=== PATIENT | female | born 1985 | race Caucasian/White ===

== ENCOUNTER 2022-03-20 18:46 | Emergency (ER) | payer MEDICAID, SELFPAY ==
[2022-03-20 19:04] VITALS: BP 123/72; BP 160/88; PULSE 107; PULSE 90; RESP 16; TEMP 36.3; O2SAT 97; BMI 24.3
--- NOTE | 2022-03-20 19:34 | ED.ASTHMA ---
HPI - Asthma General Chief Complaint: Anxiety Stated Complaint: ANXIETY S/P EATING MUSHROOMS PER EMS Time Seen by Provider: 03/20/22 20:31 Source: patient, family (Significant other at bedside) and EMS Mode of arrival: EMS Limitations: no limitations History of Present Illness HPI Narrative: 36yoF with PMHx of asthma presenting to the ED with complaints of cough and wheezing that started prior to arrival. She initially came by EMS after she ate some shrooms and was having some anxiety from it. She denies any fevers, chest pain, dyspnea on exertion, abdominal pain or any other symptoms complaints or concerns at this time. MD complaint: asthma attack and wheezing Onset (ago): hour(s) (Prior to arrival) Severity: mild Context: other (After taking shrooms) Associated symptoms: dry cough (/wheezing) Asthma History: childhood onset Treatments Prior to Arrival: inhaled bronchodilator Related Data Current Asthma Therapy: inhaled bronchodilator Previous Rx's Medication Instructions Recorded prednisone 20 mg tablet 40 mg PO DAILY 5 days #10 tabs 03/20/22 Allergies Allergy/AdvReac Type Severity Reaction Status Date / Time No Known Allergies Allergy Verified 03/20/22 19:36 Review of Systems Review of Systems: Constitutional : denies med noncompliance, no history of PE or DVT, denies recent travel, No Fever, No Chills ENT/Mouth : No Hoarseness, No sore throat, No Rhinorrhea, No Nasal congestion, No Sinus Pressure, No Ear Pain, No stridor, Eyes: No Redness, No Discharge, No Vision Changes Cardiovascular : No Chest Pain, No SOB, No Dyspnea on Exertion, No Edema, no pleurisy, Respiratory : + Cough, + wheezing, No Sputum, no stridor, no hemoptysis, Gastrointestinal : No Nausea, No Vomiting, No Diarrhea, No abdominal Pain Genitourinary : No Dysuria, No Hematuria Musculoskeletal : No joint pain/swelling, No Myalgias Extremities: no extremity swelling /pain Skin : No rash, no itching, no swelling Neuro : No Weakness, No Numbness, No Headache, No Dizziness, No Paresthesias Psych : + anxiety, depression Heme/Lymph: No Bruising, No Bleeding Endocrine : No Polyuria, No Polydipsia Yes all other systems are reviewed and are negative PMFSH Past Medical History Attestation statement: The following information was validated with the patient. Source: old records reviewed, obtained from family and nursing notes reviewed Social History Social History Advance Directives: No Advance Directives Information Provided: No Physical Exam Vital Signs: Vital Signs: Last Vital Signs Temp 97.3 F 03/20/22 19:04 Pulse 107 H 03/20/22 19:04 Resp 16 03/20/22 19:04 BP 123/72 03/20/22 19:04 Pulse Ox 97 03/20/22 19:04 O2 Del Method 03/20/22 19:04 BMI result Body Mass Index 24.3 vital signs have been reviewed Blood pressure normal. Heart rate 107. Respiration normal. Oxygen saturation normal. Appearance: Alert. Oriented X3. No acute distress. Head: Normal external exam. Normocephalic. Atraumatic. Eyes: PERRLA. EOMI. Conjunctiva and sclera normal. Eyelids normal. ENT: EAC normal. TM's Normal. Pharynx normal. Uvula midline. Moist mucous membranes. No trismus noted. No drooling noted. No muffled voice noted. No stridor noted. Patient tolerating secretions well. Neck: Normal inspection. Neck supple. FROM. No adenopathy. Thyroid Normal. No meningeal signs. No neck mass noted. CVS: Normal heart rate and rhythm. Heart sound normal. Pulses normal throughout. No murmurs/rales/gallops. Respiratory: No respiratory distress. Painless inspiration. Breath sounds normal. No wheezes/rales/rhonchi noted. Chest nontender. No accessory muscle usage noted or decreased air movement noted. Normal chest excursions noted. Abdomen: Soft and nontender. Bowel sounds normal in all 4 quadrants. No distention noted. No organomegaly noted. No visible injury noted. Back: No CVA tenderness. Full range of motion noted. No rashes/lesion/induration/fluctuance or signs of infection noted. Skin: Skin warm and dry. Normal skin color. Normal skin turgor. No rashes/lesions/lacerations noted. Extremities: No lower extremity edema. Extremities exhibit normal range of motion. Extremities nontender. Neuro: Oriented X 3. No motor deficit. No sensory deficit. Reflexes normal. Normal steady gait. No focal neuro deficits noted. Vascular: + radial pulses/+ 2 distal pedal pulses/+2 dorsalis pedis b/l. Normal cap refill. No cyanosis noted to upper extremity nails and lower extremity toes nails. Course Course Course Narrative: ZHEN- 19:35PM - 36yoF with PMHx of asthma presenting to the ED with complaints of cough and wheezing that started prior to arrival. She initially came by EMS after she ate some stones and was having some anxiety from it. She denies any fevers, chest pain, dyspnea on exertion, abdominal pain or any other symptoms complaints or concerns at this time. Plan: Will obtain COVID/RSV/flu swab, chest x-ray. Provide 60 mg of prednisone and 4 puffs of albuterol inhaler. Reevaluation(s) Reevaluation #1: Patient refused COVID/RSV/flu swab and chest x-ray. Reports she feels much better after the albuterol inhaler 4 puffs and the 60 mg of prednisone. Denies any SI or HI or auditory or visual hallucination. Reports that she has a sober ride home. Requesting to go home. Therefore at this time will DC home with instructions return if any new worsening symptoms and a 5 day course of prednisone. Patient understands agrees with this plan. Time: 20:52 Medications Administered Discontinued Medications Generic Name Dose Route Start Last Admin Trade Name Clarissa PRN Reason Stop Dose Admin Albuterol Sulfate 4 puff 03/20/22 19:36 03/20/22 20:02 Albuterol Sulfate 90 Mcg 8 Gm Inhaler INHALE 03/20/22 19:37 3 puff ONCE ONE Administration Prednisone 60 mg 03/20/22 19:36 03/20/22 20:02 Prednisone 20 Mg Tablet PO 03/20/22 19:37 60 mg ONCE ONE Administration Medical Decision Making Independent Historian Clinical information obtained from an independent historian. History obtained from or confirmed by: Spouse Prescription Management I considered prescription management with: Other (Steroids prednisone) Discharge Plan Discharge Clinical Impression: Acute anxiety, Asthma exacerbation Patient Disposition: Home, Self-Care Instructions: Asthma (ED), Anxiety (ED) Prescriptions: New prednisone 20 mg tablet 40 mg PO DAILY 5 Days Qty: 10 0RF Referrals: Uvaldo Mace MD [Primary Care Provider] - 2 days
[2022-03-20] MEDS: Albuterol Sulfate 90 MCG 8 GM INHALER 4 PUFF INHALE (20:02)
[2022-03-20] MEDS: predniSONE 20 MG TABLET 60 MG PO (20:02)
== END 2022-03-20 20:50 | disposition home or self-care (01) ==
PROVIDERS: Emergency Provider Internal Medicine; PCP Internal Medicine
DX: F41.9 Anxiety disorder, unspecified (principal); J45.901 Unspecified asthma with (acute) exacerbation
CPT/HCPCS: 99282; 99283; 99284

== ENCOUNTER 2022-12-24 03:44 | Inpatient (IN) | payer OTHER, SELFPAY ==
[2022-12-24] VITALS (8 sets, daily range): BP systolic 121–144; BP diastolic 73–90; PULSE 99–126; RESP 12–22; TEMP 36.8–37.2; O2SAT 96–99; BMI 30.9; BMI 34.1; BMI 32.0
--- NOTE | 2022-12-24 03:54 | ECG_ITS ---
Test Reason : MITCHD Blood Pressure : / mmHG Vent. Rate : 113 BPM Atrial Rate : 113 BPM P-R Int : 140 ms QRS Dur : 076 ms QT Int : 320 ms P-R-T Axes : 056 076 051 degrees QTc Int : 438 ms Sinus tachycardia RSR' or QR pattern in V1 suggests right ventricular conduction delay Otherwise normal ECG No previous ECGs available Referred By: Generic ED Physician Electronically Signed By:SHANEKA ZUNIGA MD
--- NOTE | 2022-12-24 04:36 | PC.NURSE ---
pt rabia from home reporting onset of chest pain since 630pm yesterday. pt reports she had a drink around 630pm and she gets similar symptoms due to withdrawl. pt currently reporting midsternal chest pain and right and left sided abdominal pain. pt denies n/v/d. pt reports she used to drink a pint of liquor a day but has been trying to quit. pt sinus tachy on tele 106-108.
[2022-12-24 04:57] LABS: MANUAL DIFF FLAG NO
[2022-12-24 04:58] LABS: Basophils Absolute Auto 0.1 X10*3/uL (0.0-0.2); Basophils Percent Auto 0.8 % (0-2); Eosinophils Absolute Auto 0.1 X10*3/uL (0.0-0.4); Eosinophils Percent Auto 0.8 % (0-4); Hematocrit 41.1 % (37.0-47.0); Hemoglobin 14.2 g/dl (12.0-16.0); Imm Gran Abs Auto 0.01 X10*3/uL (0.00-0.03); Imm Gran Pct Auto 0.1 % (0.0-0.4); Lymphocytes Absolute Auto 2.1 X10*3/uL (1.2-4.9); Lymphocytes Percent Auto 25.9 % (20-40); Mean Corpuscular HGB Conc 34.5 g/dl (31.0-35.0); Mean Corpuscular Hemoglobin 29.7 pg (27.0-33.0); Mean Platelet Volume 8.7 fL (9.4-12.3); Monocytes Absolute Auto 0.9 X10*3/uL (0.1-1.2); Monocytes Percent Auto 10.7 % (2-11); Neutrophils Absolute Auto 4.9 x10*3/uL (2.0-8.3); Neutrophils Percent Auto 61.7 % (45-73); Platelet Count 259 X10*3/uL (160-400); Red Blood Count 4.78 X10*6/uL (4.20-5.50); Red Cell Distribution Width 13.5 % (11.0-16.0); White Blood Count 7.9 X10*3/uL (4.8-10.8)
[2022-12-24 05:14] LABS: Anion Gap 16 (12-20); Blood Urea Nitrogen 9 mg/dL (9-16); Calcium 9.3 mg/dL (8.4-10.2); Carbon Dioxide 19 mmol/L (22-29); Chloride 108 mmol/L (96-108); Creatinine Clr Calc Pharmacy 108.1; Estimated Glomerular Filt Rate > 60; Glucose Random 125 mg/dL (60-115); Potassium 3.9 mmol/L (3.3-5.1); Sodium 139 mmol/L (135-145)
[2022-12-24 05:23] LABS: Troponin-I High Sensitivity < 2.7 ng/L (<3.5-17.0)
[2022-12-24 05:41] LABS: Ethanol < 10 mg/dL
[2022-12-24] MEDS: LORazepam 1 MG TABLET 2 MG PO (06:01)
--- NOTE | 2022-12-24 06:07 | PC.NURSE ---
pt reporting increased anxiety at this time. pt medicated per apr. pt has lights dimmed at this time.
--- NOTE | 2022-12-24 06:58 | PC.NURSE ---
seizure precautions in place for possible etoh withdrawl.
--- NOTE | 2022-12-24 07:55 | ED.CHESTPAIN ---
HPI - Chest Pain General Chief Complaint: Chest Pain Stated Complaint: Chest pain Time Seen by Provider: 12/24/22 07:36 Source: patient and old records reviewed Mode of arrival: ambulatory Limitations: no limitations History of Present Illness HPI narrative: 37 yo female with hx of atrial tachycardia followed at [facility], ETOH abuse - relapsed two weeks ago no prior seizures who usually tapers at home, drinks about a pint of vodka over 2 to 3 days who presents with withdrawal symptoms of n/v and tachycardia and feeling chest pain since 6pm. Has had this before with withdrawal in the past. Not on OCPs. MD complaint: chest pain Onset (ago): day(s) (last night) Timing of current episode: episodic Prior episodes: Yes Onset: during rest Pain location: substernal Pain radiation: none Severity: mild Quality: tightness Relieving factors: nothing Exacerbating factors: other (withdrawal from alcohol) Context: other (hx of similar episodes with ETOH withdrawal ) Associated symptoms: nausea, vomiting and other (anxiety shakes palpitations) Treatment prior to arrival: none Related Data Previous Rx's Medication Instructions Recorded prednisone 20 mg tablet 40 mg (2 x 20 mg) PO DAILY 5 days 03/20/22 #10 tabs Allergies Allergy/AdvReac Type Severity Reaction Status Date / Time No Known Allergies Allergy Verified 12/24/22 03:53 Review of Systems Review of Systems: Constitutional : No Weight loss, No Fever, No Chills ENT/Mouth : No sore throat, No Rhinorrhea Eyes: No Eye Pain, No Swelling Cardiovascular : pos Chest Pain, no SOB, no Dyspnea on Exertion, No Orthopnea, No Edema, No Palpitations Respiratory : No Cough, No Sputum Gastrointestinal : pos Nausea, No Vomiting, No Diarrhea, No abdominal Pain, No Hematochezia, No Melena Genitourinary : No Dysuria, No Urinary Frequency Musculoskeletal : No joint pain, No Myalgias, No Joint Swelling Skin : No Skin Lesions, No rash Neuro : No Weakness, No Numbness, No Dizziness, No Headache Psych : pos Anxiety/Panic, No Depression All other systems reviewed and are negative [facility] Past Medical History Attestation statement: The following information was validated with the patient. Medical History Alcohol withdrawal Social History Social History Alcohol intake: current Alcohol intake frequency: a few times a month Smoked in Last 30 Days: No Use of substances other than those prescribed or required for medical reasons: No Advance Directives: No Advance Directives Information Provided: Yes Patient : No Physical Exam Vital Signs: Vital Signs: Last Vital Signs Temp 98.9 F 12/24/22 07:41 Pulse 99 12/24/22 08:43 Resp 16 12/24/22 08:43 BP 128/83 12/24/22 07:41 Pulse Ox 96 12/24/22 07:41 O2 Del Method Room Air 12/24/22 07:41 BMI result Body Mass Index 30.9 Appearance: Alert. Oriented X3. No acute distress. Eyes: Pupils equal, round and reactive to light. ENT: Pharynx normal. Neck: Normal inspection. Neck supple. CVS: tachcyardic heart rate and rhythm. Pulses normal. Respiratory: No respiratory distress. Breath sounds normal. Abdomen: Soft and nontender. Skin: Skin warm and dry. Normal skin color. Normal skin turgor. Extremities: No lower extremity edema. No calf ttp Neuro: Oriented X 3. No motor deficit. No sensory deficit. Course Course Course Narrative: still shaky and tremulous will admit for further management and star on phenobarb protocol Medications Administered Discontinued Medications Generic Name Dose Route Start Last Admin Trade Name Clarissa PRN Reason Stop Dose Admin Thiamine HCl 200 mg/ Sodium 102 mls @ 204 mls/hr 12/24/22 08:00 12/24/22 08:42 Chloride IV 12/24/22 08:29 Infused ONCE ONE Infusion Sodium Chloride 1,000 mls @ 999 mls/hr 12/24/22 08:00 12/24/22 08:04 Ns IV 12/24/22 09:00 999 mls/hr .Q1H1M DAMIEN Administration Lorazepam 2 mg 12/24/22 05:57 12/24/22 06:01 Lorazepam 1 Mg Tablet PO 12/24/22 05:58 2 mg ONCE ONE Administration Lorazepam 2 mg 12/24/22 08:00 12/24/22 08:06 Lorazepam 2 Mg/Ml Vial IVPUSH 12/24/22 08:01 2 mg ONCE ONE Administration Medical Decision Making Medical Decision Making MDM Narrative: 37 yo female with hx of atrial tachycardia followed at [facility], ETOH abuse here with withdrawal symptoms - shaky, tachycardia with n/v at this time will need basic labs, EKG, I suspect all due to ETOH, she is tachycardic but has hx of this and no dyspnea or hypoxia/signs of DVT not on OCPs to suggest VTE. Will give IV ativan and reassess. She does not want rehab or detox at this time. Differential Diagnosis Differential Diagnoses: The differential diagnosis associated with the presentation includes etoh withdrawal, lyte abnormality Admission/Observation Consideration of admission/observation: Escalation of care including admission/observation considered admit for ETOH withdrawal and phenobarb protocol didn't feel like she could manage with PO medications at home that were offered Consult Healthcare Provider Management of the patient was discussed with: Hospitalist (agrees to admit) Lab Data MDM Lab Attestation statement: I reviewed the patient's lab results. 12/24/22 04:53 12/24/22 04:53 Labs: Lab Results 12/24/22 Range/Units 04:53 WBC 7.9 (4.8-10.8) X10*3/uL RBC 4.78 (4.20-5.50) X10*6/uL Hgb 14.2 (12.0-16.0) g/dl Hct 41.1 (37.0-47.0) % MCV 86.0 (80.0-98.0) fL MCH 29.7 (27.0-33.0) pg MCHC 34.5 (31.0-35.0) g/dl RDW 13.5 (11.0-16.0) % Plt Count 259 (160-400) X10*3/uL MPV 8.7 L (9.4-12.3) fL Immature Gran % (Auto) 0.1 (0.0-0.4) % Neut % (Auto) 61.7 (45-73) % Lymph % (Auto) 25.9 (20-40) % [place] % (Auto) 10.7 (2-11) % Eos % (Auto) 0.8 (0-4) % Baso % (Auto) 0.8 (0-2) % Lymph # (Auto) 2.1 (1.2-4.9) X10*3/uL [place] # (Auto) 0.9 (0.1-1.2) X10*3/uL Eos # (Auto) 0.1 (0.0-0.4) X10*3/uL Baso # (Auto) 0.1 (0.0-0.2) X10*3/uL Abs Immat Gran (auto) 0.01 (0.00-0.03) X10*3/uL Absolute Neuts (auto) 4.9 (2.0-8.3) x10*3/uL Absolute Nucleated RBC 0.000 (0.0-0.012) X10*3/uL Nucleated RBC % (auto) 0.0 (0.0-0.2) /100WBC Sodium 139 (135-145) mmol/L Potassium 3.9 (3.3-5.1) mmol/L Chloride 108 (96-108) mmol/L Carbon Dioxide 19 L (22-29) mmol/L Anion Gap 16 (12-20) BUN 9 (9-16) mg/dL Creatinine 0.75 (0.5-1.4) mg/dL Estim Creat Clear Calc 108.1 Estimated GFR > 60 Random Glucose 125 H (60-115) mg/dL Calcium 9.3 (8.4-10.2) mg/dL Magnesium 2.0 (1.6-2.6) mg/dL Total Bilirubin 0.9 (0.0-1.0) mg/dL Direct Bilirubin 0.3 (0.0-0.5) mg/dL AST 30 (5-31) U/L ALT 37 H (0-31) U/L Alkaline Phosphatase 48 (39-117) U/L Troponin I High Sens < 2.7 (<3.5-17.0) ng/L Total Protein 7.4 (6.5-8.0) g/dL Albumin 4.3 (3.5-5.0) g/dL Ethyl Alcohol < 10 mg/dL Independent Interpretation I performed an independent interpretation of an: EKG Interpretation: Rate: 113 Rhythm: sinus tachycardia [place]: normal Normal P waves. Normal RANGEL. Normal QRS complex. ST T wave : normal no IVORY, inverted t wave V1 qTC: normal prior studies: no prior but no acute ischemia The study has been interpreted contemporaneously by me. . Discharge Plan Discharge Clinical Impression: Atypical chest pain Nausea & vomiting Qualifiers: Vomiting type: unspecified Qualified Code(s): R11.2 - Nausea with vomiting, unspecified Alcohol withdrawal Qualifiers: Complication of substance-induced condition: with unspecified complication Qualified Code(s): F10.939 - Alcohol use, unspecified with withdrawal, unspecified Patient Disposition: Admitted As Inpatient Prescriptions: No Action prednisone 20 mg tablet 40 mg PO DAILY 5 Days Qty: 10 0RF
[2022-12-24] MEDS: 0.9 % Sodium Chloride 1,000 ML 999 ML IV (08:04)
[2022-12-24] MEDS: Thiamine HCL 200 MG in 0.9 % Sodium Chloride 100 ML 204 MG IV (08:06)
[2022-12-24] MEDS: LORazepam 2 MG/ML VIAL IVPUSH (08:06)
[2022-12-24 08:26] LABS: Alanine Aminotransferase 37 U/L (0-31); Albumin Level 4.3 g/dL (3.5-5.0); Alkaline Phosphatase 48 U/L (39-117); Aspartate Amino Transferase 30 U/L (5-31); Bilirubin Direct 0.3 mg/dL (0.0-0.5); Bilirubin Total 0.9 mg/dL (0.0-1.0); Total Protein 7.4 g/dL (6.5-8.0)
--- NOTE | 2022-12-24 10:34 | PHA.MEDREC ---
Pharmacy Consult ? Medication Reconciliation Pharmacy has completed the medication reconciliation. Spoke to patient at bedside, states she takes her diltiazem only as needed for tachycardia. Also notes taking pantoprazole daily.
[2022-12-24] MEDS: PHENobarbitaL sodium 130 MG/ML IM ONCE 220 MG IM (10:58)
--- NOTE | 2022-12-24 11:44 | PM.IMHP ---
History of Present Illness Date of Service: 12/24/22 Attending physician on admission: Wai Andres Chief Complaint: withdrawal This is a 37-year-old female with history of tachycardia, alcohol use disorder who presents to the emergency department with palpitations and alcohol withdrawal symptoms. She states that she had been sober for approximately 2 months by taking naltrexone prescribed by her PCP. Approximately 1 week ago she relapsed a began drinking vodka, she states she drink 5 L of vodka in past 1 week. Her last drink was at 18:00 on the evening prior to arrival and her alcohol level was undetectable on arrival. She does have history of alcohol withdrawal but denies any seizures in past. Her symptoms of racing heart have resolved at this time she was noted to be tachycardic. She reports some recent abdominal pain and nausea, no epigastric abdominal pain she describes it more on bilateral sides of her abdomen. No vomiting for the past several days and no diarrhea. Her lab work was relatively unremarkable. She was started on phenobarbital protocol in the emergency department for treatment of alcohol withdrawal the decision was made to admit her to the hospital for further management. Review of Systems Review of Systems: Yes all other systems are reviewed and are negative Constitutional: Constitutional: Denies chills and Denies fever(s) ENT: Denies dizziness Cardiovascular: Cardiovascular: Denies chest pain, Denies palpitations and Denies dyspnea Respiratory: Respiratory: Denies cough and Denies dyspnea Gastrointestinal: Gastrointestinal: Reports abdominal pain, Reports nausea and Denies vomiting Neurologic: Denies dizziness Endocrine: Endocrine: Denies palpitations [facility] Medical History (Updated 12/24/22 @ 11:54 by TRISH Yap) Asthma Anxiety and depression Tachycardia Alcohol withdrawal Functional capacity: independent ambulation Family History (Updated 12/24/22 @ 11:50 by TRISH Yap) Mother Alcohol use disorder Maternal Grandfather Alcohol use disorder Social History Alcohol intake: current Alcohol intake frequency: a few times a month Smoked in Last 30 Days: No Use of substances other than those prescribed or required for medical reasons: No Advance Directives: No Advance Directives Information Provided: Yes Patient : No Meds Allergies Allergy/AdvReac Type Severity Reaction Status Date / Time No Known Allergies Allergy Verified 12/24/22 03:53 Active Medications: Current Medications Acetaminophen (Acetaminophen 325 Mg Tablet) 650 mg PO Q6H PRN PRN Reason: Pain, Mild (Pain Scale 1-3) Docusate Sodium (Docusate Sodium 100 Mg Capsule) 100 mg PO DAILY PRN PRN Reason: Constipation Enoxaparin Sodium (Enoxaparin Sodium 40 Mg/0.4 Ml Syringe) 40 mg SUBCUT Q24H DAMIEN Folic Acid (Folic Acid 1 Mg Tablet) 1 mg PO DAILY [facility] Lactated Ringer's (Lr) 1,000 mls @ 100 mls/hr IVCONT .Q10H DAMIEN Stop: 12/24/22 21:44 Ondansetron HCl (Ondansetron Hcl 4 Mg/2 Ml Vial) 4 mg IVPUSH Q8H PRN PRN Reason: Nausea and Vomiting Pharmacy Consult (Consult Rx Etoh Phenob Im/Po) 1 each MISCELLANE ONCE PRN; Protocol PRN Reason: Consult order Phenobarbital (Phenobarbital 15 Mg Tablet) 45 mg PO BID [facility]; Protocol Stop: 12/26/22 09:01 Phenobarbital (Phenobarbital 30 Mg Tablet) 30 mg PO BID [facility]; Protocol Stop: 12/28/22 09:01 Phenobarbital (Phenobarbital 30 Mg Tablet) 30 mg PO DAILY [facility]; Protocol Stop: 12/30/22 09:01 Phenobarbital Sodium (Phenobarbital Sodium 130 Mg/Ml Vial Im Q3hx2) 165 mg IM Q3H [facility]; Protocol Stop: 12/24/22 16:31 Sodium Chloride (0.9 % Sodium Chloride Flush 3 Ml Syringe) 3 ml IVFLUSH QSHIFT [facility] Thiamine HCl (Thiamine Hcl 100 Mg Tablet) 100 mg PO DAILY [facility] Home Medications Medication Instructions Recorded Confirmed Last Taken Type albuterol sulfate 90 mcg/actuation 1 inh inhalation Q4H PRN Shortness 12/24/22 12/24/22 Unknown History aerosol inhaler Of Breath Or Wheezing diltiazem HCl 180 mg 180 mg PO DAILY PRN Tachycardia 12/24/22 12/24/22 Unknown History tablet,extended release 24 hr ([place]) pantoprazole 40 mg tablet,delayed 40 mg PO DAILY 12/24/22 12/24/22 12/23/22 History release Physical Exam Vital Signs and Narrative: Vital Signs: Last Vital Signs Temp 98.9 F 12/24/22 07:41 Pulse 119 H 12/24/22 10:02 Resp 22 H 12/24/22 10:02 BP 126/83 12/24/22 10:02 Pulse Ox 97 12/24/22 10:02 O2 Del Method Room Air 12/24/22 10:02 BMI result Body Mass Index 34.1 Const: General: cooperative, comfortable, alert and awake Nutritional Appearance: overweight Orientation/consciousness: patient oriented x3 Resp: Effort & Inspection: normal respiratory effort, able to speak in complete sentences, no respiratory distress and no use of accessory muscles Auscultation: clear to auscultation bilaterally Cardio: Rate: tachycardic GI: Inspection: No distended Palpation (GI): Soft to palpation, nontender and no guarding Neuro: General: patient oriented x3, moves all extremities and CN's II-XI intact bilaterally Extrem: General: Yes no pedal edema Results Labs 12/24/22 04:53 12/24/22 04:53 Labs: Laboratory Results - last 24 hr 12/24/22 04:53 MCV 86.0 MCH 29.7 MCHC 34.5 RDW 13.5 Plt Count 259 MPV 8.7 L Immature Gran % (Auto) 0.1 Neut % (Auto) 61.7 Lymph % (Auto) 25.9 [place] % (Auto) 10.7 Eos % (Auto) 0.8 Baso % (Auto) 0.8 Lymph # (Auto) 2.1 [place] # (Auto) 0.9 Eos # (Auto) 0.1 Baso # (Auto) 0.1 Abs Immat Gran (auto) 0.01 Absolute Neuts (auto) 4.9 Absolute Nucleated RBC 0.000 Nucleated RBC % (auto) 0.0 Anion Gap 16 Estim Creat Clear Calc 108.1 Estimated GFR > 60 Random Glucose 125 H Calcium 9.3 Magnesium 2.0 Total Bilirubin 0.9 Direct Bilirubin 0.3 AST 30 ALT 37 H Alkaline Phosphatase 48 Total Protein 7.4 Albumin 4.3 Ethyl Alcohol < 10 Assessment and Plan (1) Alcohol withdrawal: Qualifiers: Complication of substance-induced condition: with unspecified complication Qualified Code(s): F10.939 - Alcohol use, unspecified with withdrawal, unspecified Status: Acute Plan This is a 37 year old female with history of alcohol use disorder with history of alcohol withdrawal, pancreatitis, asthma, anxiety, tachycardia, depression who presents to the emergency department with palpitations and symptoms of alcohol withdrawal. Acute alcohol withdrawal h/o previous alcohol withdrawal no history alcohol withdrawal seizures Phenobarbital protocol initiated in the emergency department Supplementation with thiamine, folic acid Symptomatic support for nausea, continue PPI Addiction medicine evaluation history of tachycardia, unspecified resume home dose of diltiazem which she reportedly takes prn for tachycardia asthma, unspecified with no acute exacerbation Continue home inhalers as needed DVT prophylaxis -Lovenox Code status -full code Attending -Dr. Andres Patient will likely require 2 midnight stay in the hospital for management of acute alcohol withdrawal rhythm acquiring a phenobarbital and close cardiac monitoring Quality Stroke Does the patient have a stroke diagnosis?: No VTE Prior VTE?: No VTE Risk Level:: Medical - moderate - high VTE Device Contraindication: N/A - Device Ordered VTE Drug Contraindication: N/A - Med Ordered
[2022-12-24] MEDS: PHENobarbitaL sodium 130 MG/ML VIAL IM Q3Hx2 165 MG IM ×2 (13:54→17:14)
[2022-12-24] MEDS: Enoxaparin Sodium 40 MG/0.4 ML SYRINGE SUBCUT (13:54)
[2022-12-24] MEDS: Lactated Ringers 1,000 ML 100 ML IVCONT (13:54)
[2022-12-24] MEDS: Folic Acid 1 MG TABLET PO (13:54)
[2022-12-24 17:25] LABS: Appearance Urine Cloudy; Color Urine Dark Yellow; Glucose Urine UA Negative (Negative); Leukocyte Esterase Urine Negative (Negative); Nitrite Urine Negative (Negative); Specific Gravity - Urine >= 1.030 (1.005-1.025); UMIC TRIGGER UACC YES; Urine Blood Negative (Negative); Urine Ketones 15 mg/dL (Negative); Urine Protein 30 (1+) mg/dL (Neg-Trace)
[2022-12-24 17:38] LABS: Amphetamine Screen Urine Not Detected (Not Detect); Barbiturates, Urine POSITIVE (Not Detect); Benzodiazepines Screen Urine Not Detected (Not Detect); Cannabinoid Screen Urine POSITIVE (Not Detect); Cocaine Screen Urine Not Detected (Not Detect); Fentanyl, urine Not Detected (Not Detect); Opiate Screen Urine Not Detected (Not Detect); Phencyclidine Screen Urine Not Detected (Not Detect)
[2022-12-24 18:06] LABS: Bacteria Urine Trace (None Seen); Hyaline Casts Urine 0-2 /LPF (0-2); RBC Urine >20 /HPF (0-2); WBC Urine 0-5 /HPF (0-5)
[2022-12-24] MEDS: dilTIAZem HCL CD 180 MG CAP.ER.24H PO (19:36)
[2022-12-24] MEDS: PHENobarbitaL 15 MG TABLET 45 MG PO (22:38)
[2022-12-24] MEDS: 0.9 % Sodium Chloride Flush 3 ML SYRINGE IVFLUSH (22:40)
[2022-12-24] MEDS: ondansetron HCL 4 MG/2 ML VIAL IVPUSH (23:13)
[2022-12-24] MEDS: Acetaminophen 325 MG TABLET 650 MG PO (23:13)
[2022-12-25] VITALS (7 sets, daily range): BP systolic 121–143; BP diastolic 77–93; PULSE 94–101; RESP 14–20; TEMP 35.7–37; O2SAT 95–98
[2022-12-25] MEDS: Omeprazole 20 MG CAPSULE.DR PO (05:15)
[2022-12-25] MEDS: Acetaminophen 325 MG TABLET 650 MG PO ×2 (08:25→19:45)
[2022-12-25] MEDS: PHENobarbitaL 15 MG TABLET 45 MG PO ×2 (08:26→19:45)
[2022-12-25] MEDS: Folic Acid 1 MG TABLET PO (08:26)
[2022-12-25] MEDS: Thiamine HCL 100 MG TABLET PO (08:26)
[2022-12-25] MEDS: 0.9 % Sodium Chloride Flush 3 ML SYRINGE IVFLUSH ×2 (08:26→16:16)
[2022-12-25 10:18] LABS: MANUAL DIFF FLAG NO
[2022-12-25 10:21] LABS: Basophils Percent Auto 0.6 % (0-2); Eosinophils Absolute Auto 0.2 X10*3/uL (0.0-0.4); Eosinophils Percent Auto 4.4 % (0-4); Hemoglobin 12.4 g/dl (12.0-16.0); Imm Gran Abs Auto 0.01 X10*3/uL (0.00-0.03); Imm Gran Pct Auto 0.2 % (0.0-0.4); Lymphocytes Absolute Auto 1.5 X10*3/uL (1.2-4.9); Mean Corpuscular HGB Conc 34.4 g/dl (31.0-35.0); Mean Corpuscular Hemoglobin 29.7 pg (27.0-33.0); Mean Corpuscular Volume 86.3 fL (80.0-98.0); Mean Platelet Volume 8.7 fL (9.4-12.3); Monocytes Absolute Auto 0.6 X10*3/uL (0.1-1.2); Monocytes Percent Auto 11.4 % (2-11); Neutrophils Absolute Auto 3.1 x10*3/uL (2.0-8.3); Neutrophils Percent Auto 56.4 % (45-73); Platelet Count 203 X10*3/uL (160-400); Red Blood Count 4.17 X10*6/uL (4.20-5.50); Red Cell Distribution Width 13.4 % (11.0-16.0); White Blood Count 5.5 X10*3/uL (4.8-10.8)
[2022-12-25 10:35] LABS: Alanine Aminotransferase 25 U/L (0-31); Albumin Level 3.7 g/dL (3.5-5.0); Alkaline Phosphatase 39 U/L (39-117); Anion Gap 10 (12-20); Aspartate Amino Transferase 24 U/L (5-31); Bilirubin Direct 0.2 mg/dL (0.0-0.5); Bilirubin Total 0.6 mg/dL (0.0-1.0); Blood Urea Nitrogen 6 mg/dL (9-16); Calcium 8.4 mg/dL (8.4-10.2); Carbon Dioxide 22 mmol/L (22-29); Chloride 108 mmol/L (96-108); Creatinine Clr Calc Pharmacy 98.3; Estimated Glomerular Filt Rate > 60; Glucose Random 95 mg/dL (60-115); Lipase 65 U/L (8-78); Potassium 3.6 mmol/L (3.3-5.1); Sodium 136 mmol/L (135-145); Total Protein 6.1 g/dL (6.5-8.0)
[2022-12-25] MEDS: Morphine Sulfate 2 MG/ML CARTRIDGE IVPUSH ×3 (11:51→20:44)
[2022-12-25] MEDS: Enoxaparin Sodium 40 MG/0.4 ML SYRINGE SUBCUT (11:51)
[2022-12-25] MEDS: Famotidine/PF 20 MG/2 ML VIAL IVPUSH (11:51)
--- NOTE | 2022-12-25 13:56 | P.PNIM_ITS ---
Subjective Subjective Date of Service: 12/25/22 Interval History: seen and examined this morning follow up for etoh withdrawal reporting some abdominal pain on bilateral sides of abdomen and diarrhea reports GI bug since tuesday with nausea and diarrhea. no blood in stools, no fever or chills Review of Systems Review of Systems: Yes all other systems are reviewed and are negative Constitutional Constitutional: Denies chills and Denies fever(s) Cardiovascular Cardiovascular: Denies chest pain and Denies dyspnea Respiratory Respiratory: Denies cough and Denies dyspnea Gastrointestinal Gastrointestinal: Reports abdominal pain, Reports diarrhea, Denies nausea and Denies vomiting Physical Exam 2 Vital Signs: Vital Signs: Last Vital Signs Temp 98.0 F 12/25/22 12:00 Pulse 95 12/25/22 12:00 Resp 14 12/25/22 12:00 BP 127/82 12/25/22 12:00 Pulse Ox 96 12/25/22 12:00 O2 Del Method Room Air 12/25/22 12:00 BMI result Body Mass Index 32.0 Const: General: cooperative, comfortable, alert and awake Nutritional Appearance: overweight Orientation/consciousness: patient oriented x3 Resp: Effort & Inspection: normal respiratory effort, able to speak in complete sentences, no respiratory distress and no use of accessory muscles A uscultation: clear to auscultation bilaterally GI: Other: mild tenderness mostly b/l sides of abdomen Inspection: No distended Palpation (GI): Soft to palpation and no guarding Neuro: General: patient oriented x3, moves all extremities and CN's II-XI intact bilaterally Extrem: General: Yes no pedal edema Objective Data Active Medications Acetaminophen (Acetaminophen 325 Mg Tablet) 650 mg PO Q6H PRN PRN Reason: Pain, Mild (Pain Scale 1-3) Last Admin: 12/25/22 08:25 Dose: 650 mg Documented By: CARLINE Albuterol Sulfate (Albuterol Sulfate 90 Mcg 8 Gm Inhaler) 1 puff INHALE Q4H PRN PRN Reason: Shortness Of Breath Or Wheezing Diltiazem HCl (Diltiazem Hcl Cd 180 Mg Cap.Er.24h) 180 mg PO DAILY PRN; Protocol PRN Reason: Tachycardia Last Admin: 12/24/22 19:36 Dose: 180 mg Documented By: ESHA Docusate Sodium (Docusate Sodium 100 Mg Capsule) 100 mg PO DAILY PRN PRN Reason: Constipation Enoxaparin Sodium (Enoxaparin Sodium 40 Mg/0.4 Ml Syringe) 40 mg SUBCUT Q24H [facility] Last Admin: 12/25/22 11:51 Dose: 40 mg Documented By: CARLINE Famotidine (Famotidine/Pf 20 Mg/2 Ml Vial) 20 mg IVPUSH DAILY [facility] Last Admin: 12/25/22 11:51 Dose: 20 mg Documented By: CARLINE Folic Acid (Folic Acid 1 Mg Tablet) 1 mg PO DAILY [facility] Last Admin: 12/25/22 08:26 Dose: 1 mg Documented By: CARLINE Morphine Sulfate (Morphine Sulfate 2 Mg/Ml Cartridge) 2 mg IVPUSH Q4H PRN; Protocol PRN Reason: Pain, Severe (Pain Scale 7-10) Last Admin: 12/25/22 11:51 Dose: 2 mg Documented By: CARLINE Omeprazole (Omeprazole 20 Mg Capsule.Dr) 20 mg PO DAILY@0630 [facility] Last Admin: 12/25/22 05:15 Dose: 20 mg Documented By: JERALD Ondansetron HCl (Ondansetron Hcl 4 Mg/2 Ml Vial) 4 mg IVPUSH Q8H PRN PRN Reason: Nausea and Vomiting Last Admin: 12/24/22 23:13 Dose: 4 mg Documented By: JERALD Pharmacy Consult (Consult Rx Etoh Phenob Im/Po) 1 each MISCELLANE ONCE PRN; Protocol PRN Reason: Consult order Phenobarbital (Phenobarbital 15 Mg Tablet) 45 mg PO BID [facility]; Protocol Stop: 12/26/22 09:01 Last Admin: 12/25/22 08:26 Dose: 45 mg Documented By: CARLINE Phenobarbital (Phenobarbital 30 Mg Tablet) 30 mg PO BID [facility]; Protocol Stop: 12/28/22 09:01 Phenobarbital (Phenobarbital 30 Mg Tablet) 30 mg PO DAILY [facility]; Protocol Stop: 12/30/22 09:01 Sodium Chloride (0.9 % Sodium Chloride Flush 3 Ml Syringe) 3 ml IVFLUSH QSHIFT [facility] Last Admin: 12/25/22 08:26 Dose: 3 ml Documented By: CARLINE Thiamine HCl (Thiamine Hcl 100 Mg Tablet) 100 mg PO DAILY [facility] Last Admin: 12/25/22 08:26 Dose: 100 mg Documented By: CARLINE Labs 12/25/22 10:15 12/25/22 10:15 Labs: Laboratory Results - last 24 hr 12/24/22 12/24/22 12/25/22 17:11 17:12 10:15 MCV 86.3 MCH 29.7 MCHC 34.4 RDW 13.4 Plt Count 203 MPV 8.7 L Immature Gran % (Auto) 0.2 Neut % (Auto) 56.4 Lymph % (Auto) 27.0 [place] % (Auto) 11.4 H Eos % (Auto) 4.4 H Baso % (Auto) 0.6 Lymph # (Auto) 1.5 [place] # (Auto) 0.6 Eos # (Auto) 0.2 Baso # (Auto) 0.0 Abs Immat Gran (auto) 0.01 Absolute Neuts (auto) 3.1 Absolute Nucleated RBC 0.000 Nucleated RBC % (auto) 0.0 Anion Gap 10 L Estim Creat Clear Calc 98.3 Estimated GFR > 60 Random Glucose 95 Calcium 8.4 D Total Bilirubin 0.6 Direct Bilirubin 0.2 AST 24 ALT 25 Alkaline Phosphatase 39 Total Protein 6.1 L Albumin 3.7 Lipase 65 Urine Color Dark Yellow Urine Appearance Cloudy Urine pH 6.0 Ur Specific [place] >= 1.030 H Urine Protein 30 (1+) H Urine Glucose (UA) Negative Urine Ketones 15 Urine Blood Negative Urine Nitrite Negative Ur Leukocyte Esterase Negative Urine RBC >20 H Urine WBC 0-5 Ur Squamous Epith Cells 6-10 Urine Bacteria Trace Hyaline Casts 0-2 Urine Opiates Screen Not Detected Urine Fentanyl Screen Not Detected Ur Barbiturates Screen POSITIVE H Ur Phencyclidine Scrn Not Detected Ur Amphetamines Screen Not Detected U Benzodiazepines Scrn Not Detected Urine Cocaine Screen Not Detected U Marijuana (THC) Screen POSITIVE H Assessment and Plan (1) Alcohol withdrawal: Status: Acute Plan This is a 37 year old female with history of alcohol use disorder with history of alcohol withdrawal, pancreatitis, asthma, anxiety, tachycardia, depression who presents to the emergency department with palpitations and symptoms of alcohol withdrawal. Acute alcohol withdrawal h/o previous alcohol withdrawal no history alcohol withdrawal seizures Continue phenobarbital protocol Supplementation with thiamine, folic acid low on [facility] Addiction medicine evaluation pending abdominal pain abdomen soft lipase, LFTs wnl if no improvement will consider CT diarrhea ?viral GI panel pending symptomatic support history of tachycardia, unspecified only takes home diltiazem if HR 130 or higher asthma, unspecified no acute exacerbation Continue home inhalers as needed DVT prophylaxis -Lovenox Code status -full code Attending -Dr. Fairchild ongoing stay for management of acute alcohol withdrawal rhythm acquiring a phenobarbital and close cardiac monitoring and abdominal pain/diarrhea Quality Stroke Does the patient have a stroke diagnosis?: No VTE Prior VTE?: No VTE Risk Level:: Medical - moderate - high VTE Device Contraindication: N/A - Device Ordered VTE Drug Contraindication: N/A - Med Ordered
--- NOTE | 2022-12-25 13:59 | MHC.RECOVRN ---
RN met with patient in room 461-1 for Addiction Medicine Consult for Alcohol Use Disorder. Patient is A+Ox3, pleasant. She reports feeling OK- but did have anxiety, some nausea, slight tremor, and a headache earlier in the day. CIWA= 4. Tolerating Phenobarbital 45mg PO well. Feels more calm. Does have abd pain- therefore will likely have CT scan if pain persists. Patient reports having her first drink at 23 y/o, but started having a dependency to it in her late 20's. She reports a history of recovery attempts with inpatient programs. She started herself back on Naltrexone recently. Script is managed by her PCP. She abstained from alcohol for 3 months until her relapse last week. She was drinking 1-2 pints of Mr. Elvis Fernández (mixed w/diet coke or OJ) per day just prior to this hospitalization. Last drink 12/23 around 6:30pm. She admits to having chest pain and high BP when she typically goes through withdrawal so when she started experiencing that, she came to the hospital. Her goal is to stop drinking. Discussed some recovery support options including inpatient or establishing as a patient in [facility]- however she verbalized hesitancy d/t having to miss work. 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 She became tearful stating her boyfriend doesn't know that she relapsed and she thinks he will leave her if she goes away to a detox program again. She expressed how guilty she felt. Support and empathetic listening provided. Encouraged her to have a conversation with him if/when she is ready. Encouraged her to establish a mental health care team- she reports she had a therapist but her insurance changed and she lost them. Patient in much better spirits toward the end of our visit. Would benefit from ongoing recovery support.
[2022-12-25 17:33] LABS: CDiff Gene PCR NEGATIVE (Negative)
[2022-12-26] VITALS: BP 151/82; PULSE 97; RESP 20; TEMP 36.2; O2SAT 98
[2022-12-26] MEDS: Morphine Sulfate 2 MG/ML CARTRIDGE IVPUSH ×3 (00:36→09:34)
[2022-12-26] MEDS: 0.9 % Sodium Chloride Flush 3 ML SYRINGE IVFLUSH ×2 (00:36→09:31)
[2022-12-26 03:44] VITALS: BP 130/86; PULSE 87; RESP 18; TEMP 36.1; O2SAT 98
[2022-12-26] MEDS: Acetaminophen 325 MG TABLET 650 MG PO (04:11)
[2022-12-26] MEDS: Omeprazole 20 MG CAPSULE.DR PO (05:47)
[2022-12-26 06:35] LABS: Anion Gap 11 (12-20); Blood Urea Nitrogen 10 mg/dL (9-16); Calcium 8.6 mg/dL (8.4-10.2); Carbon Dioxide 23 mmol/L (22-29); Chloride 108 mmol/L (96-108); Creatinine Clr Calc Pharmacy 111.5; Estimated Glomerular Filt Rate > 60; Glucose Random 80 mg/dL (60-115); Potassium 3.9 mmol/L (3.3-5.1); Sodium 138 mmol/L (135-145)
[2022-12-26 07:08] VITALS: BP 141/92; PULSE 89; RESP 16; TEMP 36.6; O2SAT 98
--- NOTE | 2022-12-26 08:46 | MHC.CM.PN ---
Patient lives with S.O. She is independent with all functional mobility. Recovery team has been consulted. A copy of her HCP has been requested. DP homeself-care, with community resource information provided by the recovery team. She will arrange for transport home.
[2022-12-26] MEDS: Folic Acid 1 MG TABLET PO (09:31)
[2022-12-26] MEDS: Thiamine HCL 100 MG TABLET PO (09:31)
[2022-12-26] MEDS: Famotidine/PF 20 MG/2 ML VIAL IVPUSH (09:31)
[2022-12-26] MEDS: PHENobarbitaL 15 MG TABLET 45 MG PO (09:31)
--- NOTE | 2022-12-26 09:42 | P.DS_ITS ---
DS: Providers Provider Date of Service: 12/26/22 Date of admission: 12/24/22 11:40 Date of discharge: 12/26/22 Primary care physician: Jacques Mace MD Consults: 12/24/22 11:40 Addiction Medicine Routine Consulting Provider: Addiction Covering Reason for consultation: etoh use, withdrawal Has provider been notified: No Attending physician on discharge: Marina Fairchild Discharging clinician: Tori Watts DS: Diagnosis Discharge Diagnosis (1) Alcohol withdrawal: Status: Acute (2) Nausea & vomiting: Status: Acute (3) Diarrhea: Status: Acute DS: Summary Hospital Course Hospital Course: From H&P on the day of admission This is a 37-year-old female with history of tachycardia, alcohol use disorder who presents to the emergency department with palpitations and alcohol withdrawal symptoms. She states that she had been sober for approximately 2 months by taking naltrexone prescribed by her PCP. Approximately 1 week ago she relapsed a began drinking vodka, she states she drink 5 L of vodka in past 1 week. Her last drink was at 18:00 on the evening prior to arrival and her alcohol level was undetectable on arrival. She does have history of alcohol withdrawal but denies any seizures in past. Her symptoms of racing heart have resolved at this time she was noted to be tachycardic. She reports some recent abdominal pain and nausea, no epigastric abdominal pain she describes it more on bilateral sides of her abdomen. No vomiting for the past several days and no diarrhea. Her lab work was relatively unremarkable. She was started on phenobarbital protocol in the emergency department for treatment of alcohol withdrawal the decision was made to admit her to the hospital for further management. Alcohol use disorder with alcohol withdrawal. Patient was started on phenobarbital protocol and was supplemented with thiamine and folic acid. Patient's CIWA score remained low and her vital signs have remained stable. She was evaluated by addiction medicine service, she has an outpatient provider that she prefers to follow-up with and feels that she has the resources available to maintain her sobriety. Abdominal pain, nausea, vomiting, diarrhea. Likely viral gastroenteritis. Her abdominal pain has improved, her vomiting and diarrhea have resolved. Cdif and GI panel negative. She is tolerating a regular diet and eager to return home. Time Attestation Discharge coordination time: Greater than 30 minutes Quality: Safe Use of Opioids Does Pt have an Active Cancer Diagnosis on the Problem List?: No Quality: Stroke Does the patient have a stroke diagnosis?: No Physical Exam Vital Signs: Vital Signs: Last Vital Signs Temp 98 F 12/26/22 07:08 Pulse 89 12/26/22 07:08 Resp 16 12/26/22 07:08 BP 141/92 H 12/26/22 07:08 Pulse Ox 98 12/26/22 07:08 O2 Del Method Room Air 12/26/22 07:08 BMI result Body Mass Index 32.0 Const: General: cooperative, comfortable, no acute distress, alert and awake Nutritional Appearance: overweight Orientation/consciousness: patient oriented x3 Resp: Effort & Inspection: normal respiratory effort, able to speak in complete sentences, no respiratory distress and no use of accessory muscles Cardio: Rate: regular rate GI: Palpation (GI): Soft to palpation and nontender Neuro: General: patient oriented x3, moves all extremities and CN's II-XI intact bilaterally DS: Data Data Completed and Pending Labs on day of discharge: Laboratory Results - last 24 hr 12/25/22 12/25/22 12/26/22 10:15 16:17 05:23 WBC 5.5 RBC 4.17 L Hgb 12.4 Hct 36.0 L MCV 86.3 MCH 29.7 MCHC 34.4 RDW 13.4 Plt Count 203 MPV 8.7 L Immature Gran % (Auto) 0.2 Neut % (Auto) 56.4 Lymph % (Auto) 27.0 [place] % (Auto) 11.4 H Eos % (Auto) 4.4 H Baso % (Auto) 0.6 Lymph # (Auto) 1.5 [place] # (Auto) 0.6 Eos # (Auto) 0.2 Baso # (Auto) 0.0 Abs Immat Gran (auto) 0.01 Absolute Neuts (auto) 3.1 Absolute Nucleated RBC 0.000 Nucleated RBC % (auto) 0.0 Hold Purple Top SEE NOTE Sodium 136 138 Potassium 3.6 3.9 Chloride 108 108 Carbon Dioxide 22 23 Anion Gap 10 L 11 L BUN 6 L 10 Creatinine 0.84 0.74 Estim Creat Clear Calc 98.3 111.5 Estimated GFR > 60 > 60 Random Glucose 95 80 Calcium 8.4 D 8.6 Magnesium 2.0 Total Bilirubin 0.6 Direct Bilirubin 0.2 AST 24 ALT 25 Alkaline Phosphatase 39 Total Protein 6.1 L Albumin 3.7 Lipase 65 C. difficile Tox B Gene NEGATIVE Discharge Plan Discharge Anticipated Discharge Date/Time: 12/26/22 09:55 Patient Disposition: Home, Self-Care Discharge Diagnosis: alcohol use disorder with alcohol withdrawal N/V/D Referrals: Jacques Mace MD [Primary Care Provider] - 1 Week Discharge Medications: New folic acid 1 mg Tablet 1 mg PO DAILY 30 Days Qty: 30 0RF thiamine mononitrate (vit B1) 100 mg Tablet 100 mg PO DAILY 30 Days Qty: 30 0RF Continued pantoprazole 40 mg tablet,delayed release (DR/EC) 40 mg PO DAILY albuterol sulfate 90 mcg/actuation HFA aerosol inhaler 1 inh inhalation Q4H PRN (Reason: Shortness Of Breath Or Wheezing) diltiazem HCl [Matzim [place]] 180 mg tablet extended release 24 hr 180 mg PO DAILY PRN (Reason: Tachycardia) Discharge Orders: Discharge Order (Routine); Ordered 12/26/22 Ordered By: Tori Watts Activity on Discharge: As tolerated Stand Alone Forms: Patient Portal Discharge page Care Plan Goals: see below Health Concerns: alcohol use disorder with acute alcohol withdrawal nausea, vomiting, diarrhea likely due to acute viral illness Plan of Treatment: Follow up with outpatient prescriber to resume previous medications in an effort to maintain sobriety from alcohol Call to schedule follow up with PCP as needed Assessment: see discharge summary
[2022-12-26 10:42] LABS: Adenovirus F 40/41 Not Detected (Not Detect.); Astrovirus Not Detected (Not Detect.); Campylobacter Not Detected (Not Detect.); Cryptosporidium Not Detected (Not Detect.); Cyclospora cayetanensis Not Detected (Not Detect.); E. coli EAEC Not Detected (Not Detect.); E. coli EPEC Not Detected (Not Detect.); E. coli ETEC Not Detected (Not Detect.); E. coli STEC Not Detected (Not Detect.); Entamoeba histolytica Not Detected (Not Detect.); Giardia lamblia Not Detected (Not Detect.); Norovirus GI/GII Not Detected (Not Detect.); Plesiomonas shigelloides Not Detected (Not Detect.); Rotavirus A Not Detected (Not Detect.); Salmonella Not Detected (Not Detect.); Sapovirus Not Detected (Not Detect.); Shigella sp./EIEC Not Detected (Not Detect.); Vibrio Not Detected (Not Detect.); Vibrio Cholerae Not Detected (Not Detect.); Yersinia enterocolitica Not Detected (Not Detect.)
--- NOTE | 2022-12-26 12:05 | MHC.CM.PN ---
Patient discharged to home self care. She has arranged for a ride home.
== END 2022-12-26 11:30 | disposition home or self-care (01) | DRG 897 ==
LOC: HO.ED 09:44 → HO.EDOVER 12:02 → HO.IMC 19:27
PROVIDERS: Admitting Provider Physician Assistant Medical; Emergency Provider Emergency Medicine; PCP Internal Medicine; Visit Provider Physician Assistant Medical
DX: F10.239 Alcohol dependence with withdrawal, unspecified (principal); R00.0 Tachycardia, unspecified; J45.909 Unspecified asthma, uncomplicated; Z79.899 Other long term (current) drug therapy
CPT/HCPCS: 36415; 80048; 80076; 80307; 81001; 83690; 83735; 84484; 85025; 87493; 87507; 93005; 99285; J1650; J2060; J2270; J2405; J2560; J3411; J7120

== ENCOUNTER → 2022-12-24 11:40 | Outpatient (BNV) | payer OTHER, SELFPAY | PROVIDERS: Admitting Provider Physician Assistant Medical; Emergency Provider Emergency Medicine; PCP Internal Medicine; Visit Provider Physician Assistant Medical | DX: F10.939 Alcohol use, unspecified with withdrawal, unspecified (principal) | CPT/HCPCS: 99222; 99232; 99239 ==

== ENCOUNTER 2023-01-20 21:31 | Emergency (ER) | payer OTHER, SELFPAY ==
--- NOTE | 2023-01-20 | ECG_ITS ---
Test Reason : ARRHYTHMIA/PALP Blood Pressure : / mmHG Vent. Rate : 095 BPM Atrial Rate : 095 BPM P-R Int : 172 ms QRS Dur : 078 ms QT Int : 332 ms P-R-T Axes : 052 041 038 degrees QTc Int : 417 ms Normal sinus rhythm Normal ECG When compared with ECG of 24-DEC-2022 04:29, No significant change was found Referred By: Generic ED Physician Electronically Signed By:Kris Huddleston
[2023-01-20 21:43] VITALS: BP 150/87; PULSE 110; RESP 22; TEMP 37.1; O2SAT 96; BMI 30.9
--- NOTE | 2023-01-20 23:58 | ED.GENADULT ---
HPI - General Adult General Chief complaint: Arrhythmia/Palpitations Stated complaint: Tachycardia Time Seen by Provider: 01/20/23 23:44 Source: patient, RN notes reviewed and old records reviewed Mode of arrival: ambulatory Limitations: no limitations History of Present Illness HPI narrative: 37-year-old female with past medical history significant for alcohol abuse, history of atrial tachycardia presents for evaluation of ?fast heart rate. ? Patient reports that she relapsed with alcohol 3 days ago She states that she generally tries to ?detox at home. ? She states that when she tries to detox her heart rate gets very fast She states that she can feel palpitations like her heart is racing She reports pain to bilateral flanks which is typical for her alcohol withdrawal symptoms She denies any chest pain or shortness of breath Patient was admitted here approximately 1 month ago and reports that she was sober up until 3 days ago She has been drinking about a pt of vodka daily Her last drink was around 3:00 p.m. Reports subjective chills but denies any fevers Related Data Home Medications Medication Instructions Recorded Confirmed albuterol sulfate 90 mcg/actuation 1 inh inhalation Q4H PRN Shortness 12/24/22 12/24/22 aerosol inhaler Of Breath Or Wheezing diltiazem HCl 180 mg 180 mg PO DAILY PRN Tachycardia 12/24/22 12/24/22 tablet,extended release 24 hr (Matzim [place]) pantoprazole 40 mg tablet,delayed 40 mg PO DAILY 12/24/22 12/24/22 release Previous Rx's Medication Instructions Recorded folic acid 1 mg tablet 1 mg PO DAILY 30 days #30 tabs 12/26/22 thiamine mononitrate (vit B1) 100 100 mg PO DAILY 30 days #30 tabs 12/26/22 mg tablet Allergies Allergy/AdvReac Type Severity Reaction Status Date / Time No Known Allergies Allergy Verified 01/20/23 21:52 Review of Systems Constitutional: Constitutional: Denies body ache(s), Reports chills and Denies fever(s) Eyes: Eyes: Denies blurry vision ENT: Denies sore throat Cardiovascular: Cardiovascular: Denies chest pain, Reports rapid heart rate, Reports palpitations and Denies dyspnea Respiratory: Respiratory: Denies cough and Denies dyspnea Gastrointestinal: Gastrointestinal: Denies abdominal pain, Reports nausea and Denies vomiting Musculoskeletal: Musculoskeletal: Denies back pain Integumentary/Breasts: Skin/Breast: Denies rash Psychiatric: Psychiatric: Reports anxiety Endocrine: Endocrine: Reports palpitations PMFSH Past Medical History Medical History (Updated 01/21/23 @ 20:41 by TRISH Lazaro) Asthma Anxiety and depression Tachycardia Alcohol withdrawal Family History Family History Mother Alcohol use disorder Maternal Grandfather Alcohol use disorder Social History Social History Household Members: Spouse Housing: Apartment Do you presently have visiting nurse or other home services: No Alcohol intake: current Alcohol intake frequency: a few times a month Patient Tobacco Use Status: Never used Tobacco Smoked in Last 30 Days: No e-Cigarette/Vaping Use: Never Used Second Hand Smoke Exposure: No Use of substances other than those prescribed or required for medical reasons: No Substance Use Type: Marijuana Advance Directives: No Advance Directives Information Provided: Yes Patient : No service: No Physical Exam ED Vital Signs: Vital Signs - 24 hr 01/20/23 21:43 01/21/23 02:00 01/21/23 02:39 Temperature 98.7 F 98.2 F 97.8 F Pulse Rate 110 H 99 99 Respiratory Rate 22 H 21 H 16 Blood Pressure 150/87 H 107/77 96/77 Pulse Oximetry 96 98 93 Oxygen Delivery Method Room Air Room Air Room Air 01/21/23 05:29 01/21/23 08:26 01/21/23 11:00 Temperature 98.6 F Pulse Rate 103 H 118 H 100 Respiratory Rate 13 17 20 Blood Pressure 136/73 132/83 Pulse Oximetry 97 98 Oxygen Delivery Method Room Air Room Air 01/21/23 12:09 01/21/23 13:50 01/21/23 15:35 Temperature Pulse Rate 92 118 H 106 H Respiratory Rate 18 16 18 Blood Pressure 123/81 146/90 H 127/97 H Pulse Oximetry 97 97 98 Oxygen Delivery Method Room Air Room Air Nasal Cannula 01/21/23 17:36 Temperature 97.7 F Pulse Rate 112 H Respiratory Rate 22 H Blood Pressure 137/92 H Pulse Oximetry 96 Oxygen Delivery Method Room Air BMI result Body Mass Index 30.9 Const General: healthy appearing, comfortable, no acute distress, alert and awake Nutritional Appearance: well nourished Orientation/consciousness: patient oriented x3 [facility] Head: Yes normocephalic and Yes atraumatic Eyes Eyelids: Yes eyelids normal Conjunctivae: conjunctivae normal Sclerae: sclerae normal Corneas: corneas normal Pupils: Equal, round and reactive pupils present EOM: EOMs intact bilaterally Neck Neck: Yes full ROM Resp Effort & Inspection: normal respiratory effort, able to speak in complete sentences and not labored Cardio Rhythm: regular rhythm GI Inspection: No distended Palpation (GI): Soft to palpation, not firm, nontender, no guarding and not rigid Skin General skin exam: elasticity normal Neuro General: patient oriented x3 Cranial nerves: Yes Equal, round and reactive pupils present and Yes Bilaterally intact EOM present Cognition (Neuro): normal cognition Extrem Other: Moving all extremities well without any obvious deformities Course Reevaluation(s) Reevaluation #1: Patient's tachycardia resolved with fluids and Ativan. Her alcohol level was still 179. She has no evidence of severe withdrawal, she does not require admission for alcohol withdrawal. Patient does still wishes to be to addiction medicine. She will stay in the ER to with addiction medicine in the morning. Patient signed out to overnight staff Time: 02:01 Additional Reevaluation(s): January 21, 2023, 4:30 p.m. patient expressing some degree of withdrawal, CIWA is 7 at this time. Patient has a p.r.n. Ativan order and will be dosed accordingly. Patient continues to be evaluated by the care team. January 21, 2023, 8:30 p.m. patient is resting comfortably at this time. The patient has been evaluated by the care team and offered numerous services including detox, however the patient is adamantly refusing them at this time. She is requesting discharge home and does not wish to have any further care here at this time. I have spoken with the patient at this time. She is well-appearing and nontoxic without any obvious signs of withdrawal. She does have some minor tremor. She otherwise has no other physical complaints. Patient once again is refusing any detox and reports that she has resources at home. She reports that her partner Omer is supportive and she has a safe place at home to go to and he will be bringing her home today. Patient appears to be of sound mind and adamantly denies any suicidal homicidal ideation. She feels comfortable with discharge plan home and is aware that she may return at any time for any concern. Reviewed all discharge instructions including detox referrals. Medications Administered Generic Name Dose Route Start Last Admin Trade Name Freq PRN Reason Stop Dose Admin Lorazepam 2 mg 01/21/23 01:58 01/21/23 17:28 Lorazepam 1 Mg Tablet PO 2 mg Q4H PRN Administration Alcohol Withdrawal Discontinued Medications Generic Name Dose Route Start Last Admin Trade Name Freq PRN Reason Stop Dose Admin Albuterol/Ipratropium 3 ml 01/21/23 05:24 01/21/23 05:27 Albuterol/Iprat 2.5/0.5mg 3 Ml Ampul.Neb INHALE 01/21/23 05:25 3 ml ONCE ONE Administration Sodium Chloride 1,000 mls @ 999 mls/hr 01/20/23 23:45 01/21/23 01:30 Ns IV 01/21/23 00:45 Infused .Q1H1M DAMIEN Infusion Folic Acid 1 mg/ Sodium 50.2 mls @ 100.4 mls/hr 01/20/23 23:55 01/21/23 00:44 Chloride IV 01/21/23 00:24 Not Given ONCE ONE Thiamine HCl 200 mg/ Sodium 102 mls @ 204 mls/hr 01/20/23 23:55 01/21/23 01:31 Chloride IV 01/21/23 00:24 Infused ONCE ONE Infusion Sodium Chloride 1,000 mls @ 999 mls/hr 01/21/23 14:15 01/21/23 15:14 Ns IV 01/21/23 15:15 Infused .Q1H1M DAMIEN Infusion Lorazepam 2 mg 01/20/23 23:55 01/21/23 00:44 Lorazepam 2 Mg/Ml Vial IVPUSH 01/20/23 23:56 2 mg ONCE ONE Administration Medical Decision Making Medical Decision Making MDM Narrative: 37-year-old female presents for evaluation of mild alcohol withdrawal. She reports tachycardia, her heart rate is sinus rhythm, tachycardic to 110 on arrival. She appears slightly anxious, she has no vomiting at this time. Will treat with IV fluids, Ativan for mild alcohol withdrawal and re-evaluate. Labs are pending at this time. Differential Diagnosis Differential Diagnoses: The differential diagnosis associated with the presentation includes Acute alcohol intoxication Alcohol abuse Tachycardia Anxiety Lab Data 01/21/23 00:13 01/21/23 01:12 Labs: Lab Results 01/21/23 01/21/23 Range/Units 00:13 01:12 WBC 11.6 H (4.8-10.8) X10*3/uL RBC 4.84 (4.20-5.50) X10*6/uL Hgb 14.2 (12.0-16.0) g/dl Hct 41.9 (37.0-47.0) % MCV 86.6 (80.0-98.0) fL MCH 29.3 (27.0-33.0) pg MCHC 33.9 (31.0-35.0) g/dl RDW 13.2 (11.0-16.0) % Plt Count 411 H D (160-400) X10*3/uL MPV 9.2 L (9.4-12.3) fL Immature Gran % (Auto) 0.3 (0.0-0.4) % Neut % (Auto) 59.5 (45-73) % Lymph % (Auto) 30.9 (20-40) % [place] % (Auto) 6.3 (2-11) % Eos % (Auto) 2.2 (0-4) % Baso % (Auto) 0.8 (0-2) % Lymph # (Auto) 3.6 (1.2-4.9) X10*3/uL [place] # (Auto) 0.7 (0.1-1.2) X10*3/uL Eos # (Auto) 0.3 (0.0-0.4) X10*3/uL Baso # (Auto) 0.1 (0.0-0.2) X10*3/uL Abs Immat Gran (auto) 0.04 H (0.00-0.03) X10*3/uL Absolute Neuts (auto) 6.9 (2.0-8.3) x10*3/uL Absolute Nucleated RBC 0.000 (0.0-0.012) X10*3/uL Nucleated RBC % (auto) 0.0 (0.0-0.2) /100WBC Sodium 140 (135-145) mmol/L Potassium 3.5 (3.3-5.1) mmol/L Chloride 108 (96-108) mmol/L Carbon Dioxide 18 L (22-29) mmol/L Anion Gap 18 (12-20) BUN 9 (9-16) mg/dL Creatinine 0.82 (0.5-1.4) mg/dL Estim Creat Clear Calc 98.9 Estimated GFR > 60 Random Glucose 111 (60-115) mg/dL Calcium 9.6 D (8.4-10.2) mg/dL Total Bilirubin 0.2 (0.0-1.0) mg/dL AST 15 (5-31) U/L ALT 16 (0-31) U/L Alkaline Phosphatase 56 (39-117) U/L Troponin I High Sens < 2.7 (<3.5-17.0) ng/L Total Protein 8.0 (6.5-8.0) g/dL Albumin 4.5 (3.5-5.0) g/dL Ethyl Alcohol 179 mg/dL Discharge Plan Discharge Clinical Impression: Alcohol abuse Alcohol withdrawal Qualifiers: Complication of substance-induced condition: uncomplicated Qualified Code(s): F10.930 - Alcohol use, unspecified with withdrawal, uncomplicated Patient Disposition: Home, Self-Care Instructions: Abuse of Alcohol (ED) Additional Instructions: Follow the instructions of the Addiction Medicine team Avoid excessive consumption of alcohol Return for new or worsening symptoms Follow-up with your primary care provider. Call this week to schedule a follow-up appointment. Return to the emergency department if you have any worsening of symptoms, or any concerns. Get well soon! Prescriptions: No Action pantoprazole 40 mg tablet,delayed release (DR/EC) 40 mg PO DAILY albuterol sulfate 90 mcg/actuation HFA aerosol inhaler 1 inh inhalation Q4H PRN (Reason: Shortness Of Breath Or Wheezing) diltiazem HCl [Matzim [place]] 180 mg tablet extended release 24 hr 180 mg PO DAILY PRN (Reason: Tachycardia) folic acid 1 mg Tablet 1 mg PO DAILY 30 Days Qty: 30 0RF thiamine mononitrate (vit B1) 100 mg Tablet 100 mg PO DAILY 30 Days Qty: 30 0RF Stand Alone Forms: Work/School Release
[2023-01-21] VITALS (9 sets, daily range): BP systolic 96–146; BP diastolic 73–97; PULSE 92–118; RESP 13–22; TEMP 36.5–37; O2SAT 93–98
[2023-01-21 00:21] LABS: Basophils Absolute Auto 0.1 X10*3/uL (0.0-0.2); Basophils Percent Auto 0.8 % (0-2); Eosinophils Absolute Auto 0.3 X10*3/uL (0.0-0.4); Eosinophils Percent Auto 2.2 % (0-4); Hematocrit 41.9 % (37.0-47.0); Hemoglobin 14.2 g/dl (12.0-16.0); Imm Gran Abs Auto 0.04 X10*3/uL (0.00-0.03); Imm Gran Pct Auto 0.3 % (0.0-0.4); Lymphocytes Absolute Auto 3.6 X10*3/uL (1.2-4.9); Lymphocytes Percent Auto 30.9 % (20-40); Mean Corpuscular HGB Conc 33.9 g/dl (31.0-35.0); Mean Corpuscular Hemoglobin 29.3 pg (27.0-33.0); Mean Corpuscular Volume 86.6 fL (80.0-98.0); Mean Platelet Volume 9.2 fL (9.4-12.3); Monocytes Absolute Auto 0.7 X10*3/uL (0.1-1.2); Monocytes Percent Auto 6.3 % (2-11); Neutrophils Absolute Auto 6.9 x10*3/uL (2.0-8.3); Neutrophils Percent Auto 59.5 % (45-73); Platelet Count 411 X10*3/uL (160-400); Red Blood Count 4.84 X10*6/uL (4.20-5.50); Red Cell Distribution Width 13.2 % (11.0-16.0); White Blood Count 11.6 X10*3/uL (4.8-10.8)
[2023-01-21 00:22] LABS: MANUAL DIFF FLAG NO
[2023-01-21] MEDS: Thiamine HCL 200 MG in 0.9 % Sodium Chloride 100 ML 204 MG IV (00:44)
[2023-01-21] MEDS: LORazepam 2 MG/ML VIAL IVPUSH (00:44)
[2023-01-21] MEDS: 0.9 % Sodium Chloride 1,000 ML 999 ML IV ×2 (00:44→14:13)
--- NOTE | 2023-01-21 01:12 | PC.NURSE ---
ptn assessed,m ciwa score 10, medicated per mar
[2023-01-21 01:47] LABS: Alanine Aminotransferase 16 U/L (0-31); Albumin Level 4.5 g/dL (3.5-5.0); Alkaline Phosphatase 56 U/L (39-117); Anion Gap 18 (12-20); Aspartate Amino Transferase 15 U/L (5-31); Bilirubin Total 0.2 mg/dL (0.0-1.0); Blood Urea Nitrogen 9 mg/dL (9-16); Calcium 9.6 mg/dL (8.4-10.2); Carbon Dioxide 18 mmol/L (22-29); Chloride 108 mmol/L (96-108); Creatinine Clr Calc Pharmacy 98.9; Estimated Glomerular Filt Rate > 60; Ethanol 179 mg/dL; Glucose Random 111 mg/dL (60-115); Potassium 3.5 mmol/L (3.3-5.1); Sodium 140 mmol/L (135-145); Troponin-I High Sensitivity < 2.7 ng/L (<3.5-17.0)
--- NOTE | 2023-01-21 03:25 | PC.NURSE ---
pt staying the main ED to see head boys golf coach in the AM
[2023-01-21] MEDS: LORazepam 1 MG TABLET 2 MG PO ×3 (05:06→17:28)
--- NOTE | 2023-01-21 05:07 | PC.NURSE ---
pt ciwa 10, medicated per MAR
[2023-01-21] MEDS: Albuterol/Iprat 2.5/0.5MG 3 ML AMPUL.NEB INHALE (05:27)
--- NOTE | 2023-01-21 08:31 | PC.NURSE ---
patient resting quietly in bed, respirations equal and unlabored. patient states she has a mild headache and is mildly anxious, patient scored 3 on CIWA. breakfast order placed by this RN. patient is calm, cooperative and pleasent, waiting for recovery
--- NOTE | 2023-01-21 11:57 | MHC.RECOVSUP ---
Addendum entered by Neftali Hinkle 01/21/23 13:22: Discussed with provider that pt is declining ATS at this time. Provider to determine dispo. Original Note: Met with pt in ED19 who is here for arrhythmia and SKY. Pt informs she had been detoxed at [facility] but for the past 3 days has been drinking about 2 pints a day. As of now pt is feeling shaky and dizzy still but is not interested in ATS. Pt has no other questions or concerns at this time.
--- NOTE | 2023-01-21 12:11 | PC.NURSE ---
pt currently asleep/resting in no apparent distress w/ the lights dimmed at this time. respirations even/unlabored. nsr on the monitoring manager. vss and up to date. call aguayo placed within reach.
--- NOTE | 2023-01-21 13:57 | PC.NURSE ---
vss and up to date aside from pt being sinus tachy on the library monitor. most updated CIWA = 5 at this time. pt c/o 09/16 cramping abdominal pain on both sides/under ribcage. pt requesting IV fluids. provider aware of CIWA and complaint at this time. respirations remain even/unlabored. call aguayo placed within reach.
--- NOTE | 2023-01-21 15:36 | PC.NURSE ---
vss and up to date at this time. pt remains sinus tachy on the manager cardiac. updated CIWA = 7 at this time - will notify provider. respirations remain even and unlabored. call aguayo placed within reach.
--- NOTE | 2023-01-21 17:37 | PC.NURSE ---
PRN ativan administered per provider order. vss and up to date. pt remains tachycardic at this time. fresh linen applied/pt changed into fresh clothing. respirations remain even/unlabored. call aguayo placed within reach.
== END 2023-01-21 20:50 | disposition home or self-care (01) ==
PROVIDERS: Physician Assistant; Emergency Provider Internal Medicine; PCP Internal Medicine
DX: F10.239 Alcohol dependence with withdrawal, unspecified (principal); Y90.6 Blood alcohol level of 120-199 mg/100 ml; R00.0 Tachycardia, unspecified; I49.9 Cardiac arrhythmia, unspecified; Z79.899 Other long term (current) drug therapy; Z71.41 Alcohol abuse counseling and surveillance of alcoholic
CPT/HCPCS: 36415; 80053; 80307; 84484; 85025; 93005; 96361; 96374; 96375; 99285; J2060; J3411

== ENCOUNTER → 2023-01-20 23:05 | Outpatient (BNV) | payer OTHER, SELFPAY | PROVIDERS: Emergency Provider Internal Medicine; PCP Internal Medicine; Visit Provider Internal Medicine Cardiovascular Disease | DX: R00.2 Palpitations (principal) | CPT/HCPCS: 93010 ==

== ENCOUNTER 2023-02-09 19:12 | Observation (INO) | payer OTHER, SELFPAY ==
[2023-02-09 19:24] VITALS: BP 152/90; PULSE 119; RESP 18; TEMP 36.9; O2SAT 98; BMI 31.8
--- NOTE | 2023-02-09 19:25 | ED.GENADULT ---
HPI - General Adult General Chief complaint: ETOH/Substance Use Stated complaint: chest pain, passed out an hour ago Time Seen by Provider: 02/09/23 21:37 Source: patient Mode of arrival: ambulatory Limitations: no limitations History of Present Illness HPI narrative: 37-year-old female with history of alcohol abuse patient was sober for a month until new ' Ranjana when she started binge drinking alcohol last drink was today at noontime, patient was found by her significant other on the floor of her bathroom patient is known to have withdrawal seizure complaining of headache, neck pain. Patient has been feeling anxious, nauseous no vomiting, tremor, agitation, no auditory or visual hallucination Related Data Home Medications Medication Instructions Recorded Confirmed albuterol sulfate 90 mcg/actuation 1 inh inhalation Q4H PRN Shortness 12/24/22 12/24/22 aerosol inhaler Of Breath Or Wheezing diltiazem HCl 180 mg 180 mg PO DAILY PRN Tachycardia 12/24/22 12/24/22 tablet,extended release 24 hr (Matzim [place]) pantoprazole 40 mg tablet,delayed 40 mg PO DAILY 12/24/22 12/24/22 release Previous Rx's Medication Instructions Recorded folic acid 1 mg tablet 1 mg PO DAILY 30 days #30 tabs 12/26/22 thiamine mononitrate (vit B1) 100 100 mg PO DAILY 30 days #30 tabs 12/26/22 mg tablet Allergies Allergy/AdvReac Type Severity Reaction Status Date / Time No Known Allergies Allergy Verified 02/09/23 19:28 Review of Systems Review of Systems: All other systems are reviewed and are negative Constitutional: Reports as per HPI and Reports no additional constitutional complaints Eyes: Reports as per HPI and Reports no additional eye complaints Reports system reviewed and no additional complaints, except as documented Cardiovascular: Reports as per HPI and Reports no additional cardiovascular complaints Respiratory: Reports as per HPI and Reports no additional respiratory complaints Gastrointestinal: Reports as per HPI and Reports no additional gastrointestinal complaints Genitourinary: Reports no additional female genitourinary complaints Musculoskeletal: Reports no additional musculoskeletal complaints Skin/Breast: Reports system reviewed and no additional complaints, except as docu Psychiatric: Reports no additional psychiatric complaints Endocrine: Reports no additional endocrine complaints Hematologic/Lymphatic: Reports no additional hematologic/lymphatic complaints Allergic/Immunologic: Reports no additional allergic/immunologic complaints Reports system reviewed and no additional complaints, except as documented and Reports Abnormal speech present PMFSH Past Medical History Onset Date is defined in the Problem List Problems that require an onset date and time if occurred within 24 hrs of arrival to the ED Aortic Dissection and Rupture; Neurologic impairment; Cardiopulmonary Arrest; Endotracheal Intubation; Insertion or Replacement of Mechanical Circulatory Assist Device Medical History Asthma Anxiety and depression Tachycardia Alcohol withdrawal Family History Family History Mother Alcohol use disorder Maternal Grandfather Alcohol use disorder Social History Social History Household Members: Spouse Housing: Apartment Do you presently have visiting nurse or other home services: No Alcohol intake: current Alcohol intake frequency: a few times a month Patient Tobacco Use Status: Never used Tobacco e-Cigarette/Vaping Use: Never Used Second Hand Smoke Exposure: No Substance Use Type: Marijuana Advance Directives: No Advance Directives Information Provided: No service: No Physical Exam ED Vital Signs: Vital Signs - 24 hr 02/09/23 19:24 02/09/23 23:05 Temperature 98.5 F 97.7 F Pulse Rate 119 H 102 H Respiratory Rate 18 18 Blood Pressure 152/90 H 129/67 Pulse Oximetry 98 96 Oxygen Delivery Method Room Air Room Air BMI result Body Mass Index 31.8 Vital signs have been reviewed and appear to be correct. Blood pressure elevated. Heart rate elevated, Respiratory rate normal. Temperature normal. Oxygen saturation normal. Appearance: Alert. Oriented X3. No acute distress. Head: Normal external exam. Normocephalic. Atraumatic. No Mix signs noted. No raccoon eyes noted Eyes: PERRLA. EOMI. Conjunctiva and sclera normal. Eyelids normal. ENT: TM's Normal. Pharynx normal. Uvula midline. Moist mucous membranes. No trismus noted. No drooling noted. No muffled voice noted, tongue fasciculation. Neck: Normal inspection. Neck supple. FROM. No adenopathy. Thyroid Normal. No meningeal signs. No neck mass noted. CVS: Normal heart rate and rhythm. Heart sound normal. No murmurs noted. Pulses normal throughout. Respiratory: No respiratory distress. Painless inspiration. Breath sounds normal. No wheezes/rales/rhonchi noted. Chest nontender. No accessory muscle usage noted or decreased air movement noted. Abdomen: Soft and nontender. Bowel sounds normal in all 4 quadrants. No distention noted. No organomegaly noted. No visible injury noted. Back: No CVA tenderness. Full range of motion noted. Skin: Skin warm and dry. Normal skin color. Normal skin turgor. No rashes/lesions/lacerations noted. Extremities: No lower extremity edema. Extremities exhibit normal range of motion. Extremities nontender. Neuro: Oriented X 3. Cranial nerve exam: II-XII are grossly intact No motor deficit. No sensory deficit. Reflexes normal. Course Course Course Narrative: RME: 37 yo F w/ PMHx ETOH abuse presenting to the ED c/o right sided CP and ?syncope today vs seizure w/assoc dizziness & weakness. Admits to drinking 2 pints ETOH daily (last drink 12pm today). admits to passing out before but unknown if this was seizure. denies drug use. denies hitting head or AC CIWA 18 >Charge Nurse aware EKG, labs, UA, CXR, viral testing Full HPI, ROS and PE to be performed by primary ED provider. Reevaluation(s) Reevaluation #1: 37-year-old female with alcohol problem patient relapsed and started drinking alcohol 2 nights ago last drink was at noon today, patient found herself on the ground with no memory of the event likely patient had a withdrawal seizure (patient with history of alcohol withdrawal seizure), patient with CIWA score of 18 start the patient on phenobarb and admit. Negative head CT/cervical spine CT. Time: 23:00 Medications Administered Discontinued Medications Generic Name Dose Route Start Last Admin Trade Name Freq PRN Reason Stop Dose Admin Phenobarbital Sodium 219 mg 02/09/23 22:00 02/09/23 23:00 Phenobarbital Sodium 130 Mg/Ml Im Once IM 02/09/23 22:01 219 mg ONCE ONE Administration Medical Decision Making Differential Diagnosis Differential Diagnoses: The differential diagnosis associated with the presentation includes (Withdrawal seizure, syncope, electrolyte abnormality, severe anemia, intracranial bleed, cervical spine injury, ACS.) Admission/Observation Consideration of admission/observation: Escalation of care including admission/observation considered Consult Healthcare Provider Management of the patient was discussed with: Hospitalist (Dr. Rosales) Lab Data MDM Lab Attestation statement: I reviewed the patient's lab results. 02/09/23 20:23 02/09/23 20:24 Labs: Lab Results 02/09/23 02/09/23 Range/Units 20:23 20:24 WBC 12.2 H (4.8-10.8) X10*3/uL RBC 4.85 (4.20-5.50) X10*6/uL Hgb 14.3 (12.0-16.0) g/dl Hct 41.9 (37.0-47.0) % MCV 86.4 (80.0-98.0) fL MCH 29.5 (27.0-33.0) pg MCHC 34.1 (31.0-35.0) g/dl RDW 13.2 (11.0-16.0) % Plt Count 364 (160-400) X10*3/uL MPV 8.7 L (9.4-12.3) fL Immature Gran % (Auto) 0.2 (0.0-0.4) % Neut % (Auto) 64.4 (45-73) % Lymph % (Auto) 25.7 (20-40) % [place] % (Auto) 7.2 (2-11) % Eos % (Auto) 1.8 (0-4) % Baso % (Auto) 0.7 (0-2) % Lymph # (Auto) 3.1 (1.2-4.9) X10*3/uL [place] # (Auto) 0.9 (0.1-1.2) X10*3/uL Eos # (Auto) 0.2 (0.0-0.4) X10*3/uL Baso # (Auto) 0.1 (0.0-0.2) X10*3/uL Abs Immat Gran (auto) 0.03 (0.00-0.03) X10*3/uL Absolute Neuts (auto) 7.9 (2.0-8.3) x10*3/uL Absolute Nucleated RBC 0.000 (0.0-0.012) X10*3/uL Nucleated RBC % (auto) 0.0 (0.0-0.2) /100WBC Sodium 138 (135-145) mmol/L Potassium 3.7 (3.3-5.1) mmol/L Chloride 106 (96-108) mmol/L Carbon Dioxide 21 L (22-29) mmol/L Anion Gap 15 (12-20) BUN 12 (9-16) mg/dL Creatinine 0.92 (0.5-1.4) mg/dL Estim Creat Clear Calc 89.4 Estimated GFR > 60 Random Glucose 86 (60-115) mg/dL Lactic Acid 1.4 (0.5-2.0) mmol/L Calcium 9.7 (8.4-10.2) mg/dL Magnesium 2.0 (1.6-2.6) mg/dL Total Bilirubin 0.6 (0.0-1.0) mg/dL Direct Bilirubin 0.2 (0.0-0.5) mg/dL AST 19 (5-31) U/L ALT 18 (0-31) U/L Alkaline Phosphatase 57 (39-117) U/L Troponin I High Sens < 2.7 (<3.5-17.0) ng/L Total Protein 7.9 (6.5-8.0) g/dL Albumin 4.7 (3.5-5.0) g/dL Lipase 24 (8-78) U/L Beta HCG, Quant < 2 mIU/mL Ethyl Alcohol < 10 mg/dL Influenza Type A (PCR) NEGATIVE (Negative) Influenza Type B (PCR) NEGATIVE (Negative) RSV RNA Qual (PCR) NEGATIVE (Negative) SARS-CoV-2 RNA (RT-PCR) NEGATIVE (Negative) Independent Interpretation I performed an independent interpretation of an: CT Scan (Head/cervical spine: No acute pathology.) Radiology Impression Discussion of test interpretation with radiology: I have reviewed the radiologist's reading. Chronic Conditions Patient?s care impacted by: Other (Alcohol abuse) Discharge Plan Discharge Clinical Impression: Alcohol withdrawal syndrome Patient Disposition: Admitted As Inpatient
[2023-02-09 20:55] LABS: Alanine Aminotransferase 18 U/L (0-31); Albumin Level 4.7 g/dL (3.5-5.0); Alkaline Phosphatase 57 U/L (39-117); Anion Gap 15 (12-20); Aspartate Amino Transferase 19 U/L (5-31); Bilirubin Direct 0.2 mg/dL (0.0-0.5); Bilirubin Total 0.6 mg/dL (0.0-1.0); Blood Urea Nitrogen 12 mg/dL (9-16); Calcium 9.7 mg/dL (8.4-10.2); Carbon Dioxide 21 mmol/L (22-29); Chloride 106 mmol/L (96-108); Creatinine Clr Calc Pharmacy 89.4; Estimated Glomerular Filt Rate > 60; Ethanol < 10 mg/dL; Glucose Random 86 mg/dL (60-115); Lipase 24 U/L (8-78); Potassium 3.7 mmol/L (3.3-5.1); Sodium 138 mmol/L (135-145); Total Protein 7.9 g/dL (6.5-8.0)
[2023-02-09 22:29] LABS: HCG Quantitative < 2 mIU/mL
[2023-02-09 23:05] VITALS: BP 129/67; PULSE 102; RESP 18; TEMP 36.5; O2SAT 96
--- NOTE | 2023-02-09 23:49 | PM.IMHP ---
History of Present Illness Date of Service: 02/09/23 Chief Complaint: Alcohol withdrawal This is a 37-year-old female with pertinent history of alcohol use disorder who presents to the emergency department for concerns of alcohol withdrawal. Patient states that she relapsed around and drank a lot of vodka. Her last drink was on the day of presentation. Patient states she has been having nausea and vomiting since. Also complains of tremor and sweating. Does have a history of alcohol withdrawal. Unclear if she has had seizures or delirium tremens. Patient states she has been feeling anxious for a while and is looking to seek a provider for it. Knocked, chills, chest discomfort, palpitations, abdominal pain, changes in urinary or bowel habits. Patient states she passed out on the day of presentation likely due to intoxication and hit her head while she was coming out of the shower. In the emergency department, patient was initiated on phenobarb protocol. Review of Systems Constitutional: Constitutional: Reports no additional constitutional complaints and Reports excessive sweating Cardiovascular: Cardiovascular: Reports no additional cardiovascular complaints Respiratory: Respiratory: Reports no additional respiratory complaints Gastrointestinal: Gastrointestinal: Reports no additional gastrointestinal complaints Genitourinary: Genitourinary: Reports no additional female genitourinary complaints Neurologic: Reports tremor(s) Endocrine: Endocrine: Reports excessive sweating [facility] Medical History Asthma Anxiety and depression Tachycardia Alcohol withdrawal Family History Mother Alcohol use disorder Maternal Grandfather Alcohol use disorder Social History Household Members: Spouse Housing: Apartment Do you presently have visiting nurse or other home services: No Alcohol intake: current Alcohol intake frequency: a few times a month Patient Tobacco Use Status: Never used Tobacco e-Cigarette/Vaping Use: Never Used Second Hand Smoke Exposure: No Substance Use Type: Marijuana Advance Directives: No Advance Directives Information Provided: No service: No Meds Allergies Allergy/AdvReac Type Severity Reaction Status Date / Time No Known Allergies Allergy Verified 02/09/23 19:28 Active Medications: Current Medications Sodium Chloride (Ns) 1,000 mls @ 999 mls/hr IV .Q1H1M [facility] Stop: 02/10/23 00:30 Pharmacy Consult (Consult Rx Etoh Phenob Im/Po) 1 each MISCELLANE ONCE PRN; Protocol PRN Reason: Consult order Phenobarbital (Phenobarbital 15 Mg Tablet) 45 mg PO BID [facility] Stop: 02/11/23 21:01 Phenobarbital (Phenobarbital 30 Mg Tablet) 30 mg PO BID [facility] Stop: 02/13/23 21:01 Phenobarbital (Phenobarbital 15 Mg Tablet) 15 mg PO DAILY [facility] Stop: 02/15/23 09:01 Phenobarbital Sodium (Phenobarbital Sodium 130 Mg/Ml Vial Im Q3hx2) 164 mg IM Q3H [facility] Stop: 02/10/23 04:01 Home Medications Medication Instructions Recorded Confirmed Last Taken Type albuterol sulfate 90 mcg/actuation 1 inh inhalation Q4H PRN Shortness 12/24/22 12/24/22 Unknown History aerosol inhaler Of Breath Or Wheezing diltiazem HCl 180 mg 180 mg PO DAILY PRN Tachycardia 12/24/22 12/24/22 Unknown History tablet,extended release 24 hr (Matzim [place]) pantoprazole 40 mg tablet,delayed 40 mg PO DAILY 12/24/22 12/24/22 12/23/22 History release Physical Exam Vital Signs and Narrative: Vital Signs: Last Vital Signs Temp 97.7 F 02/09/23 23:05 Pulse 102 H 02/09/23 23:05 Resp 18 02/09/23 23:05 BP 129/67 02/09/23 23:05 Pulse Ox 96 02/09/23 23:05 O2 Del Method Room Air 02/09/23 23:05 BMI result Body Mass Index 31.8 Middle-aged female lying in bed in no distress Neck supple, no JVD Tachycardic with regular rhythm, S1-S2 heard Regular breath sounds bilaterally, no wheezing or crackles appreciated Abdomen soft nontender, no guarding, no rigidity Patient is awake, alert and oriented to self, place, time and person ; no focal motor deficit Psych: Anxious No pedal edema Results Labs 02/09/23 20:23 02/09/23 20:24 Labs: Laboratory Results - last 24 hr 02/09/23 02/09/23 20:23 20:24 MCV 86.4 MCH 29.5 MCHC 34.1 RDW 13.2 Plt Count 364 MPV 8.7 L Immature Gran % (Auto) 0.2 Neut % (Auto) 64.4 Lymph % (Auto) 25.7 [place] % (Auto) 7.2 Eos % (Auto) 1.8 Baso % (Auto) 0.7 Lymph # (Auto) 3.1 [place] # (Auto) 0.9 Eos # (Auto) 0.2 Baso # (Auto) 0.1 Abs Immat Gran (auto) 0.03 Absolute Neuts (auto) 7.9 Absolute Nucleated RBC 0.000 Nucleated RBC % (auto) 0.0 Anion Gap 15 Estim Creat Clear Calc 89.4 Estimated GFR > 60 Random Glucose 86 Lactic Acid 1.4 Calcium 9.7 Magnesium 2.0 Total Bilirubin 0.6 Direct Bilirubin 0.2 AST 19 ALT 18 Alkaline Phosphatase 57 Total Protein 7.9 Albumin 4.7 Lipase 24 Beta HCG, Quant < 2 Ethyl Alcohol < 10 Influenza Type A (PCR) NEGATIVE Influenza Type B (PCR) NEGATIVE RSV RNA Qual (PCR) NEGATIVE SARS-CoV-2 RNA (RT-PCR) NEGATIVE Imaging Radiologist's Impressions: Impressions Head CT 02/09/23 22:02 IMPRESSION: No acute intracranial pathology. Curvature of the cervical spine to the right on the coronal images and reversal of the cervical spine curvature on the coronal images of uncertain significance. This may relate spasm or pain. No acute osseous abnormality identified. Cervical Spine CT 02/09/23 22:03 IMPRESSION: No acute intracranial pathology. Curvature of the cervical spine to the right on the coronal images and reversal of the cervical spine curvature on the coronal images of uncertain significance. This may relate spasm or pain. No acute osseous abnormality identified. Assessment and Plan (1) Alcohol withdrawal syndrome: Status: Acute Plan This is a 37-year-old female with pertinent history of alcohol use disorder who presents to the emergency department for concerns of alcohol withdrawal. #. Alcohol use disorder with concerns for alcohol withdrawal: Patient was initiated on phenobarb protocol in the ER. Initiating thiamine. Consulted Addiction Team and care team #. Generalized anxiety disorder: Patient states she has been dealing with anxiety for a while and it is interfering with her daily functioning. Will consult psych Med rec pending DVT prophylaxis: Lovenox Full code Quality Stroke Does the patient have a stroke diagnosis?: No VTE Prior VTE?: No VTE Risk Level:: Medical - moderate - high VTE Device Contraindication: Treatment Not Indicated VTE Drug Contraindication: N/A - Med Ordered
[2023-02-10] VITALS (8 sets, daily range): BP systolic 122–154; BP diastolic 76–95; PULSE 91–115; RESP 16–18; TEMP 36–36.5; O2SAT 96–98
[2023-02-10 01:13] LABS: Amphetamine Screen Urine Not Detected (Not Detect); Barbiturates, Urine POSITIVE (Not Detect); Benzodiazepines Screen Urine Not Detected (Not Detect); Cannabinoid Screen Urine POSITIVE (Not Detect); Cocaine Screen Urine Not Detected (Not Detect); Fentanyl, urine Not Detected (Not Detect); Opiate Screen Urine Not Detected (Not Detect); Phencyclidine Screen Urine Not Detected (Not Detect)
[2023-02-10 01:15] LABS: Appearance Urine Clear; Color Urine Yellow; Glucose Urine UA Negative (Negative); Leukocyte Esterase Urine Negative (Negative); Nitrite Urine Negative (Negative); Specific Gravity - Urine >= 1.030 (1.005-1.025); Urine Blood Negative (Negative); Urine Ketones 15 mg/dL (Negative); Urine Protein Negative (Neg-Trace)
[2023-02-10 01:18] LABS: UPreg QC Valid YES; Urine Pregnancy NEGATIVE (NEGATIVE)
[2023-02-10 06:27] LABS: MANUAL DIFF FLAG NO
[2023-02-10 06:29] LABS: Basophils Absolute Auto 0.1 X10*3/uL (0.0-0.2); Basophils Percent Auto 0.9 % (0-2); Eosinophils Absolute Auto 0.3 X10*3/uL (0.0-0.4); Eosinophils Percent Auto 2.8 % (0-4); Hematocrit 37.1 % (37.0-47.0); Hemoglobin 12.7 g/dl (12.0-16.0); Imm Gran Abs Auto 0.02 X10*3/uL (0.00-0.03); Imm Gran Pct Auto 0.2 % (0.0-0.4); Lymphocytes Absolute Auto 2.8 X10*3/uL (1.2-4.9); Lymphocytes Percent Auto 31.6 % (20-40); Mean Corpuscular HGB Conc 34.2 g/dl (31.0-35.0); Mean Corpuscular Hemoglobin 30.1 pg (27.0-33.0); Mean Corpuscular Volume 87.9 fL (80.0-98.0); Mean Platelet Volume 9.3 fL (9.4-12.3); Monocytes Absolute Auto 0.8 X10*3/uL (0.1-1.2); Monocytes Percent Auto 9.1 % (2-11); Neutrophils Percent Auto 55.4 % (45-73); Platelet Count 317 X10*3/uL (160-400); Red Blood Count 4.22 X10*6/uL (4.20-5.50); Red Cell Distribution Width 13.2 % (11.0-16.0); White Blood Count 8.9 X10*3/uL (4.8-10.8)
[2023-02-10 06:48] LABS: Anion Gap 13 (12-20); Blood Urea Nitrogen 13 mg/dL (9-16); Calcium 8.5 mg/dL (8.4-10.2); Carbon Dioxide 21 mmol/L (22-29); Chloride 109 mmol/L (96-108); Creatinine Clr Calc Pharmacy 99.1; Estimated Glomerular Filt Rate > 60; Glucose Random 93 mg/dL (60-115); Potassium 3.4 mmol/L (3.3-5.1); Sodium 140 mmol/L (135-145)
--- NOTE | 2023-02-10 08:09 | PHA.MEDREC ---
Pharmacy Consult ? Medication Reconciliation Pharmacy has completed the medication reconciliation. Spoke to patient at bedside, states the only two medications she takes are Matzim as needed and vitamin B1, despite fill history of Abilify.
--- NOTE | 2023-02-10 11:00 | MHC.CM.PN ---
Addendum entered by Lazara Guillermo 02/10/23 16:00: DP: PT IS EXPECTED TO DC TODAY, LYFT RIDE BOOKED FOR 4:30 PM. RN AND MD AWARE. Addendum entered by Lazara Guillermo 02/10/23 11:21: PT MAY NOT HAVE RIDE HOME, WILL NEED LYFT ARRANGED. Original Note: [facility] DELIVERED PT LIVES WITH S/O AND IS INDEPENDENT/EMPLOYED F/T. NO HCP BUT MAY CONSIDER COMPLETING ONE, WILL RE-APPROACH. PCP DR. SHARONA FREED OF [facility] DP: HOME, NO SERVICES ANTICIPATED. PT HAS HER OWN RIDE HOME. CM WILL CONTINUE TO FOLLOW FOR ANY CHANGE TO DC PLAN/NEEDS.
--- NOTE | 2023-02-10 11:04 | HO.PM.IMPN ---
Subjective Subjective Date of Service: 02/10/23 Interval History: f/u on alcohol withdrawal, report feeling anxious, but other signs for withdrawal Physical Exam Vital Signs: Vital Signs: Last Vital Signs Temp 97.5 F 02/10/23 07:53 Pulse 91 02/10/23 07:53 Resp 16 02/10/23 07:53 BP 135/82 02/10/23 07:53 Pulse Ox 97 02/10/23 07:53 O2 Del Method Room Air 02/10/23 07:53 BMI result Body Mass Index 31.8 Const: Other: General: AO X 3, no acute distress Resp: CTA bilateral CVS: S1,S2,RRR GI: +BS, NT, no distention Skin: No rash Neuro: motor grossly intact Psych: appropriate affect Objective Data Active Medications Acetaminophen (Acetaminophen 325 Mg Tablet) 650 mg PO Q6H PRN PRN Reason: Pain, Mild (Pain Scale 1-3) Enoxaparin Sodium (Enoxaparin Sodium 40 Mg/0.4 Ml Syringe) 40 mg SUBCUT Q24H [facility] Last Admin: 02/10/23 07:29 Dose: 40 mg Documented By: TOI Hydroxyzine HCl (Hydroxyzine Hcl 25 Mg Tablet) 25 mg PO Q6H PRN PRN Reason: Anxiety Melatonin (Melatonin 3 Mg Tablet) 6 mg PO BEDTIME PRN PRN Reason: Insomnia Ondansetron HCl (Ondansetron Hcl 4 Mg/2 Ml Vial) 4 mg IVPUSH Q8H PRN PRN Reason: Nausea and Vomiting Pharmacy Consult (Consult Rx Etoh Phenob Im/Po) 1 each MISCELLANE ONCE PRN; Protocol PRN Reason: Consult order Phenobarbital (Phenobarbital 15 Mg Tablet) 45 mg PO BID [facility] Stop: 02/11/23 21:01 Last Admin: 02/10/23 07:30 Dose: 45 mg Documented By: TIO Phenobarbital (Phenobarbital 30 Mg Tablet) 30 mg PO BID [facility] Stop: 02/13/23 21:01 Phenobarbital (Phenobarbital 15 Mg Tablet) 15 mg PO DAILY [facility] Stop: 02/15/23 09:01 Sodium Chloride (0.9 % Sodium Chloride Flush 3 Ml Syringe) 3 ml IVFLUSH QSHIFT [facility] Last Admin: 02/10/23 07:30 Dose: 3 ml Documented By: TIO Thiamine HCl (Thiamine Hcl 100 Mg Tablet) 100 mg PO DAILY [facility] Last Admin: 02/10/23 07:29 Dose: 100 mg Documented By: TIO Labs 02/10/23 05:30 02/10/23 05:30 Labs: Laboratory Results - last 24 hr 02/09/23 02/09/23 02/10/23 20:23 20:24 00:59 MCV 86.4 MCH 29.5 MCHC 34.1 RDW 13.2 Plt Count 364 MPV 8.7 L Immature Gran % (Auto) 0.2 Neut % (Auto) 64.4 Lymph % (Auto) 25.7 [place] % (Auto) 7.2 Eos % (Auto) 1.8 Baso % (Auto) 0.7 Lymph # (Auto) 3.1 [place] # (Auto) 0.9 Eos # (Auto) 0.2 Baso # (Auto) 0.1 Abs Immat Gran (auto) 0.03 Absolute Neuts (auto) 7.9 Absolute Nucleated RBC 0.000 Nucleated RBC % (auto) 0.0 Anion Gap 15 Estim Creat Clear Calc 89.4 Estimated GFR > 60 Random Glucose 86 Lactic Acid 1.4 Calcium 9.7 Magnesium 2.0 Total Bilirubin 0.6 Direct Bilirubin 0.2 AST 19 ALT 18 Alkaline Phosphatase 57 Total Protein 7.9 Albumin 4.7 Lipase 24 Beta HCG, Quant < 2 Urine Color Yellow Urine Appearance Clear Urine pH 6.0 Ur Specific [place] >= 1.030 H Urine Protein Negative Urine Glucose (UA) Negative Urine Ketones 15 Urine Blood Negative Urine Nitrite Negative Ur Leukocyte Esterase Negative Urine Test NEGATIVE Urine Opiates Screen Not Detected Urine Fentanyl Screen Not Detected Ur Barbiturates Screen POSITIVE H Ur Phencyclidine Scrn Not Detected Ur Amphetamines Screen Not Detected U Benzodiazepines Scrn Not Detected Urine Cocaine Screen Not Detected U Marijuana (THC) Screen POSITIVE H Ethyl Alcohol < 10 Influenza Type A (PCR) NEGATIVE Influenza Type B (PCR) NEGATIVE RSV RNA Qual (PCR) NEGATIVE SARS-CoV-2 RNA (RT-PCR) NEGATIVE 02/10/23 05:30 MCV 87.9 MCH 30.1 MCHC 34.2 RDW 13.2 Plt Count 317 MPV 9.3 L Immature Gran % (Auto) 0.2 Neut % (Auto) 55.4 Lymph % (Auto) 31.6 [place] % (Auto) 9.1 Eos % (Auto) 2.8 Baso % (Auto) 0.9 Lymph # (Auto) 2.8 [place] # (Auto) 0.8 Eos # (Auto) 0.3 Baso # (Auto) 0.1 Abs Immat Gran (auto) 0.02 Absolute Neuts (auto) 5.0 Absolute Nucleated RBC 0.000 Nucleated RBC % (auto) 0.0 Anion Gap 13 Estim Creat Clear Calc 99.1 Estimated GFR > 60 Random Glucose 93 Lactic Acid Calcium 8.5 D Magnesium Total Bilirubin Direct Bilirubin AST ALT Alkaline Phosphatase Total Protein Albumin Lipase Beta HCG, Quant Urine Color Urine Appearance Urine pH Ur Specific [place] Urine Protein Urine Glucose (UA) Urine Ketones Urine Blood Urine Nitrite Ur Leukocyte Esterase Urine Test Urine Opiates Screen Urine Fentanyl Screen Ur Barbiturates Screen Ur Phencyclidine Scrn Ur Amphetamines Screen U Benzodiazepines Scrn Urine Cocaine Screen U Marijuana (THC) Screen Ethyl Alcohol Influenza Type A (PCR) Influenza Type B (PCR) RSV RNA Qual (PCR) SARS-CoV-2 RNA (RT-PCR) Assessment and Plan (1) Alcohol withdrawal syndrome: Status: Acute Plan This is a 37-year-old female with pertinent history of alcohol use disorder who presents to the emergency department for concerns of alcohol withdrawal, she claims to have been sober and relapsed #. Alcohol use disorder with concerns for alcohol withdrawal, but at the moment no overt signs of withdrwal- She is being treated with phenobarbial, and wants outpatient resources, so addiction med consult is requested. Generalized anxiety disorder: Patient states she has been dealing with anxiety for a while and it is interfering with her daily functioning. Hydroxyzine while on Phenobarbial, pending Psych consult med done, takes Cardizem for PRN tachycardia, on hold out of bed, ambulate obs, Quality Stroke Does the patient have a stroke diagnosis?: No VTE Prior VTE?: No VTE Risk Level:: Medical - moderate - high VTE Device Contraindication: Treatment Not Indicated VTE Drug Contraindication: N/A - Med Ordered
--- NOTE | 2023-02-10 12:15 | MHC.RECOVRN ---
Met with pt in 356 after consult placed to Addiction Medicine for alcohol use. Pt had presented to the ED for withdrawal, reported alcohol use daily with hx withdrawal syncopal episodes. Upon evaluation, pt admitted for treatment of alcohol withdrawal syndrome. Pt sitting in bed, awake, alert, engages in conversation, anxious. Pt reports desire to discharge as being in the hospital is outside of my comfort zone and creates anxiety. Pt denies current withdrawal symptoms, reports IM phenobarb helped so much. Pt reports prior to admission alcohol use x 3 days. Day 1: 1 pint vodka, day 2: 1 pint vodka, day 3: 2 pints vodka and a 4 pack of premixed white russians. Pt reports prior to that, she had been in recovery x a couple weeks after being discharged from [facility] for alcohol withdrawal. Pt reports many hospital admissions and a couple psychiatric admissions. Pt denies significant recovery time after hospitalizations. Pt reports she has been to rehab x 3, unable to identify facilities. Pt tearful, reports after [facility] admission it was really hard maintaining recovery, reports intense cravings. Pt reports she has taken naltrexone and Vivitrol in the past with questionable success. Discussed possibility of restarting and following up with the [facility]. Discussed the benefits of working with a team who specializes in addiction. Pt is open to initiating care. Pt reports having not consistent support with recovery, states partner's support is here and there. 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 Pt reports hx therapy, might be interested in a referral to [facility] once established at the [facility]. Pt reports naltrexone rx at home, plans to resume once discharged from the hospital. Pt provided with written recovery resources as well as t/w contact information if needed. [facility] OA to call pt to schedule appt. Pt denies questions or concerns at this time.
--- NOTE | 2023-02-10 15:28 | PM.PSYCN ---
History of Present Illness Date of Service: 02/10/2023 Chief Complaint: Altered mentation Reason for Consult: anxiety Requesting physician: Qamar Rosales Discussed with referring provider: Yes Sources of Information: patient interviewed, chart reviewed and crisis/core team assessment reviewed HPI Narrative: Ms. Owens is a 37 year-old woman with hx of depression, alcohol use disorder who self presented [place] [facility] reporting s/s of alcohol withdrawal including tachycardia. She was admitted on phenobarbitol protocol for alcohol withdrawal. Psychiatry consulted due to pt reporting severe anxiety. In ED, BAL neg. Utox positive for THC. Pt presents as calm and pleasant. No overt withdrawal symptoms. She reports she recently relapsed after 3 month of sobriety. She endorses feeling of shame and guilt related to recent relapse. She reports she has a supportive partner. She reports severe anxiety when at work, including tremors when not using alcohol. She denies hx of VH/AH. She denies SI/HI. No hx of suicide attempts. She reports recently lost connection with [employer] but has up coming appointment with psychiatric prescriber, Harrison Sanz on 02/17/2023. Past Psychiatric History: OP: Harrison Sanz, VIKKI Yash Past med trial: prozac, clonazepam, abilify Medical Evaluation Reviewed: Yes [facility] Medical History Asthma Anxiety and depression Tachycardia Alcohol withdrawal Diagnostics Vital Signs (24Hr): Vital Signs - 24 hr 02/09/23 19:24 02/09/23 23:05 02/10/23 01:01 Temperature 98.5 F 97.7 F Pulse Rate 119 H 102 H 102 H Respiratory Rate 18 18 Blood Pressure 152/90 H 129/67 140/84 H Pulse Oximetry 98 96 Oxygen Delivery Method Room Air Room Air 02/10/23 01:03 02/10/23 01:04 02/10/23 01:05 Temperature Pulse Rate 115 H 112 H 102 H Respiratory Rate 16 Blood Pressure 154/76 H 122/76 140/84 H Pulse Oximetry 96 Oxygen Delivery Method Room Air 02/10/23 06:20 02/10/23 07:53 02/10/23 11:42 Temperature 96.8 F 97.5 F 97.0 F Pulse Rate 98 91 104 H Respiratory Rate 16 16 17 Blood Pressure 145/90 H 135/82 140/95 H Pulse Oximetry 97 97 97 Oxygen Delivery Method Room Air Room Air Room Air BMI result Body Mass Index 31.8 Labs 02/10/23 05:30 02/10/23 05:30 Labs: Laboratory Results - last 48 hr 02/09/23 02/09/23 02/10/23 20:23 20:24 00:59 WBC 12.2 H RBC 4.85 Hgb 14.3 Hct 41.9 MCV 86.4 MCH 29.5 MCHC 34.1 RDW 13.2 Plt Count 364 MPV 8.7 L Immature Gran % (Auto) 0.2 Neut % (Auto) 64.4 Lymph % (Auto) 25.7 Coleman % (Auto) 7.2 Eos % (Auto) 1.8 Baso % (Auto) 0.7 Lymph # (Auto) 3.1 Coleman # (Auto) 0.9 Eos # (Auto) 0.2 Baso # (Auto) 0.1 Abs Immat Gran (auto) 0.03 Absolute Neuts (auto) 7.9 Absolute Nucleated RBC 0.000 Nucleated RBC % (auto) 0.0 Sodium 138 Potassium 3.7 Chloride 106 Carbon Dioxide 21 L Anion Gap 15 BUN 12 Creatinine 0.92 Estim Creat Clear Calc 89.4 Estimated GFR > 60 Random Glucose 86 Lactic Acid 1.4 Calcium 9.7 Magnesium 2.0 Total Bilirubin 0.6 Direct Bilirubin 0.2 AST 19 ALT 18 Alkaline Phosphatase 57 Troponin I High Sens < 2.7 Total Protein 7.9 Albumin 4.7 Lipase 24 Beta HCG, Quant < 2 Urine Color Yellow Urine Appearance Clear Urine pH 6.0 Ur Specific [place] >= 1.030 H Urine Protein Negative Urine Glucose (UA) Negative Urine Ketones 15 Urine Blood Negative Urine Nitrite Negative Ur Leukocyte Esterase Negative Urine Test NEGATIVE Urine Opiates Screen Not Detected Urine Fentanyl Screen Not Detected Ur Barbiturates Screen POSITIVE H Ur Phencyclidine Scrn Not Detected Ur Amphetamines Screen Not Detected U Benzodiazepines Scrn Not Detected Urine Cocaine Screen Not Detected U Marijuana (THC) Screen POSITIVE H Ethyl Alcohol < 10 Influenza Type A (PCR) NEGATIVE Influenza Type B (PCR) NEGATIVE RSV RNA Qual (PCR) NEGATIVE SARS-CoV-2 RNA (RT-PCR) NEGATIVE 02/10/23 05:30 WBC 8.9 RBC 4.22 Hgb 12.7 Hct 37.1 MCV 87.9 MCH 30.1 MCHC 34.2 RDW 13.2 Plt Count 317 MPV 9.3 L Immature Gran % (Auto) 0.2 Neut % (Auto) 55.4 Lymph % (Auto) 31.6 Coleman % (Auto) 9.1 Eos % (Auto) 2.8 Baso % (Auto) 0.9 Lymph # (Auto) 2.8 Coleman # (Auto) 0.8 Eos # (Auto) 0.3 Baso # (Auto) 0.1 Abs Immat Gran (auto) 0.02 Absolute Neuts (auto) 5.0 Absolute Nucleated RBC 0.000 Nucleated RBC % (auto) 0.0 Sodium 140 Potassium 3.4 Chloride 109 H Carbon Dioxide 21 L Anion Gap 13 BUN 13 Creatinine 0.83 Estim Creat Clear Calc 99.1 Estimated GFR > 60 Random Glucose 93 Lactic Acid Calcium 8.5 D Magnesium Total Bilirubin Direct Bilirubin AST ALT Alkaline Phosphatase Troponin I High Sens Total Protein Albumin Lipase Beta HCG, Quant Urine Color Urine Appearance Urine pH Ur Specific [place] Urine Protein Urine Glucose (UA) Urine Ketones Urine Blood Urine Nitrite Ur Leukocyte Esterase Urine Test Urine Opiates Screen Urine Fentanyl Screen Ur Barbiturates Screen Ur Phencyclidine Scrn Ur Amphetamines Screen U Benzodiazepines Scrn Urine Cocaine Screen U Marijuana (THC) Screen Ethyl Alcohol Influenza Type A (PCR) Influenza Type B (PCR) RSV RNA Qual (PCR) SARS-CoV-2 RNA (RT-PCR) Imaging Radiology Impressions: ITS Impressions Head CT 02/09/23 22:02 IMPRESSION: No acute intracranial pathology. Curvature of the cervical spine to the right on the coronal images and reversal of the cervical spine curvature on the coronal images of uncertain significance. This may relate spasm or pain. No acute osseous abnormality identified. Cervical Spine CT 02/09/23 22:03 IMPRESSION: No acute intracranial pathology. Curvature of the cervical spine to the right on the coronal images and reversal of the cervical spine curvature on the coronal images of uncertain significance. This may relate spasm or pain. No acute osseous abnormality identified. Mental Status Exam Mental Status Exam Narrative: Appearance: wearing hospital gown, good hygiene, in NAD Behavior: cooperative Psychomotor: no agitation or retardation noted Speech: clear, normal rate/rhythm/volume, spontaneous TP: linear TC: no s/s of psychosis or delusions, feeling overwhelmed Mood: better Affect: congruent SI: none HI: none VH/AH: none Delusions: none Insight/judgment: fair x 2. Memory/cog: alert, oriented x 3. grossly intact to conversational testing. Medications Medications Current Medications Acetaminophen (Acetaminophen 325 Mg Tablet) 650 mg PO Q6H PRN PRN Reason: Pain, Mild (Pain Scale 1-3) Enoxaparin Sodium (Enoxaparin Sodium 40 Mg/0.4 Ml Syringe) 40 mg SUBCUT Q24H [facility] Last Admin: 02/10/23 07:29 Dose: 40 mg Hydroxyzine HCl (Hydroxyzine Hcl 25 Mg Tablet) 25 mg PO Q6H PRN PRN Reason: Anxiety Last Admin: 02/10/23 11:09 Dose: 25 mg Melatonin (Melatonin 3 Mg Tablet) 6 mg PO BEDTIME PRN PRN Reason: Insomnia Ondansetron HCl (Ondansetron Hcl 4 Mg/2 Ml Vial) 4 mg IVPUSH Q8H PRN PRN Reason: Nausea and Vomiting Pharmacy Consult (Consult Rx Etoh Phenob Im/Po) 1 each MISCELLANE ONCE PRN; Protocol PRN Reason: Consult order Phenobarbital (Phenobarbital 15 Mg Tablet) 45 mg PO BID [facility] Stop: 02/11/23 21:01 Last Admin: 02/10/23 07:30 Dose: 45 mg Phenobarbital (Phenobarbital 30 Mg Tablet) 30 mg PO BID [facility] Stop: 02/13/23 21:01 Phenobarbital (Phenobarbital 15 Mg Tablet) 15 mg PO DAILY [facility] Stop: 02/15/23 09:01 Sodium Chloride (0.9 % Sodium Chloride Flush 3 Ml Syringe) 3 ml IVFLUSH QSHIFT [facility] Last Admin: 02/10/23 07:30 Dose: 3 ml Thiamine HCl (Thiamine Hcl 100 Mg Tablet) 100 mg PO DAILY [facility] Last Admin: 02/10/23 07:29 Dose: 100 mg Allergies Allergies Allergy/AdvReac Type Severity Reaction Status Date / Time No Known Allergies Allergy Verified 02/09/23 19:28 Assessment & Plan Assessment & Plan (1) MDD (major depressive disorder), recurrent episode, moderate: Status: Acute Code(s): F33.1 - Major depressive disorder, recurrent, moderate (2) Alcohol use disorder, moderate, dependence: Status: Acute Code(s): F10.20 - Alcohol dependence, uncomplicated Plan Ms. Owens is a 37 year-old woman with hx of MDD, alcohol use disorder who was admitted for alcohol withdrawal on phenobarbital protocol. Psychiatry asked to see pt due to reports of severe anxiety. Pt describes tremors while at work and attributes this to anxiety. No imminent safety concerns in terms of SI or HI. We discussed risks and benefits of medications such as naltrexon, which she reports still has some at home and does not need refill. We discussed that option of starting antidepressant at this point will defer to her outpatient psychiatric provider which she will be seeing soon. We also discussed concern of relying on benzo for treatment of anxiety given dependence to alcohol. It makes more sense at this point that any new medication is prescribed by her OP provider as pt may be discharged home today. PLAN 1. No imminent safety concern requiring inpt level of psychiatric care. 2. follow up with OP for further medication management. Total time managing care of this patient today ____ minutes.
--- NOTE | 2023-03-12 17:15 | P.DS_ITS ---
DS: Providers Provider Date of Service: 02/10/23 Date of admission: 02/09/23 23:47 Primary care physician: Uvaldo Mace MD Consults: 02/10/23 00:46 Addiction Medicine Stat Consulting Provider: Addiction Covering Reason for consultation: alcohol use disorder Consult to Care Team Routine Comment: Reason for consultation: alcohol use disorder Consult to Psychiatry Routine Consulting Provider: Psych Covering Reason for consultation: anxiety disorder 02/10/23 08:53 Addiction Medicine Routine Consulting Provider: Addiction Covering Reason for consultation: relapase from sobriety, and needs outpatient resources Has provider been notified: No DS: Diagnosis Discharge Diagnosis (1) MDD (major depressive disorder), recurrent episode, moderate: Status: Acute (2) Alcohol use disorder, moderate, dependence: Status: Acute DS: Summary Hospital Course Hospital Course: admission hpi Chief Complaint: Alcohol withdrawal This is a 37-year-old female with pertinent history of alcohol use disorder who presents to the emergency department for concerns of alcohol withdrawal. Patient states that she relapsed around and drank a lot of vodka. Her last drink was on the day of presentation. Patient states she has been having nausea and vomiting since. Also complains of tremor and sweating. Does have a history of alcohol withdrawal. Unclear if she has had seizures or delirium tremens. Patient states she has been feeling anxious for a while and is looking to seek a provider for it. Knocked, chills, chest discomfort, palp itations, abdominal pain, changes in urinary or bowel habits. Patient states she passed out on the day of presentation likely due to intoxication and hit her head while she was coming out of the shower. hospital course: Alcohol use disorder with concerns for alcohol withdrawal, but she showed no overt signs of withdrwal- She was treated with phenobarbial, and was provided with outpatient resources by addiction medicine and is motivated to for abstinence Generalized anxiety disorder will seek help on outpatient basis Time Attestation Discharge coordination time: Greater than 30 minutes Quality: Safe Use of Opioids Does Pt have an Active Cancer Diagnosis on the Problem List?: No Quality: Stroke Does the patient have a stroke diagnosis?: No Physical Exam Vital Signs: Vital Signs: Last Vital Signs Temp 97.7 F 02/10/23 16:00 Pulse 100 02/10/23 16:00 Resp 18 02/10/23 16:00 BP 146/90 H 02/10/23 16:00 Pulse Ox 98 02/10/23 16:00 O2 Del Method Room Air 02/10/23 16:00 BMI result Body Mass Index 31.8 General: AO X 3, no acute distress Resp: CTA bilateral CVS: S1,S2,RRR GI: +BS, NT, no distention Skin: No rash Neuro: motor grossly intact Psych: appropriate affect DS: Data Data Completed and Pending Completed studies during hospitalization [Text1]: Procedures Detoxification Services for Substance Abuse Treatment (12/24/22) Discharge Plan Discharge Anticipated Discharge Date/Time: 02/10/23 14:16 Patient Disposition: Home, Self-Care Discharge Diagnosis: Alcohol dependence, at risk for withdrwal, chronic anxiety Referrals: Uvaldo Mace MD [Primary Care Provider] - 1 Week Discharge Medications: Continued diltiazem HCl [Matzim LA] 180 mg tablet extended release 24 hr 180 mg PO DAILY PRN (Reason: Tachycardia) thiamine mononitrate (vit B1) 100 mg Tablet 100 mg PO DAILY 30 Days Qty: 30 0RF No Action trazodone 50 mg tablet 50 mg PO BEDTIME PRN (Reason: sleep) Qty: 14 0RF sertraline 50 mg tablet 50 mg PO DAILY Qty: 30 0RF naltrexone microspheres 380 mg suspension,extended rel recon 380 mg IM Q4W Qty: 1 5RF Rx Instructions: F10.2- Alcohol Use Disorder hydroxyzine HCl 25 mg tablet 25 mg PO TID PRN folic acid 1 mg tablet 1 mg PO DAILY pantoprazole 20 mg tablet,delayed release (DR/EC) 20 mg PO DAILY naltrexone 50 mg tablet 50 mg PO DAILY Discharge Orders: Discharge Order (Routine); Ordered 02/10/23 Ordered By: Fransisco Carvajal Diet: Advance to usual diet Activity on Discharge: As tolerated Stand Alone Forms: Patient Portal Discharge page, Work/School Release Care Plan Goals: Alcohol abstinence Health Concerns: alcoholism anxiety Plan of Treatment: to follow through recovery plan as discussed with her by addiction team abstience from alcohol discussed once again to follow up with pcp follow up with your therapist as scheduled on 02/17/23 Assessment: as above Discharge Date/Time: 02/10/23 16:41
== END 2023-02-10 16:41 | disposition home or self-care (01) ==
LOC: HO.ED 22:01 → HO.EDOVER 23:53 → HO.S3 02-10 05:47
PROVIDERS: Physician Assistant; Admitting Provider Student in an Organized Health Care Education/Training Program; Emergency Provider Emergency Medicine; PCP Internal Medicine; Visit Provider Internal Medicine
DX: F10.239 Alcohol dependence with withdrawal, unspecified (principal); F10.20 Alcohol dependence, uncomplicated; F41.9 Anxiety disorder, unspecified; F33.1 Major depressive disorder, recurrent, moderate; R07.9 Chest pain, unspecified; R51.9 Headache, unspecified; M54.2 Cervicalgia; G40.89 Other seizures; R11.2 Nausea with vomiting, unspecified; F41.8 Other specified anxiety disorders; Z20.822 Contact with and (suspected) exposure to COVID-19; Z20.828 Contact with and (suspected) exposure to other viral communicable diseases
CPT/HCPCS: 0241U; 36415; 70450; 72125; 80048; 80076; 80307; 81003; 81025; 83605; 83690; 83735; 84484; 84702; 85025; 93005; 96361; 96365; 96366; 96372; 99221; 99285; J1650; J2560; J3411

== ENCOUNTER → 2023-02-09 19:14 | Outpatient (BNV) | payer OTHER, SELFPAY | PROVIDERS: Admitting Provider Student in an Organized Health Care Education/Training Program; Emergency Provider Emergency Medicine; PCP Internal Medicine; Visit Provider Internal Medicine Cardiovascular Disease | DX: R00.0 Tachycardia, unspecified (principal) | CPT/HCPCS: 93010 ==

== ENCOUNTER → 2023-02-09 23:47 | Outpatient (BNV) | payer OTHER, SELFPAY | PROVIDERS: Admitting Provider Student in an Organized Health Care Education/Training Program; Emergency Provider Emergency Medicine; PCP Internal Medicine; Visit Provider Student in an Organized Health Care Education/Training Program | DX: F33.1 Major depressive disorder, recurrent, moderate (principal); F10.20 Alcohol dependence, uncomplicated | CPT/HCPCS: 99222; 99232; 99239 ==

== ENCOUNTER → 2023-02-09 23:47 | Outpatient (BNV) | payer OTHER, SELFPAY | PROVIDERS: Admitting Provider Student in an Organized Health Care Education/Training Program; Emergency Provider Emergency Medicine; PCP Internal Medicine; Visit Provider Social Worker | DX: F33.1 Major depressive disorder, recurrent, moderate (principal); F10.20 Alcohol dependence, uncomplicated | CPT/HCPCS: 99231 ==

== ENCOUNTER 2023-02-15 16:47 | Outpatient (AMB) | payer OTHER, SELFPAY ==
--- NOTE | 2023-02-15 16:54 | MHC.AM.SUB ---
Intake Vital Signs 02/15/23 16:59 BP 134/78 Blood Pressure Location Lt radial Position Sitting Pulse 76 Pulse Source Pulse Oximeter Pulse Oximetry (%) 98 Oxygen Delivery Method Room Air Intake Visit Reasons: MAT Intake Intake Note: the patient presents for a mat intake [employer] G[employer] Editor Required: No Allergies No Known Allergies Allergy (Verified 02/15/23 17:00) Medication List - Last Reconciled 02/16/23 by Diana Genao, VIKKI diltiazem HCl ER (Matzim LA) 180 mg PO DAILY PRN folic acid 1 mg PO DAILY hydroxyzine HCl 25 mg PO TID PRN naltrexone 50 mg PO DAILY naltrexone microspheres ER 380 mg IM Q4W pantoprazole 20 mg PO DAILY thiamine mononitrate (vit B1) 100 mg PO DAILY 30 days HPI MAT Intake HPI Details This is a 37 year old female assigned at presenting to the clinic to establish care for AUD. She was referred to [facility] by the [facility] PCP- Dr. Mace, next appt 02/24/23 She is stably housed with with reliable transportation She lives with her partner whom she reports is a good support for her, she feels other than him she does not have a good support system. She is interested in trampoline team coach referral Substance Use History Last drink was 3 days prior on Tuesday, she reports she relapsed over New Years She reports she typically drinks 1/2-2 pints of vodka daily She was recently discharged from the hospital [place] where she was treated for alcohol withdrawal She does have a history of complicated withdrawal, and believes she may have had a seizure last month prior to her admission to the hospital She mixes her vodka with gatorade as a form of harm reduction, she reports [employer] and [employer] provides her with respite and distraction during her periods of recovery. She typically begins drinking in early afternoon, she identifies this as a time of day when her anxiety begins increasing. She reports mild anxiety at baseline that she feels significantly increases as the day goes by. She reports having many brief periods of recovery over the last few years with the longest time being 6 months approximately a year ago She has gone to detox in the past a few times she is unable to identify which ones she has been to. She reports completing partial hospitalization through [facility] 1.5 years ago No hx of any other substance use Her goal is to stop drinking completely for her mental and physical well being. She would like to restart the vivtrol, she feels as though it was effective during recovery in the past. BH History She has a psych prescriber- Harrison Sanz who she is still active with She is interested in referral to [facility] for counseling as she has no therapist at this time but identifies there is a need for one She has a history of: anxiety, depression, and CPTSD She was psychiatrically hospitalized 1.5 years ago at [facility], this was the second of 2 psych hospitalizations She reports hx of self harm - she overdosed on her hydroxyzine 1.5 years ago and this is what led to her hospitalization She denies current self harm or SI plan, does endorse occasional passive, depressive thoughts Medical Hx NKA PMH of asthma that she uses albuterol rescue inhaler. Is working with her PCP for a preventative inhaler Pancreatitis- 3 yrs ago No surgical hx LMP- 4 yrs ago, she uses Mirena for contraception PFSH Medical History Asthma Anxiety and depression Tachycardia Alcohol withdrawal Family History Mother Alcohol use disorder Maternal Grandfather Alcohol use disorder Social History Household Members: Spouse Housing: Apartment Do you presently have visiting nurse or other home services: No Alcohol intake: current Alcohol intake frequency: 3 or more drinks per day Alcohol type: hard liquor Patient Tobacco Use Status: Never used Tobacco e-Cigarette/Vaping Use: Never Used Second Hand Smoke Exposure: No Substance Use Type: Marijuana service: No Review of Systems Const Reports as per HPI Physical Exam Vital Signs: Last Vital Signs Pulse 76 02/15/23 16:59 BP 134/78 02/15/23 16:59 Pulse Ox 98 02/15/23 16:59 Oxygen Delivery Method Room Air 02/15/23 16:59 Const General: cooperative, comfortable and no acute distress Resp Effort & Inspection: normal respiratory effort and able to speak in complete sentences Psych Appearance: grossly normal Mental Status: mental status grossly normal Affect: Sad affect present Attitude: cooperative Thought process: Normal thought process present Thought content: suicidality Assessment & Plan Assessment & Plan (1) Alcohol use disorder, moderate, dependence: Code(s): F10.20 - Alcohol dependence, uncomplicated Plan: -Referral placed to [facility] -Referral for trampoline team coach placed -Harm reduction discussed -Encouraged her to take her folic acid and thiamine regularly. -Vivitrol ordered -Provided with information about [facility] vs AA -Follow up 1 week Orders: Referrals Counseling Referral F10.20 - Alcohol dependence, uncomplicated Medications: New naltrexone microspheres ER F10.2- Alcohol Use Disorder 380 mg IM Q4W 1 ea 5RF Coding Level of Care Code New Pt Level 4 (32927) Diagnoses Alcohol use disorder, moderate, dependence F10.20
[2023-02-15 16:59] VITALS: BP 134/78; PULSE 76; O2SAT 98
== END 2023-02-15 17:34 | disposition home or self-care (01) ==
PROVIDERS: PCP Internal Medicine; Visit Provider Nurse Practitioner Family
DX: F10.20 Alcohol dependence, uncomplicated (principal)
CPT/HCPCS: 99204

== ENCOUNTER → 2023-02-15 16:47 | Outpatient (BNVA) | payer OTHER, SELFPAY | PROVIDERS: PCP Internal Medicine; Visit Provider Nurse Practitioner Family ==

== ENCOUNTER 2023-03-01 17:27 | Outpatient (AMB) | payer OTHER, SELFPAY ==
[2023-03-01 17:36] VITALS: BP 128/78; PULSE 74; O2SAT 98
--- NOTE | 2023-03-01 17:36 | MHC.AM.SUB ---
Intake Vital Signs 03/01/23 17:36 BP 128/78 Blood Pressure Location Lt radial Position Sitting Pulse 74 Pulse Source Pulse Oximeter Pulse Oximetry (%) 98 Oxygen Delivery Method Room Air Intake Visit Reasons: mat visit Intake Note: the patient presents for a azucena inj Mail Distributor Required: No Allergies No Known Allergies Allergy (Verified 03/01/23 17:37) Do you need a note to return to daycare/school/sports/work: No HPI mat visit HPI Details Patient presents for her first vivitrol injection with this clinic, she has received it before elsewhere per self report She reports that recovery has been a day by day process, she did have 2 difficult days and she purchased a drank a half pint of vodka She expressed shame over this and was reminded she is in early recovery and relapse is common. She expressed hope over the shot helping her cravings, she states she has been taking the naltrexone regularly. When asked what she thinks her triggers are, she reports anxiety as a big trigger for her, reports it is worse in evening and night She has an old script for sertaline which she reports has , and is requesting new one She endorses poor sleep [facility] Medical History Asthma Anxiety and depression Tachycardia Alcohol withdrawal Family History Mother Alcohol use disorder Maternal Grandfather Alcohol use disorder Social History Household Members: Spouse Housing: Apartment Do you presently have visiting nurse or other home services: No Alcohol intake: current Alcohol intake frequency: 3 or more drinks per day Alcohol type: hard liquor Patient Tobacco Use Status: Never used Tobacco e-Cigarette/Vaping Use: Never Used Second Hand Smoke Exposure: No Substance Use Type: Marijuana service: No Review of Systems Const Reports as per HPI Psych Reports anxiety, Denies homicidal ideation and Denies suicidal ideation Physical Exam Vital Signs: Last Vital Signs Pulse 74 03/01/23 17:36 BP 128/78 03/01/23 17:36 Pulse Ox 98 03/01/23 17:36 Oxygen Delivery Method Room Air 03/01/23 17:36 Const General: cooperative, healthy appearing and no acute distress Resp Effort & Inspection: normal respiratory effort Psych Appearance: grossly normal and well kempt Mental Status: mental status grossly normal Speech and movement: Normal speech and movement present Affect: normal affect Attitude: cooperative Thought content: Normal thought content present Insight: Good insight present (Psych) Judgement: Good judgement present (Psych) Office Meds Vivitrol 380 mg intramuscular suspension,extended release Performing Provider: Diana Genao NP Performing Location: [facility] Administered by: Diana Genao NP on 03/01/23 17:40 Dose Route Admin Location Dispensed Lot Number Expiration Date [facility] [employer] 380 mg IM RG 380 mg [id number] 06/06/25 81370-438-34 [employer] Comments: Patient tolerated injection well, signs and symptoms of infection discussed with patient, she has been instructed to call [facility] with any questions or concerns. Assessment & Plan Assessment & Plan (1) Alcohol use disorder, moderate, dependence: Code(s): F10.20 - Alcohol dependence, uncomplicated Plan: -Restart sertraline at 50mg daily, med education provided -Trazodone for sleep PRN, med education provided -Provided a urge tracker so patient can begin to track what triggers her cravings -Tolerated injection -Follow up 2 weeks telehealth for medication review Orders: Orders AMB Naltrexone Injection Patient Supplied 03/01/23 F10.20 - Alcohol dependence, uncomplicated Medications: New trazodone 50 mg PO BEDTIME PRN 14 tabs 0RF sleep sertraline 50 mg PO DAILY 30 tabs 0RF Coding Level of Care Code Est Pt Level 4 (94702) Diagnoses Alcohol use disorder, moderate, dependence F10.20
== END 2023-03-01 18:01 | disposition home or self-care (01) ==
PROVIDERS: PCP Internal Medicine; Visit Provider Nurse Practitioner Family
DX: F10.20 Alcohol dependence, uncomplicated (principal)
CPT/HCPCS: 99214

== ENCOUNTER → 2023-03-01 17:27 | Outpatient (BNVA) | payer OTHER, SELFPAY | PROVIDERS: PCP Internal Medicine; Visit Provider Nurse Practitioner Family | DX: F10.20 Alcohol dependence, uncomplicated (principal) | CPT/HCPCS: 96372; J2315 ==

== ENCOUNTER 2023-03-14 16:12 | Outpatient (AMB) | payer OTHER, SELFPAY ==
--- NOTE | 2023-03-16 10:02 | MHC.AM.SUB ---
Intake Intake Visit Reasons: mat visit Allergies No Known Allergies Allergy (Verified 03/01/23 17:37) HPI mat visit HPI Details Patient presents via telehealth for follow up MAT appointment She reports the shot has been mostly effective for her, she is still experiencing cravings, but has been using techniques she is learning in [facility] to counter-act these cravings She feels well physically Reports sleep is still sub-optimal, she reports she falls asleep but has difficulty staying asleep. [facility] Medical History Asthma Anxiety and depression Tachycardia Alcohol withdrawal Family History Mother Alcohol use disorder Maternal Grandfather Alcohol use disorder Social History Household Members: Spouse Housing: Apartment Do you presently have visiting nurse or other home services: No Alcohol intake: current Alcohol intake frequency: 3 or more drinks per day Alcohol type: hard liquor Patient Tobacco Use Status: Never used Tobacco e-Cigarette/Vaping Use: Never Used Second Hand Smoke Exposure: No Substance Use Type: Marijuana service: No Review of Systems Const Reports as per HPI Assessment & Plan Assessment & Plan (1) Alcohol use disorder, moderate, dependence: Code(s): F10.20 - Alcohol dependence, uncomplicated Plan: -Sleep hygiene reviewed with patient -Relapse prevention discussed -Follow up 2 weeks Medications: Refilled trazodone 50 mg PO BEDTIME PRN 14 tabs 0RF sleep Telehealth Telehealth Patient Identification confirmed using: Name, : Yes Telehealth method: voice only Patient verbally consented to treatment: Yes Patient verbally consented to billing insurance company: Yes Patient informed of any privacy concerns related to visit: Yes Minutes spent on Phone/Video with Pt.: 20 Coding Level of Care Code Tele Est Pt Level 3 (59444) Diagnoses Alcohol use disorder, moderate, dependence F10.20
== END 2023-03-14 16:27 | disposition home or self-care (01) ==
PROVIDERS: PCP Internal Medicine; Visit Provider Nurse Practitioner Family
DX: F10.20 Alcohol dependence, uncomplicated (principal)
CPT/HCPCS: 99213

== ENCOUNTER → 2023-03-14 16:12 | Outpatient (BNVA) | payer OTHER, SELFPAY | PROVIDERS: PCP Internal Medicine; Visit Provider Nurse Practitioner Family ==

== ENCOUNTER 2023-03-29 16:53 | Outpatient (AMB) | payer OTHER, SELFPAY ==
--- NOTE | 2023-03-29 16:55 | MHC.AM.SUB ---
Intake Vital Signs 03/29/23 17:05 BP 140/78 H Blood Pressure Location Lt radial Pulse 96 Pulse Source Pulse Oximeter Pulse Oximetry (%) 95 Oxygen Delivery Method Room Air Intake Visit Reasons: Ira Inj Intake Note: the patient presents for a ira inj Cap Sizer Required: No Allergies No Known Allergies Allergy (Verified 03/29/23 16:59) Do you need a note to return to daycare/school/sports/work: No PFSH Medical History Asthma Anxiety and depression Tachycardia Alcohol withdrawal Family History Mother Alcohol use disorder Maternal Grandfather Alcohol use disorder Social History Household Members: Spouse Housing: Apartment Do you presently have visiting nurse or other home services: No Alcohol intake: current Alcohol intake frequency: 3 or more drinks per day Alcohol type: hard liquor Patient Tobacco Use Status: Never used Tobacco e-Cigarette/Vaping Use: Never Used Second Hand Smoke Exposure: No Substance Use Type: Marijuana service: No Physical Exam Vital Signs: Last Vital Signs Pulse 96 03/29/23 17:05 BP 140/78 H 03/29/23 17:05 Pulse Ox 95 03/29/23 17:05 Oxygen Delivery Method Room Air 03/29/23 17:05 Results AMB Test Urine AMB Test Urine Negative Last Edit by Elisa Lee CMA on 03/29/23 17:08 Results Reviewed Results Reviewed: Laboratory Last Values [facility]st Clinic Negative 03/29/23 17:00 Assessment & Plan Assessment & Plan Orders: Orders AMB HCG Urine Test Today Z32.01 - Encounter for test, result positive, Z32.02 - Encounter for test, result negative Coding
[2023-03-29 17:05] VITALS: BP 140/78; PULSE 96; O2SAT 95
--- NOTE | 2023-03-29 17:42 | MHC.AM.SUB ---
Intake Vital Signs 03/29/23 17:05 BP 140/78 H Blood Pressure Location Lt radial Pulse 96 Pulse Source Pulse Oximeter Pulse Oximetry (%) 95 Oxygen Delivery Method Room Air Intake Visit Reasons: Ira Inj Allergies No Known Allergies Allergy (Verified 03/29/23 16:59) HPI Ira Inj HPI Details Patient presents for vivitrol injection She reports relapse 3 days ago, drank 2 liters of vodka over the span of the last few days She reports her long-time partner broke off their relationship and this is what triggered the relapse She reports the 50mg of trazodone at night was not helpful for falling asleep, but instead made her drowsy the next day. Tearful at visit, processed feelings with patient [facility] Medical History Asthma Anxiety and depression Tachycardia Alcohol withdrawal Family History Mother Alcohol use disorder Maternal Grandfather Alcohol use disorder Social History Household Members: Spouse Housing: Apartment Do you presently have visiting nurse or other home services: No Alcohol intake: current Alcohol intake frequency: 3 or more drinks per day Alcohol type: hard liquor Patient Tobacco Use Status: Never used Tobacco e-Cigarette/Vaping Use: Never Used Second Hand Smoke Exposure: No Substance Use Type: Marijuana service: No Review of Systems Const Reports as per HPI and Reports difficulty sleeping Psych Reports depression, Denies homicidal ideation and Denies suicidal ideation Physical Exam Vital Signs: Last Vital Signs Pulse 96 03/29/23 17:05 BP 140/78 H 03/29/23 17:05 Pulse Ox 95 03/29/23 17:05 Oxygen Delivery Method Room Air 03/29/23 17:05 Const General: cooperative and no acute distress Resp Effort & Inspection: normal respiratory effort Psych Appearance: well kempt Mental Status: mental status grossly normal Speech and movement: Normal speech and movement present Affect: Sad affect present Attitude: cooperative Thought process: Normal thought process present Thought content: Normal thought content present, suicidality and no homicidality Office Meds Vivitrol 380 mg intramuscular suspension,extended release Performing Provider: Diana Genao NP Performing Location: [facility] Administered by: Laurie Quiroz RN on 03/29/23 17:44 Dose Route Admin Location Dispensed Lot Number Expiration Date NDC [employer] 380 mg IM LG 380 mg [id number] 06/06/25 [id number] [employer] (formerly [employer]) Comments: Pt tolerated injection well. Education provided re: SE, comfort interventions for injection site and to call [facility] with any questions/concerns. Pt denied any issues from last injection and none noted. Results AMB Test Urine AMB Test Urine Negative Last Edit by Elisa Lee CMA on 03/29/23 17:08 Results Reviewed Results Reviewed: Laboratory Last Values Tst Clinic Negative 03/29/23 17:00 Assessment & Plan Assessment & Plan (1) Alcohol use disorder, moderate, dependence: Code(s): F10.20 - Alcohol dependence, uncomplicated Plan: -Reviewed recovery supports with her -Discussed with her increasing visits to weekly while she is going through this difficult time -Increased trazodone to 100mg nightly -Follow up 1 week telehealth Orders: Orders AMB HCG Urine Test Today Z32.01 - Encounter for test, result positive, Z32.02 - Encounter for test, result negative AMB Naltrexone Injection Patient Supplied (NC) Today F10.20 - Alcohol dependence, uncomplicated Medications: New trazodone 100 mg PO BEDTIME 14 tabs 0RF Coding Level of Care Code Est Pt Level 3 (35229) Diagnoses Alcohol use disorder, moderate, dependence F10.20
== END 2023-03-29 17:43 | disposition home or self-care (01) ==
PROVIDERS: PCP Internal Medicine; Visit Provider Nurse Practitioner Family
DX: Z32.02 Encounter for pregnancy test, result negative (principal); Z32.01 Encounter for pregnancy test, result positive; F10.20 Alcohol dependence, uncomplicated
CPT/HCPCS: 99213

== ENCOUNTER → 2023-03-29 16:53 | Outpatient (BNVA) | payer OTHER, SELFPAY | PROVIDERS: PCP Internal Medicine; Visit Provider Nurse Practitioner Family | DX: F10.20 Alcohol dependence, uncomplicated (principal) | CPT/HCPCS: 81025; 96372; J2315 ==

== ENCOUNTER 2023-03-30 14:29 | Emergency (ER) | payer OTHER, SELFPAY ==
[2023-03-30 14:33] VITALS: BP 122/76; BP 123/81; PULSE 122; PULSE 124; RESP 20; TEMP 36.9; O2SAT 96; O2SAT 98; BMI 34.0
--- NOTE | 2023-03-30 15:02 | ED_ITS ---
HPI - Alcohol General Chief Complaint: ETOH/Substance Use Stated Complaint: ETOH USE/3 PINTS OF VODKA,WANTS DETOX PER EMS Time Seen by Provider: 03/30/23 14:46 Source: patient and EMS Mode of arrival: EMS Limitations: no limitations History of Present Illness HPI narrative: 37 year old female with a history of etoh use disorder presents to the ED today via EMS seeking detox from etoh. Patient admits to 1 month of sobriety when she relapsed 3 days ago after her partner ended their 9 year relationship and began seeing someone else. She endorses drinking approximately 3 L of vodka over the last 3 days. Her last drink was 3 hours ago. She endorses nausea, vomiting, and diarrhea. Additionally she endorses some chest discomfort secondary to increased heart rate. She denies chest pain. Chest discomfort is diffuse without radiation. She states that she wants to get better , prompting her to call EMS today. Seeking detox. She endorses history of withdrawal seizures and is afraid this may happen again. Denies SI/HI. Denies illicit substance use including marijuana. Denies known sick contacts. Denies recent travel or long car rides. Related Data Home Medications Medication Instructions Recorded Confirmed diltiazem HCl 180 mg 180 mg PO DAILY PRN Tachycardia 12/24/22 02/16/23 tablet,extended release 24 hr (Matzim LA) folic acid 1 mg tablet 1 mg PO DAILY 02/16/23 02/16/23 hydroxyzine HCl 25 mg tablet 25 mg PO TID PRN 02/16/23 02/16/23 naltrexone 50 mg tablet 50 mg PO DAILY 02/16/23 02/16/23 pantoprazole 20 mg tablet,delayed 20 mg PO DAILY 02/16/23 02/16/23 release Previous Rx's Medication Instructions Recorded thiamine mononitrate (vit B1) 100 100 mg PO DAILY 30 days #30 tabs 12/26/22 mg tablet naltrexone microspheres 380 mg 380 mg IM Q4W #1 ea 02/16/23 intramuscular suspension,extended release sertraline 50 mg tablet 50 mg PO DAILY #30 tabs 03/01/23 trazodone 50 mg tablet 50 mg PO BEDTIME PRN sleep #14 tabs 03/14/23 trazodone 100 mg tablet 100 mg PO BEDTIME #14 tabs 03/29/23 Allergies Allergy/AdvReac Type Severity Reaction Status Date / Time No Known Allergies Allergy Verified 03/30/23 14:56 Review of Systems 2 Review of Systems: Constitutional: No fever, chills, fatigue, night sweats, weight changes ENT/Mouth: No ear pain, hearing loss, nasal congestion, sinus pain, rhinorrhea, sore throat Eyes: No eye pain, swelling, redness, vision changes, discharge Cardio: No chest pain, palpitations, MATOS, orthopnea, peripheral edema, +chest discomfort Pulm: No SOB, cough, sputum, wheezing, dyspnea, hemoptysis GI: +nausea, +vomiting, No hematemesis, abdominal pain, diarrhea, constipation, hematochezia, melena : No irregular bleeding, dysuria, frequency, urgency, hesitancy, hematuria, flank pain, urinary flow changes, urinary incontinence or retention MSK: No back pain, neck pain, joint pain, myalgias Skin: No lesions, rashes Neuro: No weakness, numbness, paresthesias, LOC, dizziness, headache Psych: No anxiety/panic, depression, SI/HI, AH/VH All other systems reviewed and are negative. [facility] Past Medical History Attestation statement: The following information was validated with the patient. Source: old records reviewed and nursing notes reviewed Medical History MDD (major depressive disorder), recurrent episode, moderate Asthma Anxiety and depression Tachycardia Alcohol withdrawal Family History Family History Mother Alcohol use disorder Maternal Grandfather Alcohol use disorder Social History Social History Household Members: Spouse Housing: Apartment Do you presently have visiting nurse or other home services: No Alcohol intake: current Alcohol intake frequency: 3 or more drinks per day Alcohol type: hard liquor Patient Tobacco Use Status: Never used Tobacco e-Cigarette/Vaping Use: Never Used Second Hand Smoke Exposure: No Use of substances other than those prescribed or required for medical reasons: No Substance Use Type: Marijuana Advance Directives: Yes Advance Directives on File: Yes Advance Directives Date on File: 02/11/23 service: No Physical Exam ED Vital Signs: Vital Signs - 24 hr 03/30/23 22:57 Temperature 98 F Pulse Rate 101 H Respiratory Rate 16 Blood Pressure 147/86 H Pulse Oximetry 99 Oxygen Delivery Method Room Air BMI result Body Mass Index 34.0 Patient tachycardic to 122, vitals otherwise WNL. Const Other: + tearful, tremulous General: cooperative, healthy appearing, comfortable and no acute distress Orientation/consciousness: patient oriented x3 Limitations: no limitations HENMT Head: Yes normal to inspection, Yes No palpable skull fracture present, Yes normocephalic and Yes atraumatic Eyes Other: + conjunctiva injected Pupils: Equal, round and reactive pupils present Neck Neck: Yes normal visual inspection, Yes no lymphadenopathy and Yes no JVD Resp Effort & Inspection: normal respiratory effort and able to speak in complete sentences Auscultation: clear to auscultation bilaterally Cardio Jugular venous distension: no JVD Rate: tachycardic Rhythm: regular rhythm Peripheral pulses: Peripheral pulses 2+ throughout GI Inspection: Yes normal to inspection Palpation (GI): Soft to palpation and nontender Skin General skin exam: no rashes or lesions noted Neuro Other: + tremulous General: patient oriented x3, gait normal and tone normal Cranial nerves: Yes Equal, round and reactive pupils present Motor exam (neuro): no asterixis and Motor fasciculations not present Pupils: Normal pupillary reactivity/response: bilateral Extrem General: Yes normal to inspection Psych Other: + avoids eye contact Course Course Course Narrative: 5828-- I spoke with Pam from detox services and patient is currently declining detox today. She states that she has to care her for dog at home. She was provided with outpatient referrals and will follow up after tying up these loose ends at home. Will complete work up since patient continues to endorse chest pain. She appears more anxious during encounter with detox team > Pam requesting patient receive Ativan > ordered. 1630-- Patient stable at the end of my shift. Case signed out to my colleague, Red HUNG pending labs, EKG, urine and disposition. Reevaluation(s) Reevaluation #1: Two troponins negative. EKG does show sinus tach. Patient given another Ativan 2 mg for slight tremors that later resolved after ativan. Patient is safe for discharge. patient not in distress Time: 00:30 Medical Decision Making Medical Decision Making [facility] Narrative: 37 year old female with a history of etoh use disorder presents to the ED today via EMS seeking detox from etoh. Patient tachycardic to the 120s. Vitals otherwise WNL. She is afebrile. Normotensive. She is nontoxic-appearing and in no acute distress. She is tearful on exam. Avoiding eye contact. No asterixis or tongue fasciculations. Tachycardic with normal rhythm. Ambulating with steady gait. Clinical concern for acute etoh intoxication, ETOH withdrawal. Lower suspicion for substance abuse, DT, withdrawal seizures. No concern for SI or HI. Plan for labs, trop, EKG, UA, urine , CIWA, and addiction med consultation. Differential Diagnosis Differential Diagnoses: The differential diagnosis associated with the presentation includes As above. Admission/Observation Not indicated. Consult Healthcare Provider Management of the patient was discussed with: Design Inserter (addiction medicine, Pam Stevenson) Lab Data MDM Lab Attestation statement: I reviewed the patient's lab results. as above. 03/30/23 16:23 03/30/23 16:23 Labs: Lab Results 03/30/23 03/30/23 Range/Units 16:23 21:19 WBC 13.4 H (4.8-10.8) X10*3/uL RBC 4.92 (4.20-5.50) X10*6/uL Hgb 14.4 (12.0-16.0) g/dl Hct 41.4 (37.0-47.0) % MCV 84.1 (80.0-98.0) fL MCH 29.3 (27.0-33.0) pg MCHC 34.8 (31.0-35.0) g/dl RDW 12.6 (11.0-16.0) % Plt Count 466 H D (160-400) X10*3/uL MPV 8.7 L (9.4-12.3) fL Immature Gran % (Auto) 0.5 H (0.0-0.4) % Neut % (Auto) 68.1 (45-73) % Lymph % (Auto) 23.5 (20-40) % Sampson % (Auto) 6.9 (2-11) % Eos % (Auto) 0.4 (0-4) % Baso % (Auto) 0.6 (0-2) % Lymph # (Auto) 3.1 (1.2-4.9) X10*3/uL Sampson # (Auto) 0.9 (0.1-1.2) X10*3/uL Eos # (Auto) 0.1 (0.0-0.4) X10*3/uL Baso # (Auto) 0.1 (0.0-0.2) X10*3/uL Abs Immat Gran (auto) 0.07 H (0.00-0.03) X10*3/uL Absolute Neuts (auto) 9.1 H (2.0-8.3) x10*3/uL Absolute Nucleated RBC 0.000 (0.0-0.012) X10*3/uL Nucleated RBC % (auto) 0.0 (0.0-0.2) /100WBC Sodium 139 (135-145) mmol/L Potassium 3.8 (3.3-5.1) mmol/L Chloride 100 (96-108) mmol/L Carbon Dioxide 24 (22-29) mmol/L Anion Gap 19 (12-20) BUN 10 (9-16) mg/dL Creatinine 0.81 (0.5-1.4) mg/dL Estim Creat Clear Calc 93.8 Estimated GFR > 60 Random Glucose 130 H (60-115) mg/dL Calcium 9.4 D (8.4-10.2) mg/dL Magnesium 2.2 (1.6-2.6) mg/dL Total Bilirubin 0.3 (0.0-1.0) mg/dL AST 20 (5-31) U/L ALT 24 (0-31) U/L Alkaline Phosphatase 62 (39-117) U/L Troponin I High Sens < 2.7 < 2.7 (<3.5-17.0) ng/L Total Protein 7.6 (6.5-8.0) g/dL Albumin 4.5 (3.5-5.0) g/dL Lipase 41 (8-78) U/L Urine Color Yellow Urine Appearance Clear Urine pH 7.0 (5.0-9.0) Ur Specific [place] <= 1.005 (1.005-1.025) Urine Protein Negative (Neg-Trace) mg/dL Urine Glucose (UA) Negative (Negative) mg/dL Urine Ketones Negative (Negative) mg/dL Urine Blood Negative (Negative) Urine Nitrite Negative (Negative) Ur Leukocyte Esterase Negative (Negative) Urine Test NEGATIVE (NEGATIVE) Urine Opiates Screen Not Detected (Not Detect) Urine Fentanyl Screen Not Detected (Not Detect) Ur Barbiturates Screen Not Detected (Not Detect) Ur Phencyclidine Scrn Not Detected (Not Detect) Ur Amphetamines Screen Not Detected (Not Detect) U Benzodiazepines Scrn Not Detected (Not Detect) Urine Cocaine Screen Not Detected (Not Detect) U Marijuana (THC) Screen POSITIVE H (Not Detect) Ethyl Alcohol 259 mg/dL Independent Interpretation I performed an independent interpretation of an: EKG Interpretation: EKG showing sinus tachycardia at a rate of 102, no acute ischemic changes or st elevations. Independent Historian Clinical information obtained from an independent historian. History obtained from or confirmed by: EMS Prescription Management I considered prescription management with: Other (anxiolytic) Chronic Conditions Patient?s care impacted by: Other (etoh abuse) Social Determinants Patient?s care significantly limited by Social Determinants of Health including: Other Social Determinant of Health Medications Administered Discontinued Medications Generic Name Dose Route Start Last Admin Trade Name Clarissa PRN Reason Stop Dose Admin Lorazepam 1 mg 03/30/23 15:49 03/30/23 16:14 Lorazepam 1 Mg Tablet PO 03/30/23 15:50 1 mg ONCE ONE Administration Lorazepam 2 mg 03/30/23 17:32 03/30/23 17:39 Lorazepam 1 Mg Tablet PO 03/30/23 17:33 2 mg ONCE ONE Administration Ondansetron HCl 4 mg 03/30/23 23:08 03/30/23 23:18 Ondansetron Odt 4 Mg Tab.Rapdis TRANSLINGU 03/30/23 23:09 4 mg ONCE ONE Administration Discharge Plan Discharge Clinical Impression: Alcohol abuse, Chest pain Patient Disposition: Home, Self-Care Instructions: Abuse of Alcohol (ED), Alcohol Withdrawal (ED) Additional Instructions: You were seen in the ED today for acute alcohol intoxication/withdrawal, seeking detox. You had labs, an EKG, and urine checked. You were evaluated by care team however declined detox services today as you have things to attend to at home. Please follow-up with detox services that the care team has provided you with. Continue following up with care team outpatient. Stop drinking. This is very harmful to your health. Please return to the ED for new or worsening symptoms. The case of an emergency call 911. Pleae follow up with PCP. Prescriptions: No Action diltiazem HCl [Matzim LA] 180 mg tablet extended release 24 hr 180 mg PO DAILY PRN (Reason: Tachycardia) thiamine mononitrate (vit B1) 100 mg Tablet 100 mg PO DAILY 30 Days Qty: 30 0RF sertraline 50 mg tablet 50 mg PO DAILY Qty: 30 0RF naltrexone microspheres 380 mg suspension,extended rel recon 380 mg IM Q4W Qty: 1 5RF Rx Instructions: F10.2- Alcohol Use Disorder hydroxyzine HCl 25 mg tablet 25 mg PO TID PRN folic acid 1 mg tablet 1 mg PO DAILY pantoprazole 20 mg tablet,delayed release (DR/EC) 20 mg PO DAILY naltrexone 50 mg tablet 50 mg PO DAILY trazodone 50 mg tablet 50 mg PO BEDTIME PRN (Reason: sleep) Qty: 14 0RF trazodone 100 mg tablet 100 mg PO BEDTIME Qty: 14 0RF Discharge Date/Time: 03/31/23 00:08 Print Language: Beninese
--- NOTE | 2023-03-30 15:07 | ECG_ITS ---
Test Reason : CHEST DISCOMFORT Blood Pressure : / mmHG Vent. Rate : 102 BPM Atrial Rate : 102 BPM P-R Int : 142 ms QRS Dur : 076 ms QT Int : 318 ms P-R-T Axes : 036 045 025 degrees QTc Int : 414 ms Sinus tachycardia Otherwise normal ECG When compared with ECG of 09-FEB-2023 19:21, No significant change was found Referred By: Yana Francis Electronically Signed By:HORACIO GUTIERREZ MD
--- NOTE | 2023-03-30 15:51 | MHC.RECOVRN ---
Met with pt in [id number] after consult placed to Addiction Medicine for alcohol use and ATS. Pt had presented to the ED from home for evaluation and support relating to alcohol use. Pt sitting in bed, awake, alert, easily engages in conversation, tearful. Of note, pt was seen at the [facility] yesterday and received Vivitrol injection. Pt reports alcohol recurrence x3 days, 1 pint vodka per day. Pt reports her partner of 9 years fell in love with another woman which has lead to recurrence. Pt reports it is especially hard because they live and work together. When asked if pt feels safe/feels as though she would harm herself, pt states I feel like I've hurt myself enough and don't want to do that anymore. Pt reports concern regarding heart rate, states it has been up to the 140s. Pt also reports anxiety. Pt currently has referral in for [facility] and is awaiting appt. Discussed treatment options, pt is interested in inpatient treatment however reports she is unable to go today due to having a cat and dog at home, I need to take care of some things. Pt provided with information/contact information on facilities that accept pts insurance. Pt encouraged to reach out to contacts or t/w when ready for ATS. Pt denied other questions or concerns at this time. Discussed with ED provider.
--- NOTE | 2023-03-30 16:02 | PC.NURSE ---
PT A+O x3, VSS. SHE COMES FROM HOME VIA AMBULANCE FOR EVAL AND GET HELP FOR DETOX. HX OF ETOH, HAS BEEN SOBER X1 MONTH, RELAPSED D/T HOME STRESS. REPORTS N/V/D. NO FEVER/CHILLS. REPORTS DRINKING 3 PINTS OF VODKA QD. SHE ALSO REPORTS CHEST PAIN THAT STARTED EARLIER TODAY.
[2023-03-30] MEDS: LORazepam 1 MG TABLET PO (16:14)
[2023-03-30 16:28] LABS: MANUAL DIFF FLAG NO
[2023-03-30 16:38] LABS: Basophils Absolute Auto 0.1 X10*3/uL (0.0-0.2); Basophils Percent Auto 0.6 % (0-2); Eosinophils Absolute Auto 0.1 X10*3/uL (0.0-0.4); Eosinophils Percent Auto 0.4 % (0-4); Hematocrit 41.4 % (37.0-47.0); Hemoglobin 14.4 g/dl (12.0-16.0); Imm Gran Abs Auto 0.07 X10*3/uL (0.00-0.03); Imm Gran Pct Auto 0.5 % (0.0-0.4); Lymphocytes Absolute Auto 3.1 X10*3/uL (1.2-4.9); Lymphocytes Percent Auto 23.5 % (20-40); Mean Corpuscular HGB Conc 34.8 g/dl (31.0-35.0); Mean Corpuscular Hemoglobin 29.3 pg (27.0-33.0); Mean Corpuscular Volume 84.1 fL (80.0-98.0); Mean Platelet Volume 8.7 fL (9.4-12.3); Monocytes Absolute Auto 0.9 X10*3/uL (0.1-1.2); Monocytes Percent Auto 6.9 % (2-11); Neutrophils Absolute Auto 9.1 x10*3/uL (2.0-8.3); Neutrophils Percent Auto 68.1 % (45-73); Platelet Count 466 X10*3/uL (160-400); Red Blood Count 4.92 X10*6/uL (4.20-5.50); Red Cell Distribution Width 12.6 % (11.0-16.0); White Blood Count 13.4 X10*3/uL (4.8-10.8)
[2023-03-30 16:45] LABS: Amphetamine Screen Urine Not Detected (Not Detect); Barbiturates, Urine Not Detected (Not Detect); Benzodiazepines Screen Urine Not Detected (Not Detect); Cannabinoid Screen Urine POSITIVE (Not Detect); Cocaine Screen Urine Not Detected (Not Detect); Fentanyl, urine Not Detected (Not Detect); Opiate Screen Urine Not Detected (Not Detect); Phencyclidine Screen Urine Not Detected (Not Detect)
[2023-03-30 16:46] LABS: Appearance Urine Clear; Color Urine Yellow; Glucose Urine UA Negative (Negative); Leukocyte Esterase Urine Negative (Negative); Nitrite Urine Negative (Negative); Specific Gravity - Urine <= 1.005 (1.005-1.025); Urine Blood Negative (Negative); Urine Ketones Negative (Negative); Urine Protein Negative (Neg-Trace)
[2023-03-30 16:47] LABS: UPreg QC Valid YES; Urine Pregnancy NEGATIVE (NEGATIVE)
[2023-03-30 16:49] LABS: Alanine Aminotransferase 24 U/L (0-31); Albumin Level 4.5 g/dL (3.5-5.0); Alkaline Phosphatase 62 U/L (39-117); Anion Gap 19 (12-20); Aspartate Amino Transferase 20 U/L (5-31); Bilirubin Total 0.3 mg/dL (0.0-1.0); Blood Urea Nitrogen 10 mg/dL (9-16); Calcium 9.4 mg/dL (8.4-10.2); Carbon Dioxide 24 mmol/L (22-29); Chloride 100 mmol/L (96-108); Creatinine Clr Calc Pharmacy 93.8; Estimated Glomerular Filt Rate > 60; Ethanol 259 mg/dL; Glucose Random 130 mg/dL (60-115); Lipase 41 U/L (8-78); Magnesium 2.2 mg/dL (1.6-2.6); Potassium 3.8 mmol/L (3.3-5.1); Sodium 139 mmol/L (135-145); Total Protein 7.6 g/dL (6.5-8.0)
[2023-03-30 16:58] LABS: Troponin-I High Sensitivity < 2.7 ng/L (<3.5-17.0)
[2023-03-30 17:24] VITALS: BP 144/85; PULSE 113; RESP 20; TEMP 36.8; O2SAT 98
[2023-03-30] MEDS: LORazepam 1 MG TABLET 2 MG PO (17:39)
[2023-03-30 21:43] LABS: Troponin-I High Sensitivity < 2.7 ng/L (<3.5-17.0)
[2023-03-30 22:57] VITALS: BP 147/86; PULSE 101; RESP 16; TEMP 36.6; O2SAT 99
[2023-03-30] MEDS: Ondansetron ODT 4 MG TAB.RAPDIS TRANSLINGU (23:18)
--- NOTE | 2023-03-31 00:06 | PC.NURSE ---
Late entry; PT reported vomiting 2x. Dr. Lawton aware. Plan to give Zofran and discharge home. VSS. PT continues to decline detox.
== END 2023-03-31 00:08 | disposition home or self-care (01) ==
PROVIDERS: Physician Assistant; Physician Assistant Medical; Emergency Provider Emergency Medicine Emergency Medical Services; PCP Internal Medicine
DX: F10.10 Alcohol abuse, uncomplicated (principal); Y90.8 Blood alcohol level of 240 mg/100 ml or more; R07.9 Chest pain, unspecified; R00.0 Tachycardia, unspecified; F41.8 Other specified anxiety disorders; Z79.899 Other long term (current) drug therapy
CPT/HCPCS: 36415; 80053; 80307; 81003; 81025; 83690; 83735; 84484; 85025; 93005; 99284

== ENCOUNTER → 2023-03-30 15:07 | Outpatient (BNV) | payer OTHER, SELFPAY | PROVIDERS: Emergency Provider Emergency Medicine Emergency Medical Services; PCP Internal Medicine; Visit Provider Internal Medicine Cardiovascular Disease | DX: R00.0 Tachycardia, unspecified (principal) | CPT/HCPCS: 93010 ==

== ENCOUNTER 2023-05-05 17:03 | Outpatient (AMB) | payer OTHER, SELFPAY ==
[2023-05-05 17:08] VITALS: BP 118/70; PULSE 95; O2SAT 97
--- NOTE | 2023-05-05 17:08 | A.OFFVISCC_ITS ---
Intake Vital Signs 05/05/23 17:08 BP 118/70 Blood Pressure Location Lt radial Position Sitting Pulse 95 Pulse Source Pulse Oximeter Pulse Oximetry (%) 97 Oxygen Delivery Method Room Air Intake Visit Reasons: mat Intake Note: the patient presents for a mat visit Tower Control Operator Required: No Allergies No Known Allergies Allergy (Verified 05/05/23 17:09) Do you need a note to return to daycare/school/sports/work: No HPI mat HPI Details Pt presents for AUD treatment and follow up She was at [facility] 04/01 until 1 week ago She reports she had a good experience there, made many friends She was set up with [facility] Aftercare and has a nurse, catalytic case operator and two peer supports She has been taking PO naltrexone, having good effect from it and would prefer to continue with the PO formulation vs injection She is taking it day by day, working on saving money to get her own place post break up with her partner she lives with [facility] Medical History MDD (major depressive disorder), recurrent episode, moderate Asthma Anxiety and depression Tachycardia Alcohol withdrawal Family History Mother Alcohol use disorder Maternal Grandfather Alcohol use disorder Social History Household Members: Spouse Housing: Apartment Do you presently have visiting nurse or other home services: No Alcohol intake: current Alcohol intake frequency: 3 or more drinks per day Alcohol type: hard liquor Patient Tobacco Use Status: Never used Tobacco e-Cigarette/Vaping Use: Never Used Second Hand Smoke Exposure: No Substance Use Type: Marijuana Advance Directives Date on File: 02/11/23 service: No Review of Systems Const Reports as per HPI Physical Exam Vital Signs: Last Vital Signs Pulse 95 05/05/23 17:08 BP 118/70 05/05/23 17:08 Pulse Ox 97 05/05/23 17:08 Oxygen Delivery Method Room Air 05/05/23 17:08 Const General: cooperative and comfortable Resp Effort & Inspection: normal respiratory effort Psych Appearance: grossly normal Mental Status: mental status grossly normal Speech and movement: Normal speech and movement present Affect: normal affect Attitude: cooperative Assessment & Plan Assessment & Plan (1) Alcohol use disorder, moderate, dependence: Code(s): F10.20 - Alcohol dependence, uncomplicated Plan: -Relapse prevention discussed -Recovery supports discussed -Follow up 2 weeks Medications: New naltrexone 50 mg PO DAILY 30 tabs 0RF Discontinued sertraline Discontinued Reason: None 50 mg PO DAILY 30 tabs 0RF Coding Level of Care Code Est Pt Level 3 (08232) Diagnoses Alcohol use disorder, moderate, dependence F10.20
== END 2023-05-05 17:27 | disposition home or self-care (01) ==
PROVIDERS: PCP Internal Medicine; Visit Provider Nurse Practitioner Family
DX: F10.20 Alcohol dependence, uncomplicated (principal)
CPT/HCPCS: 99213

== ENCOUNTER → 2023-05-05 17:03 | Outpatient (BNVA) | payer OTHER, SELFPAY | PROVIDERS: PCP Internal Medicine; Visit Provider Nurse Practitioner Family ==

== ENCOUNTER 2023-07-03 17:21 | Inpatient (IN) | payer OTHER, SELFPAY ==
--- NOTE | ~2023-07-03 | CT_ITS ---
EXAMINATION: CT ABDOMEN AND PELVIS WITHOUT CONTRAST CLINICAL INFORMATION: Abdominal pain COMPARISON: None available. TECHNIQUE: Multidetector volumetric imaging was performed from the superior aspect of the liver through the pubic symphysis. Sagittal and coronal reformatted images were obtained on the technologist's workstation. This CT examination was performed using dose optimization techniques as appropriate, variously including the following: *Automated exposure control *Adjustment of mA and/or kV according to patient size (this includes techniques or standardized protocols for targeted exams where dose is matched to indication/reason for exam; i.e. extremities or head) *Use of iterative reconstruction technique DLP: 603 mGy-cm FINDINGS: LUNG BASES: Bronchial thickening is present. No infiltrates or effusions. LIVER, GALLBLADDER, AND BILIARY TREE: The liver is normal in size, shape, and attenuation. No focal hepatic lesion or biliary ductal dilatation is present. The gallbladder is unremarkable with no evidence of radiopaque gallstones, gallbladder wall thickening, or obvious pericholecystic inflammatory changes. PANCREAS: Unremarkable. SPLEEN: Unremarkable. ADRENAL GLANDS: Unremarkable. KIDNEYS AND URETERS: The kidneys are normal in size, shape, and attenuation. No hydronephrosis, hydroureter, or calculi seen. No perinephric stranding. BLADDER: Unremarkable. GASTROINTESTINAL TRACT: A small hiatal hernia is present. The small and large bowel are unremarkable. The appendix is unremarkable. ABDOMINAL WALL: There is a tiny periumbilical hernia seen containing only fat. There is a tiny 9 x 3 mm soft tissue nodule in the subcutaneous tissues right abdominal wall which could be a small sebaceous cyst. LYMPH NODES: No retroperitoneal lymphadenopathy. VASCULAR: Unremarkable. PELVIC VISCERA: The uterus and adnexa are unremarkable. The IUD is present in good position in the uterus. There is a 2.8 cm simple cyst in the left ovary which needs no additional imaging or follow-up. OSSEOUS STRUCTURES: There is a scoliosis convex to the right. CT/CT abdomen pelvis wo IV con IMPRESSION: 1. A cause for the patient's abdominal pain has not been found. 2. Incidental note made of bronchial thickening, small hiatal hernia, tiny periumbilical hernia and a 2.8 cm simple left ovarian cyst which needs no additional imaging or follow-up. Fleischner guidelines were followed.
[2023-07-03 17:37] VITALS: BP 142/92; PULSE 102; O2SAT 96
[2023-07-03 17:58] LABS: MANUAL DIFF FLAG NO
[2023-07-03 17:59] LABS: Basophils Absolute Auto 0.1 X10*3/uL (0.0-0.2); Basophils Percent Auto 0.7 % (0-2); Eosinophils Percent Auto 0.3 % (0-4); Hematocrit 43.1 % (37.0-47.0); Hemoglobin 15.2 g/dl (12.0-16.0); Imm Gran Abs Auto 0.02 X10*3/uL (0.00-0.03); Imm Gran Pct Auto 0.3 % (0.0-0.4); Lymphocytes Absolute Auto 1.7 X10*3/uL (1.2-4.9); Lymphocytes Percent Auto 21.9 % (20-40); Mean Corpuscular HGB Conc 35.3 g/dl (31.0-35.0); Mean Corpuscular Hemoglobin 29.1 pg (27.0-33.0); Mean Corpuscular Volume 82.6 fL (80.0-98.0); Mean Platelet Volume 8.8 fL (9.4-12.3); Monocytes Absolute Auto 0.7 X10*3/uL (0.1-1.2); Monocytes Percent Auto 8.6 % (2-11); Neutrophils Absolute Auto 5.2 x10*3/uL (2.0-8.3); Neutrophils Percent Auto 68.2 % (45-73); Platelet Count 356 X10*3/uL (160-400); Red Blood Count 5.22 X10*6/uL (4.20-5.50); Red Cell Distribution Width 14.3 % (11.0-16.0); White Blood Count 7.7 X10*3/uL (4.8-10.8)
[2023-07-03 18:10] LABS: Ethanol 144 mg/dL
--- NOTE | 2023-07-03 18:14 | ED.GENADULT ---
HPI - General Adult General Chief complaint: Psychiatric Symptoms Stated complaint: SI, WORRIED ABOUT RELAPSE FROM ALCOHOL Time Seen by Provider: 07/03/23 17:42 Source: patient Mode of arrival: ambulatory Limitations: no limitations History of Present Illness ED Provider: Red Germain PA-C HPI narrative: 38-year-old female with pmh alcohol abuse for suicidal ideation. Patient states go to some hard times she was clean for many years from alcohol abuse in the past couple of days she has been drinking 1 L of alcohol. Patient's last drink was yesterday morning. Patient states alcohol bingeing due to life stress but would not specify. Patient has suicidal thoughts are vague. Related Data Home Medications ?Medication ?Instructions ?Recorded ?Confirmed albuterol sulfate 90 mcg/actuation 1 puff inhalation QID PRN wheezing 07/04/23 07/04/23 aerosol inhaler ibuprofen 200 mg tablet 200 mg PO Q6H PRN Mild Pain (Scale 07/04/23 07/04/23 Score 1-4) Allergies Allergy/AdvReac Type Severity Reaction Status Date / Time adhesive AdvReac Hives Verified 07/03/23 18:20 Review of Systems Review of Systems: suicidal ideation Yes all other systems are reviewed and are negative [facility] Past Medical History Medical History MDD (major depressive disorder), recurrent episode, moderate Asthma Anxiety and depression Tachycardia Alcohol withdrawal Family History Family History Mother Alcohol use disorder Maternal Grandfather Alcohol use disorder Social History Social History Household Members: Spouse Housing: Apartment Do you presently have visiting nurse or other home services: No Alcohol intake: current Alcohol intake frequency: 3 or more drinks per day Alcohol type: hard liquor Patient Tobacco Use Status: Never used Tobacco e-Cigarette/Vaping Use: Never Used Second Hand Smoke Exposure: No Substance Use Type: Marijuana Advance Directives: Yes Advance Directives on File: Yes Advance Directives Date on File: 02/11/23 Do you have a plan to hurt others: No Plan Nutrition Risks: No Nutritional Risk Patient : No service: No Physical Exam ED Vital Signs: Vital Signs - 24 hr 07/04/23 00:53 Pulse Rate 104 H Respiratory Rate 19 Blood Pressure 118/86 Pulse Oximetry 99 Oxygen Delivery Method Room Air BMI result Body Mass Index 30.9 Const General: cooperative, healthy appearing, comfortable, no acute distress, well developed, alert, awake and Physically active Orientation/consciousness: patient oriented x3 [facility] Head: Yes normal to inspection, Yes No palpable skull fracture present, Yes normocephalic, Yes atraumatic and No abrasion Throat: Yes posterior oropharynx normal, Yes tonsils normal and Yes uvula midline Eyes General: appearance normal, both eyes and all related structures Neck Neck: Yes normal visual inspection, Yes full ROM, Yes no lymphadenopathy, Yes no meningeal signs, Yes trachea midline, Yes supple, No anterior neck swelling and No tender Chest Chest palpation & inspection: normal inspection of the chest and normal palpation of entire chest wall Resp Effort & Inspection: normal respiratory effort and able to speak in complete sentences Auscultation: clear to auscultation bilaterally Cardio Jugular venous distension: no JVD Heart sounds: S1 normal heart sound present and S2 normal heart sound present GI Inspection: Yes normal to inspection Palpation (GI): Soft to palpation, not firm, nontender, no guarding and not rigid General: No CVA tenderness and Yes no CVA tenderness Back/Spine/Pelvis Back: no CVA tenderness, No CVA tenderness and No back tenderness Skin General skin exam: no rashes or lesions noted, elasticity normal and turgor normal Neuro Other: Positive tremors General: patient oriented x3, gait normal, tone normal, moves all extremities, Normal light touch and pain sensation, no meningeal signs, no focal motor deficits, CN's II-XI intact bilaterally and normal sensation to monofilament Extrem General: Yes normal to inspection, Yes full ROM and Yes capillary refill normal Psych Appearance: grossly normal, well kempt and not disheveled Medications Administered Generic Name Dose Route Start Last Admin Trade Name Freq PRN Reason Stop Dose Admin Albuterol Sulfate 2 puff 07/03/23 21:43 07/04/23 23:48 Albuterol Sulfate 90 Mcg 8 Gm Inhaler INHALE 07/06/23 23:59 2 puff Q4H PRN Administration Shortness of Breath/Wheezing Enoxaparin Sodium 40 mg 07/04/23 09:00 07/04/23 07:26 Enoxaparin Sodium 40 Mg/0.4 Ml Syringe SUBCUT 40 mg Q24H DAMIEN Administration Folic Acid 1 mg 07/04/23 09:00 07/04/23 08:56 Folic Acid 1 Mg Tablet PO 1 mg DAILY DAMIEN Administration Lactated Ringer's 1,000 mls @ 100 mls/hr 07/04/23 13:45 07/04/23 13:58 Lr IVCONT 100 mls/hr .Q10H DAMIEN Administration Melatonin 6 mg 07/04/23 01:46 07/04/23 23:48 Melatonin 3 Mg Tablet PO 6 mg BEDTIME PRN Administration Insomnia Multivitamins/Vitamin C 1 tab 07/04/23 09:00 07/04/23 08:56 Multivitamin Tablet PO 1 tab DAILY DAMIEN Administration Omeprazole 20 mg 07/04/23 07:45 07/04/23 08:56 Omeprazole 20 Mg Capsule.Dr PO 20 mg DAILY@0630 DAMIEN Administration Ondansetron HCl 4 mg 07/04/23 01:46 07/04/23 21:10 Ondansetron Hcl 4 Mg/2 Ml Vial IVPUSH 4 mg Q8H PRN Administration Nausea and Vomiting Sodium Chloride 3 ml 07/04/23 08:00 07/04/23 15:52 0.9 % Sodium Chloride Flush 3 Ml Syringe IVFLUSH Not Given QSHIFT [facility] Thiamine HCl 100 mg 07/04/23 09:00 07/04/23 08:56 Thiamine Hcl 100 Mg Tablet PO 100 mg DAILY DAMIEN Administration Discontinued Medications Generic Name Dose Route Start Last Admin Trade Name Freq PRN Reason Stop Dose Admin Sodium Chloride 1,000 mls @ 999 mls/hr 07/03/23 23:31 07/04/23 02:47 Ns IV 07/04/23 00:31 Infused .Q1H1M STA Infusion Thiamine HCl 100 mg/ Sodium 101 mls @ 202 mls/hr 07/04/23 01:40 07/04/23 02:47 Chloride IV 07/04/23 02:09 Infused ONCE ONE Infusion Lorazepam 2 mg 07/03/23 18:47 07/03/23 21:46 Lorazepam 1 Mg Tablet PO 2 mg RQ4H WHILE AWAKE PRN Administration Alcohol Withdrawal Ondansetron HCl 4 mg 07/03/23 20:01 07/03/23 20:16 Ondansetron Odt 4 Mg Tab.Rapdis TRANSLINGU 07/03/23 20:02 4 mg ONCE ONE Administration Ondansetron HCl 4 mg 07/04/23 11:06 07/04/23 12:32 Ondansetron Hcl 4 Mg/2 Ml Vial IVPUSH 07/04/23 11:07 4 mg ONCE ONE Administration Phenobarbital 45 mg 07/04/23 21:00 07/04/23 22:00 Phenobarbital 15 Mg Tablet PO 07/06/23 09:01 Not Given BID DAMIEN Protocol Phenobarbital Sodium 220 mg 07/04/23 01:00 07/04/23 00:49 Phenobarbital Sodium 130 Mg/Ml Im Once IM 07/04/23 01:01 220 mg ONCE ONE Administration Protocol Phenobarbital Sodium 165 mg 07/04/23 04:00 07/04/23 07:25 Phenobarbital Sodium 130 Mg/Ml Vial Im Q3hx2 IM 07/04/23 07:01 165 mg Q3H DAMIEN Administration Protocol Phenobarbital Sodium 130 mg 07/04/23 19:00 07/04/23 20:48 Phenobarbital Sodium 130 Mg/Ml Vial IM 07/04/23 19:01 130 mg ONCE ONE Administration Potassium Chloride 40 meq 07/04/23 07:35 07/04/23 08:56 Potassium Chloride Er 20 Meq Tab.Er.Prt PO 07/04/23 07:36 40 meq ONCE ONE Administration Medical Decision Making Medical Decision Making [facility] Narrative: 38-year-old female with suicidal ideation history of alcohol abuse presents to the ED for alcohol binge and has not drinking since yesterday morning. Patient not having tremors patient is tachycardic. Patient received 4 mg oral Ativan. Patient brought to the main ED due to continuous tremors tachycardia. Patient is placed on phenobarbital given fluids. 12:00am. patient admitted for alcohol detox Differential Diagnosis Differential Diagnoses: The differential diagnosis associated with the presentation includes (alcohol detox, SI, ) Admission/Observation Consideration of admission/observation: Escalation of care including admission/observation considered Consult Healthcare Provider Management of the patient was discussed with: Hospitalist (Dr. Rosales) and Calculus Teacher (Care team) Lab Data [facility] Lab Attestation statement: I reviewed the patient's lab results. 07/04/23 04:59 07/04/23 04:59 Labs: Lab Results 07/03/23 07/03/23 Range/Units 17:44 18:52 WBC 7.7 (4.8-10.8) X10*3/uL RBC 5.22 (4.20-5.50) X10*6/uL Hgb 15.2 (12.0-16.0) g/dl Hct 43.1 (37.0-47.0) % MCV 82.6 (80.0-98.0) fL MCH 29.1 (27.0-33.0) pg MCHC 35.3 H (31.0-35.0) g/dl RDW 14.3 (11.0-16.0) % Plt Count 356 (160-400) X10*3/uL MPV 8.8 L (9.4-12.3) fL Immature Gran % (Auto) 0.3 (0.0-0.4) % Neut % (Auto) 68.2 (45-73) % Lymph % (Auto) 21.9 (20-40) % [place] % (Auto) 8.6 (2-11) % Eos % (Auto) 0.3 (0-4) % Baso % (Auto) 0.7 (0-2) % Lymph # (Auto) 1.7 (1.2-4.9) X10*3/uL [place] # (Auto) 0.7 (0.1-1.2) X10*3/uL Eos # (Auto) 0.0 (0.0-0.4) X10*3/uL Baso # (Auto) 0.1 (0.0-0.2) X10*3/uL Abs Immat Gran (auto) 0.02 (0.00-0.03) X10*3/uL Absolute Neuts (auto) 5.2 (2.0-8.3) x10*3/uL Absolute Nucleated RBC 0.000 (0.0-0.012) X10*3/uL Nucleated RBC % (auto) 0.0 (0.0-0.2) /100WBC Sodium 141 (135-145) mmol/L Potassium 4.4 (3.3-5.1) mmol/L Chloride 104 (96-108) mmol/L Carbon Dioxide 19 L (22-29) mmol/L Anion Gap 22 H (12-20) BUN 14 (9-16) mg/dL Creatinine 0.79 (0.5-1.4) mg/dL Estim Creat Clear Calc 101.7 Estimated GFR > 60 Random Glucose 112 (60-115) mg/dL Calcium 9.4 (8.4-10.2) mg/dL Total Bilirubin 0.3 (0.0-1.0) mg/dL AST 27 (5-31) U/L ALT 26 (0-31) U/L Alkaline Phosphatase 56 (39-117) U/L Total Protein 7.7 (6.5-8.0) g/dL Albumin 4.4 (3.5-5.0) g/dL Urine Color Dark Yellow Urine Appearance Turbid Urine pH 6.0 (5.0-9.0) Ur Specific [place] >= 1.030 H (1.005-1.025) Urine Protein 100 (2+) H (Neg-Trace) mg/dL Urine Glucose (UA) Negative (Negative) mg/dL Urine Ketones 15 (Negative) mg/dL Urine Blood Trace H (Negative) Urine Nitrite Negative (Negative) Ur Leukocyte Esterase Negative (Negative) Urine RBC 6-10 H (0-2) /HPF Urine WBC 6-10 H (0-5) /HPF Ur Squamous Epith Cells >20 (0-2) /HPF Urine Bacteria 4+ (None Seen) Hyaline Casts 3-5 (0-2) /LPF Urine Opiates Screen Not Detected (Not Detect) Ur Buprenorphine Scrn Not Detected (Not Detect) ng/mL Ur Oxycodone Screen Not Detected (Not Detect) ng/mL Urine Methadone Screen Not Detected (Not Detect) ng/mL Urine Fentanyl Screen Not Detected (Not Detect) Ur Barbiturates Screen POSITIVE H (Not Detect) Ur Phencyclidine Scrn Not Detected (Not Detect) Ur Amphetamines Screen Not Detected (Not Detect) U Benzodiazepines Scrn Not Detected (Not Detect) Urine Cocaine Screen Not Detected (Not Detect) U Marijuana (THC) Screen POSITIVE H (Not Detect) Ethyl Alcohol 144 mg/dL Independent Historian Clinical information obtained from an independent historian. History obtained from or confirmed by: Other (patient) External Record Review External record reviewed: Other (prior visit) Critical Care Time Critical Care Time Critical Care Time: Yes Total Critical Care Time: 60 Attestation: Patient is alcohol withdrawal. labs, ativan, and phenobarb ordered Discharge Plan Discharge Clinical Impression: Alcohol withdrawal Patient Disposition: Admitted As Inpatient Interventions: [place]-Suicide Risk Severity Scale Last Done: 07/03/23 18:21
[2023-07-03 18:15] VITALS: BP 146/86; PULSE 118; RESP 146; TEMP 36.3; O2SAT 93; BMI 30.9
[2023-07-03 18:21] VITALS: BP 146/86; PULSE 118; RESP 18; TEMP 36.3; O2SAT 93
--- NOTE | 2023-07-03 18:25 | PC.NURSE ---
Nursing Communication Patient reports drinking 1 liter of alcohol for the past 3 days. Before this incident the patient states she was sober for 3 months.
[2023-07-03 18:29] LABS: Alanine Aminotransferase 26 U/L (0-31); Albumin Level 4.4 g/dL (3.5-5.0); Alkaline Phosphatase 56 U/L (39-117); Anion Gap 22 (12-20); Aspartate Amino Transferase 27 U/L (5-31); Bilirubin Total 0.3 mg/dL (0.0-1.0); Blood Urea Nitrogen 14 mg/dL (9-16); Calcium 9.4 mg/dL (8.4-10.2); Carbon Dioxide 19 mmol/L (22-29); Chloride 104 mmol/L (96-108); Creatinine Clr Calc Pharmacy 101.7; Estimated Glomerular Filt Rate > 60; Glucose Random 112 mg/dL (60-115); Potassium 4.4 mmol/L (3.3-5.1); Sodium 141 mmol/L (135-145); Total Protein 7.7 g/dL (6.5-8.0)
[2023-07-03 18:59] LABS: Appearance Urine Turbid; Color Urine Dark Yellow; Glucose Urine UA Negative (Negative); Leukocyte Esterase Urine Negative (Negative); Nitrite Urine Negative (Negative); Specific Gravity - Urine >= 1.030 (1.005-1.025); UMIC TRIGGER UACC YES; Urine Blood Trace (Negative); Urine Ketones 15 mg/dL (Negative); Urine Protein 100 (2+) mg/dL (Neg-Trace)
[2023-07-03] MEDS: LORazepam 1 MG TABLET 2 MG PO ×2 (18:59→21:46)
[2023-07-03 19:08] LABS: Amphetamine Screen Urine Not Detected (Not Detect); Barbiturates, Urine POSITIVE (Not Detect); Benzodiazepines Screen Urine Not Detected (Not Detect); Buprenorphine Scr Not Detected (Not Detect); Cannabinoid Screen Urine POSITIVE (Not Detect); Cocaine Screen Urine Not Detected (Not Detect); Fentanyl, urine Not Detected (Not Detect); Methadone Screen, Urine Not Detected (Not Detect); Opiate Screen Urine Not Detected (Not Detect); Oxycodone Screen Urine Not Detected (Not Detect); Phencyclidine Screen Urine Not Detected (Not Detect)
[2023-07-03 19:22] LABS: Bacteria Urine 4+ (None Seen); Squamous Epithelial Cell Urine >20 /HPF (0-2); UACC Culture Trigger YES
--- NOTE | 2023-07-03 19:37 | PC.NURSE ---
patient apopears to remain at rest in rear common area, patient exhibits some etoh wd sx patient appears in no acute distress.
[2023-07-03] MEDS: Ondansetron ODT 4 MG TAB.RAPDIS TRANSLINGU (20:16)
[2023-07-03] MEDS: Albuterol Sulfate 90 MCG 8 GM INHALER 2 PUFF INHALE (21:54)
[2023-07-03 23:02] VITALS: BP 135/88; PULSE 128; RESP 18; TEMP 36.9; O2SAT 97
[2023-07-03 23:37] VITALS: BP 120/85; PULSE 118; RESP 19; TEMP 37.1; O2SAT 97
--- NOTE | 2023-07-04 00:40 | PC.NURSE ---
delay in fluids due to pt needing ultra sound IV
[2023-07-04] MEDS: PHENobarbitaL sodium 130 MG/ML IM ONCE 220 MG IM (00:49)
[2023-07-04 00:53] VITALS: BP 118/86; PULSE 104; RESP 19; O2SAT 99
[2023-07-04] MEDS: 0.9 % Sodium Chloride 1,000 ML 999 ML IV (01:17)
--- NOTE | 2023-07-04 01:36 | PM.IMHP ---
History of Present Illness Date of Service: 07/04/23 Chief Complaint: Alcohol withdrawal This is a 38-year-old female with pertinent history of alcohol use disorder, mood disorder, gastroesophageal reflux disease who presents to the emergency department for concerns of alcohol withdrawal. Patient states that she been clean for a while but relapsed due to stress. Her last drink was on the day of presentation. Patient had been drinking about 1 L of alcohol for the last few days. Patient states she has been having visual hallucinations since she stopped drinking. Also complains of tremor and sweating. Does have a history of alcohol withdrawal including alcohol withdrawal seizures. Patient states she has been feeling anxious for a while and has also been suicidal specially on the day of presentation. No chills, chest discomfort, palpitations, abdominal pain, changes in urinary or bowel habits. In the emergency department, patient was initiated on phenobarb protocol. Review of Systems Constitutional: Constitutional: Reports fatigue Cardiovascular: Cardiovascular: Reports no additional cardiovascular complaints Respiratory: Respiratory: Reports no additional respiratory complaints Gastrointestinal: Gastrointestinal: Reports no additional gastrointestinal complaints Genitourinary: Genitourinary: Reports no additional female genitourinary complaints Neurologic: Reports Other visual disturbances and Reports tremor(s) Psychiatric: Psychiatric: Reports anxiety Endocrine: Endocrine: Reports fatigue [facility] Medical History MDD (major depressive disorder), recurrent episode, moderate Asthma Anxiety and depression Tachycardia Alcohol withdrawal Family History Mother Alcohol use disorder Maternal Grandfather Alcohol use disorder Social History Household Members: Spouse Housing: Apartment Do you presently have visiting nurse or other home services: No Alcohol intake: current Alcohol intake frequency: 3 or more drinks per day Alcohol type: hard liquor Patient Tobacco Use Status: Never used Tobacco e-Cigarette/Vaping Use: Never Used Second Hand Smoke Exposure: No Substance Use Type: Marijuana Advance Directives: Yes Advance Directives on File: Yes Advance Directives Date on File: 02/11/23 Do you have a plan to hurt others: No Plan Patient : No service: No Meds Allergies Allergy/AdvReac Type Severity Reaction Status Date / Time adhesive AdvReac Hives Verified 07/03/23 18:20 Active Medications: Current Medications Albuterol Sulfate (Albuterol Sulfate 90 Mcg 8 Gm Inhaler) 2 puff INHALE Q4H PRN PRN Reason: Shortness of Breath/Wheezing Stop: 07/06/23 23:59 Last Admin: 07/03/23 21:54 Dose: 2 puff Pharmacy Consult (Consult Rx Etoh Phenob Im/Po) 1 each MISCELLANE ONCE PRN; Protocol PRN Reason: Consult order Phenobarbital Sodium (Phenobarbital Sodium 130 Mg/Ml Vial Im Q3hx2) 165 mg IM Q3H DAMIEN; Protocol Stop: 07/04/23 07:01 Home Medications ?Medication ?Instructions ?Recorded ?Confirmed ?Last Taken ?Type diltiazem HCl 180 mg 180 mg PO DAILY PRN Tachycardia 12/24/22 02/16/23 02/09/23 History tablet,extended release 24 hr ([place]) folic acid 1 mg tablet 1 mg PO DAILY 02/16/23 02/16/23 Unknown History hydroxyzine HCl 25 mg tablet 25 mg PO TID PRN 02/16/23 02/16/23 Unknown History pantoprazole 20 mg tablet,delayed 20 mg PO DAILY 02/16/23 02/16/23 Unknown History release Physical Exam Vital Signs and Narrative: Vital Signs: Last Vital Signs Temp 98.8 F 07/03/23 23:37 Pulse 104 H 07/04/23 00:53 Resp 19 07/04/23 00:53 BP 118/86 07/04/23 00:53 Pulse Ox 99 07/04/23 00:53 O2 Del Method Room Air 07/04/23 00:53 BMI result Body Mass Index 30.9 Middle-aged female lying in bed in no distress Neck supple, no JVD Tachycardic with regular rhythm, S1-S2 heard Regular breath sounds bilaterally, no wheezing or crackles appreciated Abdomen soft nontender, no guarding, no rigidity Patient is awake, alert and oriented to self, place, time and person ; no focal motor deficit Psych: Anxious No pedal edema Results Labs 07/03/23 17:44 07/03/23 17:44 Labs: Laboratory Results - last 24 hr 07/03/23 07/03/23 17:44 18:52 MCV 82.6 MCH 29.1 MCHC 35.3 H RDW 14.3 Plt Count 356 MPV 8.8 L Immature Gran % (Auto) 0.3 Neut % (Auto) 68.2 Lymph % (Auto) 21.9 [place] % (Auto) 8.6 Eos % (Auto) 0.3 Baso % (Auto) 0.7 Lymph # (Auto) 1.7 [place] # (Auto) 0.7 Eos # (Auto) 0.0 Baso # (Auto) 0.1 Abs Immat Gran (auto) 0.02 Absolute Neuts (auto) 5.2 Absolute Nucleated RBC 0.000 Nucleated RBC % (auto) 0.0 Anion Gap 22 H Estim Creat Clear Calc 101.7 Estimated GFR > 60 Random Glucose 112 Calcium 9.4 Total Bilirubin 0.3 AST 27 ALT 26 Alkaline Phosphatase 56 Total Protein 7.7 Albumin 4.4 Urine Color Dark Yellow Urine Appearance Turbid Urine pH 6.0 Ur Specific [place] >= 1.030 H Urine Protein 100 (2+) H Urine Glucose (UA) Negative Urine Ketones 15 Urine Blood Trace H Urine Nitrite Negative Ur Leukocyte Esterase Negative Urine RBC 6-10 H Urine WBC 6-10 H Ur Squamous Epith Cells >20 Urine Bacteria 4+ Hyaline Casts 3-5 Urine Opiates Screen Not Detected Ur Buprenorphine Scrn Not Detected Ur Oxycodone Screen Not Detected Urine Methadone Screen Not Detected Urine Fentanyl Screen Not Detected Ur Barbiturates Screen POSITIVE H Ur Phencyclidine Scrn Not Detected Ur Amphetamines Screen Not Detected U Benzodiazepines Scrn Not Detected Urine Cocaine Screen Not Detected U Marijuana (THC) Screen POSITIVE H Ethyl Alcohol 144 Assessment and Plan (1) Alcohol withdrawal: Status: Acute Plan This is a 38-year-old female with pertinent history of alcohol use disorder, mood disorder, gastroesophageal reflux disease who presents to the emergency department for concerns of alcohol withdrawal. #. Alcohol use disorder with concerns for alcohol withdrawal: Patient was initiated on phenobarb protocol in the ER. Initiating thiamine. Consulted Addiction Team. #. Generalized anxiety disorder, uncontrolled: Also has been having suicidal ideation. Consulted sitter and Psychiatry. #. Gastroesophageal reflux disease: On PPI #. Asymptomatic pyuria with bacteriuria: No indication for treatment Med rec pending DVT prophylaxis: Lovenox Full code Admit as inpatient and will require two night minimum hospital stay for treatment of alcohol withdrawal (as above), which is not possible in a lesser acute setting. Specialist consult pending Quality Stroke Does the patient have a stroke diagnosis?: No VTE Prior VTE?: No VTE Risk Level:: Medical - moderate - high VTE Device Contraindication: Treatment Not Indicated VTE Drug Contraindication: N/A - Med Ordered
[2023-07-04] MEDS: Thiamine HCL 100 MG in 0.9 % Sodium Chloride 100 ML 202 MG IV (02:14)
[2023-07-04 04:06] VITALS: BP 135/90; PULSE 112; RESP 16; O2SAT 98
[2023-07-04] MEDS: PHENobarbitaL sodium 130 MG/ML VIAL IM Q3Hx2 165 MG IM ×2 (04:07→07:25)
[2023-07-04] MEDS: Albuterol Sulfate 90 MCG 8 GM INHALER 2 PUFF INHALE ×2 (05:36→23:48)
[2023-07-04] MEDS: ondansetron HCL 4 MG/2 ML VIAL IVPUSH ×3 (05:39→21:10)
[2023-07-04 05:47] LABS: MANUAL DIFF FLAG NO
[2023-07-04 05:49] LABS: Basophils Absolute Auto 0.1 X10*3/uL (0.0-0.2); Basophils Percent Auto 0.7 % (0-2); Eosinophils Absolute Auto 0.1 X10*3/uL (0.0-0.4); Eosinophils Percent Auto 1.2 % (0-4); Hemoglobin 12.8 g/dl (12.0-16.0); Imm Gran Abs Auto 0.03 X10*3/uL (0.00-0.03); Imm Gran Pct Auto 0.3 % (0.0-0.4); Lymphocytes Absolute Auto 2.4 X10*3/uL (1.2-4.9); Lymphocytes Percent Auto 24.8 % (20-40); Mean Corpuscular HGB Conc 34.6 g/dl (31.0-35.0); Mean Corpuscular Volume 83.7 fL (80.0-98.0); Mean Platelet Volume 9.1 fL (9.4-12.3); Monocytes Absolute Auto 1.2 X10*3/uL (0.1-1.2); Monocytes Percent Auto 12.7 % (2-11); Neutrophils Absolute Auto 5.8 x10*3/uL (2.0-8.3); Neutrophils Percent Auto 60.3 % (45-73); Platelet Count 292 X10*3/uL (160-400); Red Blood Count 4.42 X10*6/uL (4.20-5.50); Red Cell Distribution Width 14.6 % (11.0-16.0); White Blood Count 9.7 X10*3/uL (4.8-10.8)
--- NOTE | 2023-07-04 05:53 | PC.NURSE ---
Pt has sitter at bedside for vague SI. Alert and oriented , ambulatory at baseline . Pt has been drinking 1L of alcholol the past couple of days and last drink was yesterday . Pt has hx of withdrawal. Pt scoring a 6 in CIWA and started on phenobarb protocol. At 0600 CIWA is currently a 3. 18 in L AC for IV access. pmh mdd, asthma ( albuterol prn), alcohol withdrawal, tachycardia.
[2023-07-04 06:07] LABS: Anion Gap 14 (12-20); Blood Urea Nitrogen 11 mg/dL (9-16); Calcium 8.5 mg/dL (8.4-10.2); Carbon Dioxide 24 mmol/L (22-29); Chloride 106 mmol/L (96-108); Creatinine Clr Calc Pharmacy 111.6; Estimated Glomerular Filt Rate > 60; Glucose Random 101 mg/dL (60-115); Potassium 3.2 mmol/L (3.3-5.1); Sodium 141 mmol/L (135-145)
[2023-07-04] MEDS: 0.9 % Sodium Chloride Flush 3 ML SYRINGE IVFLUSH (07:25)
[2023-07-04] MEDS: Enoxaparin Sodium 40 MG/0.4 ML SYRINGE SUBCUT (07:26)
--- NOTE | 2023-07-04 07:33 | PM.EVENT ---
Event Note Date of Service: 07/04/23 Event Note: This is a 38-year-old female with pertinent history of alcohol use disorder, mood disorder, gastroesophageal reflux disease who presents to the emergency department for concerns of alcohol withdrawal. Alcohol use disorder with concerns for alcohol withdrawal continue phenobarb protocol Initiating thiamine, folic acid, MVI Consulted Addiction Team. Nausea antiemetics as needed poor appetite will start LR Hypokalemia Repleted with oral potassium Generalized anxiety disorder, uncontrolled Also has been having suicidal ideation. sitter Psychiatry consult Gastroesophageal reflux disease On PPI Asymptomatic pyuria with bacteriuria No indication for treatment Med rec pending DVT prophylaxis: Lovenox Attending Dr. Carvajal Full code Admit as inpatient and will require two night minimum hospital stay for treatment of alcohol withdrawal (as above), which is not possible in a lesser acute setting. Specialist consult pending Time Spent With Patient Time: Total time managing care of this patient today ____ minutes.
[2023-07-04 08:21] LABS: Magnesium 1.9 mg/dL (1.6-2.6)
[2023-07-04] MEDS: Omeprazole 20 MG CAPSULE.DR PO (08:56)
[2023-07-04] MEDS: Folic Acid 1 MG TABLET PO (08:56)
[2023-07-04] MEDS: Multivitamin TABLET 1 TAB PO (08:56)
[2023-07-04] MEDS: Potassium Chloride ER 20 MEQ TAB.ER.PRT 40 MEQ PO (08:56)
[2023-07-04] MEDS: Thiamine HCL 100 MG TABLET PO (08:56)
--- NOTE | 2023-07-04 10:02 | PHA.MEDREC ---
Pharmacy Consult ? Medication Reconciliation Pharmacy has completed the medication reconciliation. Spoke with patient. Patient stated they have self discontinued all medications and has only been taking PRN motrin and Ventolin inhaler
--- NOTE | 2023-07-04 10:33 | MHC.CARE ---
Addendum entered by Katlyn Macias LOSS PREVENTION SPECIALIST 07/04/23 12:26: Pt was IPLOC Bedsearch Original Note: Pt was seen by [facility] the community, Pt was sent to [facility] ED and disposition is unclear. Initial assessment placed in pts chart. Please re-refer Pt to the CARE Team once medically cleared if its clinically indicated .
--- NOTE | 2023-07-04 12:46 | PC.NURSE ---
Pt denies any pain. CIWA 7, mild anxiety, tremors and nausea. Sinus tach on monitor. Alert and oriented. No SI or HI
[2023-07-04] MEDS: Lactated Ringers 1,000 ML 100 ML IVCONT (13:58)
[2023-07-04 15:55] VITALS: BP 127/83; PULSE 92; RESP 15; TEMP 36.8
--- NOTE | 2023-07-04 16:01 | PC.NURSE ---
Pt reports burning left sided ABD pain, 8/10, started approx 1 hour ago, worsened after eating crackers and juice. CIWA 11, + sweaty, tremors, anxious, nauseous. Alert and oriented, vitals stable, afebrile. Admitting provider alerted, awaiting orders.
[2023-07-04 17:48] VITALS: BP 129/71; PULSE 85; RESP 13; TEMP 36.4; O2SAT 98
--- NOTE | 2023-07-04 18:30 | PC.NURSE ---
Pt requesting something more for her withdrawal symptoms, alerted, awaiting orders
--- NOTE | 2023-07-04 18:49 | PC.NURSE ---
Pharmacy contacted for one time dose of phenobarb 130 mg IM per MD order, awaiting pharmacy to place order.
[2023-07-04 19:08] LABS: UPreg QC Valid YES; Urine Pregnancy NEGATIVE (NEGATIVE)
[2023-07-04 19:24] VITALS: BP 135/66; PULSE 90; RESP 17; TEMP 36.8; O2SAT 98
--- NOTE | 2023-07-04 19:45 | PC.NURSE ---
delay in phenobarb administration due to none in ED called pharmacy at 1900 to let them know and they reports will bring down
[2023-07-04] MEDS: PHENobarbitaL sodium 130 MG/ML VIAL IM (20:48)
--- NOTE | 2023-07-04 22:17 | PC.NURSE ---
called pharmacy they will readjust phenobarb PO schedule due to delay in IM phenobarb due to no/delay supply in ED
[2023-07-04 23:47] VITALS: BP 127/87; PULSE 79; RESP 17; TEMP 36.8; O2SAT 98
[2023-07-04] MEDS: Melatonin 3 MG TABLET 6 MG PO (23:48)
[2023-07-05] MEDS: Lactated Ringers 1,000 ML 100 ML IVCONT (03:08)
[2023-07-05] MEDS: Omeprazole 20 MG CAPSULE.DR PO (05:34)
[2023-07-05 05:43] VITALS: BP 124/84; PULSE 74; RESP 16; TEMP 36.6; O2SAT 98
[2023-07-05 08:09] VITALS: BP 140/94; PULSE 84; RESP 16; O2SAT 96
[2023-07-05] MEDS: PHENobarbitaL 15 MG TABLET 45 MG PO (08:18)
[2023-07-05] MEDS: Multivitamin TABLET 1 TAB PO (08:18)
[2023-07-05] MEDS: Folic Acid 1 MG TABLET PO (08:18)
[2023-07-05] MEDS: Enoxaparin Sodium 40 MG/0.4 ML SYRINGE SUBCUT (08:18)
[2023-07-05] MEDS: Thiamine HCL 100 MG TABLET PO (08:18)
--- NOTE | 2023-07-05 08:33 | PC.NURSE ---
this RN resumed care of pt at 0700. a&ox4. vss and up to date. nsr on the disk sander. updated CIWA = 11. pt denies pain aside from slight abd discomfort/GI upset. pt declines prn medication. medication administered per provider order. pt requesting prn ventolin. inhaler not found in pt specific bin, pt's room or RT cart. pharmacy notified/aware. states they will bring one down shortly. will administer when able. no sob/wob noted. respirations even and unlabored. pt resting comfortably w/ the lights dimmed. 1:1 sitter present. call aguayo placed within reach.
[2023-07-05] MEDS: Albuterol Sulfate 90 MCG 8 GM INHALER 2 PUFF INHALE (09:00)
--- NOTE | 2023-07-05 09:14 | MHC.CM.PN ---
PT REPORTS SHE LIVES WITH HER EX AND IS INDEPENDENT WITH CARE SHE IS ACTIVE WITH RECOVERY COACHES THAT SEE HER IN HOME TWICE PER WEEK PT HAS A NEBULIZER FOR DME PCP SHARONA FREED DECLINES HCP DCP: [facility] INTERESTED IN PHP WILL NEED LYJUAN
--- NOTE | 2023-07-05 09:21 | HO.PM.IMPN ---
Subjective Subjective Date of Service: 07/05/23 Review of Systems Follow up alcohol abuse and withdrawal Physical Exam Vital Signs: Vital Signs: Last Vital Signs Temp 97.8 F 07/05/23 05:43 Pulse 84 07/05/23 08:09 Resp 16 07/05/23 08:09 BP 140/94 H 07/05/23 08:09 Pulse Ox 96 07/05/23 08:09 O2 Del Method Room Air 07/05/23 08:09 BMI result Body Mass Index 30.9 Appearing in no acute distress lung sounds are clear to auscultation heart regular rate rhythm, clear S1, S2 positive bowel sounds, abdomen is soft, nontender neuro patient is alert x3, no focal deficits Objective Data Active Medications Acetaminophen (Acetaminophen 325 Mg Tablet) 650 mg PO Q6H PRN PRN Reason: Pain, Mild (Pain Scale 1-3) Albuterol Sulfate (Albuterol Sulfate 90 Mcg 8 Gm Inhaler) 2 puff INHALE Q4H PRN PRN Reason: Shortness of Breath/Wheezing Stop: 07/06/23 23:59 Last Admin: 07/05/23 09:00 Dose: 2 puff Documented By: PAUL Enoxaparin Sodium (Enoxaparin Sodium 40 Mg/0.4 Ml Syringe) 40 mg SUBCUT Q24H [facility] Last Admin: 07/05/23 08:18 Dose: 40 mg Documented By: PAUL Folic Acid (Folic Acid 1 Mg Tablet) 1 mg PO DAILY [facility] Last Admin: 07/05/23 08:18 Dose: 1 mg Documented By: PAUL Lactated Ringer's (Lr) 1,000 mls @ 100 mls/hr IVCONT .Q10H [facility] Last Admin: 07/05/23 03:08 Dose: 100 mls/hr Documented By: KENDELL Melatonin (Melatonin 3 Mg Tablet) 6 mg PO BEDTIME PRN PRN Reason: Insomnia Last Admin: 07/04/23 23:48 Dose: 6 mg Documented By: KENDELL Multivitamins/Vitamin C (Multivitamin Tablet) 1 tab PO DAILY [facility] Last Admin: 07/05/23 08:18 Dose: 1 tab Documented By: PAUL Omeprazole (Omeprazole 20 Mg Simone.) 20 mg PO DAILY@0630 [facility] Last Admin: 07/05/23 05:34 Dose: 20 mg Documented By: KENDELL Ondansetron HCl (Ondansetron Hcl 4 Mg/2 Ml Vial) 4 mg IVPUSH Q8H PRN PRN Reason: Nausea and Vomiting Last Admin: 07/04/23 21:10 Dose: 4 mg Documented By: KENDELL Pharmacy Consult (Consult Rx Etoh Phenob Im/Po) 1 each MISCELLANE ONCE PRN; Protocol PRN Reason: Consult order Phenobarbital (Phenobarbital 15 Mg Tablet) 45 mg PO BID [facility]; Protocol Stop: 07/06/23 21:01 Last Admin: 07/05/23 08:18 Dose: 45 mg Documented By: PAUL Phenobarbital (Phenobarbital 30 Mg Tablet) 30 mg PO BID [facility]; Protocol Stop: 07/08/23 21:01 Phenobarbital (Phenobarbital 30 Mg Tablet) 30 mg PO DAILY [facility]; Protocol Stop: 07/10/23 09:01 Sodium Chloride (0.9 % Sodium Chloride Flush 3 Ml Syringe) 3 ml IVFLUSH QSHIFT [facility] Last Admin: 07/05/23 07:48 Dose: Not Given Documented By: PAUL Non-Admin Reason: IV Running Thiamine HCl (Thiamine Hcl 100 Mg Tablet) 100 mg PO DAILY [facility] Last Admin: 07/05/23 08:18 Dose: 100 mg Documented By: PAUL Labs 07/04/23 04:59 07/04/23 04:59 Labs: Laboratory Results - last 24 hr 07/04/23 18:40 Urine Test NEGATIVE Microbiology Microbiology Results: Microbiology 07/03/23 Unknown Urine Culture - Final Urine clean catch - Urine gallegos top Assessment and Plan Plan This is a 38-year-old female with pertinent history of alcohol use disorder, mood disorder, gastroesophageal reflux disease who presents to the emergency department for concerns of alcohol withdrawal. Alcohol use disorder with concerns for alcohol withdrawal continue phenobarb protocol Initiating thiamine, folic acid, MVI Consulted Addiction Team. Nausea antiemetics as needed poor appetite IV fluids Hypokalemia Repleted with oral potassium Generalized anxiety disorder, uncontrolled Also has been having suicidal ideation. sitter Psychiatry consult Gastroesophageal reflux disease On PPI Asymptomatic pyuria with bacteriuria No indication for treatment Med rec pending DVT prophylaxis: Lovenox Attending Dr. Andres Full code continue hospital stay for treatment of alcohol withdrawal (as above), which is not possible in a lesser acute setting. Specialist consult pending Quality Stroke Does the patient have a stroke diagnosis?: No VTE Prior VTE?: No VTE Risk Level:: Medical - moderate - high VTE Device Contraindication: Treatment Not Indicated VTE Drug Contraindication: N/A - Med Ordered
[2023-07-05 09:52] LABS: Anion Gap 14 (12-20); Blood Urea Nitrogen 8 mg/dL (9-16); Calcium 8.8 mg/dL (8.4-10.2); Carbon Dioxide 23 mmol/L (22-29); Chloride 108 mmol/L (96-108); Creatinine Clr Calc Pharmacy 111.6; Estimated Glomerular Filt Rate > 60; Glucose Random 103 mg/dL (60-115); Magnesium 1.9 mg/dL (1.6-2.6); Potassium 3.5 mmol/L (3.3-5.1); Sodium 141 mmol/L (135-145)
[2023-07-05] MEDS: ondansetron HCL 4 MG/2 ML VIAL IVPUSH (10:12)
--- NOTE | 2023-07-05 10:13 | PC.NURSE ---
pt verbalizing nausea. prn zofran utilized. effectiveness pending.
[2023-07-05 10:15] VITALS: BP 121/70; PULSE 79; RESP 11; TEMP 36.6; O2SAT 98
--- NOTE | 2023-07-05 13:42 | PM.DS ---
DS: Providers Provider Date of Service: 07/05/23 Date of admission: 07/04/23 01:46 Primary care physician: Unknown Physician Consults: 07/04/23 01:38 Consult for Sitter Routine Reason for consultation: SI Consult to Psychiatry Routine Consulting Provider: Psych Covering Reason for consultation: SI, uncontrolled anxiety 07/04/23 01:40 Addiction Medicine Routine Consulting Provider: Addiction Covering Reason for consultation: alcohol use disorder DS: Diagnosis Discharge Diagnosis (1) Alcohol withdrawal: Status: Acute DS: Summary Hospital Course Hospital Course: History and physical as per admitting provider. This is a 38-year-old female with pertinent history of alcohol use disorder, mood disorder, gastroesophageal reflux disease who presents to the emergency department for concerns of alcohol withdrawal. Patient states that she been clean for a while but relapsed due to stress. Her last drink was on the day of presentation. Patient had been drinking about 1 L of alcohol for the last few days. Patient states she has been having visual hallucinations since she stopped drinking. Also complains of tremor and sweating. Does have a history of alcohol withdrawal including alcohol withdrawal seizures. Patient states she has been feeling anxious for a while and has also been suicidal specially on the day of presentation. No chills, chest discomfort, palpitations, abdominal pain, changes in urinary or bowel habits. In the emergency department, patient was initiated on phenobarb protocol. 38-year-old woman treated for alcohol use disorder with alcohol withdrawal. She was started on phenobarbital protocol, thiamine, folic acid multivitamin were initiated. She did have some episode of nausea that were treated with antiemetics and resolved. She was able to eat and drink without any difficulties. Was noted to have hypokalemia that was repleted with oral potassium and resolved. Discussed importance of alcohol cessation, patient reports that she has a recovery team that she follows with. Plan is to discharge patient home, she is stable with no withdrawal symptoms at this time. Anxiety. Initially with suicidality on admission likely secondary to alcohol intoxication. Seen an evaluated by chelsey on discharge and cleared to return home. no need for inpatient psych services Time Attestation Discharge Coordination Time (in mins): 32 Quality: Safe Use of Opioids Does Pt have an Active Cancer Diagnosis on the Problem List?: No Quality: Stroke Does the patient have a stroke diagnosis?: No Physical Exam Vital Signs: Vital Signs: Last Vital Signs Temp 97.8 F 07/05/23 10:15 Pulse 79 07/05/23 10:15 Resp 11 L 07/05/23 10:15 BP 121/70 07/05/23 10:15 Pulse Ox 98 07/05/23 10:15 O2 Del Method Room Air 07/05/23 10:15 BMI result Body Mass Index 30.9 Appearing in no acute distress head is normocephalic atraumatic eyes pupils are PERRLA sclera is anicteric mouth throat mucous membranes are intact and moist neck is supple no lymphadenopathy, no JVD noted lung sounds are clear to auscultation heart regular rate rhythm, clear S1, S2 positive bowel sounds, abdomen is soft, nontender neuro patient is alert x3, no focal deficits DS: Data Data Completed and Pending Completed studies during hospitalization [Text1]: Procedures Detoxification Services for Substance Abuse Treatment (12/24/22) Labs on day of discharge: Laboratory Results - last 24 hr 07/04/23 07/05/23 18:40 09:27 Hold Purple Top SEE NOTE Sodium 141 Potassium 3.5 Chloride 108 Carbon Dioxide 23 Anion Gap 14 BUN 8 L Creatinine 0.72 Estim Creat Clear Calc 111.6 Estimated GFR > 60 Random Glucose 103 Calcium 8.8 Magnesium 1.9 Hold Yellow Top See Note Urine Test NEGATIVE Discharge Plan Discharge Anticipated Discharge Date/Time: 07/05/23 13:35 Patient Disposition: Home, Self-Care Discharge Diagnosis: Alcohol use disorder Alcohol withdrawal Nausea Hypokalemia Discharge Medications: New multivitamin [Daily-Sarita] Tablet 1 tab PO DAILY Qty: 30 0RF omeprazole 20 mg Capsule,Delayed Release(Dr/Ec) 20 mg PO DAILY@0630 Qty: 30 0RF folic acid 1 mg Tablet 1 mg PO DAILY Qty: 30 0RF thiamine mononitrate (vit B1) 100 mg Tablet 100 mg PO DAILY Qty: 30 0RF ondansetron 4 mg tablet,disintegrating 4 mg PO Q8H PRN (Reason: nausea and vomiting) Qty: 9 0RF Continued ibuprofen 200 mg Tablet 200 mg PO Q6H PRN (Reason: Mild Pain (Scale Score 1-4)) albuterol sulfate 90 mcg/actuation HFA aerosol inhaler 1 puff INHALATION QID PRN (Reason: wheezing) Discharge Orders: Discharge Order (Routine); Ordered 07/05/23 Ordered By: Liberty Carlson Diet: Advance to usual diet Activity on Discharge: As tolerated Stand Alone Forms: Patient Portal Discharge page, Work/School Release Print Language: Japanese Care Plan Goals: Stop drinking alcohol, seek outpatient resources for assistance with this Health Concerns: Alcohol use disorder Alcohol withdrawal Nausea Hypokalemia Plan of Treatment: Follow-up with primary care provider as needed Take all medications as prescribed Assessment: See discharge summary
--- NOTE | 2023-07-05 14:10 | PC.NURSE ---
pt speaking w/ CARE team at this time.
--- NOTE | 2023-07-05 14:59 | HO.ADDICT_ITS ---
History of Present Illness Date of Service: 07/05/2023 Chief Complaint: Alcohol withdrawal Reason for Consult: AUD HPI Narrative: Patient is a 38 year old female currently medically admitted with acute alcohol withdrawal Patient seen in bed 9. Awake, alert, engaged in interview. Reports that physical withdrawal sx have much improved, however feels very anxious as she is still in the ED and finds the setting distressing. Affect appropriate, mild tremor noted. She states she was abstaining from alcohol for some time, and was taking Naltrexone PO up until a month ago. She reports stopping medication because she felt better and did not feel she needed it any longer. In retrospect she acknowledges that medication may have been helping with cravings for alcohol She identified a recent triggering event that led to recurrence and she started drinking all day for 4 days straight. Discussed previous engagement in treatment with [facility] outpatient office. She states that she found treatment there to be very helpful, however she could not afford the cost of copays that came with visits. She does not wish to resume care at this time. She was seen by CARE team prior to being seen by t/w. Please see CARE team note for details. Past Psychiatric History: OP: Harrison Sanz, VIKKI Yash Past med trial: prozac, clonazepam, abilify Review of Systems Constitutional: Reports as per HPI Diagnostics Vital Signs (24Hr): Vital Signs - 24 hr 07/04/23 15:55 07/04/23 17:48 07/04/23 19:24 Temperature 98.2 F 97.5 F 98.2 F Pulse Rate 92 85 90 Respiratory Rate 15 13 17 Blood Pressure 127/83 129/71 135/66 Pulse Oximetry 98 98 Oxygen Delivery Method Room Air Room Air 07/04/23 23:47 07/05/23 05:43 07/05/23 08:09 Temperature 98.2 F 97.8 F Pulse Rate 79 74 84 Respiratory Rate 17 16 16 Blood Pressure 127/87 124/84 140/94 H Pulse Oximetry 98 98 96 Oxygen Delivery Method Room Air Room Air Room Air 07/05/23 10:15 Temperature 97.8 F Pulse Rate 79 Respiratory Rate 11 L Blood Pressure 121/70 Pulse Oximetry 98 Oxygen Delivery Method Room Air BMI result Body Mass Index 30.9 Labs 07/04/23 04:59 07/05/23 09:27 Labs: Laboratory Results - last 48 hr 07/03/23 07/03/23 07/04/23 17:44 18:52 04:59 WBC 7.7 9.7 RBC 5.22 4.42 Hgb 15.2 12.8 Hct 43.1 37.0 MCV 82.6 83.7 MCH 29.1 29.0 MCHC 35.3 H 34.6 RDW 14.3 14.6 Plt Count 356 292 MPV 8.8 L 9.1 L Immature Gran % (Auto) 0.3 0.3 Neut % (Auto) 68.2 60.3 Lymph % (Auto) 21.9 24.8 [place] % (Auto) 8.6 12.7 H Eos % (Auto) 0.3 1.2 Baso % (Auto) 0.7 0.7 Lymph # (Auto) 1.7 2.4 [place] # (Auto) 0.7 1.2 Eos # (Auto) 0.0 0.1 Baso # (Auto) 0.1 0.1 Abs Immat Gran (auto) 0.02 0.03 Absolute Neuts (auto) 5.2 5.8 Absolute Nucleated RBC 0.000 0.000 Nucleated RBC % (auto) 0.0 0.0 Hold Purple Top Sodium 141 141 Potassium 4.4 3.2 L D Chloride 104 106 Carbon Dioxide 19 L 24 Anion Gap 22 H 14 BUN 14 11 Creatinine 0.79 0.72 Estim Creat Clear Calc 101.7 111.6 Estimated GFR > 60 > 60 Random Glucose 112 101 Calcium 9.4 8.5 D Magnesium 1.9 Total Bilirubin 0.3 AST 27 ALT 26 Alkaline Phosphatase 56 Total Protein 7.7 Albumin 4.4 Hold Yellow Top Urine Color Dark Yellow Urine Appearance Turbid Urine pH 6.0 Ur Specific [place] >= 1.030 H Urine Protein 100 (2+) H Urine Glucose (UA) Negative Urine Ketones 15 Urine Blood Trace H Urine Nitrite Negative Ur Leukocyte Esterase Negative Urine RBC 6-10 H Urine WBC 6-10 H Ur Squamous Epith Cells >20 Urine Bacteria 4+ Hyaline Casts 3-5 Urine Test Urine Opiates Screen Not Detected Ur Buprenorphine Scrn Not Detected Ur Oxycodone Screen Not Detected Urine Methadone Screen Not Detected Urine Fentanyl Screen Not Detected Ur Barbiturates Screen POSITIVE H Ur Phencyclidine Scrn Not Detected Ur Amphetamines Screen Not Detected U Benzodiazepines Scrn Not Detected Urine Cocaine Screen Not Detected U Marijuana (THC) Screen POSITIVE H Ethyl Alcohol 144 07/04/23 07/05/23 18:40 09:27 WBC RBC Hgb Hct MCV MCH MCHC RDW Plt Count MPV Immature Gran % (Auto) Neut % (Auto) Lymph % (Auto) [place] % (Auto) Eos % (Auto) Baso % (Auto) Lymph # (Auto) [place] # (Auto) Eos # (Auto) Baso # (Auto) Abs Immat Gran (auto) Absolute Neuts (auto) Absolute Nucleated RBC Nucleated RBC % (auto) Hold Purple Top SEE NOTE Sodium 141 Potassium 3.5 Chloride 108 Carbon Dioxide 23 Anion Gap 14 BUN 8 L Creatinine 0.72 Estim Creat Clear Calc 111.6 Estimated GFR > 60 Random Glucose 103 Calcium 8.8 Magnesium 1.9 Total Bilirubin AST ALT Alkaline Phosphatase Total Protein Albumin Hold Yellow Top See Note Urine Color Urine Appearance Urine pH Ur Specific [place] Urine Protein Urine Glucose (UA) Urine Ketones Urine Blood Urine Nitrite Ur Leukocyte Esterase Urine RBC Urine WBC Ur Squamous Epith Cells Urine Bacteria Hyaline Casts Urine Test NEGATIVE Urine Opiates Screen Ur Buprenorphine Scrn Ur Oxycodone Screen Urine Methadone Screen Urine Fentanyl Screen Ur Barbiturates Screen Ur Phencyclidine Scrn Ur Amphetamines Screen U Benzodiazepines Scrn Urine Cocaine Screen U Marijuana (THC) Screen Ethyl Alcohol Imaging Radiology Impressions: ITS Impressions Abdomen/Pelvis CT 07/04/23 19:57 IMPRESSION: 1. A cause for the patient's abdominal pain has not been found. 2. Incidental note made of bronchial thickening, small hiatal hernia, tiny periumbilical hernia and a 2.8 cm simple left ovarian cyst which needs no additional imaging or follow-up. Fleischner guidelines were followed. Mental Status Exam Mental Status Exam Patient Appearance: Appropriate Level of Consciousness: Awake and Appropriate Patient Behavior: Appropriate and Anxious Mood Description: Anxious Affect Description: Anxious Speech Pattern: Clear Thought Process: Intact Thought Content: positive for Intact Depressive Symptoms: Increased Anxiety and Difficulty Sleeping Judgement: Fair Medications Medications Current Medications Acetaminophen (Acetaminophen 325 Mg Tablet) 650 mg PO Q6H PRN PRN Reason: Pain, Mild (Pain Scale 1-3) Albuterol Sulfate (Albuterol Sulfate 90 Mcg 8 Gm Inhaler) 2 puff INHALE Q4H PRN PRN Reason: Shortness of Breath/Wheezing Stop: 07/06/23 23:59 Last Admin: 07/05/23 09:00 Dose: 2 puff Enoxaparin Sodium (Enoxaparin Sodium 40 Mg/0.4 Ml Syringe) 40 mg SUBCUT Q24H [facility] Last Admin: 07/05/23 08:18 Dose: 40 mg Folic Acid (Folic Acid 1 Mg Tablet) 1 mg PO DAILY [facility] Last Admin: 07/05/23 08:18 Dose: 1 mg Melatonin (Melatonin 3 Mg Tablet) 6 mg PO BEDTIME PRN PRN Reason: Insomnia Last Admin: 07/04/23 23:48 Dose: 6 mg Multivitamins/Vitamin C (Multivitamin Tablet) 1 tab PO DAILY [facility] Last Admin: 07/05/23 08:18 Dose: 1 tab Omeprazole (Omeprazole 20 Mg Capsule.Dr) 20 mg PO DAILY@0630 [facility] Last Admin: 07/05/23 05:34 Dose: 20 mg Ondansetron HCl (Ondansetron Hcl 4 Mg/2 Ml Vial) 4 mg IVPUSH Q8H PRN PRN Reason: Nausea and Vomiting Last Admin: 07/05/23 10:12 Dose: 4 mg Pharmacy Consult (Consult Rx Etoh Phenob Im/Po) 1 each MISCELLANE ONCE PRN; Protocol PRN Reason: Consult order Phenobarbital (Phenobarbital 15 Mg Tablet) 45 mg PO BID [facility]; Protocol Stop: 07/06/23 21:01 Last Admin: 07/05/23 08:18 Dose: 45 mg Phenobarbital (Phenobarbital 30 Mg Tablet) 30 mg PO BID [facility]; Protocol Stop: 07/08/23 21:01 Phenobarbital (Phenobarbital 30 Mg Tablet) 30 mg PO DAILY [facility]; Protocol Stop: 07/10/23 09:01 Sodium Chloride (0.9 % Sodium Chloride Flush 3 Ml Syringe) 3 ml IVFLUSH QSHIFT [facility] Last Admin: 07/05/23 07:48 Dose: Not Given Thiamine HCl (Thiamine Hcl 100 Mg Tablet) 100 mg PO DAILY [facility] Last Admin: 07/05/23 08:18 Dose: 100 mg Allergies Allergies Allergy/AdvReac Type Severity Reaction Status Date / Time adhesive AdvReac Hives Verified 07/03/23 18:20 Assessment & Plan Assessment & Plan (1) Alcohol use disorder, severe, dependence: Status: Acute Code(s): F10.20 - Alcohol dependence, uncomplicated Assessment and Plan: * patient has naltrexone at home and feels comfortable restarting medication * would like to continue medication through PCP as co pays are for appts at [facility] are too high for patient Total time managing care of this patient today _30___ minutes. PMFSH Past Medical History Medical History MDD (major depressive disorder), recurrent episode, moderate Asthma Anxiety and depression Tachycardia Alcohol withdrawal Family History Family History Mother Alcohol use disorder Maternal Grandfather Alcohol use disorder Social History Social History Household Members: Spouse Housing: Apartment Do you presently have visiting nurse or other home services: No Alcohol intake: current Alcohol intake frequency: 3 or more drinks per day Alcohol type: hard liquor Patient Tobacco Use Status: Never used Tobacco e-Cigarette/Vaping Use: Never Used Second Hand Smoke Exposure: No Substance Use Type: Marijuana Advance Directives: Yes Advance Directives on File: Yes Advance Directives Date on File: 02/11/23 Do you have a plan to hurt others: No Plan Nutrition Risks: No Nutritional Risk Patient : No service: No
--- NOTE | 2023-07-05 15:09 | MHC.CARE ---
Patient evaluated by the CARE Team, at,this time she does not require an inpatient psychiatric admission, written assessment in Patient Care, to follow. Provider, Liberty Carlson NP updated.
[2023-07-05 15:35] VITALS: BP 121/70; PULSE 79; RESP 11; TEMP 36.6; O2SAT 98
== END 2023-07-05 15:33 | disposition home or self-care (01) | DRG 897 ==
LOC: HO.ED 23:23 → HO.EDOVER 07-04 02:19
PROVIDERS: Physician Assistant; Admitting Provider Student in an Organized Health Care Education/Training Program; Emergency Provider Internal Medicine; PCP Internal Medicine; Visit Provider Nurse Practitioner Acute Care
DX: F10.239 Alcohol dependence with withdrawal, unspecified (principal); R45.851 Suicidal ideations; F10.229 Alcohol dependence with intoxication, unspecified; Y90.6 Blood alcohol level of 120-199 mg/100 ml; K21.9 Gastro-esophageal reflux disease without esophagitis; F41.1 Generalized anxiety disorder; E87.6 Hypokalemia; Z79.899 Other long term (current) drug therapy
CPT/HCPCS: 36415; 74176; 80048; 80053; 80307; 81001; 81003; 81025; 83735; 85025; 87086; 99285; J1650; J2405; J2560; J3411; J7120; S9485

== ENCOUNTER → 2023-07-03 19:13 | Outpatient (BNV) | payer OTHER, SELFPAY | PROVIDERS: Emergency Provider Internal Medicine; Visit Provider Student in an Organized Health Care Education/Training Program | DX: F10.939 Alcohol use, unspecified with withdrawal, unspecified (principal) | CPT/HCPCS: 99223; 99239; 99499 ==

== ENCOUNTER → 2023-07-04 01:46 | Outpatient (BNV) | payer OTHER, SELFPAY | PROVIDERS: Admitting Provider Student in an Organized Health Care Education/Training Program; Emergency Provider Internal Medicine; Visit Provider Nurse Practitioner Psychiatric/Mental Health | DX: F10.230 Alcohol dependence with withdrawal, uncomplicated (principal) | CPT/HCPCS: 99221 ==

== ENCOUNTER 2024-01-18 13:57 | Emergency (ER) | payer OTHER, SELFPAY ==
[2024-01-18 14:28] VITALS: BP 122/78; PULSE 111; RESP 18; TEMP 36.6; O2SAT 94; BMI 30.8
--- NOTE | 2024-01-18 14:47 | MHC.RECOVRN ---
Briefly met with pt in ED waiting room after notified by [facility] that pt is presenting to the ED for alcohol withdrawal. Pt awake, alert, easily engages in conversation, appears anxious. Pt reports she came to the hospital for possible medical admission for alcohol withdrawal. Reports history of withdrawal seizures and tachycardia. Provided pt with t/w contact information and informed pt the recovery team will follow.
[2024-01-18 14:58] LABS: MANUAL DIFF FLAG NO
[2024-01-18 14:59] LABS: Basophils Absolute Auto 0.1 X10*3/uL (0.0-0.2); Basophils Percent Auto 0.8 % (0-2); Eosinophils Absolute Auto 0.2 X10*3/uL (0.0-0.4); Eosinophils Percent Auto 1.9 % (0-4); Hematocrit 39.9 % (37.0-47.0); Hemoglobin 14.2 g/dl (12.0-16.0); Imm Gran Abs Auto 0.03 X10*3/uL (0.00-0.03); Imm Gran Pct Auto 0.3 % (0.0-0.4); Lymphocytes Percent Auto 25.9 % (20-40); Mean Corpuscular HGB Conc 35.6 g/dl (31.0-35.0); Mean Corpuscular Hemoglobin 29.8 pg (27.0-33.0); Mean Corpuscular Volume 83.6 fL (80.0-98.0); Mean Platelet Volume 8.9 fL (9.4-12.3); Monocytes Absolute Auto 0.6 X10*3/uL (0.1-1.2); Neutrophils Absolute Auto 7.8 x10*3/uL (2.0-8.3); Neutrophils Percent Auto 66.1 % (45-73); Platelet Count 366 X10*3/uL (160-400); Red Blood Count 4.77 X10*6/uL (4.20-5.50); Red Cell Distribution Width 12.9 % (11.0-16.0); White Blood Count 11.7 X10*3/uL (4.8-10.8)
[2024-01-18 15:01] LABS: Appearance Urine Clear; Color Urine Yellow; Glucose Urine UA Negative (Negative); Leukocyte Esterase Urine Negative (Negative); Nitrite Urine Negative (Negative); PH 5.5 (5.0-9.0); Specific Gravity - Urine <= 1.005 (1.005-1.025); Urine Blood Negative (Negative); Urine Ketones Negative (Negative); Urine Protein Negative (Neg-Trace)
[2024-01-18 15:09] LABS: Amphetamine Screen Urine Not Detected (Not Detect); Barbiturates, Urine Not Detected (Not Detect); Benzodiazepines Screen Urine Not Detected (Not Detect); Buprenorphine Scr Not Detected (Not Detect); Cannabinoid Screen Urine Not Detected (Not Detect); Cocaine Screen Urine Not Detected (Not Detect); Fentanyl, urine Not Detected (Not Detect); Methadone Screen, Urine Not Detected (Not Detect); Opiate Screen Urine Not Detected (Not Detect); Oxycodone Screen Urine Not Detected (Not Detect); Phencyclidine Screen Urine Not Detected (Not Detect)
[2024-01-18 15:19] LABS: Alanine Aminotransferase 19 U/L (0-31); Albumin Level 4.6 g/dL (3.5-5.0); Alkaline Phosphatase 60 U/L (39-117); Anion Gap 15 (12-20); Aspartate Amino Transferase 20 U/L (5-31); Bilirubin Total 0.3 mg/dL (0.0-1.0); Blood Urea Nitrogen 11 mg/dL (9-16); Calcium 9.7 mg/dL (8.4-10.2); Carbon Dioxide 20 mmol/L (22-29); Chloride 110 mmol/L (96-108); Creatinine Clr Calc Pharmacy 97.8; Estimated Glomerular Filt Rate > 60; Ethanol 271 mg/dL; Glucose Random 95 mg/dL (60-115); HCG Quantitative < 2 mIU/mL; Lipase 28 U/L (8-78); Magnesium 2.2 mg/dL (1.6-2.6); Potassium 4.2 mmol/L (3.3-5.1); Sodium 141 mmol/L (135-145); Total Protein 7.7 g/dL (6.5-8.0)
[2024-01-18 16:00] VITALS: BP 122/78; PULSE 101; RESP 18; O2SAT 97
[2024-01-18] MEDS: 0.9 % Sodium Chloride 1,000 ML 999 ML IV (16:46)
--- NOTE | 2024-01-18 16:47 | ED_ITS ---
HPI - General Adult General Chief complaint: ETOH/Substance Use Stated complaint: withdrawal Time Seen by Provider: 01/18/24 16:06 Source: patient Mode of arrival: ambulatory Limitations: no limitations History of Present Illness ED Provider: Red Germain HPI narrative: 38 yold female with pmh of alcohoism and pancreatitis presents to the ED for alchol withdrawal symptoms. patient states having abdominal cramping, nausea, and vomitting. States she wants detox referral. Patient states she usually drinks a pt of alcohol per day. Patient states she drank a pt of alcohol today and had last drink was 2 hours before coming to the ED. patient denies any tremors. Patient states history of seizure when she was alcohol withdrawal. Patient presently not having any seizure. Patient denies any chest pain, shortness of breath, any urinary symptoms Related Data Home Medications ?Medication ?Instructions ?Recorded ?Confirmed albuterol sulfate 90 mcg/actuation 1 puff inhalation QID PRN wheezing 07/04/23 07/04/23 aerosol inhaler ibuprofen 200 mg tablet 200 mg PO Q6H PRN Mild Pain (Scale 07/04/23 07/04/23 Score 1-4) Previous Rx's ?Medication ?Instructions ?Recorded folic acid 1 mg tablet 1 mg PO DAILY #30 tabs 07/05/23 multivitamin (Daily-Sarita tablet) 1 tab PO DAILY #30 tabs 07/05/23 omeprazole 20 mg capsule,delayed 20 mg PO DAILY@0630 #30 caps 07/05/23 release ondansetron 4 mg disintegrating 4 mg PO Q8H PRN nausea and 07/05/23 tablet vomiting #9 tabs thiamine mononitrate (vit B1) 100 100 mg PO DAILY #30 tabs 07/05/23 mg tablet famotidine 40 mg tablet (Pepcid) 40 mg PO DAILY 10 days #10 tabs 01/18/24 Allergies Allergy/AdvReac Type Severity Reaction Status Date / Time adhesive AdvReac Hives Verified 01/18/24 14:30 Review of Systems 2 Review of Systems: detox, drinking alcohol, abdominal pain, nuasea, vomititn Yes all other systems are reviewed and are negative PMFSH Past Medical History Medical History MDD (major depressive disorder), recurrent episode, moderate Asthma Anxiety and depression Tachycardia Alcohol withdrawal Family History Family History Mother Alcohol use disorder Maternal Grandfather Alcohol use disorder Social History Social History Household Members: Spouse Housing: Apartment Do you presently have visiting nurse or other home services: No Alcohol intake: current Alcohol intake frequency: 3 or more drinks per day Alcohol type: hard liquor Patient Tobacco Use Status: Never used Tobacco Smoked in Last 30 Days: Yes e-Cigarette/Vaping Use: Never Used Second Hand Smoke Exposure: No Use of substances other than those prescribed or required for medical reasons: No Substance Use Type: Marijuana Advance Directives: Yes Advance Directives on File: Yes Advance Directives Date on File: 02/11/23 service: No Physical Exam ED Vital Signs: Vital Signs - 24 hr 01/18/24 16:00 01/18/24 19:16 01/18/24 22:59 Temperature 98.2 F 98.1 F Pulse Rate 101 H 94 108 H Respiratory Rate 18 20 20 Blood Pressure 122/78 107/57 L 122/75 Pulse Oximetry 97 98 100 Oxygen Delivery Method Room Air Room Air Room Air 01/19/24 00:02 Temperature 98.1 F Pulse Rate 108 H Respiratory Rate 20 Blood Pressure 122/75 Pulse Oximetry 100 Oxygen Delivery Method Room Air BMI result Body Mass Index 30.8 Const General: cooperative, healthy appearing, comfortable, no acute distress, well developed, alert, awake and Physically active Orientation/consciousness: oriented to person, oriented to place, oriented to time and patient oriented x3 HENMT Head: Yes normal to inspection, Yes No palpable skull fracture present, Yes normocephalic and Yes atraumatic Eyes General: appearance normal, both eyes and all related structures Neck Neck: Yes normal visual inspection, Yes full ROM, Yes no lymphadenopathy, Yes no meningeal signs, Yes trachea midline, Yes supple, No anterior neck swelling and No tender Chest Chest palpation & inspection: normal inspection of the chest and normal palpation of entire chest wall Resp Effort & Inspection: normal respiratory effort and able to speak in complete sentences Auscultation: clear to auscultation bilaterally Cardio Jugular venous distension: no JVD GI Inspection: Yes normal to inspection Palpation (GI): Soft to palpation, not firm, Tenderness to palpation present (GI) in the epigastrum, no guarding and not rigid General: Yes no CVA tenderness Back/Spine/Pelvis Back: no CVA tenderness and No back tenderness Skin General skin exam: no rashes or lesions noted, elasticity normal and turgor normal Neuro General: oriented to person, oriented to place, oriented to time, patient oriented x3, gait normal, tone normal, moves all extremities, Normal light touch and pain sensation, no meningeal signs, no focal motor deficits, CN's II-XI intact bilaterally and normal sensation to monofilament Extrem General: Yes normal to inspection, Yes full ROM and Yes capillary refill normal Psych Appearance: grossly normal, well kempt and not disheveled Medications Administered Discontinued Medications Generic Name Dose Route Start Last Admin Trade Name Freq PRN Reason Stop Dose Admin Al Hydroxide/Mg Hydroxide 30 ml 01/18/24 16:13 01/18/24 16:50 Magnesium Hydrox/Alum Hydrox 30 Ml Oral.Susp PO 01/18/24 16:14 30 ml ONCE ONE Administration Belladonna Alkaloids/Phenobarbital 10 ml 01/18/24 16:13 01/18/24 16:50 Phenobarb/Hyoscy/Atropine/Scop 10 Ml Elixir PO 01/18/24 16:14 10 ml ONCE ONE Administration Famotidine 20 mg 01/18/24 16:13 01/18/24 16:48 Famotidine/Pf 20 Mg/2 Ml Vial IVPUSH 01/18/24 16:14 20 mg ONCE ONE Administration Sodium Chloride 1,000 mls @ 999 mls/hr 01/18/24 16:13 01/18/24 18:04 Ns IV 01/18/24 17:13 Infused .Q1H1M STA Infusion Lidocaine HCl 15 ml 01/18/24 16:13 01/18/24 16:50 Lidocaine Hcl Viscous 2 % 15 Ml Solution MUCOUS MEM 01/18/24 16:14 15 ml ONCE ONE Administration Lorazepam 2 mg 01/18/24 17:39 01/18/24 17:51 Lorazepam 2 Mg/Ml Vial IVPUSH 01/18/24 17:40 2 mg ONCE ONE Administration Medical Decision Making Medical Decision Making MDM Narrative: 38-year-old female presents to ED stating alcohol withdrawal. Patient's last drink was 2 hours. His history physical exam does not indicate withdrawal. Patient is not having any tremors. Blood pressure stable. Alcohol smell on breath. Patient is slightly inebriated. Alcohol level 271. We will give GI cocktail of fluids and re-evaluate. Care team consult placed. Presently no indication for Ativan. 16:50: PATIENT WAS GIVEN ATIVAN THE PATIENT STATES SHE FEELING ANXIOUS. PATIENT CRYING WANTS TO CALM DOWN. Labs are stable 10:57pm: Patient is alert oriented x3. Patient would like to be discharged. Care team has not yet seen patient for detox referral. Patient given list of detox program she will call in the morning. Presently abdomen is benign soft and nontender on palpation. Not suspecting pancreatitis, GI bleed, PE, myocardial infarction, cholecystitis, CHF, other life-threatening etiology. Not suspecting alcohol withdrawal or delirium tremens Differential Diagnosis Differential Diagnoses: The differential diagnosis associated with the presentation includes (Alcohol use disorder,) Admission/Observation Consideration of admission/observation: Escalation of care including admission/observation considered Lab Data MDM Lab Attestation statement: I reviewed the patient's lab results. 01/18/24 14:52 01/18/24 14:52 Labs: Lab Results 01/18/24 01/18/24 Range/Units 14:52 14:56 WBC 11.7 H (4.8-10.8) X10*3/uL RBC 4.77 (4.20-5.50) X10*6/uL Hgb 14.2 (12.0-16.0) g/dl Hct 39.9 (37.0-47.0) % MCV 83.6 (80.0-98.0) fL MCH 29.8 (27.0-33.0) pg MCHC 35.6 H (31.0-35.0) g/dl RDW 12.9 (11.0-16.0) % Plt Count 366 D (160-400) X10*3/uL MPV 8.9 L (9.4-12.3) fL Immature Gran % (Auto) 0.3 (0.0-0.4) % Neut % (Auto) 66.1 (45-73) % Lymph % (Auto) 25.9 (20-40) % [place] % (Auto) 5.0 (2-11) % Eos % (Auto) 1.9 (0-4) % Baso % (Auto) 0.8 (0-2) % Lymph # (Auto) 3.0 (1.2-4.9) X10*3/uL [place] # (Auto) 0.6 (0.1-1.2) X10*3/uL Eos # (Auto) 0.2 (0.0-0.4) X10*3/uL Baso # (Auto) 0.1 (0.0-0.2) X10*3/uL Abs Immat Gran (auto) 0.03 (0.00-0.03) X10*3/uL Absolute Neuts (auto) 7.8 (2.0-8.3) x10*3/uL Absolute Nucleated RBC 0.000 (0.0-0.012) X10*3/uL Nucleated RBC % (auto) 0.0 (0.0-0.2) /100WBC Sodium 141 (135-145) mmol/L Potassium 4.2 (3.3-5.1) mmol/L Chloride 110 H (96-108) mmol/L Carbon Dioxide 20 L (22-29) mmol/L Anion Gap 15 (12-20) BUN 11 (9-16) mg/dL Creatinine 0.82 (0.5-1.4) mg/dL Estim Creat Clear Calc 97.8 Estimated GFR > 60 Random Glucose 95 (60-115) mg/dL Calcium 9.7 D (8.4-10.2) mg/dL Magnesium 2.2 (1.6-2.6) mg/dL Total Bilirubin 0.3 (0.0-1.0) mg/dL AST 20 (5-31) U/L ALT 19 (0-31) U/L Alkaline Phosphatase 60 (39-117) U/L Total Protein 7.7 (6.5-8.0) g/dL Albumin 4.6 (3.5-5.0) g/dL Lipase 28 (8-78) U/L Beta HCG, Quant < 2 mIU/mL Urine Color Yellow Urine Appearance Clear Urine pH 5.5 (5.0-9.0) Ur Specific [place] <= 1.005 (1.005-1.025) Urine Protein Negative (Neg-Trace) mg/dL Urine Glucose (UA) Negative (Negative) mg/dL Urine Ketones Negative (Negative) mg/dL Urine Blood Negative (Negative) Urine Nitrite Negative (Negative) Ur Leukocyte Esterase Negative (Negative) Urine Opiates Screen Not Detected (Not Detect) Ur Buprenorphine Scrn Not Detected (Not Detect) ng/mL Ur Oxycodone Screen Not Detected (Not Detect) ng/mL Urine Methadone Screen Not Detected (Not Detect) ng/mL Urine Fentanyl Screen Not Detected (Not Detect) Ur Barbiturates Screen Not Detected (Not Detect) Ur Phencyclidine Scrn Not Detected (Not Detect) Ur Amphetamines Screen Not Detected (Not Detect) U Benzodiazepines Scrn Not Detected (Not Detect) Urine Cocaine Screen Not Detected (Not Detect) U Marijuana (THC) Screen Not Detected (Not Detect) Ethyl Alcohol 271 mg/dL Independent Historian Clinical information obtained from an independent historian. History obtained from or confirmed by: Other (Patient) External Record Review External record reviewed: Other (Prior visits) Discharge Plan Discharge Clinical Impression: Alcohol use disorder, GERD (gastroesophageal reflux disease) Patient Disposition: Home, Self-Care Instructions: Alcohol Use Disorder (ED) Additional Instructions: Recommend follow-up with primary care provider. Recommend calling the detox program from this list were given by ED staff today. Return to the ED immediately for any suicidal/homicidal ideation, tremors, headache, nausea, vomiting, abdominal pain, fever, chills, flank pain, dysuria, hematuria, or any other concerning symptoms. Prescriptions: New famotidine [Pepcid] 40 mg tablet 40 mg PO DAILY 10 Days Qty: 10 0RF No Action ibuprofen 200 mg Tablet 200 mg PO Q6H PRN (Reason: Mild Pain (Scale Score 1-4)) albuterol sulfate 90 mcg/actuation HFA aerosol inhaler 1 puff INHALATION QID PRN (Reason: wheezing) multivitamin [Daily-Sarita] Tablet 1 tab PO DAILY Qty: 30 0RF omeprazole 20 mg Capsule,Delayed Release(Dr/Ec) 20 mg PO DAILY@0630 Qty: 30 0RF folic acid 1 mg Tablet 1 mg PO DAILY Qty: 30 0RF thiamine mononitrate (vit B1) 100 mg Tablet 100 mg PO DAILY Qty: 30 0RF ondansetron 4 mg tablet,disintegrating 4 mg PO Q8H PRN (Reason: nausea and vomiting) Qty: 9 0RF Interventions: ED Discharge Assessment Last Done: 01/19/24 00:02 Discharge Date/Time: 01/19/24 00:10 Print Language: Bulgarian
[2024-01-18] MEDS: Famotidine/PF 20 MG/2 ML VIAL IVPUSH (16:48)
[2024-01-18] MEDS: Magnesium Hydrox/Alum Hydrox 30 ML ORAL.SUSP PO (16:50)
[2024-01-18] MEDS: Lidocaine HCl Viscous 2 % 15 ML SOLUTION MUCOUS MEM (16:50)
[2024-01-18] MEDS: PHENobarb/Hyoscy/Atropine/Scop 10 ML ELIXIR PO (16:50)
--- NOTE | 2024-01-18 17:16 | PC.NURSE ---
belongings checked, pt does not have any alcohol on her. No SI, No HI, no section 12.
[2024-01-18] MEDS: LORazepam 2 MG/ML VIAL IVPUSH (17:51)
[2024-01-18 19:16] VITALS: BP 107/57; PULSE 94; RESP 20; TEMP 36.8; O2SAT 98
[2024-01-18 22:59] VITALS: BP 122/75; PULSE 108; RESP 20; TEMP 36.7; O2SAT 100
[2024-01-19 00:02] VITALS: BP 122/75; PULSE 108; RESP 20; TEMP 36.7; O2SAT 100
== END 2024-01-19 00:10 | disposition home or self-care (01) ==
PROVIDERS: Emergency Provider Internal Medicine; PCP Internal Medicine
DX: F10.20 Alcohol dependence, uncomplicated (principal); Y90.8 Blood alcohol level of 240 mg/100 ml or more; K21.9 Gastro-esophageal reflux disease without esophagitis; F41.9 Anxiety disorder, unspecified; J45.909 Unspecified asthma, uncomplicated; Z79.899 Other long term (current) drug therapy
CPT/HCPCS: 36415; 80053; 80307; 81003; 83690; 83735; 84702; 85025; 96361; 96374; 96375; 99284; 99285; J2060

== ENCOUNTER 2024-03-21 19:40 | Inpatient (IN) | payer OTHER, SELFPAY ==
--- NOTE | ~2024-03-21 | CT_ITS ---
CLINICAL HISTORY: epigastric pain, elevated lipase CT abdomen and pelvis with contrast Comparison: CT/OR/SR - CT ABDOMEN PELVIS WO IV CON - 07/04/23 19:35 EDT Findings: Small hiatal hernia. Hepatomegaly with steatosis. Mildly distended gallbladder No hydronephrosis. Similar duodenal diverticulum along the 2nd segment. There is duodenal mural thickening with regional fluid stranding. There is adjacent bowel wall thickening involving the right transverse colon extending proximally to the cecum. Proximal pancreas is mild edematous. No bowel obstruction. IUD in the uterine fundus. Colonic diverticulosis without focal diverticulitis. Normal appendix. Bilateral adnexal cysts in the left measuring 2.7 cm, Similar to prior. No acute fracture. Degenerative changes in the bilateral SI joints. IMPRESSION: Findings concerning for duodenal diverticulitis versus proximal colitis or pancreatitis as described. Clinical correlation advised. This document has been electronically signed by: Nitin Jack MD on 03/21/2024 23:40:23
[2024-03-21 20:03] VITALS: BP 144/105; PULSE 126; O2SAT 97
[2024-03-21 20:10] VITALS: BP 109/76; PULSE 128; RESP 20; TEMP 36.9; O2SAT 95; BMI 29.1
--- NOTE | 2024-03-21 20:26 | ED.GENADULT ---
HPI - General Adult General Chief complaint: Abdominal Pain Stated complaint: N/V ,abd pain Time Seen by Provider: 03/21/24 20:26 History of Present Illness ED Provider: Rosaura NIELSON narrative: The patient is a 38-year-old woman who was an alcoholic. She says that last year she was told that she has chronic pancreatitis. She has been on gabapentin. According to the state website the patient was prescribed 7 tablets of oxycodone on March 05. The patient is not otherwise normally on oxycodone. She says that she has been taking the oxycodone for her chronic abdominal pain. She says she ran out of the abdominal pain and therefore started drinking again because of pain. She now comes to the emergency room with vomiting, worsening epigastric pain, and feeling unwell. Related Data Home Medications ?Medication ?Instructions ?Recorded ?Confirmed albuterol sulfate 90 mcg/actuation 1 puff inhalation QID PRN wheezing 07/04/23 07/04/23 aerosol inhaler ibuprofen 200 mg tablet 200 mg PO Q6H PRN Mild Pain (Scale 07/04/23 07/04/23 Score 1-4) Previous Rx's ?Medication ?Instructions ?Recorded folic acid 1 mg tablet 1 mg PO DAILY #30 tabs 07/05/23 multivitamin (Daily-Sarita tablet) 1 tab PO DAILY #30 tabs 07/05/23 omeprazole 20 mg capsule,delayed 20 mg PO DAILY@0630 #30 caps 07/05/23 release ondansetron 4 mg disintegrating 4 mg PO Q8H PRN nausea and 07/05/23 tablet vomiting #9 tabs thiamine mononitrate (vit B1) 100 100 mg PO DAILY #30 tabs 07/05/23 mg tablet famotidine 40 mg tablet (Pepcid) 40 mg PO DAILY 10 days #10 tabs 01/18/24 Allergies Allergy/AdvReac Type Severity Reaction Status Date / Time adhesive AdvReac Hives Verified 03/21/24 20:13 Review of Systems Review of Systems: Yes all other systems are reviewed and are negative PMFSH Past Medical History Medical History MDD (major depressive disorder), recurrent episode, moderate Asthma Anxiety and depression Tachycardia Alcohol withdrawal Family History Family History Mother Alcohol use disorder Maternal Grandfather Alcohol use disorder Social History Social History Household Members: Spouse Housing: Apartment Do you presently have visiting nurse or other home services: No Alcohol intake: current Alcohol intake frequency: 3 or more drinks per day Alcohol type: hard liquor Patient Tobacco Use Status: Never used Tobacco Smoked in Last 30 Days: Yes e-Cigarette/Vaping Use: Never Used Second Hand Smoke Exposure: No Use of substances other than those prescribed or required for medical reasons: No Substance Use Type: Marijuana Advance Directives: Yes Advance Directives on File: Yes Advance Directives Date on File: 02/11/23 Do you have a plan to hurt others: No Plan service: No Physical Exam ED Vital Signs: Vital Signs - 24 hr 03/21/24 20:10 03/21/24 22:36 03/21/24 22:37 Temperature 98.4 F Pulse Rate 128 H 130 H Respiratory Rate 20 20 20 Blood Pressure 109/76 132/83 Pulse Oximetry 95 96 Oxygen Delivery Method Room Air Room Air BMI result Body Mass Index 29.1 Const Other: The patient is a 38-year-old woman who looks somewhat chronically ill. She is awake and alert. Her mental status seems clear. She seems mildly tremulous. HENMT Other: Face is symmetrical. Mucous membranes moist. Eyes General: appearance normal, both eyes and all related structures Sclerae: sclerae normal EOM: EOMs intact bilaterally Neck Neck: Yes full ROM and Yes no lymphadenopathy Resp Effort & Inspection: normal respiratory effort Auscultation: clear to auscultation bilaterally Cardio Rate: tachycardic Rhythm: regular rhythm Heart sounds: S1 normal heart sound present and S2 normal heart sound present GI Other: There is epigastric tenderness. Skin Other: Skin is pale and dry Neuro Other: The patient is awake and alert with a normal mental status. She seems mildly tremulous. Cranial nerves 2-12 are intact. She moves her extremities symmetrically and appropriately aside from some tremulousness. Extrem Other: No peripheral edema Course Reevaluation(s) Reevaluation #1: The patient presents with epigastric pain similar to previous episodes of pancreatitis. She is also tremulous. She is an alcoholic. I suspect that her tachycardia is most likely related to some degree of alcohol withdrawal which would be consistent with her tremulousness. She has not been febrile. I do not think she is septic. Time: 21:00 Medications Administered Generic Name Dose Route Start Last Admin Trade Name Freq PRN Reason Stop Dose Admin Piperacillin Sod/Tazobactam 100 mls @ 200 mls/hr 03/22/24 00:00 03/22/24 01:35 Sod 4.5 gm/ Sodium Chloride IV 200 mls/hr Q6H DAMIEN Administration Sodium Chloride 3 ml 03/22/24 00:00 03/22/24 00:35 0.9 % Sodium Chloride Flush 3 Ml Syringe IVFLUSH Not Given QSHIFT DAMIEN Discontinued Medications Generic Name Dose Route Start Last Admin Trade Name Freq PRN Reason Stop Dose Admin Sodium Chloride 1,000 mls @ 999 mls/hr 03/21/24 20:30 03/22/24 01:30 Ns IV 03/21/24 21:30 Infused .Q1H1M DAMIEN Infusion Thiamine HCl 200 mg/ Sodium 102 mls @ 204 mls/hr 03/21/24 23:45 03/22/24 02:05 Chloride IV 03/22/24 00:14 Infused ONCE ONE Infusion Iohexol 85 ml 03/21/24 23:04 03/21/24 23:04 Iohexol 350 Mg/Ml 100 Ml Infus..Btl IV 03/21/24 23:05 85 ml ONCE ONE Administration Morphine Sulfate 4 mg 03/21/24 21:51 03/21/24 22:37 Morphine Sulfate 4 Mg/Ml Cartridge IVPUSH 03/21/24 21:52 4 mg ONCE ONE Administration Protocol Ondansetron HCl 4 mg 03/21/24 21:53 03/21/24 22:37 Ondansetron Hcl 4 Mg/2 Ml Vial IVPUSH 03/21/24 21:54 4 mg ONCE ONE Administration Phenobarbital Sodium 260 mg 03/22/24 00:00 03/22/24 00:32 Phenobarbital Sodium 130 Mg/Ml Im Once IM 03/22/24 00:01 260 mg ONCE ONE Administration Procedures Procedure Narrative Procedure Narrative: Ultrasound-guided IV 20 gauge 2-1/2 inch IV placed in left upper extremity, adequate blood return, flushes well secured with Tegaderm. Performed by Lisa Nascimento PA-C Medical Decision Making Medical Decision Making MDM Narrative: The patient is a 38-year-old female with a history of alcoholism who also has had multiple episodes of pancreatitis. She presents with midabdominal pain. She seems tremulous. Her lipase is elevated. A CT scan of her abdomen is consistent with pancreatitis. She was given IV fluids as well as pain medication. The patient was tachycardic and seemed to be developing higher blood pressures and she was also tremulous. It was my impression the patient was going through alcohol withdrawal. The patient was started on the phenobarbital protocol. I consulted the hospitalist for admission. Lab Data 03/21/24 20:46 03/21/24 20:46 Labs: Lab Results 03/21/24 Range/Units 20:46 WBC 16.0 H (4.8-10.8) X10*3/uL RBC 5.10 (4.20-5.50) X10*6/uL Hgb 15.7 (12.0-16.0) g/dl Hct 43.2 (37.0-47.0) % MCV 84.7 (80.0-98.0) fL MCH 30.8 (27.0-33.0) pg MCHC 36.3 H (31.0-35.0) g/dl RDW 15.1 (11.0-16.0) % Plt Count 275 (160-400) X10*3/uL MPV 8.6 L (9.4-12.3) fL Immature Gran % (Auto) 0.5 H (0.0-0.4) % Neut % (Auto) 75.6 H (45-73) % Lymph % (Auto) 16.7 L (20-40) % [place] % (Auto) 6.4 (2-11) % Eos % (Auto) 0.3 (0-4) % Baso % (Auto) 0.5 (0-2) % Lymph # (Auto) 2.7 (1.2-4.9) X10*3/uL [place] # (Auto) 1.0 (0.1-1.2) X10*3/uL Eos # (Auto) 0.0 (0.0-0.4) X10*3/uL Baso # (Auto) 0.1 (0.0-0.2) X10*3/uL Abs Immat Gran (auto) 0.08 H (0.00-0.03) X10*3/uL Absolute Neuts (auto) 12.1 H (2.0-8.3) x10*3/uL Absolute Nucleated RBC 0.000 (0.0-0.012) X10*3/uL Nucleated RBC % (auto) 0.0 (0.0-0.2) /100WBC PT 12.6 H (10.9-12.4) SEC INR 1.1 (0.9-1.1) Sodium 141 (135-145) mmol/L Potassium 3.0 L D (3.3-5.1) mmol/L Chloride 106 (96-108) mmol/L Carbon Dioxide 17 L (22-29) mmol/L Anion Gap 21 H (12-20) BUN 4 L (9-16) mg/dL Creatinine 0.72 (0.5-1.4) mg/dL Estim Creat Clear Calc 108.5 Estimated GFR > 60 Random Glucose 149 H (60-115) mg/dL Calcium 8.3 L D (8.4-10.2) mg/dL Magnesium 1.9 (1.6-2.6) mg/dL Total Bilirubin 0.7 (0.0-1.0) mg/dL Direct Bilirubin 0.2 (0.0-0.5) mg/dL AST 31 (5-31) U/L ALT 27 (0-31) U/L Alkaline Phosphatase 58 (39-117) U/L C-Reactive Protein 2.96 H (< or = 0.50) mg/dL Total Protein 7.6 (6.5-8.0) g/dL Albumin 4.2 (3.5-5.0) g/dL Lipase 173 H (8-78) U/L Beta HCG, Quant < 2 mIU/mL Ethyl Alcohol 171 mg/dL Influenza Type A (PCR) NEGATIVE (Negative) Influenza Type B (PCR) NEGATIVE (Negative) RSV RNA Qual (PCR) NEGATIVE (Negative) SARS-CoV-2 RNA (RT-PCR) NEGATIVE (Negative) Discharge Plan Discharge Clinical Impression: Pancreatitis Patient Disposition: Admitted As Inpatient
--- NOTE | 2024-03-21 20:29 | ECG_ITS ---
Test Reason : ABD PAIN Blood Pressure : */* mmHG Vent. Rate : 131 BPM Atrial Rate : 131 BPM P-R Int : 136 ms QRS Dur : 72 ms QT Int : 288 ms P-R-T Axes : 36 69 46 degrees QTcB Int : 425 ms Sinus tachycardia Otherwise normal ECG When compared with ECG of 30-Mar-2023 16:01, No significant change was found Referred By: Pablo Kaplan Electronically Signed By: HORACIO GUTIERREZ MD
[2024-03-21 20:51] LABS: MANUAL DIFF FLAG NO
[2024-03-21 20:52] LABS: Basophils Absolute Auto 0.1 X10*3/uL (0.0-0.2); Basophils Percent Auto 0.5 % (0-2); Eosinophils Percent Auto 0.3 % (0-4); Hematocrit 43.2 % (37.0-47.0); Hemoglobin 15.7 g/dl (12.0-16.0); Imm Gran Abs Auto 0.08 X10*3/uL (0.00-0.03); Imm Gran Pct Auto 0.5 % (0.0-0.4); Lymphocytes Absolute Auto 2.7 X10*3/uL (1.2-4.9); Lymphocytes Percent Auto 16.7 % (20-40); Mean Corpuscular HGB Conc 36.3 g/dl (31.0-35.0); Mean Corpuscular Hemoglobin 30.8 pg (27.0-33.0); Mean Corpuscular Volume 84.7 fL (80.0-98.0); Mean Platelet Volume 8.6 fL (9.4-12.3); Monocytes Percent Auto 6.4 % (2-11); Neutrophils Absolute Auto 12.1 x10*3/uL (2.0-8.3); Neutrophils Percent Auto 75.6 % (45-73); Platelet Count 275 X10*3/uL (160-400); Red Cell Distribution Width 15.1 % (11.0-16.0)
--- NOTE | 2024-03-21 20:55 | MHC.EDTECH ---
Patient BIBA,changed into hospital attire,patient placed on the monitor technician,HR is elevated at 131, RN is aware, EKG taken per oder and signed by provider, labs drawn by MIGUEL Bowden, patient ambulated with a steady gait to the bathroom, pt was not able to give a urine sample at this time,call aguayo in reach
--- NOTE | 2024-03-21 20:55 | PC.NURSE ---
pt is a difficult iv stick.
[2024-03-21 20:57] LABS: INTERNATIONAL NORM RATIO 1.1 (0.9-1.1); Prothrombin Time 12.6 SEC (10.9-12.4)
[2024-03-21 21:11] LABS: Alanine Aminotransferase 27 U/L (0-31); Albumin Level 4.2 g/dL (3.5-5.0); Alkaline Phosphatase 58 U/L (39-117); Anion Gap 21 (12-20); Aspartate Amino Transferase 31 U/L (5-31); Bilirubin Direct 0.2 mg/dL (0.0-0.5); Bilirubin Total 0.7 mg/dL (0.0-1.0); Blood Urea Nitrogen 4 mg/dL (9-16); C Reactive Protein 2.96 mg/dL (< or = 0.50); Calcium 8.3 mg/dL (8.4-10.2); Carbon Dioxide 17 mmol/L (22-29); Chloride 106 mmol/L (96-108); Creatinine Clr Calc Pharmacy 108.5; Estimated Glomerular Filt Rate > 60; Glucose Random 149 mg/dL (60-115); Lipase 173 U/L (8-78); Magnesium 1.9 mg/dL (1.6-2.6); Sodium 141 mmol/L (135-145); Total Protein 7.6 g/dL (6.5-8.0)
[2024-03-21 21:12] LABS: Ethanol 171 mg/dL
[2024-03-21 21:17] LABS: HCG Quantitative < 2 mIU/mL
[2024-03-21 21:28] LABS: Influenza A PCR NEGATIVE (Negative); Influenza B PCR NEGATIVE (Negative); Resp Syncy Virus RNA Qual PCR NEGATIVE (Negative); SARS COV2 PCR INHOUSE NEGATIVE (Negative)
--- NOTE | 2024-03-21 22:02 | PC.NURSE ---
providers attempting a iv at this time.
[2024-03-21 22:36] VITALS: BP 132/83; PULSE 130; RESP 20; O2SAT 96
[2024-03-21] MEDS: 0.9 % Sodium Chloride 1,000 ML 999 ML IV (22:36)
[2024-03-21 22:37] VITALS: RESP 20
[2024-03-21] MEDS: Morphine Sulfate 4 MG/ML CARTRIDGE IVPUSH (22:37)
[2024-03-21] MEDS: ondansetron HCL 4 MG/2 ML VIAL IVPUSH (22:37)
[2024-03-21] MEDS: iohexoL 350 MG/ML 100 ML INFUS..BTL 85 ML IV (23:04)
--- NOTE | 2024-03-21 23:47 | PM.IMHP ---
History of Present Illness Date of Service: 03/21/24 Chief Complaint: Abdominal pain This is a 38-year-old female with pertinent history of alcohol use disorder with history of alcohol withdrawals and alcoholic pancreatitis, gastroesophageal reflux disease who presents to the emergency department for evaluation of abdominal pain. Patient states she started having epigastric pain about 5-7 days prior to presentation. Initially it was intermittent but progressed to being constant. Epigastric pain radiates to the back and is associated with nausea and multiple episodes of nonbloody emesis. Unable to tolerate p.o. intake due to vomiting. Her last alcoholic drink was on the day of presentation. Does have history of alcohol withdrawals. No fever, chills, chest pain, palpitations, shortness of breath, changes in urinary or bowel habits. In the emergency department, lipase found to be elevated and imaging concerning for pancreatitis Review of Systems Constitutional: Constitutional: Reports fatigue, Reports malaise and Reports poor appetite Cardiovascular: Cardiovascular: Reports no additional cardiovascular complaints Respiratory: Respiratory: Reports no additional respiratory complaints Gastrointestinal: Gastrointestinal: Reports abdominal pain, Reports nausea and Reports vomiting Genitourinary: Genitourinary: Reports no additional female genitourinary complaints Neurologic: Reports tremor(s) Endocrine: Endocrine: Reports fatigue [facility] Medical History MDD (major depressive disorder), recurrent episode, moderate Asthma Anxiety and depression Tachycardia Alcohol withdrawal Family History Mother Alcohol use disorder Maternal Grandfather Alcohol use disorder Social History Household Members: Spouse Housing: Apartment Do you presently have visiting nurse or other home services: No Alcohol intake: current Alcohol intake frequency: 3 or more drinks per day Alcohol type: hard liquor Patient Tobacco Use Status: Never used Tobacco Smoked in Last 30 Days: Yes e-Cigarette/Vaping Use: Never Used Second Hand Smoke Exposure: No Use of substances other than those prescribed or required for medical reasons: No Substance Use Type: Marijuana Advance Directives: Yes Advance Directives on File: Yes Advance Directives Date on File: 02/11/23 Do you have a plan to hurt others: No Plan service: No Meds Allergies Allergy/AdvReac Type Severity Reaction Status Date / Time adhesive AdvReac Hives Verified 03/21/24 20:13 Active Medications: Current Medications Potassium Chloride/Sodium Chloride (Kcl 40 Meq In 0.9 % Sodium Chl) 40 meq in 1,000 mls @ 250 mls/hr IV .Q4H [facility] Stop: 03/22/24 03:29 Home Medications ?Medication ?Instructions ?Recorded ?Confirmed ?Last Taken ?Type albuterol sulfate 90 mcg/actuation 1 puff inhalation QID PRN wheezing 07/04/23 07/04/23 Unknown History aerosol inhaler ibuprofen 200 mg tablet 200 mg PO Q6H PRN Mild Pain (Scale 07/04/23 07/04/23 Unknown History Score 1-4) Physical Exam Vital Signs and Narrative: Vital Signs: Last Vital Signs Temp 98.4 F 03/21/24 20:10 Pulse 130 H 03/21/24 22:36 Resp 20 03/21/24 22:37 BP 132/83 03/21/24 22:36 Pulse Ox 96 03/21/24 22:36 O2 Del Method Room Air 03/21/24 22:36 BMI result Body Mass Index 29.1 Middle-aged female lying in bed in no distress Neck supple, no JVD Regular rate and rhythm, S1-S2 heard Regular breath sounds bilaterally, no wheezing or crackles appreciated Abdomen with a epigastric tenderness, no rigidity Patient is awake, alert and oriented to self, place, time and person, tremors present ; no focal motor deficit Psych: Anxious No pedal edema Results Labs 03/21/24 20:46 03/21/24 20:46 Labs: Laboratory Results - last 24 hr 03/21/24 20:46 MCV 84.7 MCH 30.8 MCHC 36.3 H RDW 15.1 Plt Count 275 MPV 8.6 L Immature Gran % (Auto) 0.5 H Neut % (Auto) 75.6 H Lymph % (Auto) 16.7 L [place] % (Auto) 6.4 Eos % (Auto) 0.3 Baso % (Auto) 0.5 Lymph # (Auto) 2.7 [place] # (Auto) 1.0 Eos # (Auto) 0.0 Baso # (Auto) 0.1 Abs Immat Gran (auto) 0.08 H Absolute Neuts (auto) 12.1 H Absolute Nucleated RBC 0.000 Nucleated RBC % (auto) 0.0 PT 12.6 H INR 1.1 Anion Gap 21 H Estim Creat Clear Calc 108.5 Estimated GFR > 60 Random Glucose 149 H Calcium 8.3 L D Magnesium 1.9 Total Bilirubin 0.7 Direct Bilirubin 0.2 AST 31 ALT 27 Alkaline Phosphatase 58 C-Reactive Protein 2.96 H Total Protein 7.6 Albumin 4.2 Lipase 173 H Beta HCG, Quant < 2 Ethyl Alcohol 171 Influenza Type A (PCR) NEGATIVE Influenza Type B (PCR) NEGATIVE RSV RNA Qual (PCR) NEGATIVE SARS-CoV-2 RNA (RT-PCR) NEGATIVE Assessment and Plan (1) Alcoholic pancreatitis: Status: Acute Plan This is a 38-year-old female with pertinent history of alcohol use disorder with history of alcohol withdrawals and alcoholic pancreatitis, gastroesophageal reflux disease who presents to the emergency department for evaluation of abdominal pain. #. Acute alcoholic pancreatitis: Will admit patient and continue IV crystalloid resuscitation. NPO for bowel rest. IV opiates p.r.n. for analgesia. Does have elevated leukocytosis which can be reactive but CT indicates possible diverticulitis. Initiating empiric IV Zosyn. #. Alcohol use disorder: Initiated on phenobarb protocol in the ER. Initiating thiamine. Patient is on folic acid and multivitamin. Consulted Addiction Team. Monitor CIWA #. Hypokalemia: Due to GI losses. Repleted #. Gastroesophageal reflux disease: On PPI Med rec pending DVT prophylaxis: Lovenox Full code Admit as inpatient and will require two night minimum hospital stay for IV crystalloid resuscitation, management of alcohol withdrawal, IV antibiotics, IV opiates (as above), which is not possible in a lesser acute setting. Quality Stroke Does the patient have a stroke diagnosis?: No VTE Prior VTE?: No VTE Risk Level:: Medical - moderate - high VTE Device Contraindication: Treatment Not Indicated VTE Drug Contraindication: N/A - Med Ordered
[2024-03-22] VITALS (12 sets, daily range): BP systolic 116–145; BP diastolic 70–92; PULSE 91–130; RESP 15–20; TEMP 36.6–36.9; O2SAT 95–98; BMI 31.7
[2024-03-22] MEDS: PHENobarbitaL sodium 130 MG/ML IM ONCE 260 MG IM (00:32)
[2024-03-22] MEDS: Thiamine HCL 200 MG in 0.9 % Sodium Chloride 100 ML 204 MG IV (01:28)
[2024-03-22] MEDS: Piperacillin Sodium/Tazobactam 4.5 GM in 0.9 % Sodium Chloride 100 ML IV ×5 (01:35→23:11)
[2024-03-22 01:52] LABS: Lactic Acid 3.5 mmol/L (0.5-2.0)
[2024-03-22 02:26] LABS: Appearance Urine Clear; Color Urine Yellow; Glucose Urine UA Negative (Negative); Leukocyte Esterase Urine Negative (Negative); Nitrite Urine Negative (Negative); Specific Gravity - Urine >= 1.030 (1.005-1.025); UMIC TRIGGER UACC YES; Urine Blood Negative (Negative); Urine Ketones Trace mg/dL (Negative); Urine Protein 30 (1+) mg/dL (Neg-Trace)
[2024-03-22] MEDS: Lactated Ringers 1,000 ML 125 ML IVCONT ×4 (02:36→23:12)
[2024-03-22 02:38] LABS: Bacteria Urine Trace (None Seen); Hyaline Casts Urine 0-2 /LPF (0-2); RBC Urine 0-2 /HPF (0-2); WBC Urine 0-5 /HPF (0-5)
[2024-03-22] MEDS: Morphine Sulfate 4 MG/ML CARTRIDGE IVPUSH ×5 (02:38→21:11)
[2024-03-22 02:59] LABS: Amphetamine Screen Urine Not Detected (Not Detect); Barbiturates, Urine POSITIVE (Not Detect); Benzodiazepines Screen Urine Not Detected (Not Detect); Buprenorphine Scr Not Detected (Not Detect); Cannabinoid Screen Urine Not Detected (Not Detect); Cocaine Screen Urine Not Detected (Not Detect); Fentanyl, urine POSITIVE (Not Detect); Methadone Screen, Urine Not Detected (Not Detect); Opiate Screen Urine POSITIVE (Not Detect); Oxycodone Screen Urine Not Detected (Not Detect); Phencyclidine Screen Urine Not Detected (Not Detect)
[2024-03-22 03:27] LABS: Reflex Lactate? Lactic Acid Added
[2024-03-22] MEDS: KCl 40 mEq in 0.9 % Sodium Chl 40 MEQ/1,000 ML IV.SOLN 250 MEQ IV (03:47)
[2024-03-22] MEDS: PHENobarbitaL sodium 130 MG/ML VIAL IM Q3Hx2 195 MG IM ×2 (04:11→07:34)
[2024-03-22 05:15] LABS: MANUAL DIFF FLAG NO
[2024-03-22 06:01] LABS: Anion Gap 16 (12-20); Blood Urea Nitrogen 5 mg/dL (9-16); Calcium 7.8 mg/dL (8.4-10.2); Carbon Dioxide 19 mmol/L (22-29); Chloride 110 mmol/L (96-108); Creatinine Clr Calc Pharmacy 111.5; Estimated Glomerular Filt Rate > 60; Glucose Random 128 mg/dL (60-115); Potassium 3.4 mmol/L (3.3-5.1); Sodium 142 mmol/L (135-145); ~Lactic Acid-LAB USE ONLY 2.6 mmol/L (0.5-2.0)
[2024-03-22 06:02] LABS: Basophils Absolute Auto 0.1 X10*3/uL (0.0-0.2); Basophils Percent Auto 0.5 % (0-2); Eosinophils Percent Auto 0.2 % (0-4); Hemoglobin 13.7 g/dl (12.0-16.0); Imm Gran Abs Auto 0.07 X10*3/uL (0.00-0.03); Imm Gran Pct Auto 0.5 % (0.0-0.4); Lymphocytes Absolute Auto 1.7 X10*3/uL (1.2-4.9); Mean Corpuscular HGB Conc 35.1 g/dl (31.0-35.0); Mean Corpuscular Hemoglobin 30.5 pg (27.0-33.0); Mean Corpuscular Volume 86.9 fL (80.0-98.0); Mean Platelet Volume 8.8 fL (9.4-12.3); Monocytes Percent Auto 7.5 % (2-11); Neutrophils Absolute Auto 10.4 x10*3/uL (2.0-8.3); Neutrophils Percent Auto 78.3 % (45-73); Platelet Count 250 X10*3/uL (160-400); Red Blood Count 4.49 X10*6/uL (4.20-5.50); Red Cell Distribution Width 15.4 % (11.0-16.0); White Blood Count 13.3 X10*3/uL (4.8-10.8)
[2024-03-22] MEDS: ondansetron HCL 4 MG/2 ML VIAL IVPUSH (07:40)
[2024-03-22 08:15] LABS: Reflex Lactate? 2 Y
--- NOTE | 2024-03-22 08:32 | PM.GICN ---
History of Present Illness Data of Consult Service Date: 03/22/24 Requesting physician: Wai Andres Primary Care Provider: Unknown Physician HPI Reason for consult: Pancreatitis versus duoedenal diverticulitis 38 YF with pertinent history of alcohol use disorder (and a history of alcohol withdrawals) and alcoholic pancreatitis, GERD seen [place] [facility] on 03/21/24 with abdominal pain. Pt reported 10/10 epigastric pain radiating to the back for 5-7 days prior to presentation - initially intermittent and progressed to being constant and stabbing in character. Pain is worse on bending, coughing and after eating. Pt complained of nausea, bloating and multiple episodes of nonbloody emesis with inability to take anything PO Pain improved to 7-8/10 today and increases to 9-10/10 on bending or coughing. Pt reports no BM over the past 4-5 days since she has not been eating. Pt admitted to drinking ETOH on the day of presentation. Of note, pt has a hx of alcohol withdrawal in the past. Pt denied fever, chills, chest pain, palpitations, shortness of breath, changes in urinary or bowel habits. Patient admits to smoking 1-2 cigarettes a day and trying to quit. She admits to drinking 1 pt of vodka a day for 2 months. She was in inpatient rehab in April, for a month followed by outpt Rehab and states she was sober for several months She resumed drinking 3 days [employer] for pain control. Patient has asthma and denies any cardiac or pulmonary issues or sleep apnea Pt denies any surgeries in the past. Patient lives with a roommate and works at [employer] ([employer]) Patient denies known family history of colon polyps, GI malignancy or IBD. Labs in the ED showed normal LFTs and an elevated lipase of 173 and CRP 2.96 03/21/[address] SCAN SHOWED: Hepatomegaly with steatosis. Mildly distended gallbladder No hydronephrosis. Similar duodenal diverticulum along the 2nd segment. There is duodenal mural thickening with regional fluid stranding. There is adjacent bowel wall thickening involving the right transverse colon extending proximally to the cecum. Proximal pancreas is mild edematous. No bowel obstruction. Review of Systems Review of Systems: Yes all other systems are reviewed and are negative PMFSH Past Medical History Medical History MDD (major depressive disorder), recurrent episode, moderate Asthma Anxiety and depression Tachycardia Alcohol withdrawal Family History Family History Mother Alcohol use disorder Maternal Grandfather Alcohol use disorder Social History Social History Household Members: Friend(s) Household Members Other:: roommate Housing: Apartment Do you presently have visiting nurse or other home services: No Alcohol intake: current Alcohol intake frequency: 3 or more drinks per day Alcohol type: hard liquor Patient Tobacco Use Status: Never used Tobacco Tobacco use type: Cigarette Smoked in Last 30 Days: Yes e-Cigarette/Vaping Use: Never Used Patient Interested in Nicotine Replacement: Yes Patient Given Instructions on How to Stop Smoking: No Second Hand Smoke Exposure: No Use of substances other than those prescribed or required for medical reasons: No Substance Use Type: Marijuana Currently Displaying Signs/Symptoms of Drug Intoxication Withdrawal: No Do you feel safe in your current relationship?: No Current Relationship Advance Directives: Yes Advance Directives on File: Yes Advance Directives Date on File: 02/11/23 Do you have a plan to hurt others: No Plan Recently lost weight without trying: No How much weight loss: 2-13 pounds Nutrition Risks: No Nutritional Risk Patient : No : No service: No Meds Allergies Allergy/AdvReac Type Severity Reaction Status Date / Time adhesive AdvReac Hives Verified 03/21/24 20:13 Active Medications: Current Medications Acetaminophen (Acetaminophen 325 Mg Tablet) 650 mg PO Q6H PRN PRN Reason: Pain, Mild 1-3,fever,headache Calcium Carbonate (Calcium Carbonate 750 Mg Tab.Chew) 750 mg PO Q4H PRN PRN Reason: Heartburn Enoxaparin Sodium (Enoxaparin Sodium 40 Mg/0.4 Ml Syringe) 40 mg SUBCUT Q24H [facility] Thiamine HCl 100 mg/ Sodium (Chloride) 101 mls @ 202 mls/hr IV DAILY [facility] Piperacillin Sod/Tazobactam (Sod 4.5 gm/ Sodium Chloride) 100 mls @ 200 mls/hr IV Q6H [facility] Last Admin: 03/22/24 07:31 Dose: 200 mls/hr Lactated Ringer's (Lr) 1,000 mls @ 125 mls/hr IVCONT .Q8H [facility] Last Admin: 03/22/24 02:36 Dose: 125 mls/hr Magnesium Hydroxide (Milk Of Magnesia 30 Ml Oral.Susp) 30 ml PO DAILY PRN PRN Reason: Constipation Melatonin (Melatonin 3 Mg Tablet) 6 mg PO BEDTIME PRN PRN Reason: Insomnia Morphine Sulfate (Morphine Sulfate 4 Mg/Ml Cartridge) 4 mg IVPUSH Q6H PRN; Protocol PRN Reason: Pain, Severe (Pain Scale 7-10) Last Admin: 03/22/24 02:38 Dose: 4 mg Ondansetron HCl (Ondansetron Hcl 4 Mg/2 Ml Vial) 4 mg IVPUSH Q8H PRN PRN Reason: Nausea and Vomiting Last Admin: 03/22/24 07:40 Dose: 4 mg Pantoprazole Sodium (Pantoprazole Sodium 40 Mg/10 Ml Vial) 40 mg IVPUSH BID@0630,1630 [facility] Pharmacy Consult (Consult Rx Etoh Phenob Im/Po) 1 each MISCELLANE ONCE PRN; Protocol PRN Reason: Consult order Phenobarbital (Phenobarbital 15 Mg Tablet) 45 mg PO BID [facility]; Protocol Stop: 03/24/24 09:01 Phenobarbital (Phenobarbital 15 Mg Tablet) 15 mg PO BID [facility]; Protocol Stop: 03/26/24 09:01 Phenobarbital (Phenobarbital 15 Mg Tablet) 15 mg PO DAILY [facility]; Protocol Stop: 03/28/24 09:01 Sodium Chloride (0.9 % Sodium Chloride Flush 3 Ml Syringe) 3 ml IVFLUSH QSHIFT [facility] Last Admin: 03/22/24 00:35 Dose: Not Given Home Medications ?Medication ?Instructions ?Recorded ?Confirmed ?Last Taken ?Type albuterol sulfate 90 mcg/actuation 1 puff inhalation QID PRN wheezing 07/04/23 03/22/24 03/15/24 History aerosol inhaler pantoprazole 40 mg tablet,delayed 40 mg PO DAILY@0630 03/22/24 03/22/24 03/15/24 History release Physical Exam Vital Signs: Vital Signs: Last Vital Signs Temp 98.1 F 03/22/24 06:38 Pulse 118 H 03/22/24 06:38 Resp 15 03/22/24 06:38 BP 143/84 H 03/22/24 06:38 Pulse Ox 97 03/22/24 05:35 O2 Del Method Room Air 03/22/24 05:35 BMI result Body Mass Index 29.1 Const: General: no acute distress Nutritional Appearance: obese Orientation/consciousness: patient oriented x3 Limitations: no limitations HEENT: Head: Yes normal to inspection Ears: hearing grossly normal bilaterally Eyes: Sclerae: sclerae normal Pupils: Equal, round and reactive pupils present Neck: Neck: Yes normal visual inspection Chest: Chest palpation & inspection: normal inspection of the chest Resp: Effort & Inspection: normal respiratory effort Auscultation: clear to auscultation bilaterally Cardio: Palpation: normal PMI Rate: regular rate Rhythm: regular rhythm Heart sounds: S1 normal heart sound present, S2 normal heart sound present and no murmurs GI: Palpation (GI): Soft to palpation, Tenderness to palpation present (GI) (Diffuse moderate upper abdominal tenderness) and No hepatosplenomegaly present Auscultation: normal bowel sounds Rectal Exam - Female: deferred Skin: General skin exam: no rashes or lesions noted Neuro: General: patient oriented x3, gait normal and moves all extremities Cranial nerves: Yes Equal, round and reactive pupils present Psych: Appearance: grossly normal Mental Status: mental status grossly normal Results Labs 03/22/24 04:00 03/22/24 04:00 Labs: Short CBC 03/21/24 03/22/24 Range/Units 20:46 04:00 WBC 16.0 H 13.3 H (4.8-10.8) X10*3/uL Hgb 15.7 13.7 (12.0-16.0) g/dl Hct 43.2 39.0 (37.0-47.0) % Plt Count 275 250 (160-400) X10*3/uL BMP 03/21/24 03/22/24 20:46 04:00 Sodium 141 142 Potassium 3.0 L D 3.4 Chloride 106 110 H Carbon Dioxide 17 L 19 L BUN 4 L 5 L Creatinine 0.72 0.70 Calcium 8.3 L D 7.8 L D Liver Function 03/21/24 Range/Units 20:46 Total Bilirubin 0.7 (0.0-1.0) mg/dL Direct Bilirubin 0.2 (0.0-0.5) mg/dL AST 31 (5-31) U/L ALT 27 (0-31) U/L Alkaline Phosphatase 58 (39-117) U/L Albumin 4.2 (3.5-5.0) g/dL Urine 03/22/24 Range/Units 02:12 Urine Color Yellow Urine Appearance Clear Urine pH 6.0 (5.0-9.0) Ur Specific [place] >= 1.030 H (1.005-1.025) Urine Protein 30 (1+) H (Neg-Trace) mg/dL Urine Glucose (UA) Negative (Negative) mg/dL Assessment and Plan (1) Pancreatitis: Status: Acute (2) Alcohol use disorder, severe, dependence: Status: Acute Plan 38 YF with pertinent history of alcohol use disorder (and a history of alcohol withdrawals) and alcoholic pancreatitis, GERD [place] [facility] [place]24 with abdominal pain. Pt reported 10/10 epigastric pain radiating to the back for 5-7 days prior to presentation - initially intermittent and progressed to being constant and stabbing in character. Pain is worse on bending, coughing and after eating. Pt complained of nausea, bloating and multiple episodes of nonbloody emesis with inability to take anything PO Labs in the ED showed normal LFTs and an elevated lipase of 173 and CRP [address] scan showed duodenal diverticulum along the 2nd segment with duodenal mural thickening with regional fluid stranding. There is adjacent bowel wall thickening involving the right transverse colon extending proximally to the cecum. Proximal pancreas is mild edematous. Pt's symptoms are likely due to diverticulitis of duodenal diverticulum RECOMMENDATIONS: 1. Agree with IV PPI, antiemetics, pain medications and antibiotics 2. Repeat lipase and CRP 3. Advance to full liquid diet in the am 4. FU CT scan early next week if no improvement in abdominal pain. Dr Barahona is telephone operator over the weekend Procedures Date of Service Date of Service: 03/23/24
--- NOTE | 2024-03-22 08:58 | HO.PM.IMPN ---
Subjective Subjective Date of Service: 03/22/24 Interval History: seen and examined still with severe abd pain; morphine helping but pain returns in 3-4 hours after dosing denies n/v Review of Systems Negative except HPI/interval history. Physical Exam Vital Signs: Vital Signs: Last Vital Signs Temp 98.1 F 03/22/24 06:38 Pulse 107 H 03/22/24 08:47 Resp 15 03/22/24 08:47 BP 134/85 03/22/24 08:47 Pulse Ox 96 03/22/24 08:47 O2 Del Method Room Air 03/22/24 08:47 BMI result Body Mass Index 29.1 Const: Other: General - no acute distress, appears comfortable Cardiovascular - regular rate and rhythm, S1-S2 Lungs - normal respiratory effort, clear to auscultation bilaterally, no wheezing Abdomen - diffuse TTP upper quad > lower Extremities - no edema bilaterally Neuro - awake and alert, no focal deficits Objective Data Active Medications Acetaminophen (Acetaminophen 325 Mg Tablet) 650 mg PO Q6H PRN PRN Reason: Pain, Mild 1-3,fever,headache Calcium Carbonate (Calcium Carbonate 750 Mg Tab.Chew) 750 mg PO Q4H PRN PRN Reason: Heartburn Enoxaparin Sodium (Enoxaparin Sodium 40 Mg/0.4 Ml Syringe) 40 mg SUBCUT Q24H [facility] Thiamine HCl 100 mg/ Sodium (Chloride) 101 mls @ 202 mls/hr IV DAILY [facility] Piperacillin Sod/Tazobactam (Sod 4.5 gm/ Sodium Chloride) 100 mls @ 200 mls/hr IV Q6H [facility] Last Infusion: 03/22/24 08:33 Dose: Infused Documented By: MELANIE Lactated Ringer's (Lr) 1,000 mls @ 125 mls/hr IVCONT .Q8H [facility] Last Admin: 03/22/24 02:36 Dose: 125 mls/hr Documented By: MCTToro Magnesium Hydroxide (Milk Of Magnesia 30 Ml Oral.Susp) 30 ml PO DAILY PRN PRN Reason: Constipation Melatonin (Melatonin 3 Mg Tablet) 6 mg PO BEDTIME PRN PRN Reason: Insomnia Morphine Sulfate (Morphine Sulfate 4 Mg/Ml Cartridge) 4 mg IVPUSH Q4H PRN; Protocol PRN Reason: Pain, Severe (Pain Scale 7-10) Ondansetron HCl (Ondansetron Hcl 4 Mg/2 Ml Vial) 4 mg IVPUSH Q8H PRN PRN Reason: Nausea and Vomiting Last Admin: 03/22/24 07:40 Dose: 4 mg Documented By: MELANIE Pantoprazole Sodium (Pantoprazole Sodium 40 Mg/10 Ml Vial) 40 mg IVPUSH BID@0630,1630 [facility] Pharmacy Consult (Consult Rx Etoh Phenob Im/Po) 1 each MISCELLANE ONCE PRN; Protocol PRN Reason: Consult order Phenobarbital (Phenobarbital 15 Mg Tablet) 45 mg PO BID [facility]; Protocol Stop: 03/24/24 09:01 Phenobarbital (Phenobarbital 15 Mg Tablet) 15 mg PO BID [facility]; Protocol Stop: 03/26/24 09:01 Phenobarbital (Phenobarbital 15 Mg Tablet) 15 mg PO DAILY [facility]; Protocol Stop: 03/28/24 09:01 Sodium Chloride (0.9 % Sodium Chloride Flush 3 Ml Syringe) 3 ml IVFLUSH QSHIFT [facility] Last Admin: 03/22/24 08:39 Dose: Not Given Documented By: MELANIE Non-Admin Reason: IV Running Labs 03/22/24 04:00 03/22/24 04:00 Labs: Laboratory Results - last 24 hr 03/21/24 03/22/24 03/22/24 20:46 01:23 02:12 MCV 84.7 MCH 30.8 MCHC 36.3 H RDW 15.1 Plt Count 275 MPV 8.6 L Immature Gran % (Auto) 0.5 H Neut % (Auto) 75.6 H Lymph % (Auto) 16.7 L [place] % (Auto) 6.4 Eos % (Auto) 0.3 Baso % (Auto) 0.5 Lymph # (Auto) 2.7 [place] # (Auto) 1.0 Eos # (Auto) 0.0 Baso # (Auto) 0.1 Abs Immat Gran (auto) 0.08 H Absolute Neuts (auto) 12.1 H Absolute Nucleated RBC 0.000 Nucleated RBC % (auto) 0.0 PT 12.6 H INR 1.1 Anion Gap 21 H Estim Creat Clear Calc 108.5 Estimated GFR > 60 Random Glucose 149 H Lactic Acid 3.5 H* Lactic Acid F/U @ 2Hr Calcium 8.3 L D Magnesium 1.9 Total Bilirubin 0.7 Direct Bilirubin 0.2 AST 31 ALT 27 Alkaline Phosphatase 58 C-Reactive Protein 2.96 H Total Protein 7.6 Albumin 4.2 Lipase 173 H Beta HCG, Quant < 2 Urine Color Yellow Urine Appearance Clear Urine pH 6.0 Ur Specific [place] >= 1.030 H Urine Protein 30 (1+) H Urine Glucose (UA) Negative Urine Ketones Trace Urine Blood Negative Urine Nitrite Negative Ur Leukocyte Esterase Negative Urine RBC 0-2 Urine WBC 0-5 Ur Squamous Epith Cells 6-10 Urine Bacteria Trace Hyaline Casts 0-2 Urine Opiates Screen POSITIVE H Ur Buprenorphine Scrn Not Detected Ur Oxycodone Screen Not Detected Urine Methadone Screen Not Detected Urine Fentanyl Screen POSITIVE H Ur Barbiturates Screen POSITIVE H Ur Phencyclidine Scrn Not Detected Ur Amphetamines Screen Not Detected U Benzodiazepines Scrn Not Detected Urine Cocaine Screen Not Detected U Marijuana (THC) Screen Not Detected Ethyl Alcohol 171 Influenza Type A (PCR) NEGATIVE Influenza Type B (PCR) NEGATIVE RSV RNA Qual (PCR) NEGATIVE SARS-CoV-2 RNA (RT-PCR) NEGATIVE 03/22/24 04:00 MCV 86.9 MCH 30.5 MCHC 35.1 H RDW 15.4 Plt Count 250 MPV 8.8 L Immature Gran % (Auto) 0.5 H Neut % (Auto) 78.3 H Lymph % (Auto) 13.0 L [place] % (Auto) 7.5 Eos % (Auto) 0.2 Baso % (Auto) 0.5 Lymph # (Auto) 1.7 [place] # (Auto) 1.0 Eos # (Auto) 0.0 Baso # (Auto) 0.1 Abs Immat Gran (auto) 0.07 H Absolute Neuts (auto) 10.4 H Absolute Nucleated RBC 0.000 Nucleated RBC % (auto) 0.0 PT INR Anion Gap 16 Estim Creat Clear Calc 111.5 Estimated GFR > 60 Random Glucose 128 H Lactic Acid Lactic Acid F/U @ 2Hr 2.6 H* Calcium 7.8 L D Magnesium Total Bilirubin Direct Bilirubin AST ALT Alkaline Phosphatase C-Reactive Protein Total Protein Albumin Lipase Beta HCG, Quant Urine Color Urine Appearance Urine pH Ur Specific [place] Urine Protein Urine Glucose (UA) Urine Ketones Urine Blood Urine Nitrite Ur Leukocyte Esterase Urine RBC Urine WBC Ur Squamous Epith Cells Urine Bacteria Hyaline Casts Urine Opiates Screen Ur Buprenorphine Scrn Ur Oxycodone Screen Urine Methadone Screen Urine Fentanyl Screen Ur Barbiturates Screen Ur Phencyclidine Scrn Ur Amphetamines Screen U Benzodiazepines Scrn Urine Cocaine Screen U Marijuana (THC) Screen Ethyl Alcohol Influenza Type A (PCR) Influenza Type B (PCR) RSV RNA Qual (PCR) SARS-CoV-2 RNA (RT-PCR) Assessment and Plan (1) Alcoholic pancreatitis: Status: Acute (2) Alcohol use disorder, severe, dependence: Status: Acute Plan 38 yo F presenting to the ED with a week of worsening abd pain, in the setting of on going heavy alcohol use. Imaging/labs consistent with pancreatitis +/- duodenal diverticulitis 1. Suspected alcoholic pancreatitis IV morphine, frequency changed to q.4 hours IV fluids Trial of clear liquids Multivitamins and thiamine Alcohol cessation has been encouraged Addiction medicine has been consulted 2. Rule out duodenal diverticulitis 2a. Possible Severe sepsis Empiric IV Zosyn IV PPI Gastroenterology consult 3. Alcohol use disorder with high-risk for alcohol withdrawal Phenobarb per protocol Monitor lytes 4. Asthma, chronic Likely at least moderate persistent Continue baseline inhalers 5. Mood Continue baseline meds if she is on any Full code DVT prophylaxis, Lovenox Med rec pending, we will continue home meds as appropriate once done. Quality Stroke Does the patient have a stroke diagnosis?: No VTE Prior VTE?: No VTE Risk Level:: Medical - moderate - high VTE Device Contraindication: Treatment Not Indicated VTE Drug Contraindication: N/A - Med Ordered
[2024-03-22 09:04] LABS: ~Lactic Acid-LAB USE ONLY 2.2 mmol/L (0.5-2.0)
[2024-03-22] MEDS: Thiamine HCL 100 MG in 0.9 % Sodium Chloride 100 ML 202 MG IV (09:07)
[2024-03-22] MEDS: Pantoprazole Sodium 40 MG/10 ML VIAL IVPUSH ×2 (09:12→17:23)
--- NOTE | 2024-03-22 10:03 | PHA.MEDREC ---
Addendum entered by Millicent Quinonez RPh 03/22/24 10:29: Reviewed by [facility] Original Note: Pharmacy Consult ? Medication Reconciliation Pharmacy has completed the medication reconciliation. Spoke to patient to confirm med list. Patient states she is no longer taking Acamprosate 666 mg, Aspirin 81 mg, atorvastatin 40, Biotin, Famotidine 40 mg, Fluticasone prop-salmeterol inhaler, Gabapentin 300 mg, Ibuprofen 200 mg, Nicotine patch, Omeprazole 20 ( on pantoprazole 40 mg), Ondansetron 4 mg, and Sertraline 25 mg.
--- NOTE | 2024-03-22 15:58 | MHC.CM.PN ---
PT REPORTS SHE LIVES WITH A ROOMMATE AND IS INDEPENDENT WITH CARE SHE HAS NO DME AND NO SERVICES SHE SAYS HER ROOMMATE IS HER HCP, COPY REQUESTED PCP: ALEXANDRA STONER DCP: HOME NO SERVICES VIA PRIVATE TRANSPORT
[2024-03-22] MEDS: PHENobarbitaL 15 MG TABLET 45 MG PO (18:17)
[2024-03-22] MEDS: Acetaminophen 325 MG TABLET 650 MG PO (18:27)
[2024-03-23] MEDS: Morphine Sulfate 4 MG/ML CARTRIDGE IVPUSH ×6 (01:34→23:18)
[2024-03-23 02:23] VITALS: BP 113/65; PULSE 95; RESP 18; TEMP 36.6; O2SAT 97
[2024-03-23] MEDS: Piperacillin Sodium/Tazobactam 4.5 GM in 0.9 % Sodium Chloride 100 ML IV ×4 (05:48→23:19)
[2024-03-23] MEDS: Pantoprazole Sodium 40 MG/10 ML VIAL IVPUSH ×2 (05:48→15:55)
[2024-03-23] MEDS: Lactated Ringers 1,000 ML 125 ML IVCONT ×3 (05:50→23:27)
[2024-03-23] MEDS: Thiamine HCL 100 MG in 0.9 % Sodium Chloride 100 ML 202 MG IV (07:19)
[2024-03-23] MEDS: Acetaminophen 325 MG TABLET 650 MG PO (07:20)
[2024-03-23] MEDS: PHENobarbitaL 15 MG TABLET 45 MG PO ×2 (07:20→20:12)
[2024-03-23] MEDS: 0.9 % Sodium Chloride Flush 3 ML SYRINGE IVFLUSH ×3 (07:21→23:50)
--- NOTE | 2024-03-23 07:29 | PC.NURSE ---
Pt educated on purpose of Lovenox injection and SCDs and risks for developing DVT while in hospital, pt states she understands risks and wanted to try to walk more before trying other interventions, refusing both at this time. aware.
[2024-03-23 07:32] VITALS: BP 134/73; PULSE 104; RESP 16; TEMP 36.6; O2SAT 100
--- NOTE | 2024-03-23 09:53 | P.PNIM_ITS ---
Subjective Subjective Date of Service: 03/23/24 Interval History: seen and examined still having significant pain and requiring morphine frequently denies n/v/d Physical Exam 2 Vital Signs: Vital Signs: Last Vital Signs Temp 97.9 F 03/23/24 07:32 Pulse 104 H 03/23/24 07:32 Resp 16 03/23/24 07:32 BP 134/73 03/23/24 07:32 Pulse Ox 100 03/23/24 07:32 O2 Del Method Room Air 03/23/24 07:32 BMI result Body Mass Index 31.7 Const: Other: General - no acute distress, appears comfortable Cardiovascular - regular rate and rhythm, S1-S2 Lungs - normal respiratory effort, clear to auscultation bilaterally, no wheezing Abdomen - upper quad. TTP without rebound or guarding Extremities - no edema bilaterally Neuro - awake and alert, no focal deficits Objective Data Active Medications Acetaminophen (Acetaminophen 325 Mg Tablet) 650 mg PO Q6H PRN PRN Reason: Pain, Mild 1-3,fever,headache Last Admin: 03/23/24 07:20 Dose: 650 mg Documented By: HELDER Calcium Carbonate (Calcium Carbonate 750 Mg Tab.Chew) 750 mg PO Q4H PRN PRN Reason: Heartburn Enoxaparin Sodium (Enoxaparin Sodium 40 Mg/0.4 Ml Syringe) 40 mg SUBCUT Q24H [facility] Last Admin: 03/23/24 07:28 Dose: Not Given Documented By: HELDER Non-Admin Reason: Patient Refused Thiamine HCl 100 mg/ Sodium (Chloride) 101 mls @ 202 mls/hr IV DAILY [facility] Last Infusion: 03/23/24 08:03 Dose: Infused Documented By: HELDER Piperacillin Sod/Tazobactam (Sod 4.5 gm/ Sodium Chloride) 100 mls @ 200 mls/hr IV Q6H [facility] Last Infusion: 03/23/24 06:54 Dose: Infused Documented By: HELDER Lactated Ringer's (Lr) 1,000 mls @ 125 mls/hr IVCONT .Q8H [facility] Last Admin: 03/23/24 05:50 Dose: 125 mls/hr Documented By: HERNÁN Magnesium Hydroxide (Milk Of Magnesia 30 Ml Oral.Susp) 30 ml PO DAILY PRN PRN Reason: Constipation Melatonin (Melatonin 3 Mg Tablet) 6 mg PO BEDTIME PRN PRN Reason: Insomnia Morphine Sulfate (Morphine Sulfate 4 Mg/Ml Cartridge) 4 mg IVPUSH Q4H PRN; Protocol PRN Reason: Pain, Severe (Pain Scale 7-10) Last Admin: 03/23/24 05:49 Dose: 4 mg Documented By: HERNÁN Ondansetron HCl (Ondansetron Hcl 4 Mg/2 Ml Vial) 4 mg IVPUSH Q8H PRN PRN Reason: Nausea and Vomiting Last Admin: 03/22/24 07:40 Dose: 4 mg Documented By: MELANIE Pantoprazole Sodium (Pantoprazole Sodium 40 Mg/10 Ml Vial) 40 mg IVPUSH BID@0630,1630 [facility] Last Admin: 03/23/24 05:48 Dose: 40 mg Documented By: HERNÁN Pharmacy Consult (Consult Rx Etoh Phenob Im/Po) 1 each MISCELLANE ONCE PRN; Protocol PRN Reason: Consult order Phenobarbital (Phenobarbital 15 Mg Tablet) 45 mg PO BID [facility]; Protocol Stop: 03/24/24 09:01 Last Admin: 03/23/24 07:20 Dose: 45 mg Documented By: HELDER Phenobarbital (Phenobarbital 15 Mg Tablet) 15 mg PO BID [facility]; Protocol Stop: 03/26/24 09:01 Phenobarbital (Phenobarbital 15 Mg Tablet) 15 mg PO DAILY [facility]; Protocol Stop: 03/28/24 09:01 Sodium Chloride (0.9 % Sodium Chloride Flush 3 Ml Syringe) 3 ml IVFLUSH [facility] Last Admin: 03/23/24 07:21 Dose: 3 ml Documented By: HELDER Labs 03/22/24 04:00 03/22/24 04:00 Microbiology Microbiology Results: Microbiology 03/22/24 01:23 Blood Culture - Preliminary Blood - Venous No growth after 24 hours. 03/22/24 01:23 Blood Culture - Preliminary Blood - Venous No growth after 24 hours. Assessment and Plan (1) Alcoholic pancreatitis: Status: Acute (2) Alcohol use disorder, severe, dependence: Status: Acute Plan 38 yo F presenting to the ED with a week of worsening abd pain, in the setting of on going heavy alcohol use. Imaging/labs consistent with pancreatitis +/- duodenal diverticulitis 1. Suspected alcoholic pancreatitis still with significant pain but would like trial of advancing diet continue IV morphine, IVF Alcohol cessation has been encouraged Addiction medicine has been consulted 2. Rule out duodenal diverticulitis 2a. Possible Severe sepsis Empiric IV Zosyn IV PPI Gastroenterology consult pending 3. Alcohol use disorder with high-risk for alcohol withdrawal Phenobarb per protocol Monitor lytes 4. Asthma, chronic Likely at least moderate persistent Continue baseline inhalers 5. Mood Continue baseline meds if she is on any Full code DVT prophylaxis, Lovenox Med rec pending, we will continue home meds as appropriate once done. Quality Stroke Does the patient have a stroke diagnosis?: No VTE Prior VTE?: No VTE Risk Level:: Medical - moderate - high VTE Device Contraindication: Treatment Not Indicated VTE Drug Contraindication: N/A - Med Ordered
[2024-03-23] MEDS: Nicotine 21 MG PATCH.TD24 TRANSDERMA (11:58)
[2024-03-23 12:00] VITALS: BP 117/73; PULSE 101; RESP 16; TEMP 36.7; O2SAT 97
--- NOTE | 2024-03-23 13:53 | MHC.CM.PN ---
EMR reviewed and per MD rounds, pt is not medically cleared for discharge due to management of ETOH withdrawal.
[2024-03-23 15:32] VITALS: BP 133/73; PULSE 86; RESP 16; TEMP 36.6; O2SAT 98
[2024-03-23] MEDS: oxyCODONE HCl Immed Release 5 MG TABLET PO ×2 (17:08→21:38)
[2024-03-23 19:38] VITALS: BP 123/80; PULSE 85; RESP 18; TEMP 36.2; O2SAT 97
[2024-03-23] MEDS: ondansetron HCL 4 MG/2 ML VIAL IVPUSH (20:14)
[2024-03-23 23:46] VITALS: BP 133/91; PULSE 90; RESP 18; TEMP 36.1; O2SAT 100
[2024-03-24] MEDS: oxyCODONE HCl Immed Release 5 MG TABLET PO ×5 (02:04→21:38)
[2024-03-24 03:23] VITALS: BP 115/68; PULSE 89; RESP 18; TEMP 36.3; O2SAT 94
[2024-03-24] MEDS: Morphine Sulfate 4 MG/ML CARTRIDGE IVPUSH ×2 (03:41→08:45)
[2024-03-24] MEDS: Pantoprazole Sodium 40 MG/10 ML VIAL IVPUSH ×2 (05:12→16:04)
[2024-03-24] MEDS: Piperacillin Sodium/Tazobactam 4.5 GM in 0.9 % Sodium Chloride 100 ML IV ×4 (05:16→23:27)
[2024-03-24] MEDS: ondansetron HCL 4 MG/2 ML VIAL IVPUSH (05:19)
[2024-03-24] MEDS: Acetaminophen 325 MG TABLET 650 MG PO (05:19)
[2024-03-24 07:21] VITALS: BP 114/71; PULSE 92; RESP 16; TEMP 37.1; O2SAT 96
[2024-03-24] MEDS: Folic Acid 1 MG TABLET PO (08:44)
[2024-03-24] MEDS: Thiamine HCL 100 MG TABLET PO (08:44)
[2024-03-24] MEDS: 0.9 % Sodium Chloride Flush 3 ML SYRINGE IVFLUSH ×3 (08:45→19:40)
[2024-03-24 08:46] LABS: Hematocrit 32.9 % (37.0-47.0); Hemoglobin 11.1 g/dl (12.0-16.0); Mean Corpuscular HGB Conc 33.7 g/dl (31.0-35.0); Mean Corpuscular Hemoglobin 30.6 pg (27.0-33.0); Mean Corpuscular Volume 90.6 fL (80.0-98.0); Mean Platelet Volume 9.9 fL (9.4-12.3); Platelet Count 178 X10*3/uL (160-400); Red Blood Count 3.63 X10*6/uL (4.20-5.50); Red Cell Distribution Width 15.3 % (11.0-16.0); White Blood Count 7.6 X10*3/uL (4.8-10.8)
[2024-03-24 08:50] LABS: Alanine Aminotransferase 37 U/L (0-31); Albumin Level 2.9 g/dL (3.5-5.0); Alkaline Phosphatase 131 U/L (39-117); Anion Gap 14 (12-20); Aspartate Amino Transferase 75 U/L (5-31); Bilirubin Total 0.9 mg/dL (0.0-1.0); Blood Urea Nitrogen 3 mg/dL (9-16); Calcium 7.7 mg/dL (8.4-10.2); Carbon Dioxide 22 mmol/L (22-29); Chloride 108 mmol/L (96-108); Creatinine Clr Calc Pharmacy 135.8; Estimated Glomerular Filt Rate > 60; Glucose Random 92 mg/dL (60-115); Potassium 3.1 mmol/L (3.3-5.1); Sodium 141 mmol/L (135-145); Total Protein 5.4 g/dL (6.5-8.0)
[2024-03-24 08:53] LABS: C Reactive Protein 15.59 mg/dL (< or = 0.50); Lipase 26 U/L (8-78)
--- NOTE | 2024-03-24 09:03 | P.PNIM_ITS ---
Subjective Subjective Date of Service: 03/24/24 Interval History: still has significant abd pain but no N/V; tolerating clears and wishes to try solids anxious Review of Systems Review of Systems: Yes all other systems are reviewed and are negative Physical Exam 2 Vital Signs: Vital Signs: Last Vital Signs Temp 98.7 F 03/24/24 07:21 Pulse 92 03/24/24 07:21 Resp 16 03/24/24 07:21 BP 114/71 03/24/24 07:21 Pulse Ox 96 03/24/24 07:21 O2 Del Method Room Air 03/24/24 07:21 BMI result Body Mass Index 31.7 Gen: in no acute distress HEENT: sclera anicteric, moist mucus membranes Neck: supple Lungs: clear to auscultation bilaterally Heart: regular rate and rhythm, no murmurs Abd: soft,tender around umbilicus, non-distended Ext: no edema Skin: warm/well-perfused Neuro: alert and oriented x3, no focal findings Psych: appropriate affect Objective Data Active Medications Acetaminophen (Acetaminophen 325 Mg Tablet) 650 mg PO Q6H PRN PRN Reason: Pain, Mild 1-3,fever,headache Last Admin: 03/24/24 05:19 Dose: 650 mg Documented By: TANISHA Calcium Carbonate (Calcium Carbonate 750 Mg Tab.Chew) 750 mg PO Q4H PRN PRN Reason: Heartburn Enoxaparin Sodium (Enoxaparin Sodium 40 Mg/0.4 Ml Syringe) 40 mg SUBCUT Q24H [facility] Last Admin: 03/24/24 08:47 Dose: Not Given Documented By: ROGER Non-Admin Reason: Patient Refused Folic Acid (Folic Acid 1 Mg Tablet) 1 mg PO DAILY [facility] Last Admin: 03/24/24 08:44 Dose: 1 mg Documented By: ROGER Piperacillin Sod/Tazobactam (Sod 4.5 gm/ Sodium Chloride) 100 mls @ 200 mls/hr IV Q6H [facility] Last Infusion: 03/24/24 05:48 Dose: Infused Documented By: TANISHA Magnesium Hydroxide (Milk Of Magnesia 30 Ml Oral.Susp) 30 ml PO DAILY PRN PRN Reason: Constipation Melatonin (Melatonin 3 Mg Tablet) 6 mg PO BEDTIME PRN PRN Reason: Insomnia Morphine Sulfate (Morphine Sulfate 4 Mg/Ml Cartridge) 4 mg IVPUSH Q4H PRN; Protocol PRN Reason: Pain, Severe (Pain Scale 7-10) Last Admin: 03/24/24 08:45 Dose: 4 mg Documented By: ROGER Nicotine (Nicotine 21 Mg Patch.Td24) 21 mg TRANSDERMA DAILY [facility] Last Admin: 03/24/24 08:47 Dose: Not Given Documented By: ROGER Non-Admin Reason: Patient Refused Ondansetron HCl (Ondansetron Hcl 4 Mg/2 Ml Vial) 4 mg IVPUSH Q8H PRN PRN Reason: Nausea and Vomiting Last Admin: 03/24/24 05:19 Dose: 4 mg Documented By: TANISHA Oxycodone HCl (Oxycodone Hcl Immed Release 5 Mg Tablet) 5 mg PO Q4H PRN PRN Reason: Pain, Moderate(Pain Scale 4-6) Last Admin: 03/24/24 06:04 Dose: 5 mg Documented By: TANISHA Pantoprazole Sodium (Pantoprazole Sodium 40 Mg/10 Ml Vial) 40 mg IVPUSH BID@0630,1630 [facility] Last Admin: 03/24/24 05:12 Dose: 40 mg Documented By: TANISHA Pharmacy Consult (Consult Rx Etoh Phenob Im/Po) 1 each MISCELLANE ONCE PRN; Protocol PRN Reason: Consult order Phenobarbital (Phenobarbital 15 Mg Tablet) 15 mg PO BID [facility]; Protocol Stop: 03/26/24 09:01 Phenobarbital (Phenobarbital 15 Mg Tablet) 15 mg PO DAILY [facility]; Protocol Stop: 03/28/24 09:01 Sodium Chloride (0.9 % Sodium Chloride Flush 3 Ml Syringe) [facility] Last Admin: 03/24/24 08:45 Dose: 3 ml Documented By: ROGER Thiamine HCl (Thiamine Hcl 100 Mg Tablet) 100 mg PO DAILY [facility] Last Admin: 03/24/24 08:44 Dose: 100 mg Documented By: ROGER Labs 03/24/24 07:43 03/24/24 07:43 Labs: Laboratory Results - last 24 hr 03/24/24 07:43 MCV 90.6 MCH 30.6 MCHC 33.7 RDW 15.3 Plt Count 178 D MPV 9.9 Absolute Nucleated RBC 0.000 Nucleated RBC % (auto) 0.0 Anion Gap 14 Estim Creat Clear Calc 135.8 Estimated GFR > 60 Random Glucose 92 Calcium 7.7 L Total Bilirubin 0.9 AST 75 H ALT 37 H Alkaline Phosphatase 131 H C-Reactive Protein 15.59 H Total Protein 5.4 L Albumin 2.9 L Lipase 26 Microbiology Microbiology Results: Microbiology 03/22/24 01:23 Blood Culture - Preliminary Blood - Venous No growth after 48 hours. 03/22/24 01:23 Blood Culture - Preliminary Blood - Venous No growth after 48 hours. Assessment and Plan (1) Alcoholic pancreatitis: Status: Acute (2) Alcohol use disorder, severe, dependence: Status: Acute Plan d4 for 38yo with AUD admitted for acute alcoholic pancreatitis and duodeneal diverticulitis alcoholic pancreatitis - trial of lowfat solids, reduce IV morphine, encourage PO oxycodone, d/c IV fluids possible severe sepsis due to duodenal diverticulitis - continue piperacillin-tazobactam 03/22- - GI consulted, repeat CT next week if no improvement AUD with high risk for withdrawal - phenobarbital taper, vitamins - met Recovery Team moderate persistent asthma without acute exacerbation - continue home meds VTE ppx - enoxaparin dispo - eventual home In my clinical judgment, the patient requires continued inpatient hospitalization for the following reasons: IV ABX, pain control, phenobarbital taper Total time managing care of this patient today: 35 minutes. Quality Stroke Does the patient have a stroke diagnosis?: No VTE Prior VTE?: No VTE Risk Level:: Medical - moderate - high VTE Device Contraindication: Treatment Not Indicated VTE Drug Contraindication: N/A - Med Ordered
[2024-03-24] MEDS: PHENobarbitaL 15 MG TABLET 45 MG PO (10:18)
[2024-03-24 11:38] VITALS: BP 107/65; PULSE 77; RESP 16; TEMP 36.3; O2SAT 97
[2024-03-24] MEDS: Morphine Sulfate 4 MG/ML CARTRIDGE 2 MG IVPUSH ×2 (13:26→19:40)
[2024-03-24 15:03] VITALS: BP 121/55; PULSE 84; RESP 20; TEMP 36; O2SAT 97
[2024-03-24] MEDS: Potassium Chloride ER 20 MEQ TAB.ER.PRT PO (17:20)
[2024-03-24 19:44] VITALS: BP 137/74; PULSE 91; RESP 18; TEMP 36.3; O2SAT 100
[2024-03-24] MEDS: PHENobarbitaL 15 MG TABLET PO (21:36)
[2024-03-24 23:26] VITALS: BP 145/80; PULSE 89; RESP 18; TEMP 36.1; O2SAT 100
[2024-03-25] MEDS: Morphine Sulfate 4 MG/ML CARTRIDGE 2 MG IVPUSH ×2 (00:07→06:33)
[2024-03-25 03:22] VITALS: BP 136/88; PULSE 86; RESP 18; TEMP 36.4; O2SAT 98
[2024-03-25] MEDS: oxyCODONE HCl Immed Release 5 MG TABLET PO ×3 (03:28→12:47)
[2024-03-25] MEDS: Pantoprazole Sodium 40 MG/10 ML VIAL IVPUSH (05:51)
[2024-03-25] MEDS: Piperacillin Sodium/Tazobactam 4.5 GM in 0.9 % Sodium Chloride 100 ML IV ×2 (05:51→12:07)
[2024-03-25 07:00] LABS: Alanine Aminotransferase 28 U/L (0-31); Albumin Level 2.7 g/dL (3.5-5.0); Alkaline Phosphatase 110 U/L (39-117); Anion Gap 12 (12-20); Aspartate Amino Transferase 39 U/L (5-31); Bilirubin Total 0.5 mg/dL (0.0-1.0); Blood Urea Nitrogen 3 mg/dL (9-16); Calcium 7.7 mg/dL (8.4-10.2); Carbon Dioxide 23 mmol/L (22-29); Chloride 108 mmol/L (96-108); Creatinine Clr Calc Pharmacy 148.2; Estimated Glomerular Filt Rate > 60; Glucose Random 84 mg/dL (60-115); Potassium 3.2 mmol/L (3.3-5.1); Sodium 140 mmol/L (135-145); Total Protein 5.2 g/dL (6.5-8.0)
[2024-03-25 07:42] VITALS: BP 135/80; PULSE 75; RESP 16; TEMP 36.1; O2SAT 98
[2024-03-25] MEDS: PHENobarbitaL 15 MG TABLET PO (08:34)
[2024-03-25] MEDS: Thiamine HCL 100 MG TABLET PO (08:34)
[2024-03-25] MEDS: Folic Acid 1 MG TABLET PO (08:34)
[2024-03-25] MEDS: 0.9 % Sodium Chloride Flush 3 ML SYRINGE IVFLUSH (08:35)
[2024-03-25] MEDS: Potassium Chloride ER 20 MEQ TAB.ER.PRT 40 MEQ PO (10:44)
[2024-03-25 11:38] VITALS: BP 127/74; PULSE 78; RESP 16; TEMP 36; O2SAT 97
[2024-03-25 13:14] LABS: Potassium 3.3 mmol/L (3.3-5.1)
--- NOTE | 2024-03-25 14:24 | PM.DS ---
DS: Providers Provider Date of Service: 03/25/24 Date of admission: 03/21/24 23:46 Date of discharge: 03/25/24 Primary care physician: Unknown Physician Consults: 03/21/24 23:49 Addiction Medicine Routine Consulting Provider: Addiction Covering Reason for consultation: alcohol use disorder 03/22/24 07:48 Consult to Gastroenterology Routine Consulting Provider: [facility] [place] Gastroenterology Services Reason for consultation: pancreatitis vs duodenal diverticulitis? DS: Diagnosis Discharge Diagnosis (1) Alcoholic pancreatitis: Status: Acute (2) Alcohol use disorder, severe, dependence: Status: Acute DS: Summary Hospital Course Hospital Course: History of presenting illness: Date of Service: 03/21/24 Chief Complaint: Abdominal pain This is a 38-year-old female with pertinent history of alcohol use disorder with history of alcohol withdrawals and alcoholic pancreatitis, gastroesophageal reflux disease who presents to the emergency department for evaluation of abdominal pain. Patient states she started having epigastric pain about 5-7 days prior to presentation. Initially it was intermittent but progressed to being constant. Epigastric pain radiates to the back and is associated with nausea and multiple episodes of nonbloody emesis. Unable to tolerate p.o. intake due to vomiting. Her last alcoholic drink was on the day of presentation. Does have history of alcohol withdrawals. No fever, chills, chest pain, palpitations, shortness of breath, changes in urinary or bowel habits. In the emergency department, lipase found to be elevated and imaging concerning for pancreatitis Hospital course: 38yo with AUD admitted for acute alcoholic pancreatitis and duodeneal diverticulitis, with possible severe sepsis, admitted to medical floor treated with phenobarb protocol, IV Zosyn, analgesics and IV fluid subsequently diet was gradually advanced that patient is tolerating with no worsening abdominal symptoms, patient was evaluated by Gastroenterology Dr. Lee she recommended CT abdomen if no improvement but since patient's symptoms have improved and she is tolerating diet, will discharge her home on by mouth antibiotic Augmentin and oxycodone for severe pain, her CRP is trending down, recommend close outpatient follow-up with PCP and continue soft, low-fiber diet.In regard to acute pancreatitis lipase normalized she is strongly recommended to abstain from alcohol. She was treated with phenobarb protocol, vitamins and strongly recommend to abstain from alcohol. Moderate persistent asthma without acute exacerbation recommend to continue home inhalers and avoid smoking, she is being discharged on nicotine patch. Time Attestation Discharge Coordination Time (in mins): 40 Quality: Safe Use of Opioids Does Pt have an Active Cancer Diagnosis on the Problem List?: No Quality: Stroke Does the patient have a stroke diagnosis?: No Physical Exam Vital Signs: Vital Signs: Last Vital Signs Temp 96.8 F 03/25/24 11:38 Pulse 78 03/25/24 11:38 Resp 16 03/25/24 11:38 BP 127/74 03/25/24 11:38 Pulse Ox 97 03/25/24 11:38 O2 Del Method Room Air 03/25/24 11:38 BMI result Body Mass Index 31.7 Const: Other: Gen: in no acute distress HEENT: sclera anicteric, moist mucus membranes Neck: supple Lungs: clear to auscultation bilaterally Heart: regular rate and rhythm, no murmurs Abd: soft, non tender, non-distended Ext: no edema Skin: warm/well-perfused Neuro: alert and oriented x3, no focal findings Psych: appropriate affect DS: Data Data Completed and Pending Completed studies during hospitalization [Text1]: Procedures Detoxification Services for Substance Abuse Treatment (07/04/23) Labs on day of discharge: Laboratory Results - last 24 hr 03/25/24 03/25/24 06:17 12:50 Sodium 140 Potassium 3.2 L 3.3 Chloride 108 Carbon Dioxide 23 Anion Gap 12 BUN 3 L Creatinine 0.55 Estim Creat Clear Calc 148.2 Estimated GFR > 60 Random Glucose 84 Calcium 7.7 L Total Bilirubin 0.5 AST 39 H ALT 28 Alkaline Phosphatase 110 C-Reactive Protein 13.50 H Total Protein 5.2 L Albumin 2.7 L Preliminary micro results at discharge 03/22/24 01:23 Blood Culture - Preliminary Blood - Venous No growth after 48 hours. 03/22/24 01:23 Blood Culture - Preliminary Blood - Venous No growth after 48 hours. Discharge Plan Discharge Anticipated Discharge Date/Time: 03/25/24 14:00 Patient Disposition: Home, Self-Care Discharge Diagnosis: Alcoholic pancreatitis Duodenal diverticulitis Alcohol withdrawal Referrals: Physician,Unknown J [Primary Care Provider] - 1 Week Discharge Medications: New nicotine 21 mg/24 hr Patch 24 Hour 21 mg transdermal DAILY Qty: 28 0RF oxycodone 5 mg Tablet 5 mg PO Q6H PRN (Reason: Pain, Moderate(Pain Scale 4-6)) Qty: 14 0RF Rx Instructions: Partial Fill upon patient request. amoxicillin-pot clavulanate 875-125 mg tablet 1 tab PO BID Qty: 10 0RF Continued pantoprazole 40 mg tablet,delayed release (DR/EC) 40 mg PO DAILY@0630 albuterol sulfate 90 mcg/actuation HFA aerosol inhaler 1 puff INHALATION QID PRN (Reason: wheezing) multivitamin [Daily-Sarita] Tablet 1 tab PO DAILY Qty: 30 0RF folic acid 1 mg Tablet 1 mg PO DAILY Qty: 30 0RF thiamine mononitrate (vit B1) 100 mg Tablet 100 mg PO DAILY Qty: 30 0RF Discharge Orders: Discharge Order (Routine); Ordered 03/25/24 Ordered By: Katrin Sherman Diet: Advance to usual diet Activity on Discharge: As tolerated Stand Alone Forms: Patient Portal Discharge page Print Language: Hebrew Care Plan Goals: Take Augmentin 1 tablet twice daily as prescribed Follow soft diet avoid high-fiber food, take protein rich diet/ensure 1 can t.i.d. as tolerated Health Concerns: Strongly recommend to abstain from alcohol Continue nicotine patch Plan of Treatment: Outpatient follow-up with primary care physician call for appointment 1-2 weeks Assessment: as above Discharge Date/Time: 03/25/24 14:42
--- NOTE | 2024-03-25 14:27 | MHC.CM.PN ---
pt dcd home self care
[2024-03-25 14:35] VITALS: BP 149/83; PULSE 82; RESP 16; TEMP 36.2; O2SAT 100
== END 2024-03-25 14:42 | disposition home or self-care (01) | DRG 282 ==
LOC: HO.ED 03-22 01:03 → HO.EDOVER 03-22 02:00 → HO.S3 03-22 16:46
PROVIDERS: Family Medicine; Internal Medicine Gastroenterology; Admitting Provider Student in an Organized Health Care Education/Training Program; Emergency Provider Emergency Medicine; Visit Provider Hospitalist
DX: K85.20 Alcohol induced acute pancreatitis without necrosis or infection (principal); K57.12 Diverticulitis of small intestine without perforation or abscess without bleeding; E87.6 Hypokalemia; Y90.6 Blood alcohol level of 120-199 mg/100 ml; K21.9 Gastro-esophageal reflux disease without esophagitis; J45.40 Moderate persistent asthma, uncomplicated; F10.239 Alcohol dependence with withdrawal, unspecified; Z20.822 Contact with and (suspected) exposure to COVID-19; Z79.899 Other long term (current) drug therapy
CPT/HCPCS: 0241U; 36415; 74177; 80048; 80053; 80076; 80307; 81001; 83605; 83690; 83735; 84132; 84702; 85025; 85027; 85610; 86140; 87040; 93005; 99285; J2270; J2405; J2470; J2543; J2560; J3411; J3480; J7120; Q9967; S9485

== ENCOUNTER → 2024-03-21 20:29 | Outpatient (BNV) | payer OTHER, SELFPAY | PROVIDERS: Admitting Provider Student in an Organized Health Care Education/Training Program; Emergency Provider Emergency Medicine; Visit Provider Internal Medicine Cardiovascular Disease | DX: R00.0 Tachycardia, unspecified (principal) | CPT/HCPCS: 93010 ==

== ENCOUNTER → 2024-03-21 20:42 | Outpatient (BNV) | payer OTHER, SELFPAY | PROVIDERS: Emergency Provider Emergency Medicine; Visit Provider Student in an Organized Health Care Education/Training Program | DX: F10.230 Alcohol dependence with withdrawal, uncomplicated (principal); K85.20 Alcohol induced acute pancreatitis without necrosis or infection | CPT/HCPCS: 99223; 99232 ==

== ENCOUNTER → 2024-03-21 22:41 | Outpatient (BNV) | payer OTHER, SELFPAY | PROVIDERS: Emergency Provider Emergency Medicine; Visit Provider Radiology Diagnostic Radiology | DX: K57.10 Diverticulosis of small intestine without perforation or abscess without bleeding (principal); Z97.5 Presence of (intrauterine) contraceptive device | CPT/HCPCS: 74177 ==

== ENCOUNTER → 2024-03-21 23:46 | Outpatient (BNV) | payer OTHER, SELFPAY | PROVIDERS: Admitting Provider Student in an Organized Health Care Education/Training Program; Emergency Provider Emergency Medicine; Visit Provider Internal Medicine Gastroenterology | DX: K85.90 Acute pancreatitis without necrosis or infection, unspecified (principal); F10.20 Alcohol dependence, uncomplicated | CPT/HCPCS: 99222 ==

== ENCOUNTER 2024-04-16 23:26 | Inpatient (IN) | payer OTHER, SELFPAY ==
--- NOTE | 2024-04-16 | ECG_ITS ---
Test Reason : tachy Blood Pressure : */* mmHG Vent. Rate : 114 BPM Atrial Rate : 114 BPM P-R Int : 138 ms QRS Dur : 76 ms QT Int : 316 ms P-R-T Axes : 23 45 32 degrees QTcB Int : 435 ms Sinus tachycardia Cannot rule out Anterior infarct , age undetermined Abnormal ECG When compared with ECG of 21-Mar-2024 20:54, No significant change was found Referred By: Generic ED Physician Electronically Signed By: BERRY ZAYAS
--- NOTE | ~2024-04-16 | CT_ITS ---
CLINICAL HISTORY: pain, pancreatitis Exam: CT abdomen and pelvis with intravenous contrast. Comparison: March 21, 2024. Findings: CT abdomen: Lung bases are clear. No lytic or blastic bony lesions. Small hiatal hernia. Diverticulum of the 3rd portion of the duodenum is again identified. No dilated small bowel. Low-attenuation throughout the liver is indicative of fatty infiltration. Liver is enlarged measuring 19 cm in long axis. No focal hepatic lesions identified. Main portal vein is patent. Spleen is unremarkable. Peripancreatic inflammatory stranding is again identified. This is most pronounced in the region of the pancreatic head and uncinate process of the pancreas. There is fluid tracking along the anterior perirenal space. No discrete fluid collection seen to suggest abscess or pseudocyst. No pancreatic ductal dilatation or pancreatic atrophy is seen. Adrenal glands and kidneys are unremarkable for acute findings. No free air. CT pelvis: IUD is seen within the mid uterus. Left ovarian cyst measures 2.4 x 1.8 cm in size. Inflammatory stranding is seen adjacent to the hepatic flexure and proximal transverse colon, improved since prior study. No focal areas of colonic wall thickening are seen. No findings of appendicitis. Impression: Peripancreatic inflammatory stranding is again identified. Pancreatitis is the most likely etiology as this appears to be the epicenter. Likely associated wall thickening of the duodenum due to adjacent inflammatory change. Similar finding of the hepatic flexure and proximal transverse colon. Hepatomegaly with diffuse fatty infiltration of the liver. This document has been electronically signed by: Anthony Barnes MD on 04/17/2024 06:08:37
[2024-04-16 23:40] VITALS: BP 140/98; PULSE 128; RESP 18; TEMP 36.2; O2SAT 97; BMI 35.9
[2024-04-17] VITALS (9 sets, daily range): BP systolic 100–142; BP diastolic 62–88; PULSE 90–126; RESP 15–22; TEMP 36.2–37.2; O2SAT 95–99
[2024-04-17 00:04] LABS: MANUAL DIFF FLAG NO
[2024-04-17 00:06] LABS: Basophils Absolute Auto 0.1 X10*3/uL (0.0-0.2); Basophils Percent Auto 0.8 % (0-2); Eosinophils Absolute Auto 0.1 X10*3/uL (0.0-0.4); Eosinophils Percent Auto 0.6 % (0-4); Hematocrit 43.1 % (37.0-47.0); Hemoglobin 15.7 g/dl (12.0-16.0); Imm Gran Abs Auto 0.01 X10*3/uL (0.00-0.03); Imm Gran Pct Auto 0.1 % (0.0-0.4); Lymphocytes Absolute Auto 3.3 X10*3/uL (1.2-4.9); Lymphocytes Percent Auto 39.4 % (20-40); Mean Corpuscular HGB Conc 36.4 g/dl (31.0-35.0); Mean Corpuscular Hemoglobin 32.1 pg (27.0-33.0); Mean Corpuscular Volume 88.1 fL (80.0-98.0); Mean Platelet Volume 8.8 fL (9.4-12.3); Monocytes Absolute Auto 0.7 X10*3/uL (0.1-1.2); Monocytes Percent Auto 8.7 % (2-11); Neutrophils Absolute Auto 4.2 x10*3/uL (2.0-8.3); Neutrophils Percent Auto 50.4 % (45-73); Platelet Count 263 X10*3/uL (160-400); Red Blood Count 4.89 X10*6/uL (4.20-5.50); Red Cell Distribution Width 16.2 % (11.0-16.0); White Blood Count 8.3 X10*3/uL (4.8-10.8)
[2024-04-17 00:19] LABS: Alanine Aminotransferase 34 U/L (0-31); Albumin Level 4.3 g/dL (3.5-5.0); Alkaline Phosphatase 74 U/L (39-117); Anion Gap 19 (12-20); Aspartate Amino Transferase 58 U/L (5-31); Bilirubin Total 0.3 mg/dL (0.0-1.0); Blood Urea Nitrogen 9 mg/dL (9-16); Calcium 8.7 mg/dL (8.4-10.2); Carbon Dioxide 20 mmol/L (22-29); Chloride 106 mmol/L (96-108); Creatinine Clr Calc Pharmacy 122.3; Estimated Glomerular Filt Rate > 60; Ethanol 401 mg/dL; Glucose Random 128 mg/dL (60-115); Potassium 3.6 mmol/L (3.3-5.1); Sodium 141 mmol/L (135-145); Total Protein 7.9 g/dL (6.5-8.0)
[2024-04-17] MEDS: 0.9 % Sodium Chloride 1,000 ML 999 ML IV ×2 (02:00→03:58)
--- NOTE | 2024-04-17 02:47 | MHC.EDTECH ---
pt stated she had seizures before while withdrawing, not on meds, RN notified, seizure pads applied.
[2024-04-17] MEDS: PHENobarbitaL sodium 130 MG/ML VIAL 260 MG IM (03:06)
[2024-04-17 03:08] LABS: Lipase 196 U/L (8-78)
[2024-04-17 03:39] LABS: HCG Quantitative < 2 mIU/mL
--- NOTE | 2024-04-17 03:39 | ED.ALCOHOL ---
HPI - Alcohol General Chief Complaint: ETOH/Substance Use Stated Complaint: withdrawal Time Seen by Provider: 04/17/24 03:26 Source: patient and family Mode of arrival: ambulatory Limitations: no limitations History of Present Illness ED Provider: DR. Sotelo HPI narrative: 38-year-old femaleWith pertinent history of alcohol use disorder, alcohol withdrawal symptoms, seizure from alcohol withdrawal, alcoholic pancreatitis, GERD presented today to the emergency department for epigastric and abdominal pain after drinking alcohol Last drink was 17:00 yesterday, patient now is complaining of epigastric pain similar to her prior episodes of pancreatitis, patient also is been having anxiety, nausea, vomiting, epigastric pain patient has feeling of withdrawal from alcohol. Related Data Home Medications ?Medication ?Instructions ?Recorded ?Confirmed albuterol sulfate 90 mcg/actuation 1 puff inhalation QID PRN wheezing 07/04/23 03/22/24 aerosol inhaler pantoprazole 40 mg tablet,delayed 40 mg PO DAILY@0630 03/22/24 03/22/24 release Previous Rx's ?Medication ?Instructions ?Recorded folic acid 1 mg tablet 1 mg PO DAILY #30 tabs 07/05/23 multivitamin (Daily-Sarita tablet) 1 tab PO DAILY #30 tabs 07/05/23 thiamine mononitrate (vit B1) 100 100 mg PO DAILY #30 tabs 07/05/23 mg tablet amoxicillin 875 mg-potassium 1 tab PO BID #10 tabs 03/25/24 clavulanate 125 mg tablet nicotine 21 mg/24 hr daily 21 mg transdermal DAILY #28 ea 03/25/24 transdermal patch oxycodone 5 mg tablet 5 mg PO Q6H PRN Pain, 03/25/24 Moderate(Pain Scale 4-6) #14 tabs Allergies Allergy/AdvReac Type Severity Reaction Status Date / Time adhesive AdvReac Hives Verified 04/16/24 23:42 Review of Systems Review of Systems: All other systems are reviewed and are negative Constitutional: Reports as per HPI and Reports no additional constitutional complaints Eyes: Reports as per HPI and Reports no additional eye complaints Reports system reviewed and no additional complaints, except as documented Cardiovascular: Reports as per HPI and Reports no additional cardiovascular complaints Respiratory: Reports as per HPI and Reports no additional respiratory complaints Gastrointestinal: Reports as per HPI and Reports no additional gastrointestinal complaints Genitourinary: Reports no additional female genitourinary complaints Musculoskeletal: Reports no additional musculoskeletal complaints Skin/Breast: Reports system reviewed and no additional complaints, except as docu Psychiatric: Reports no additional psychiatric complaints Endocrine: Reports no additional endocrine complaints Hematologic/Lymphatic: Reports no additional hematologic/lymphatic complaints Allergic/Immunologic: Reports no additional allergic/immunologic complaints Reports system reviewed and no additional complaints, except as documented and Reports Abnormal speech present [facility] Past Medical History Medical History MDD (major depressive disorder), recurrent episode, moderate Asthma Anxiety and depression Tachycardia Alcohol withdrawal Family History Family History Mother Alcohol use disorder Maternal Grandfather Alcohol use disorder Social History Social History Household Members: Friend(s) Household Members Other:: roommate Housing: Apartment Do you presently have visiting nurse or other home services: No Alcohol intake: current Alcohol intake frequency: 3 or more drinks per day Alcohol type: hard liquor Patient Tobacco Use Status: Never used Tobacco Tobacco use type: Cigarette Smoked in Last 30 Days: No e-Cigarette/Vaping Use: Never Used Second Hand Smoke Exposure: No Substance Use Type: Marijuana Advance Directives: Yes Advance Directives on File: Yes Advance Directives Date on File: 02/11/23 Do you have a plan to hurt others: No Plan Patient : No service: No Physical Exam ED Vital Signs: Vital Signs - 24 hr 04/16/24 23:40 04/17/24 02:46 04/17/24 04:00 Temperature 97.1 F 98.7 F 98.6 F Pulse Rate 128 H 111 H 126 H Respiratory Rate 18 22 H 20 Blood Pressure 140/98 H 112/75 114/62 Pulse Oximetry 97 97 97 Oxygen Delivery Method Room Air Room Air Room Air BMI result Body Mass Index 35.9 Vital signs have been reviewed and appear to be correct. Blood pressure elevated. Heart rate Elevated. Respiratory rate normal. Temperature normal. Oxygen saturation normal. Appearance: Alert. Oriented X3. No acute distress. Head: Normal external exam. Normocephalic. Atraumatic. No Mix signs noted. No raccoon eyes noted Eyes: PERRLA. EOMI. Conjunctiva and sclera normal. Eyelids normal. ENT: TM's Normal. Pharynx normal. Uvula midline. Moist mucous membranes. No trismus noted. No drooling noted. No muffled voice noted. Neck: Normal inspection. Neck supple. FROM. No adenopathy. Thyroid Normal. No meningeal signs. No neck mass noted. CVS: Normal heart rate and rhythm. Heart sound normal. No murmurs noted. Pulses normal throughout. Respiratory: No respiratory distress. Painless inspiration. Breath sounds normal. No wheezes/rales/rhonchi noted. Chest nontender. No accessory muscle usage noted or decreased air movement noted. Abdomen: Soft and nontender. Bowel sounds normal in all 4 quadrants. No distention noted. No organomegaly noted. No visible injury noted. Back: No CVA tenderness. Full range of motion noted. Skin: Skin warm and dry. Normal skin color. Normal skin turgor. No rashes/lesions/lacerations noted. Extremities: No lower extremity edema. Extremities exhibit normal range of motion. Extremities nontender. Neuro: Bilateral tremors, tongue fasciculation. Cranial nerve exam: II-XII are grossly intact No motor deficit. No sensory deficit. Reflexes normal. Course Reevaluation(s) Reevaluation #1: 38-year-old female with alcohol use disorder and alcohol withdrawal came in with abdominal pain elevated lipase indicating for alcoholic pancreatitis. 1. Pain control, IV fluid hydration, CT abdomen and pelvis evaluate acute pancreatitis. 2. Start on phenobarb for withdrawal protocol. CIWA score is 16 now. 3. Admit to medical service. Time: 03:47 Medical Decision Making Differential Diagnosis Differential Diagnoses: The differential diagnosis associated with the presentation includes ( Alcoholic pancreatitis, alcoholic gastritis, electrolyte derangement, severe anemia, alcohol withdrawal, dehydration.) Admission/Observation Consideration of admission/observation: Escalation of care including admission/observation considered Lab Data MDM Lab Attestation statement: I reviewed the patient's lab results. 04/17/24 00:00 04/17/24 00:00 Labs: Lab Results 04/17/24 Range/Units 00:00 WBC 8.3 (4.8-10.8) X10*3/uL RBC 4.89 D (4.20-5.50) X10*6/uL Hgb 15.7 D (12.0-16.0) g/dl Hct 43.1 D (37.0-47.0) % MCV 88.1 (80.0-98.0) fL MCH 32.1 (27.0-33.0) pg MCHC 36.4 H (31.0-35.0) g/dl RDW 16.2 H (11.0-16.0) % Plt Count 263 D (160-400) X10*3/uL MPV 8.8 L (9.4-12.3) fL Immature Gran % (Auto) 0.1 (0.0-0.4) % Neut % (Auto) 50.4 (45-73) % Lymph % (Auto) 39.4 (20-40) % [place] % (Auto) 8.7 (2-11) % Eos % (Auto) 0.6 (0-4) % Baso % (Auto) 0.8 (0-2) % Lymph # (Auto) 3.3 (1.2-4.9) X10*3/uL [place] # (Auto) 0.7 (0.1-1.2) X10*3/uL Eos # (Auto) 0.1 (0.0-0.4) X10*3/uL Baso # (Auto) 0.1 (0.0-0.2) X10*3/uL Abs Immat Gran (auto) 0.01 (0.00-0.03) X10*3/uL Absolute Neuts (auto) 4.2 (2.0-8.3) x10*3/uL Absolute Nucleated RBC 0.000 (0.0-0.012) X10*3/uL Nucleated RBC % (auto) 0.0 (0.0-0.2) /100WBC Sodium 141 (135-145) mmol/L Potassium 3.6 (3.3-5.1) mmol/L Chloride 106 (96-108) mmol/L Carbon Dioxide 20 L (22-29) mmol/L Anion Gap 19 (12-20) BUN 9 (9-16) mg/dL Creatinine 0.71 (0.5-1.4) mg/dL Estim Creat Clear Calc 122.3 Estimated GFR > 60 Random Glucose 128 H (60-115) mg/dL Calcium 8.7 D (8.4-10.2) mg/dL Magnesium 2.3 (1.6-2.6) mg/dL Total Bilirubin 0.3 (0.0-1.0) mg/dL AST 58 H (5-31) U/L ALT 34 H (0-31) U/L Alkaline Phosphatase 74 (39-117) U/L Total Protein 7.9 (6.5-8.0) g/dL Albumin 4.3 (3.5-5.0) g/dL Lipase 196 H (8-78) U/L Beta HCG, Quant < 2 mIU/mL Ethyl Alcohol 401 H* mg/dL Independent Interpretation I performed an independent interpretation of an: CT Scan ( abdomen and pelvis:Peripancreatic inflammatory stranding is again identified. Pancreatitis is the most likely etiology as this appears to be the epicenter. Likely associated wall thickening of the duodenum due to adjacent inflammatory change. Similar finding of the hepatic flexure and proximal t) Radiology Impression Discussion of test interpretation with radiology: I have reviewed the radiologist's reading. Medications Administered Discontinued Medications Generic Name Dose Route Start Last Admin Trade Name Freq PRN Reason Stop Dose Admin Sodium Chloride 1,000 mls @ 999 mls/hr 04/17/24 01:23 04/17/24 05:28 Ns IV 04/17/24 02:23 Infused .Q1H1M ONE Infusion Sodium Chloride 1,000 mls @ 999 mls/hr 04/17/24 03:40 04/17/24 05:28 Ns IV 04/17/24 04:40 Infused .Q1H1M ONE Infusion Iohexol 85 ml 04/17/24 03:54 04/17/24 03:56 Iohexol 350 Mg/Ml 100 Ml Infus..Btl IV 04/17/24 03:55 85 ml ONCE ONE Administration Ketorolac Tromethamine 15 mg 04/17/24 03:40 04/17/24 03:59 Ketorolac Tromethamine 15 Mg/Ml Vial IVPUSH 04/17/24 03:41 15 mg ONCE ONE Administration Morphine Sulfate 1 mg 04/17/24 03:40 04/17/24 03:59 Morphine Sulfate 2 Mg/Ml Cartridge IVPUSH 04/17/24 03:41 1 mg ONCE ONE Administration Protocol Phenobarbital Sodium 260 mg 04/17/24 02:45 04/17/24 03:06 Phenobarbital Sodium 130 Mg/Ml Vial IM 04/17/24 02:46 260 mg ONCE ONE Administration Discharge Plan Discharge Clinical Impression: Alcohol withdrawal syndrome, Acute alcoholic pancreatitis Patient Disposition: Admitted As Inpatient Print Language: Malaysian
[2024-04-17] MEDS: iohexoL 350 MG/ML 100 ML INFUS..BTL 85 ML IV (03:56)
[2024-04-17] MEDS: Morphine Sulfate 2 MG/ML CARTRIDGE 1 MG IVPUSH (03:59)
[2024-04-17] MEDS: Ketorolac Tromethamine 15 MG/ML VIAL IVPUSH (03:59)
--- NOTE | 2024-04-17 05:54 | PM.IMHP ---
History of Present Illness Date of Service: 04/17/24 Attending physician on admission: Pasquale Hills Chief Complaint: epigastric pain, N/V Patient is a 38-year-old female with a past medical history significant for alcohol use disorder, alcohol withdrawal, acute alcoholic pancreatitis, and obesity, who presented to the ED due to epigastric pain, nausea and vomiting. She reports this feels very similar to previous episodes of pancreatitis and alcohol withdrawal. She has been drinking 2 pt of vodka daily, strong CT 17:00 yesterday. She has no additional symptoms including rhinorrhea, congestion, chest pain, shortness of breath, urinary symptoms including frequency, urgency or dysuria. She has been able to tolerate clear liquids and currently rates her pain an 8/10 with movement, slightly less when lying still. Review of Systems Constitutional: Constitutional: Denies body ache(s), Denies chills, Denies fatigue, Denies fever(s) and Denies headache(s) Eyes: Eyes: Denies change in vision and Denies photophobia ENT: Denies headache(s), Denies nasal congestion, Denies nasal discharge and Denies sore throat Cardiovascular: Cardiovascular: Denies chest pain, Denies rapid heart rate, Denies leg edema, Denies lightheadedness and Denies dyspnea Respiratory: Respiratory: Denies chest congestion, Denies cough, Denies dyspnea and Denies wheezing Gastrointestinal: Gastrointestinal: Reports as per HPI Genitourinary: Genitourinary: Denies dysuria, Denies urinary incontinence and Denies urinary urgency Musculoskeletal: Musculoskeletal: Denies myalgias Integumentary/Breasts: Skin/Breast: Denies rash Neurologic: Denies confusion, Denies headache(s) and Denies Other visual disturbances Psychiatric: Psychiatric: Denies confusion, Denies visual hallucinations and Denies tactile hallucinations Endocrine: Endocrine: Denies fatigue Hematologic/Lymphatic: Hematologic/Lymphatic: Denies easy bleeding and Denies easy bruising Allergic/Immunologic: Allergic/Immunologic: Denies wheezing [facility] Medical History MDD (major depressive disorder), recurrent episode, moderate Asthma Anxiety and depression Tachycardia Alcohol withdrawal Functional capacity: independent ambulation Family History Mother Alcohol use disorder Maternal Grandfather Alcohol use disorder Social History Household Members: Friend(s) Household Members Other:: roommate Housing: Apartment Do you presently have visiting nurse or other home services: No Alcohol intake: current Alcohol intake frequency: 3 or more drinks per day Alcohol type: hard liquor Patient Tobacco Use Status: Never used Tobacco Tobacco use type: Cigarette Smoked in Last 30 Days: No e-Cigarette/Vaping Use: Never Used Second Hand Smoke Exposure: No Substance Use Type: Marijuana Advance Directives: Yes Advance Directives on File: Yes Advance Directives Date on File: 02/11/23 Do you have a plan to hurt others: No Plan Patient : No service: No Narrative: Drinks 2 pt of vodka daily. Working on quitting smoking, down to 2 cigarettes daily. Meds Allergies Allergy/AdvReac Type Severity Reaction Status Date / Time adhesive AdvReac Hives Verified 04/16/24 23:42 Active Medications: Current Medications Pharmacy Consult (Consult Rx Etoh Phenob Im/Po) 1 each MISCELLANE ONCE PRN; Protocol PRN Reason: Consult order Phenobarbital (Phenobarbital 15 Mg Tablet) 45 mg PO BID@0600,1800 [facility] Stop: 04/19/24 06:01 Phenobarbital (Phenobarbital 15 Mg Tablet) 15 mg PO BID@0600,1800 [facility] Stop: 04/21/24 06:01 Phenobarbital (Phenobarbital 15 Mg Tablet) 15 mg PO DAILY@0600 [facility] Stop: 04/23/24 06:01 Phenobarbital Sodium (Phenobarbital Sodium 130 Mg/Ml Vial) 144 mg IM Q3H [facility] Stop: 04/17/24 09:31 Home Medications ?Medication ?Instructions ?Recorded ?Confirmed ?Last Taken ?Type albuterol sulfate 90 mcg/actuation 1 puff inhalation QID PRN wheezing 07/04/23 03/22/24 03/15/24 History aerosol inhaler pantoprazole 40 mg tablet,delayed 40 mg PO DAILY@0630 03/22/24 03/22/24 03/15/24 History release Physical Exam Vital Signs and Narrative: Vital Signs: Last Vital Signs Temp 98.6 F 04/17/24 04:00 Pulse 126 H 04/17/24 04:00 Resp 20 04/17/24 04:00 BP 114/62 03/11/25 04:00 Pulse Ox 97 04/17/24 04:00 O2 Del Method Room Air 04/17/24 04:00 BMI result Body Mass Index 35.9 General: AOx3, no acute distress Resp: CTA bilaterally CVS: Tachy, regular rhythm, no murmur GI: +BS, tenderness epigastric region, no distention Skin: Warm, dry Neuro: Cranial nerves II-XII grossly intact bilaterally. Motor grossly intact bilaterally Extremities: No lower extremity edema Psych: Appropriate affect Const: General: No confusion Orientation/consciousness: No confusion Eyes: Direct Ophthalmoscopy: No photophobia Neuro: General: No confusion Results Labs 04/17/24 00:00 04/17/24 00:00 Labs: Laboratory Results - last 24 hr 04/17/24 00:00 MCV 88.1 MCH 32.1 MCHC 36.4 H RDW 16.2 H Plt Count 263 D MPV 8.8 L Immature Gran % (Auto) 0.1 Neut % (Auto) 50.4 Lymph % (Auto) 39.4 [place] % (Auto) 8.7 Eos % (Auto) 0.6 Baso % (Auto) 0.8 Lymph # (Auto) 3.3 [place] # (Auto) 0.7 Eos # (Auto) 0.1 Baso # (Auto) 0.1 Abs Immat Gran (auto) 0.01 Absolute Neuts (auto) 4.2 Absolute Nucleated RBC 0.000 Nucleated RBC % (auto) 0.0 Anion Gap 19 Estim Creat Clear Calc 122.3 Estimated GFR > 60 Random Glucose 128 H Calcium 8.7 D Total Bilirubin 0.3 AST 58 H ALT 34 H Alkaline Phosphatase 74 Total Protein 7.9 Albumin 4.3 Lipase 196 H Beta HCG, Quant < 2 Ethyl Alcohol 401 H* Assessment and Plan (1) Acute alcoholic pancreatitis: Status: Acute (2) Alcohol withdrawal syndrome: Status: Acute (3) Alcohol use disorder, severe, dependence: Status: Acute (4) Obesity (BMI 30-39.9): Status: Acute Plan Patient is a 38-year-old female with a past medical history significant for alcohol use disorder, alcohol withdrawal, acute alcoholic pancreatitis, and obesity, who presented to the ED due to epigastric pain, nausea and vomiting. Acute alcoholic pancreatitis/alcohol withdrawal - alcohol level 401 - WBC normal, tachycardia secondary to alcohol withdrawal, no sign of infection - A/P CT pending - AST 58, ALT 34, lipase 196 - EKG sinus tachycardia - given 2 L IV fluids in ED, continue LR 125 mL/HR - clear liquid diet as tolerated - pain management with oxycodone and morphine - phenobarb protocol - IV thiamine 500 mg, continue 100 mg p.o. starting tomorrow - folate and multivitamin daily - addiction med consult - pantoprazole 40 mg daily - metoprolol 5 mg IV x1 dose due to tachycardia with withdrawal initally ordered, then held as BP was 100/60, will see if tachycardia improves with IVF - monitor CIWA Q4H - seizure precautions - monitor CMP Alcohol use disorder - addiction med consult as above Obesity - BMI 35.9 - weight loss encouraged Full Code VTE prophylaxis: Lovenox Patient with acute alcoholic pancreatitis complicated by alcohol withdrawal, requiring admission for at least 2 midnights stay for monitored medication withdrawal, pain management and IV fluids. Quality Stroke Does the patient have a stroke diagnosis?: No VTE Prior VTE?: No VTE Risk Level:: Medical - moderate - high VTE Device Contraindication: Treatment Not Indicated VTE Drug Contraindication: N/A - Med Ordered
[2024-04-17 06:11] LABS: Magnesium 2.3 mg/dL (1.6-2.6)
[2024-04-17] MEDS: PHENobarbitaL sodium 130 MG/ML VIAL 144 MG IM ×2 (06:35→10:04)
[2024-04-17] MEDS: oxyCODONE HCl Immed Release 5 MG TABLET PO ×3 (06:35→18:23)
[2024-04-17] MEDS: Pantoprazole Sodium 40 MG/10 ML VIAL IVPUSH (06:36)
[2024-04-17] MEDS: Lactated Ringers 1,000 ML 125 ML IVCONT ×3 (06:36→22:37)
--- NOTE | 2024-04-17 07:01 | PC.NURSE ---
PT bp 100/68 is notified provider. metoprolol held
--- NOTE | 2024-04-17 07:57 | PM.EVENT ---
Event Note Date of Service: 04/17/24 Event Note: Seen/examined admitted this morning, labs, vitals, meds and imaging reviewed. Patient is a 38-year-old female with a past medical history significant for alcohol use disorder, alcohol withdrawal, acute alcoholic pancreatitis, and obesity, who presented to the ED due to epigastric pain, nausea and vomiting. Acute alcoholic pancreatitis bowel rest IVF Pain control with morphine and oxycodone Alcohol withdrawal Alcohol use disorder CIWA Phenobarbital protocol Folic and thiamine Addiction med consult she is looking into detox unit after dc Tachycardia likley related to above, hydrate and monitor Obesity, BMI 35.9 weight loss encouraged Full Code VTE prophylaxis: Lovenox need for inpt: active alcohl withdrawal Time Spent With Patient Time: Total time managing care of this patient today ____ minutes.
--- NOTE | 2024-04-17 08:10 | PHA.MEDREC ---
Pharmacy Consult ? Medication Reconciliation Pharmacy has completed the medication reconciliation. Spoke with pt at bedside, she confirmed her home meds. States she finished the augmentin and oxycodone last month, was told to stop the acamprosate, and no longer takes nicotine patches due to a reaction to them (has a listed adhesive allergy).
[2024-04-17 08:24] LABS: MANUAL DIFF FLAG NO
[2024-04-17 08:28] LABS: Basophils Absolute Auto 0.1 X10*3/uL (0.0-0.2); Basophils Percent Auto 1.4 % (0-2); Eosinophils Absolute Auto 0.1 X10*3/uL (0.0-0.4); Eosinophils Percent Auto 1.2 % (0-4); Hematocrit 35.5 % (37.0-47.0); Hemoglobin 12.3 g/dl (12.0-16.0); Imm Gran Abs Auto 0.02 X10*3/uL (0.00-0.03); Imm Gran Pct Auto 0.3 % (0.0-0.4); Lymphocytes Absolute Auto 2.6 X10*3/uL (1.2-4.9); Lymphocytes Percent Auto 43.6 % (20-40); Mean Corpuscular HGB Conc 34.6 g/dl (31.0-35.0); Mean Corpuscular Hemoglobin 31.8 pg (27.0-33.0); Mean Corpuscular Volume 91.7 fL (80.0-98.0); Mean Platelet Volume 9.1 fL (9.4-12.3); Monocytes Absolute Auto 0.7 X10*3/uL (0.1-1.2); Monocytes Percent Auto 11.6 % (2-11); Neutrophils Absolute Auto 2.5 x10*3/uL (2.0-8.3); Neutrophils Percent Auto 41.9 % (45-73); Platelet Count 202 X10*3/uL (160-400); Red Blood Count 3.87 X10*6/uL (4.20-5.50); Red Cell Distribution Width 16.7 % (11.0-16.0); White Blood Count 5.9 X10*3/uL (4.8-10.8)
[2024-04-17 08:51] LABS: Alanine Aminotransferase 24 U/L (0-31); Albumin Level 3.3 g/dL (3.5-5.0); Alkaline Phosphatase 55 U/L (39-117); Anion Gap 16 (12-20); Aspartate Amino Transferase 49 U/L (5-31); Bilirubin Total 0.3 mg/dL (0.0-1.0); Blood Urea Nitrogen 8 mg/dL (9-16); Calcium 7.4 mg/dL (8.4-10.2); Carbon Dioxide 19 mmol/L (22-29); Chloride 111 mmol/L (96-108); Creatinine Clr Calc Pharmacy 127.7; Estimated Glomerular Filt Rate > 60; Glucose Random 99 mg/dL (60-115); Magnesium 1.8 mg/dL (1.6-2.6); Potassium 3.7 mmol/L (3.3-5.1); Sodium 142 mmol/L (135-145); Total Protein 6.1 g/dL (6.5-8.0)
[2024-04-17] MEDS: Morphine Sulfate 4 MG/ML CARTRIDGE 2 MG IVPUSH ×3 (09:03→20:56)
[2024-04-17] MEDS: Thiamine HCL 500 MG in 0.9 % Sodium Chloride 100 ML 210 MG IV (09:05)
[2024-04-17] MEDS: ondansetron HCL 4 MG/2 ML VIAL IVPUSH (09:13)
--- NOTE | 2024-04-17 09:41 | PC.NURSE ---
cut pts wrist band off her R wrist as it had become very tight around her wrist, hand noted to be red and slightly swollen, no noted warmth to area. pt reports no noted distress or pain to the areas
[2024-04-17] MEDS: Folic Acid 1 MG TABLET PO (10:02)
[2024-04-17] MEDS: Multivitamin TABLET 1 TAB PO (10:02)
[2024-04-17] MEDS: Enoxaparin Sodium 40 MG/0.4 ML SYRINGE SUBCUT (10:03)
--- NOTE | 2024-04-17 11:27 | MHC.CM.PN ---
Pt lives alone, she does not have a PCP, brochure given. She said that she is now working with financial counselors here on [facility]. HCP is on file and confirmed: [facility]. She is able to arrange a ride home at [place], DCP: home, self care. CM to follow for DC needs.
--- NOTE | 2024-04-17 14:03 | PC.NURSE ---
pt RAY 10 - notified MD valentino. no new orders at this time
--- NOTE | 2024-04-17 14:04 | PC.NURSE ---
notified MD Carvajal of pts increasing CIWA to 13, requesting another dose of phenobarbital
[2024-04-17] MEDS: PHENobarbitaL sodium 130 MG/ML VIAL IM (15:09)
[2024-04-17] MEDS: hydrOXYzine HCL 10 MG TABLET PO ×2 (15:10→20:57)
[2024-04-17] MEDS: PHENobarbitaL 15 MG TABLET 45 MG PO (17:04)
[2024-04-17] MEDS: Acetaminophen 325 MG TABLET 650 MG PO (17:04)
[2024-04-18] VITALS (7 sets, daily range): BP systolic 112–141; BP diastolic 57–83; PULSE 83–105; RESP 14–18; TEMP 36.2–37.3; O2SAT 95–99
[2024-04-18] MEDS: oxyCODONE HCl Immed Release 5 MG TABLET PO ×4 (02:04→20:30)
[2024-04-18] MEDS: PHENobarbitaL 15 MG TABLET 45 MG PO ×2 (05:41→16:56)
[2024-04-18] MEDS: Pantoprazole Sodium 40 MG/10 ML VIAL IVPUSH (05:42)
[2024-04-18] MEDS: Morphine Sulfate 4 MG/ML CARTRIDGE 2 MG IVPUSH ×4 (05:48→21:47)
[2024-04-18] MEDS: Lactated Ringers 1,000 ML 125 ML IVCONT ×3 (05:50→21:47)
[2024-04-18 06:42] LABS: MANUAL DIFF FLAG NO
[2024-04-18 07:05] LABS: Alanine Aminotransferase 28 U/L (0-31); Albumin Level 3.2 g/dL (3.5-5.0); Alkaline Phosphatase 58 U/L (39-117); Anion Gap 12 (12-20); Aspartate Amino Transferase 80 U/L (5-31); Bilirubin Total 0.9 mg/dL (0.0-1.0); Blood Urea Nitrogen 5 mg/dL (9-16); Calcium 8.2 mg/dL (8.4-10.2); Carbon Dioxide 24 mmol/L (22-29); Chloride 108 mmol/L (96-108); Creatinine Clr Calc Pharmacy 131.6; Estimated Glomerular Filt Rate > 60; Glucose Random 86 mg/dL (60-115); Magnesium 1.5 mg/dL (1.6-2.6); Potassium 3.5 mmol/L (3.3-5.1); Sodium 140 mmol/L (135-145); Total Protein 5.8 g/dL (6.5-8.0)
[2024-04-18 07:11] LABS: Basophils Percent Auto 0.8 % (0-2); Eosinophils Absolute Auto 0.2 X10*3/uL (0.0-0.4); Eosinophils Percent Auto 2.9 % (0-4); Hematocrit 36.7 % (37.0-47.0); Hemoglobin 12.5 g/dl (12.0-16.0); Imm Gran Abs Auto 0.01 X10*3/uL (0.00-0.03); Imm Gran Pct Auto 0.2 % (0.0-0.4); Lymphocytes Absolute Auto 1.7 X10*3/uL (1.2-4.9); Lymphocytes Percent Auto 32.9 % (20-40); Mean Corpuscular HGB Conc 34.1 g/dl (31.0-35.0); Mean Corpuscular Volume 93.9 fL (80.0-98.0); Mean Platelet Volume 9.8 fL (9.4-12.3); Monocytes Absolute Auto 0.5 X10*3/uL (0.1-1.2); Monocytes Percent Auto 9.2 % (2-11); Neutrophils Absolute Auto 2.8 x10*3/uL (2.0-8.3); Platelet Count 161 X10*3/uL (160-400); Red Blood Count 3.91 X10*6/uL (4.20-5.50); Red Cell Distribution Width 16.1 % (11.0-16.0); White Blood Count 5.1 X10*3/uL (4.8-10.8)
[2024-04-18] MEDS: hydrOXYzine HCL 10 MG TABLET PO ×3 (07:41→22:01)
[2024-04-18] MEDS: Folic Acid 1 MG TABLET PO (07:41)
[2024-04-18] MEDS: Multivitamin TABLET 1 TAB PO (07:41)
[2024-04-18] MEDS: Enoxaparin Sodium 40 MG/0.4 ML SYRINGE SUBCUT (07:41)
[2024-04-18] MEDS: Thiamine HCL 100 MG TABLET PO (07:41)
--- NOTE | 2024-04-18 10:50 | HO.PM.IMPN ---
Subjective Subjective Date of Service: 04/18/24 Interval History: Less tremors, tachycardia resolved. No AMS Physical Exam Vital Signs: Vital Signs: Last Vital Signs Temp 97.2 F 04/18/24 07:19 Pulse 98 04/18/24 07:19 Resp 15 04/18/24 07:19 BP 141/83 H 04/18/24 07:19 Pulse Ox 95 04/18/24 07:19 O2 Del Method Room Air 04/18/24 07:19 BMI result Body Mass Index 35.9 Const: Other: General: AO X 3, no acute distress Resp: CTA bilateral CVS: S1,S2,RRR GI: +BS, NT, no distention Skin: No rash Neuro: motor grossly intact Psych: appropriate affect Objective Data Active Medications Acetaminophen (Acetaminophen 325 Mg Tablet) 650 mg PO Q6H PRN PRN Reason: Pain, Mild 1-3,fever,headache Last Admin: 04/17/24 17:04 Dose: 650 mg Documented By: KARY Calcium Carbonate (Calcium Carbonate 750 Mg Tab.Chew) 750 mg PO Q4H PRN PRN Reason: Heartburn Enoxaparin Sodium (Enoxaparin Sodium 40 Mg/0.4 Ml Syringe) 40 mg SUBCUT Q24H [facility] Last Admin: 04/18/24 07:41 Dose: 40 mg Documented By: CAROLING Folic Acid (Folic Acid 1 Mg Tablet) 1 mg PO DAILY [facility] Stop: 04/20/24 08:59 Last Admin: 04/18/24 07:41 Dose: 1 mg Documented By: CAROLING Hydroxyzine HCl (Hydroxyzine Hcl 10 Mg Tablet) 10 mg PO Q6H PRN PRN Reason: Anxiety Last Admin: 04/18/24 07:41 Dose: 10 mg Documented By: CAROLING Lactated Ringer's (Lr) 1,000 mls @ 125 mls/hr IVCONT .Q8H [facility] Last Admin: 04/18/24 05:50 Dose: 125 mls/hr Documented By: ABIODUNMEDI Magnesium Hydroxide (Milk Of Magnesia 30 Ml Oral.Susp) 30 ml PO DAILY PRN PRN Reason: Constipation Melatonin (Melatonin 3 Mg Tablet) 6 mg PO BEDTIME PRN PRN Reason: Insomnia Morphine Sulfate (Morphine Sulfate 4 Mg/Ml Cartridge) 2 mg IVPUSH Q4H PRN; Protocol PRN Reason: Pain, Severe (Pain Scale 7-10) Last Admin: 04/18/24 10:40 Dose: 2 mg Documented By: KARY Multivitamins/Vitamin C (Multivitamin Tablet) 1 tab PO DAILY [facility] Stop: 04/20/24 08:59 Last Admin: 04/18/24 07:41 Dose: 1 tab Documented By: KARY Ondansetron HCl (Ondansetron Hcl 4 Mg/2 Ml Vial) 4 mg IVPUSH Q8H PRN PRN Reason: Nausea and Vomiting Last Admin: 04/17/24 09:13 Dose: 4 mg Documented By: ALESSANDRA Oxycodone HCl (Oxycodone Hcl Immed Release 5 Mg Tablet) 5 mg PO Q6H PRN PRN Reason: Pain, Moderate(Pain Scale 4-6) Last Admin: 04/18/24 07:41 Dose: 5 mg Documented By: KARY Pantoprazole Sodium (Pantoprazole Sodium 40 Mg/10 Ml Vial) 40 mg IVPUSH DAILY@0630 [facility] Last Admin: 04/18/24 05:42 Dose: 40 mg Documented By: RICARDO Pharmacy Consult (Consult Rx Etoh Phenob Im/Po) 1 each MISCELLANE ONCE PRN; Protocol PRN Reason: Consult order Phenobarbital (Phenobarbital 15 Mg Tablet) 45 mg PO BID@0600,1800 [facility] Stop: 04/19/24 06:01 Last Admin: 04/18/24 05:41 Dose: 45 mg Documented By: RICARDO Phenobarbital (Phenobarbital 15 Mg Tablet) 15 mg PO BID@0600,1800 [facility] Stop: 04/21/24 06:01 Phenobarbital (Phenobarbital 15 Mg Tablet) 15 mg PO DAILY@0600 [facility] Stop: 04/23/24 06:01 Sodium Chloride (0.9 % Sodium Chloride Flush 3 Ml Syringe) 3 ml IVFLUSH QSHIFT [facility] Last Admin: 04/18/24 07:41 Dose: Not Given Documented By: KARY Non-Admin Reason: IV Running Thiamine HCl (Thiamine Hcl 100 Mg Tablet) 100 mg PO DAILY [facility] Stop: 04/21/24 08:59 Last Admin: 04/18/24 07:41 Dose: 100 mg Documented By: KARY Labs 04/18/24 06:17 03/12/25 06:17 Labs: Laboratory Results - last 24 hr 04/18/24 06:17 MCV 93.9 MCH 32.0 MCHC 34.1 RDW 16.1 H Plt Count 161 MPV 9.8 Immature Gran % (Auto) 0.2 Neut % (Auto) 54.0 Lymph % (Auto) 32.9 [place] % (Auto) 9.2 Eos % (Auto) 2.9 Baso % (Auto) 0.8 Lymph # (Auto) 1.7 [place] # (Auto) 0.5 Eos # (Auto) 0.2 Baso # (Auto) 0.0 Abs Immat Gran (auto) 0.01 Absolute Neuts (auto) 2.8 Absolute Nucleated RBC 0.000 Nucleated RBC % (auto) 0.0 Anion Gap 12 Estim Creat Clear Calc 131.6 Estimated GFR > 60 Random Glucose 86 Calcium 8.2 L D Magnesium 1.5 L Total Bilirubin 0.9 AST 80 H ALT 28 Alkaline Phosphatase 58 Total Protein 5.8 L Albumin 3.2 L Assessment and Plan (1) Alcohol use disorder, severe, dependence: Status: Acute (2) Alcohol withdrawal syndrome: Status: Acute (3) Acute alcoholic pancreatitis: Status: Acute Plan Patient is a 38-year-old female with a past medical history significant for alcohol use disorder, alcohol withdrawal, acute alcoholic pancreatitis, and obesity, who presented to the ED due to epigastric pain, nausea and vomiting. Acute alcoholic pancreatitis, minimal symptoms diet IVF, dc if tolerating diet Pain control with morphine and oxycodone Alcohol withdrawal Alcohol use disorder CIWA continue Phenobarbital protocol Folic and thiamine Addiction med consult she is looking into detox unit after dc Tachycardia, resolved likley related to above, hydrate and monitor Obesity, BMI 35.9 weight loss encouraged Full Code VTE prophylaxis: Lovenox Quality Stroke Does the patient have a stroke diagnosis?: No VTE Prior VTE?: No VTE Risk Level:: Medical - moderate - high VTE Device Contraindication: Treatment Not Indicated VTE Drug Contraindication: N/A - Med Ordered
--- NOTE | 2024-04-18 10:50 | MHC.RECOVRN ---
Spoke with Rahat Falk, clinical liaison, from [facility]. Per Oriana Falk, pts RN to send medical records to [facility] for medical acceptance into program. Plan for pt to be transferred to [facility] once [place] [facility] [place] At [facility], pt will be observed on ATS prior to transferring to [facility].
[2024-04-18] MEDS: Acetaminophen 325 MG TABLET 650 MG PO (11:20)
--- NOTE | 2024-04-18 11:48 | MHC.RECOVRN ---
Met with pt in 452 to follow up and provide support. Pt laying in bed, eyes closed, wakes to voice. Pt reports continued pain. Reports she is able to eat but quite painful afterwards. Discussed [facility]. Pt would like to discharge home when medically cleared in order to gather belongings for 30 day stay. Pt reports she has a friend that will give her a ride to [place] from home. Pt denies other questions or concerns at this time. Discussed pain with pts RN.
--- NOTE | 2024-04-18 14:13 | MHC.RECOVRN ---
Pt has been accepted to [facility].
[2024-04-18] MEDS: 0.9 % Sodium Chloride Flush 3 ML SYRINGE IVFLUSH (15:42)
[2024-04-18] MEDS: Magnesium Sulfate/H2O 2 GM/50 ML PIGGYBACK IV (21:58)
[2024-04-19 03:17] VITALS: BP 113/59; PULSE 81; RESP 18; TEMP 36.7; O2SAT 98
[2024-04-19] MEDS: Morphine Sulfate 4 MG/ML CARTRIDGE 2 MG IVPUSH ×5 (03:32→23:16)
[2024-04-19 06:29] LABS: MANUAL DIFF FLAG NO
[2024-04-19 06:49] LABS: Basophils Percent Auto 0.7 % (0-2); Eosinophils Absolute Auto 0.2 X10*3/uL (0.0-0.4); Eosinophils Percent Auto 3.4 % (0-4); Hematocrit 33.4 % (37.0-47.0); Hemoglobin 11.3 g/dl (12.0-16.0); Imm Gran Abs Auto 0.01 X10*3/uL (0.00-0.03); Imm Gran Pct Auto 0.2 % (0.0-0.4); Lymphocytes Absolute Auto 1.5 X10*3/uL (1.2-4.9); Lymphocytes Percent Auto 34.3 % (20-40); Mean Corpuscular HGB Conc 33.8 g/dl (31.0-35.0); Mean Corpuscular Hemoglobin 31.8 pg (27.0-33.0); Mean Corpuscular Volume 94.1 fL (80.0-98.0); Mean Platelet Volume 9.4 fL (9.4-12.3); Monocytes Absolute Auto 0.4 X10*3/uL (0.1-1.2); Monocytes Percent Auto 9.4 % (2-11); Neutrophils Absolute Auto 2.3 x10*3/uL (2.0-8.3); Platelet Count 157 X10*3/uL (160-400); Red Blood Count 3.55 X10*6/uL (4.20-5.50); Red Cell Distribution Width 15.8 % (11.0-16.0); White Blood Count 4.4 X10*3/uL (4.8-10.8)
[2024-04-19 06:55] LABS: Alanine Aminotransferase 27 U/L (0-31); Alkaline Phosphatase 58 U/L (39-117); Anion Gap 11 (12-20); Aspartate Amino Transferase 72 U/L (5-31); Bilirubin Total 0.4 mg/dL (0.0-1.0); Blood Urea Nitrogen 5 mg/dL (9-16); Carbon Dioxide 25 mmol/L (22-29); Chloride 108 mmol/L (96-108); Creatinine Clr Calc Pharmacy 135.7; Estimated Glomerular Filt Rate > 60; Glucose Random 102 mg/dL (60-115); Magnesium 2.1 mg/dL (1.6-2.6); Potassium 3.5 mmol/L (3.3-5.1); Sodium 140 mmol/L (135-145); Total Protein 5.5 g/dL (6.5-8.0)
[2024-04-19] MEDS: PHENobarbitaL 15 MG TABLET 45 MG PO (07:35)
[2024-04-19] MEDS: Pantoprazole Sodium 40 MG/10 ML VIAL IVPUSH (07:35)
[2024-04-19] MEDS: Lactated Ringers 1,000 ML 125 ML IVCONT ×2 (07:46→15:48)
[2024-04-19 07:48] VITALS: BP 131/79; PULSE 84; RESP 16; TEMP 36.4; O2SAT 98
--- NOTE | 2024-04-19 09:19 | MHC.RECOVRN ---
Met with pt in 452 to follow up and provide support. Pt awake, alert, easily engages in conversation. Pt aware of acceptance to [facility]. When medically clear, plan for pt to dc home, pack belongings, and have friend/[employer] [place] [employer] (Arpita) transport pt to facility. Pt denies other questions or concerns. RN and CM aware. Discussed with Bijal Low APRN.
[2024-04-19] MEDS: Folic Acid 1 MG TABLET PO (09:21)
[2024-04-19] MEDS: Enoxaparin Sodium 40 MG/0.4 ML SYRINGE SUBCUT (09:21)
[2024-04-19] MEDS: Multivitamin TABLET 1 TAB PO (09:21)
[2024-04-19] MEDS: 0.9 % Sodium Chloride Flush 3 ML SYRINGE IVFLUSH (09:21)
[2024-04-19] MEDS: Thiamine HCL 100 MG TABLET PO (09:21)
[2024-04-19] MEDS: oxyCODONE HCl Immed Release 5 MG TABLET PO (09:23)
[2024-04-19] MEDS: Acetaminophen 325 MG TABLET 650 MG PO (09:23)
[2024-04-19 10:53] VITALS: BP 98/56; PULSE 98; RESP 16; TEMP 36.6; O2SAT 97
--- NOTE | 2024-04-19 10:55 | HO.PM.IMPN ---
Subjective Subjective Date of Service: 04/19/24 Interval History: reporting some pain with meals less tremors Physical Exam Vital Signs: Vital Signs: Last Vital Signs Temp 97.5 F 04/19/24 07:48 Pulse 84 04/19/24 07:48 Resp 16 04/19/24 07:48 BP 131/79 04/19/24 07:48 Pulse Ox 98 04/19/24 07:48 O2 Del Method Room Air 04/19/24 07:48 BMI result Body Mass Index 35.9 Const: Other: General: AO X 3, no acute distress Resp: CTA bilateral CVS: S1,S2,RRR GI: +BS, NT, no distention Skin: No rash Neuro: motor grossly intact Psych: appropriate affect Objective Data Active Medications Acetaminophen (Acetaminophen 325 Mg Tablet) 650 mg PO Q6H PRN PRN Reason: Pain, Mild 1-3,fever,headache Last Admin: 04/19/24 09:23 Dose: 650 mg Documented By: MARY Calcium Carbonate (Calcium Carbonate 750 Mg Tab.Chew) 750 mg PO Q4H PRN PRN Reason: Heartburn Enoxaparin Sodium (Enoxaparin Sodium 40 Mg/0.4 Ml Syringe) 40 mg SUBCUT Q24H [facility] Last Admin: 04/19/24 09:21 Dose: 40 mg Documented By: MARY Folic Acid (Folic Acid 1 Mg Tablet) 1 mg PO DAILY [facility] Stop: 04/20/24 08:59 Last Admin: 04/19/24 09:21 Dose: 1 mg Documented By: MARY Hydroxyzine HCl (Hydroxyzine Hcl 10 Mg Tablet) 10 mg PO Q6H PRN PRN Reason: Anxiety Last Admin: 04/18/24 22:01 Dose: 10 mg Documented By: CHARLIEZEB Lactated Ringer's (Lr) 1,000 mls @ 125 mls/hr IVCONT .Q8H [facility] Last Admin: 04/19/24 07:46 Dose: 125 mls/hr Documented By: ARON Magnesium Hydroxide (Milk Of Magnesia 30 Ml Oral.Susp) 30 ml PO DAILY PRN PRN Reason: Constipation Melatonin (Melatonin 3 Mg Tablet) 6 mg PO BEDTIME PRN PRN Reason: Insomnia Morphine Sulfate (Morphine Sulfate 4 Mg/Ml Cartridge) 2 mg IVPUSH Q4H PRN; Protocol PRN Reason: Pain, Severe (Pain Scale 7-10) Last Admin: 04/19/24 07:43 Dose: 2 mg Documented By: ARON Multivitamins/Vitamin C (Multivitamin Tablet) 1 tab PO DAILY [facility] Stop: 04/20/24 08:59 Last Admin: 04/19/24 09:21 Dose: 1 tab Documented By: MARY Ondansetron HCl (Ondansetron Hcl 4 Mg/2 Ml Vial) 4 mg IVPUSH Q8H PRN PRN Reason: Nausea and Vomiting Last Admin: 04/17/24 09:13 Dose: 4 mg Documented By: ALESSANDRA Oxycodone HCl (Oxycodone Hcl Immed Release 5 Mg Tablet) 5 mg PO Q6H PRN PRN Reason: Pain, Moderate(Pain Scale 4-6) Last Admin: 04/19/24 09:23 Dose: 5 mg Documented By: MARY Pantoprazole Sodium (Pantoprazole Sodium 40 Mg/10 Ml Vial) 40 mg IVPUSH DAILY@0630 [facility] Last Admin: 04/19/24 07:35 Dose: 40 mg Documented By: ARON Pharmacy Consult (Consult Rx Etoh Phenob Im/Po) 1 each MISCELLANE ONCE PRN; Protocol PRN Reason: Consult order Phenobarbital (Phenobarbital 15 Mg Tablet) 15 mg PO BID@0600,1800 [facility] Stop: 04/21/24 06:01 Phenobarbital (Phenobarbital 15 Mg Tablet) 15 mg PO DAILY@0600 [facility] Stop: 04/23/24 06:01 Sodium Chloride (0.9 % Sodium Chloride Flush 3 Ml Syringe) 3 ml IVFLUSH QSHIFT [facility] Last Admin: 04/19/24 09:21 Dose: 3 ml Documented By: MARY Thiamine HCl (Thiamine Hcl 100 Mg Tablet) 100 mg PO DAILY [facility] Stop: 04/21/24 08:59 Last Admin: 04/19/24 09:21 Dose: 100 mg Documented By: MARY Labs 04/19/24 06:13 04/19/24 06:13 Labs: Laboratory Results - last 24 hr 04/19/24 06:13 MCV 94.1 MCH 31.8 MCHC 33.8 RDW 15.8 Plt Count 157 L MPV 9.4 Immature Gran % (Auto) 0.2 Neut % (Auto) 52.0 Lymph % (Auto) 34.3 [place] % (Auto) 9.4 Eos % (Auto) 3.4 Baso % (Auto) 0.7 Lymph # (Auto) 1.5 [place] # (Auto) 0.4 Eos # (Auto) 0.2 Baso # (Auto) 0.0 Abs Immat Gran (auto) 0.01 Absolute Neuts (auto) 2.3 Absolute Nucleated RBC 0.000 Nucleated RBC % (auto) 0.0 Anion Gap 11 L Estim Creat Clear Calc 135.7 Estimated GFR > 60 Random Glucose 102 Calcium 8.0 L Magnesium 2.1 Total Bilirubin 0.4 AST 72 H ALT 27 Alkaline Phosphatase 58 Total Protein 5.5 L Albumin 3.0 L Assessment and Plan (1) Alcohol use disorder, severe, dependence: Status: Acute (2) Alcohol withdrawal syndrome: Status: Acute (3) Acute alcoholic pancreatitis: Status: Acute Plan Patient is a 38-year-old female with a past medical history significant for alcohol use disorder, alcohol withdrawal, acute alcoholic pancreatitis, and obesity, who presented to the ED due to epigastric pain, nausea and vomiting. Acute alcoholic pancreatitis, minimal symptoms IVF, dc if tolerating diet Pain control with morphine and oxycodone she is reporting some pain after meals repeat lipase Alcohol withdrawal Alcohol use disorder CIWA continue Phenobarbital protocol Folic and thiamine Addiction med consult she is looking into detox unit after dc Tachycardia, resolved likley related to above, hydrate and monitor Obesity, BMI 35.9 weight loss encouraged Full Code VTE prophylaxis: Lovenox Quality Stroke Does the patient have a stroke diagnosis?: No VTE Prior VTE?: No VTE Risk Level:: Medical - moderate - high VTE Device Contraindication: Treatment Not Indicated VTE Drug Contraindication: N/A - Med Ordered
[2024-04-19 11:10] LABS: Lipase 77 U/L (8-78)
--- NOTE | 2024-04-19 11:59 | PC.NURSE ---
pt requesting to speak with addiction medicine again , message sent Pam ,to recovery support RN
--- NOTE | 2024-04-19 13:43 | PC.NURSE ---
consumed 50% of lunch , pt stated I have string pain # 9 after meal , will medicate with Morphine IV prn
--- NOTE | 2024-04-19 13:49 | MHC.RECOVRN ---
Met with pt after pt informed she would be discharging today. Pt reports she feels as though she is not ready to dc due to pain. Would like to stay one more night. Denies other questions or concerns. Informed provider and RN of patient's concerns.
[2024-04-19 15:31] VITALS: BP 129/71; PULSE 77; RESP 16; TEMP 36.5; O2SAT 100
[2024-04-19] MEDS: PHENobarbitaL 15 MG TABLET PO (17:50)
[2024-04-19 20:00] VITALS: BP 145/92; PULSE 89; RESP 16; TEMP 37.5; O2SAT 99
[2024-04-20] VITALS: RESP 18
[2024-04-20] MEDS: Lactated Ringers 1,000 ML 125 ML IVCONT ×2 (00:19→08:02)
[2024-04-20] MEDS: oxyCODONE HCl Immed Release 5 MG TABLET PO ×2 (00:25→08:04)
[2024-04-20] MEDS: Acetaminophen 325 MG TABLET 650 MG PO (00:26)
[2024-04-20 04:00] VITALS: BP 119/68; PULSE 82; RESP 18; TEMP 36; O2SAT 98
[2024-04-20] MEDS: PHENobarbitaL 15 MG TABLET PO (06:12)
[2024-04-20] MEDS: Pantoprazole Sodium 40 MG/10 ML VIAL IVPUSH (06:12)
[2024-04-20] MEDS: Morphine Sulfate 4 MG/ML CARTRIDGE 2 MG IVPUSH (06:12)
[2024-04-20 07:02] VITALS: BP 130/80; PULSE 72; RESP 18; TEMP 36; O2SAT 97
[2024-04-20] MEDS: Thiamine HCL 100 MG TABLET PO (08:04)
[2024-04-20 10:58] VITALS: BP 139/84; PULSE 84; RESP 16; TEMP 36.1; O2SAT 100
--- NOTE | 2024-04-20 11:19 | P.DS_ITS ---
DS: Providers Provider Date of Service: 04/20/24 Date of admission: 04/17/24 05:43 Date of discharge: 04/20/24 Primary care physician: Unknown Physician Consults: 04/17/24 06:02 Addiction Medicine Provider Routine Consulting Provider: Addiction Covering Reason for consultation: alcohol use disorder Has provider been notified: No DS: Diagnosis Discharge Diagnosis (1) Alcohol use disorder, severe, dependence: Status: Acute (2) Alcohol withdrawal syndrome: Status: Acute (3) Acute alcoholic pancreatitis: Status: Acute DS: Summary Hospital Course Hospital Course: Chief Complaint: epigastric pain, N/V Patient is a 38-year-old female with a past medical history significant for alcohol use disorder, alcohol withdrawal, acute alcoholic pancreatitis, and obesity, who presented to the ED due to epigastric pain, nausea and vomiting. She reports this feels very similar to previous episodes of pancreatitis and alcohol withdrawal. She has been drinking 2 pt of vodka daily, strong CT 17:00 yesterday. She has no additional symptoms including rhinorrhea, congestion, chest pain, shortness of breath, urinary symptoms including frequency, urgency or dysuria. She has been able to tolerate clear liquids and currently rates her pain an 8/10 with movement, slightly less when lying still. Hospital course: Patient is a 38-year-old female with a past medical history significant for alcohol use disorder, alcohol withdrawal, acute alcoholic pancreatitis, and obesity, who presented to the ED due to epigastric pain, nausea and vomiting. Acute alcoholic pancreatitis, treated conservatively with IVF, and pain medication bowel rest and ultimately diet advanced to regular diet which she is tolerarting. Lipase level has come down to normal level. She understands continuing aalcohol use will exacerbate the problem in the future. Alcohol withdrawal Alcohol use disorder Treated with Phenobarbital and presently without symptoms fo withdrawal..Was seen by addiction med and recovery team and offer outpatient resources. Tachycardia d/t alcohol withdawal , resolved with IVF and above treatment Obesity, BMI 35.9 weight loss encouraged Time Attestation Discharge Coordination Time (in mins): 40 Quality: Safe Use of Opioids Does Pt have an Active Cancer Diagnosis on the Problem List?: No Quality: Stroke Does the patient have a stroke diagnosis?: No Physical Exam Vital Signs: Vital Signs: Last Vital Signs Temp 97.0 F 04/20/24 10:58 Pulse 84 04/20/24 10:58 Resp 16 04/20/24 10:58 BP 139/84 04/20/24 10:58 Pulse Ox 100 04/20/24 10:58 O2 Del Method Room Air 04/20/24 10:58 BMI result Body Mass Index 35.9 Const: Other: General: AO X 3, no acute distress Resp: CTA bilateral CVS: S1,S2,RRR GI: +BS, NT, no distention Skin: No rash Neuro: motor grossly intact Psych: appropriate affect DS: Data Data Completed and Pending Completed studies during hospitalization [Text1]: Procedures Detoxification Services for Substance Abuse Treatment (03/21/24) Discharge Plan Discharge Anticipated Discharge Date/Time: 04/20/24 11:24 Patient Disposition: Home, Self-Care Discharge Diagnosis: Acute alcoholic pancreatitis, alcohol withdrawal. Referrals: Physician,Unknown J [Primary Care Provider] - 1 Week Discharge Medications: Continued pantoprazole 40 mg tablet,delayed release (DR/EC) 40 mg PO DAILY@0630 albuterol sulfate 90 mcg/actuation HFA aerosol inhaler 1 puff INHALATION QID PRN (Reason: wheezing) multivitamin [Daily-Sarita] Tablet 1 tab PO DAILY Qty: 30 0RF folic acid 1 mg Tablet 1 mg PO DAILY Qty: 30 0RF thiamine mononitrate (vit B1) 100 mg Tablet 100 mg PO DAILY Qty: 30 0RF Discharge Orders: Discharge Order (Routine); Ordered 04/20/24 Ordered By: Fransisco Carvajal Diet: Advance to usual diet Activity on Discharge: As tolerated Stand Alone Forms: Patient Portal Discharge page Print Language: [place]alander Care Plan Goals: recovery from alcohol and alcohol related pancreatitis and to stay sobber Health Concerns: alcohol use disorder alcoholic pancreaitis Plan of Treatment: follow through outpatient resources given to you avoid alcohol at all cost follow up with yor doctor in a week Assessment: see above
--- NOTE | 2024-04-20 11:42 | MHC.RECOVRN ---
Met with pt in 452. Pt discharging today, going home to gather belongings and friend Arpita will transport pt to [facility]. [facility] aware pt will be presenting later today. Pt denies other questions or concerns.
--- NOTE | 2024-04-20 11:44 | MHC.CM.PN ---
Patient has been medically cleared for dc to home today, self care. CM has arranged for a LYFT to take Patient home today at 1:30 PM; RN is aware.
== END 2024-04-20 12:38 | disposition home or self-care (01) | DRG 282 ==
LOC: HO.ED 04-17 04:11 → HO.EDOVER 04-17 06:36 → HO.IMC 04-17 15:11
PROVIDERS: Physician Assistant Medical; Admitting Provider Physician Assistant; Emergency Provider Emergency Medicine; Visit Provider Internal Medicine
DX: K85.20 Alcohol induced acute pancreatitis without necrosis or infection (principal); E66.9 Obesity, unspecified; F10.239 Alcohol dependence with withdrawal, unspecified; Z68.35 Body mass index [BMI] 35.0-35.9, adult; Z71.3 Dietary counseling and surveillance; Z79.899 Other long term (current) drug therapy
CPT/HCPCS: 36415; 74177; 80053; 80307; 83690; 83735; 84702; 85025; 93005; 99285; J1650; J1885; J2270; J2405; J2470; J2560; J3411; J3475; J7120; Q9967; S9485

== ENCOUNTER → 2024-04-16 | Outpatient (BNV) | payer MEDICAID, SELFPAY | PROVIDERS: Admitting Provider Physician Assistant; Emergency Provider Emergency Medicine; Visit Provider Internal Medicine | DX: R00.0 Tachycardia, unspecified (principal) | CPT/HCPCS: 93010 ==

== ENCOUNTER → 2024-04-17 03:15 | Outpatient (BNV) | payer MEDICAID, SELFPAY | PROVIDERS: Admitting Provider Physician Assistant; Emergency Provider Emergency Medicine; Visit Provider Radiology Diagnostic Radiology | DX: K76.0 Fatty (change of) liver, not elsewhere classified (principal); R16.0 Hepatomegaly, not elsewhere classified | CPT/HCPCS: 74177 ==

== ENCOUNTER → 2024-04-17 05:43 | Outpatient (BNV) | payer MEDICAID, SELFPAY | PROVIDERS: Admitting Provider Physician Assistant; Emergency Provider Emergency Medicine; Visit Provider Internal Medicine | DX: F10.939 Alcohol use, unspecified with withdrawal, unspecified (principal); K85.20 Alcohol induced acute pancreatitis without necrosis or infection | CPT/HCPCS: 99223; 99232; 99499 ==

== ENCOUNTER 2024-06-15 08:38 | Inpatient (IN) | payer OTHER, SELFPAY ==
[2024-06-15] VITALS (9 sets, daily range): BP systolic 104–152; BP diastolic 56–90; PULSE 122–145; RESP 18–20; TEMP 36.3–37.1; O2SAT 93–97; BMI 29.4; BMI 28.0
--- NOTE | ~2024-06-15 | CT_ITS ---
EXAMINATION: CT ABDOMEN AND PELVIS WITHOUT CONTRAST CLINICAL INFORMATION: EtOH abuse. Concerning pancreatitis. COMPARISON: April 17, 2024. TECHNIQUE: Multidetector volumetric imaging was performed from the superior aspect of the liver through the pubic symphysis. Sagittal and coronal reformatted images were obtained on the technologist's workstation. This CT examination was performed using dose optimization techniques as appropriate, variously including the following: *Automated exposure control *Adjustment of mA and/or kV according to patient size (this includes techniques or standardized protocols for targeted exams where dose is matched to indication/reason for exam; i.e. extremities or head) *Use of iterative reconstruction technique DLP: 591 mGy centimeter. FINDINGS: Inadequate evaluation of the intra-abdominal organs and vascular structures due to lack of IV contrast. No peripancreatic fluid collections or peripancreatic edema pattern. No ascites. No fluid within the lesser sac. No main pancreatic ductal dilatation. Hiatal hernia, moderate size. No hydronephrosis or gross nephrolithiasis. 3.6 cm cystic lesion left adnexa/left ovary. Appendix is normal. T-shaped contraceptive device in place. No ascites. No pneumoperitoneum. No pneumatosis intestinalis. Collapsed appearance of the left hemicolon. No other change. CT/CT abdomen pelvis wo IV con IMPRESSION: No acute pancreatitis by imaging. Fleischner guidelines were followed. Electronically signed by: Ten Malhotra MD 06/15/2024 02:02 PM EDT
--- NOTE | ~2024-06-15 | XR_ITS ---
EXAMINATION: XR CHEST 1 VIEW HISTORY: cough COMPARISON: There are no prior studies for comparison. FINDINGS: A single AP portable view of the chest performed at 10:16 AM is submitted. The lungs are expanded and clear. There is no pleural effusion, pneumothorax, or pulmonary vascular congestion. The heart is normal in size. There is scoliosis of the spine. XR/XR chest 1V IMPRESSION: Clear lungs. Electronically signed by: Buddy Prince MD 06/15/2024 10:28 AM EDT
--- NOTE | 2024-06-15 08:48 | ECG_ITS ---
Test Reason : tachy Blood Pressure : */* mmHG Vent. Rate : 140 BPM Atrial Rate : 140 BPM P-R Int : 126 ms QRS Dur : 70 ms QT Int : 282 ms P-R-T Axes : 41 53 47 degrees QTcB Int : 430 ms Sinus tachycardia Possible Left atrial enlargement Cannot rule out Anterior infarct (cited on or before 17-Apr-2024) Abnormal ECG When compared with ECG of 17-Apr-2024 00:29, No significant change was found Referred By: Sedrick Benites Electronically Signed By: BERRY ZAYAS
--- NOTE | 2024-06-15 08:50 | PC.NURSE ---
per patient report has been drinking x 1 pint of vodka daily over last 3 days , last drink last night
--- NOTE | 2024-06-15 08:59 | ED.GENADULT ---
HPI - General Adult General Chief complaint: General Medical Stated complaint: FLANK PAIN Time Seen by Provider: 06/15/24 08:42 Source: patient Mode of arrival: EMS Limitations: no limitations History of Present Illness HPI narrative: This is a 39-year-old woman with a past medical history of alcohol use disorder complicated by withdrawal/seizure and pancreatitis, GERD who is brought in by EMS for evaluation of abdominal pain and N/V. patient states that she had been sober from alcohol for the last 1 month. She states that she relapsed 3 days ago. She states drinking a pt of vodka daily since then with her last drink around 1230 last night. She states starting an injection for weight loss a couple weeks ago and states she has had some decreased appetite. She states no diarrhea. She states she takes pantoprazole and states that this is her only other medication right now. He reports due to her pain and nausea she has not been able to take this for the last few days. She states vomiting. She states no hematemesis or bloody stools. She states no back pain. She states no fever. She states she has had cough, which she attributes to her vomiting and states her throat feels like acid . She states at times feeling short of breath and having chest tightness as well. Related Data Home Medications ?Medication ?Instructions ?Recorded ?Confirmed albuterol sulfate 90 mcg/actuation 1 puff inhalation QID PRN wheezing 07/04/23 04/17/24 aerosol inhaler pantoprazole 40 mg tablet,delayed 40 mg PO DAILY@0630 03/22/24 04/17/24 release acamprosate 333 mg tablet,delayed 666 mg PO TID 06/15/24 06/15/24 release fluticasone 250 mcg-salmeterol 50 1 ea inhalation BID 06/15/24 mcg/dose blistr powdr for inhalation (Santana Inhub) gabapentin 300 mg capsule 300 mg PO Q8H 06/15/24 ondansetron 4 mg disintegrating PO 06/15/24 tablet pregabalin 100 mg capsule 100 mg PO BID 06/15/24 Previous Rx's ?Medication ?Instructions ?Recorded folic acid 1 mg tablet 1 mg PO DAILY #30 tabs 07/05/23 multivitamin (Daily-Sarita tablet) 1 tab PO DAILY #30 tabs 07/05/23 thiamine mononitrate (vit B1) 100 100 mg PO DAILY #30 tabs 07/05/23 mg tablet Allergies Allergy/AdvReac Type Severity Reaction Status Date / Time adhesive AdvReac Hives Verified 06/15/24 08:47 Review of Systems Review of Systems: ROS as per [facility] Past Medical History Medical History MDD (major depressive disorder), recurrent episode, moderate Asthma Anxiety and depression Tachycardia Alcohol withdrawal Family History Family History Mother Alcohol use disorder Maternal Grandfather Alcohol use disorder Social History Social History Household Members: Friend(s) Household Members Other:: roommate Housing: Apartment Do you presently have visiting nurse or other home services: No Alcohol intake: current Alcohol intake frequency: 3 or more drinks per day Alcohol type: hard liquor Patient Tobacco Use Status: Never used Tobacco Tobacco use type: Cigarette Smoked in Last 30 Days: Yes e-Cigarette/Vaping Use: Never Used Second Hand Smoke Exposure: No Use of substances other than those prescribed or required for medical reasons: No Substance Use Type: Marijuana Advance Directives: Yes Advance Directives on File: Yes Advance Directives Date on File: 02/11/23 Do you have a plan to hurt others: No Plan service: No Physical Exam ED Vital Signs: Vital Signs - 24 hr 06/15/24 08:46 06/15/24 09:38 06/15/24 10:00 Temperature 97.9 F 98.8 F Pulse Rate 142 H 127 H Respiratory Rate 18 20 Blood Pressure 152/87 H 133/85 Pulse Oximetry 96 97 Oxygen Delivery Method Room Air Room Air BMI result Body Mass Index 29.4 Gen: NAD, AOx3 HEENT: NCAT, EOMI, normal conjunctiva, anicteric sclera CV: Tachycardic rate, regular rhythm Pulm: CTAB, no increased work of breathing GI: Soft, generalized TTP, no rebound, guarding or rigidity Neuro: CN 2-12 grossly intact, no motor or sensory deficits Medications Administered Generic Name Dose Route Start Last Admin Trade Name Freq PRN Reason Stop Dose Admin Lorazepam 1 mg 06/15/24 11:15 06/15/24 11:23 Lorazepam 1 Mg Tablet PO 06/19/24 11:14 1 mg Q4H DAMIEN Administration Taper Discontinued Medications Generic Name Dose Route Start Last Admin Trade Name Clarissa PRN Reason Stop Dose Admin Sodium Chloride 1,000 mls @ 999 mls/hr 06/15/24 08:45 06/15/24 10:21 Ns IV 06/15/24 09:45 Infused .Q1H1M DAMIEN Infusion Thiamine HCl 100 mg/ Sodium 101 mls @ 202 mls/hr 06/15/24 09:12 06/15/24 10:08 Chloride IV 06/15/24 09:41 Infused ONCE ONE Infusion Dextrose/Sodium Chloride 1,000 mls @ 1,000 mls/hr 06/15/24 09:37 06/15/24 10:35 D5ns IVCONT 06/15/24 10:36 1,000 mls/hr .Q1H ONE Administration Lidocaine HCl 15 ml 06/15/24 11:01 06/15/24 11:23 Lidocaine Hcl Viscous 2 % 15 Ml Solution MUCOUS MEM 06/15/24 11:02 15 ml ONCE ONE Administration Lorazepam 2 mg 06/15/24 09:13 06/15/24 09:34 Lorazepam 1 Mg Tablet PO 06/15/24 09:14 2 mg ONCE ONE Administration Morphine Sulfate 4 mg 06/15/24 09:12 06/15/24 09:26 Morphine Sulfate 4 Mg/Ml Cartridge IVPUSH 06/15/24 09:13 4 mg ONCE ONE Administration Protocol Morphine Sulfate 4 mg 06/15/24 11:01 06/15/24 11:23 Morphine Sulfate 4 Mg/Ml Cartridge IVPUSH 06/15/24 11:02 4 mg ONCE ONE Administration Protocol Ondansetron HCl 4 mg 06/15/24 09:12 06/15/24 09:24 Ondansetron Hcl 4 Mg/2 Ml Vial IVPUSH 06/15/24 09:13 4 mg ONCE ONE Administration Ondansetron HCl 4 mg 06/15/24 11:01 06/15/24 11:22 Ondansetron Hcl 4 Mg/2 Ml Vial IVPUSH 06/15/24 11:02 4 mg ONCE ONE Administration Pantoprazole Sodium 40 mg 06/15/24 09:12 06/15/24 09:29 Pantoprazole Sodium 40 Mg/10 Ml Vial IVPUSH 06/15/24 09:13 40 mg ONCE ONE Administration Medical Decision Making Medical Decision Making [facility] Narrative: Differential diagnosis includes, but is not limited to alcohol use, alcohol withdrawal, gastritis pancreatitis, electrolyte derangement, acute kidney injury, ACS, pneumothorax. Patient is afebrile and hemodynamically stable on room air albeit she is tachycardic on arrival, which I suspect is secondary to hypovolemia 2/2 alcohol use and potentially a component of early alcohol withdrawal. Exam is benign and reassuring. I reviewed patient's labs, EKG, CXR and viral panel as below. Patient is started on CIWA. Patient is treated supportively in the ED with Zofran, Morphine, Pantoprazole, Thiamine, viscous lidocaine, 1L IV NS, 1L IV D5NS. I discussed case and management with admitting hospitalist who accepts patient for admission. Critical Care Time: A total of 35 minutes spent in direct patient care with coordinating critical resuscitation, procedures, reviewing records, discussing with consultants, reviewing labs, and/or managing patient. Admission/Observation Consideration of admission/observation: Escalation of care including admission/observation considered Consult Healthcare Provider Management of the patient was discussed with: Hospitalist Lab Data [facility] Lab Attestation statement: I reviewed the patient's lab results. labs notable for l WBC 14.6, hemoglobin 16.3, platelets 465 (Suspect component of hemoconcentration secondary to dehydration in the setting of decreased oral intake, vomiting and alcohol use), venous blood gas demonstrates no acid-base derangement, metabolic panel notable for CO2 12, anion gap 33 ( likely secondary to starvation and alcoholic ketosis ), no electrolyte derangement, AST and ALT mildly elevated at 46 and 48 consistent with recent alcohol use, lipase within normal limits at 40 pointing away from acute pancreatitis, high sensitivity troponin negative effectively ruling out ACS in this low risk patient, viral panel negative, ethanol 194 06/15/24 09:08 06/15/24 09:08 Labs: Lab Results 06/15/24 06/15/24 06/15/24 Range/Units 09:08 09:21 09:23 WBC 14.6 H (4.8-10.8) X10*3/uL RBC 5.30 D (4.20-5.50) X10*6/uL Hgb 16.3 H D (12.0-16.0) g/dl Hct 46.1 D (37.0-47.0) % MCV 87.0 (80.0-98.0) fL MCH 30.8 (27.0-33.0) pg MCHC 35.4 H (31.0-35.0) g/dl RDW 13.3 (11.0-16.0) % Plt Count 465 H D (160-400) X10*3/uL MPV 9.0 L (9.4-12.3) fL Immature Gran % (Auto) 0.3 (0.0-0.4) % Neut % (Auto) 83.5 H (45-73) % Lymph % (Auto) 12.4 L (20-40) % [place] % (Auto) 3.1 (2-11) % Eos % (Auto) 0.0 (0-4) % Baso % (Auto) 0.7 (0-2) % Lymph # (Auto) 1.8 (1.2-4.9) X10*3/uL [place] # (Auto) 0.5 (0.1-1.2) X10*3/uL Eos # (Auto) 0.0 (0.0-0.4) X10*3/uL Baso # (Auto) 0.1 (0.0-0.2) X10*3/uL Abs Immat Gran (auto) 0.05 H (0.00-0.03) X10*3/uL Absolute Neuts (auto) 12.2 H (2.0-8.3) x10*3/uL Absolute Nucleated RBC 0.000 (0.0-0.012) X10*3/uL Nucleated RBC % (auto) 0.0 (0.0-0.2) /100WBC VBG pH (7.32-7.43) VBG pCO2 mmHg VBG pO2 mmHg VBG HCO3 (22-26) mmol/L VBG O2 Saturation % VBG Base Excess mmol/L Sodium 139 (135-145) mmol/L Potassium 4.8 D (3.3-5.1) mmol/L Chloride 99 (96-108) mmol/L Carbon Dioxide 12 L (22-29) mmol/L Anion Gap 33 H (12-20) BUN 8 L (9-16) mg/dL Creatinine 0.98 (0.5-1.4) mg/dL Estim Creat Clear Calc 79.2 Estimated GFR > 60 Random Glucose 127 H (60-115) mg/dL Calcium 10.2 D (8.4-10.2) mg/dL Magnesium 2.2 (1.6-2.6) mg/dL Total Bilirubin 0.5 (0.0-1.0) mg/dL Direct Bilirubin 0.1 (0.0-0.5) mg/dL AST 46 H (5-31) U/L ALT 48 H (0-31) U/L Alkaline Phosphatase 77 (39-117) U/L Troponin I High Sens < 2.7 (<3.5-17.0) ng/L Total Protein 9.0 H (6.5-8.0) g/dL Albumin 5.1 H (3.5-5.0) g/dL Lipase 40 (8-78) U/L Ethyl Alcohol 194 mg/dL Influenza Type A (PCR) NEGATIVE (Negative) Influenza Type B (PCR) NEGATIVE (Negative) RSV RNA Qual (PCR) NEGATIVE (Negative) SARS-CoV-2 RNA (RT-PCR) NEGATIVE (Negative) 06/15/24 Range/Units 09:56 WBC (4.8-10.8) X10*3/uL RBC (4.20-5.50) X10*6/uL Hgb (12.0-16.0) g/dl Hct (37.0-47.0) % MCV (80.0-98.0) fL MCH (27.0-33.0) pg MCHC (31.0-35.0) g/dl RDW (11.0-16.0) % Plt Count (160-400) X10*3/uL MPV (9.4-12.3) fL Immature Gran % (Auto) (0.0-0.4) % Neut % (Auto) (45-73) % Lymph % (Auto) (20-40) % [place] % (Auto) (2-11) % Eos % (Auto) (0-4) % Baso % (Auto) (0-2) % Lymph # (Auto) (1.2-4.9) X10*3/uL [place] # (Auto) (0.1-1.2) X10*3/uL Eos # (Auto) (0.0-0.4) X10*3/uL Baso # (Auto) (0.0-0.2) X10*3/uL Abs Immat Gran (auto) (0.00-0.03) X10*3/uL Absolute Neuts (auto) (2.0-8.3) x10*3/uL Absolute Nucleated RBC (0.0-0.012) X10*3/uL Nucleated RBC % (auto) (0.0-0.2) /100WBC VBG pH 7.36 (7.32-7.43) VBG pCO2 28 mmHg VBG pO2 55 mmHg VBG HCO3 16 L (22-26) mmol/L VBG O2 Saturation 81.0 % VBG Base Excess -7.3 mmol/L Sodium (135-145) mmol/L Potassium (3.3-5.1) mmol/L Chloride (96-108) mmol/L Carbon Dioxide (22-29) mmol/L Anion Gap (12-20) BUN (9-16) mg/dL Creatinine (0.5-1.4) mg/dL Estim Creat Clear Calc Estimated GFR Random Glucose (60-115) mg/dL Calcium (8.4-10.2) mg/dL Magnesium (1.6-2.6) mg/dL Total Bilirubin (0.0-1.0) mg/dL Direct Bilirubin (0.0-0.5) mg/dL AST (5-31) U/L ALT (0-31) U/L Alkaline Phosphatase (39-117) U/L Troponin I High Sens (<3.5-17.0) ng/L Total Protein (6.5-8.0) g/dL Albumin (3.5-5.0) g/dL Lipase (8-78) U/L Ethyl Alcohol mg/dL Influenza Type A (PCR) (Negative) Influenza Type B (PCR) (Negative) RSV RNA Qual (PCR) (Negative) SARS-CoV-2 RNA (RT-PCR) (Negative) Independent Interpretation I performed an independent interpretation of an: EKG and Plain X-Ray Interpretation: EKG shows sinus tachycardia at 140 beats per minute, SC 126, QRS 70, QTC 430, no STEMI. Chest x-ray demonstrates no pleural effusion/focal consolidation/pneumothorax Radiology Impression Discussion of test interpretation with radiology: I have reviewed the radiologist's reading. Radiologist Impression: XR/XR chest 1V IMPRESSION: Clear lungs. Electronically signed by: Buddy Prince MD 06/15/2024 10:28 AM EDT RP Dictated By: Buddy Prince MD Signed By: <Electronically signed by Buddy Prince MD in OV> 06/15/24 1028 Discharge Plan Discharge Clinical Impression: Alcohol use, High anion gap, Vomiting, Abdominal pain Patient Disposition: Admitted As Inpatient
[2024-06-15 09:11] LABS: MANUAL DIFF FLAG NO
[2024-06-15 09:13] LABS: Basophils Absolute Auto 0.1 X10*3/uL (0.0-0.2); Basophils Percent Auto 0.7 % (0-2); Hematocrit 46.1 % (37.0-47.0); Hemoglobin 16.3 g/dl (12.0-16.0); Imm Gran Abs Auto 0.05 X10*3/uL (0.00-0.03); Imm Gran Pct Auto 0.3 % (0.0-0.4); Lymphocytes Absolute Auto 1.8 X10*3/uL (1.2-4.9); Lymphocytes Percent Auto 12.4 % (20-40); Mean Corpuscular HGB Conc 35.4 g/dl (31.0-35.0); Mean Corpuscular Hemoglobin 30.8 pg (27.0-33.0); Monocytes Absolute Auto 0.5 X10*3/uL (0.1-1.2); Monocytes Percent Auto 3.1 % (2-11); Neutrophils Absolute Auto 12.2 x10*3/uL (2.0-8.3); Neutrophils Percent Auto 83.5 % (45-73); Platelet Count 465 X10*3/uL (160-400); Red Cell Distribution Width 13.3 % (11.0-16.0); White Blood Count 14.6 X10*3/uL (4.8-10.8)
[2024-06-15] MEDS: 0.9 % Sodium Chloride 1,000 ML 999 ML IV (09:19)
[2024-06-15] MEDS: ondansetron HCL 4 MG/2 ML VIAL IVPUSH ×2 (09:24→11:22)
[2024-06-15] MEDS: Morphine Sulfate 4 MG/ML CARTRIDGE IVPUSH ×2 (09:26→11:23)
[2024-06-15 09:28] LABS: Alanine Aminotransferase 48 U/L (0-31); Albumin Level 5.1 g/dL (3.5-5.0); Alkaline Phosphatase 77 U/L (39-117); Anion Gap 33 (12-20); Aspartate Amino Transferase 46 U/L (5-31); Bilirubin Direct 0.1 mg/dL (0.0-0.5); Bilirubin Total 0.5 mg/dL (0.0-1.0); Blood Urea Nitrogen 8 mg/dL (9-16); Calcium 10.2 mg/dL (8.4-10.2); Carbon Dioxide 12 mmol/L (22-29); Chloride 99 mmol/L (96-108); Creatinine Clr Calc Pharmacy 79.2; Estimated Glomerular Filt Rate > 60; Ethanol 194 mg/dL; Glucose Random 127 mg/dL (60-115); Lipase 40 U/L (8-78); Potassium 4.8 mmol/L (3.3-5.1); Sodium 139 mmol/L (135-145)
[2024-06-15] MEDS: Pantoprazole Sodium 40 MG/10 ML VIAL IVPUSH (09:29)
[2024-06-15] MEDS: LORazepam 1 MG TABLET 2 MG PO (09:34)
[2024-06-15] MEDS: Thiamine HCL 100 MG in 0.9 % Sodium Chloride 100 ML 202 MG IV (09:35)
--- OUTSIDE RECORDS SUMMARY | 2024-06-15 09:38 | XMS_ITS | Data Portability ---
Author Organization [facility] [address] Address [address] [place] [address] Care Team Providers Care Rn Family Name Role Phone SHARONA FREED Primary Care Provider [phone] Assessment No assessment recorded. Plan of Treatment Reminders Order Date Submit Date Provider Last Modified By Organization Details Last Modified Time Details Appointments None recorded. Lab None recorded. Referral None recorded. Procedures None recorded. Surgeries None recorded. Imaging None recorded. Medication Orders amoxicillin 875 mg-potassiu m clavulanate 125 mg tablet 2022 023 [id number], [address] [place], [address], 3 16:55:49 Allergy Relief (fluticason e) 50 mcg/actuati on nasal spray,suspe nsion 2022 023 [id number], [address] [place], [address], 3 16:55:50 prednisone 20 mg tablet 2022 023 [id number], [address] [place], [address], 3 16:55:50 amoxicillin 875 mg-potassiu m clavulanate 125 mg tablet 2022 023 [email or web address] [facility]armacy #7111, [address] [place], [address], 3 16:35:03 prednisone 20 mg tablet 2022 023 [email or web address] [facility]acy #[facility], [address] [place], [address], 16:35:32 fexofenadin e-pseudoeph edrine ER 180 mg-240 mg tablet,ext. release 24 hr 2022 023 [email or web address] [facility] #[id number], [address] [place], [address], 16:35:10 Patient TargetsNo targets recorded. Patient Instructions Encounter Date Encounter Id Patient Instructions Last Modified By Organization Details Last Modified Time 03/22/2022 [id number] hearing loss: ca re instructions Not available 03/22/2022 19:51:20 Sinusitis is an infection of the lining of the sinus cavities in your head. Sinusitis often follows a cold. It causes pain and pressure in your head and face. In most cases, sinusitis gets better on its own in 1 to 2 weeks. But some mild symptoms may last for several weeks. Sometimes antibiotics are needed. if you are having problems. It's also a good idea to know your test results and keep a list of the medicines you take. How can you care for yourself at home? Take an ceqx-hpd-hwtgdpu pain medicine. Avoid Ibuprofen, Aleve and Aspirin if . If the doctor prescribed antibiotics, take them as directed. Do not stop taking them just because you feel better. You need to take the full course of antibiotics. Be careful when taking xdyr-haz-vrdrfia cold or influenza (flu) medicines and Tylenol at the same time. Many of these medicines have acetaminophen, which is Tylenol. Read the labels to make sure that you are not taking more than the recommended dose. Too much acetaminophen (Tylenol) can be harmful. Breathe warm, moist air from a steamy shower, a hot bath, or a sink filled with hot water. Avoid cold, dry air. Using a humidifier in your home may help. Follow the directions for cleaning the machine. Use saline (saltwater) nasal washes. This can help keep your nasal passages open and wash out mucus and bacteria. You can buy saline nose drops at a grocery store or [employer]. Or you can make your own at home by adding 1 teaspoon (5 millilitres) of salt and 1 teaspoon (5 millilitres) of baking soda to 2 cups (500 mL) of distilled water. If you make your own, fill a bulb syringe with the solution, insert the tip into your nostril, and squeeze gently. Blow your nose. Put a hot, wet towel or a warm gel pack on your face 3 or 4 times a day for 5 to 10 minutes each time. Try a decongestant nasal spray like oxymetazoline (Drixoral). Do not use it for more than 3 days in a row. Using it for more than 3 days can make your congestion worse. Not available 03/22/2022 19:51:01 An ear infection may start with a cold and affect the middle ear (otitis media). It can hurt a lot. Most ear infections clear up on their own in a couple of days and do not need antibiotics. Also, antibiotics do not work against viruses, which may be the cause of your infection. Regular doses of pain relievers are the best way to reduce your fever and help you feel better. How can you care for yourself at home? Take pain medicines exactly as directed. If the doctor gave you a prescription medicine for pain, take it as prescribed. If you are not taking a prescription pain medicine, take an rikv-bzz-psleiob medicine, such as acetaminophen (Tylenol), ibuprofen (Advil, Motrin), or naproxen (Aleve). Read and follow all instructions on the label. Do not take two or more pain medicines at the same time unless the doctor told you to. Many pain medicines have acetaminophen, which is Tylenol. Too much acetaminophen (Tylenol) can be harmful. Plan to take a full dose of pain reliever before bedtime. Getting enough sleep will help you get better. Try a warm, moist face cloth on the ear. It may help relieve pain. If your doctor prescribed antibiotics, take them as directed. Do not stop taking them just because you feel better. You need to take the full course of antibiotics. If you test positive for COVID-19, stay home for at least 5 days and isolate from others in your home. You are likely most infectious during these first 5 days. Wear a high-quality mask if you must be around others at home and in public. Do not go places where you are unable to wear a mask. For travel guidance, see [facility]? s Travel webpage. Do not travel. Stay home and separate from others as much as possible. Use a separate bathroom, if possible. Take steps to improve ventilation at home, if possible. Don? t share personal household items, like cups, towels, and utensils. Monitor your symptoms. If you have an emergency warning sign (like trouble breathing), seek emergency medical care immediately. If you had symptoms and: Your symptoms are improving You may end isolation after day 5 if: You are fever-free for 24 hours (without the use of fever-reducing medication). Your symptoms are not improving Continue to isolate until: You are fever-free for 24 hours (without the use of fever-reducing medication). Your symptoms are improving. Regardless of when you end isolation Until at least day 11: Avoid being around people who are more likely to get very sick from COVID-19. Remember to wear a high-quality mask when indoors around others at home and in public. Do not go places where you are unable to wear a mask until you are able to discontinue masking (see below). For travel guidance, see [facility]? s Travel webpage. Not available 03/22/2022 19:51:19 05/15/2022 [id number] earache: care instructions Not available 05/15/2022 16:55:47 ear infection (otitis media): care instructions Not available 05/15/2022 16:55:47 An ear infection may start with a cold and affect the middle ear (otitis media). It can hurt a lot. Most ear infections clear up on their own in a couple of days and do not need antibiotics. Also, antibiotics do not work against viruses, which may be the cause of your infection. Regular doses of pain relievers are the best way to reduce your fever and help you feel better. How can you care for yourself at home? Take pain medicines exactly as directed. If the doctor gave you a prescription medicine for pain, take it as prescribed. If you are not taking a prescription pain medicine, take an ewqh-pqd-hizwioy medicine, such as acetaminophen (Tylenol), ibuprofen (Advil, Motrin), or naproxen (Aleve). Read and follow all instructions on the label. Do not take two or more pain medicines at the same time unless the doctor told you to. Many pain medicines have acetaminophen, which is Tylenol. Too much acetaminophen (Tylenol) can be harmful. Plan to take a full dose of pain reliever before bedtime. Getting enough sleep will help you get better. Try a warm, moist face cloth on the ear. It may help relieve pain. If your doctor prescribed antibiotics, take them as directed. Do not stop taking them just because you feel better. You need to take the full course of antibiotics. Not available 05/15/2022 16:55:45 Reason for Referral None Reported. Problems Name Problem SNOMED Code Status Onset Date Resolution Date Notes Provider Name and Address Organization Details Recorded Time Asthma 928203837 Active 2022 [facility] 3 19:03:38 Tachycardia 5575045 Completed 202203/22/2022 [facility] 3 19:03:47 Problem Notes None recorded. Medical Equipment None Reported. Allergies No known drug allergies Medications Name Sig Start Date Stop Date Status Note LastModified by Organization Details LastModified Time amoxicillin 500 mg capsule TAKE 1 CAPSULE BY MOUTH TWICE A DAY FOR 10 DAYS 05/15 completed Not Available Not Available Not Available prednisone 10 mg tablet PLEASE SEE ATTACHED FOR DETAILED DIRECTION S 03/22 completed Not Available Not Available Not Available naltrexone 50 mg tablet TAKE 1 TABLET BY MOUTH EVERY DAY 03/22 completed Not Available Not Available Not Available prednisone 20 mg tablet Take 2 tablets every day by oral route in the morning for 5 days. 2022 active Not Available Not Available Not Avai lable thiamine HCl (vitamin B1) 100 mg tablet TAKE 1 TABLET BY MOUTH EVERY DAY active Not Available Not Available No t Available diltiazem ER 120 mg capsule,ext ended release 12 hr TAKE 1 CAPSULE BY MOUTH EVERY 12 HOURS 03/22 completed Not Available Not Available Not Available cephalexin 500 mg capsule TAKE 1 CAPSULE BY MOUTH THREE TIMES A DAY FOR 7 DAYS 03/22 completed Not Available Not Available Not Available pantoprazol e 40 mg tablet,christa yed release TAKE 1 TABLET BY MOUTH EVERY DAY active Not Available Not Available No t Available buspirone 10 mg tablet TAKE 1 TABLET BY MOUTH 3 TIMES A DAY 03/22 completed Not Available Not Available Not Available hydroxyzine HCl 25 mg tablet TAKE 1 TABLET BY MOUTH EVERY 5 HOURS NEEDED active Not Available Not Available No t Available albuterol sulfate HFA 90 mcg/actuati on aerosol inhaler INHALE 1 PUFF BY MOUTH 4 TIMES A DAY NEEDED FOR WHEEZING active Not Available Not Available No t Available fluticasone propionate 50 mcg/actuati on nasal spray,suspe nsion SPRAY 1 SPRAY BY INTRANASA L ROUTE EVERY DAY DIRECTED FOR 30 DAYS active Not Available Not Available No t Available amoxicillin 875 mg-potassiu m clavulanate 125 mg tablet Take 1 tablet every 12 hours by oral route with meals for 10 days. 2022 active Not Available Not Available Not Avai lable hydroxyzine pamoate 25 mg capsule TAKE 1 CAPSULE BY MOUTH 3 TIMES A DAY NEEDED FOR ANXIETY active Not Available Not Available No t Available acamprosate 333 mg tablet,christa yed release TAKE 2 TABLETS BY MOUTH 3 TIMES A DAY 03/22 completed Not Available Not Available Not Available duloxetine 60 mg capsule,del ayed release TAKE 1 CAPSULE BY MOUTH EVERY DAY DO NOT CRUSH OR CHEW STOP DULOXETIN E 40MG active Not Available Not Available No t Available fexofenadin e-pseudoeph edrine ER 180 mg-240 mg tablet,ext. release 24 hr TAKE 1 TABLET EVERY DAY BY ORAL ROUTE IN THE EVENING FOR 10 DAYS. 05/15 completed Not Available Not Available Not Available Mirena active Not Available Not Availa ble Not Available Matzim LA 180 mg tablet,exte nded release TAKE 1 TABLET BY MOUTH EVERY DAY STOP 120MG TABS active Not Available Not Available No t Available Xarelto 20 mg tablet TAKE 1 TABLET BY MOUTH EVERY DAY AT SUPPER 03/22 completed Not Available Not Available Not Available Breo Ellipta 100 mcg-25 mcg/dose powder for inhalation INHALE 1 PUFF EVERY DAY FOR 30 DAYS 03/22 completed Not Available Not Available Not Available duloxetine 40 mg capsule,del ayed release TAKE 1 CAPSULE BY MOUTH DAILY DO NOT CRUSH OR CHEW active Not Available Not Available No t Available Flowflex COVID-19 Antigen Home Test kit FOLLOW DIRECTION S ON BOX active Not Available Not Available No t Available Vitals Date Recorded Body height Body mass index (BMI) Body weight Pain severity - 0-10 verbal numeric rating [Score] - Reported Respiratory rate Body temperature Oxygen saturation Oxygen saturation in Arterial blood by Pulse oximetry Heart rate Systolic blood pressure Diastolic blood pressure Provider Name and Address Organization Details Last Updated DateTime 3 162.56 cm 30.9 kg/m2 79966.6 3 g 7 18 /min 97.7 [degF] 97 % 97 % 102 /min 114 mm[Hg] 72 mm[Hg] BERTRAND MONDRAGON [facility] 3 16:37:51 Date Recorded Body height Body mass index (BMI) Body weight Pain severity - 0-10 verbal numeric rating [Score] - Reported Oxygen saturation Oxygen saturation in Arterial blood by Pulse oximetry Heart rate Respiratory rate Body temperature Systolic blood pressure Diastolic blood pressure Provider Name and Address Organization Details Last Updated DateTime 3 162.56 cm 30.9 kg/m2 61239.6 3 g 0 97 % 97 % 103 /min 18 /min 98.4 [degF] 135 mm[Hg] 85 mm[Hg] Luz Maria Rowell [facility] 3 19:20:56 Social History Question Answer Notes LastModified by Organizat ion Details LastModified Time Tobacco Smoking Status Never Smoker Luz Maria hutchinson [facility] 03/22/2022 19:04:40 What Is Your Level Of Alcohol Consumption? None Information not available 03/22/2022 Which Illicit Or Recreational Drugs Have You Used? Marijuana Information not available 03/22/2022 Do You Use Any Illicit Or Recreational Drugs? Yes Information not available 03/22/2022 Have You Recently Traveled Abroad? No Information not available 03/22/2022 Do You Or Have You Ever Used Any Other Forms Of Tobacco Or Nicotine? Yes Information not available 03/22/2022 Sex: Unknown Functional Status None recorded. Mental Status None recorded. Family History Relationship Description Onset Age of this Age Resolved Age Notes LastModified by Organization Details LastModified Time Maternal Grandmother Diabetes mellitus [email or web address] Not available 2022 19:04:10 Maternal Grandfather Chronic obstructive pulmonary disease [email or web address] Not available 2022 19:04:21 Medical History No medical history recorded. Gynecological HistoryNo gynecological history recorded. Obstetrics History GPAL:G 0 P 0 0 0 0 Past Encounters Encounter ID Performer Location Encounter Start Date Encounter Closed Date Diagnosis/Indication Diagnosis SNOMED-CT Code Diagnosis ICD10 Code Diagnosis Note [id number] [address] [place] [address] 12/30/2017 17:26:21 12/30/2017 18:06:12 [id number] [place] [address] 10/25/2021 17:02:44 10/25/2021 18:15:40 [id number] [address] [place] [address] 11/13/2017 17:27:46 11/13/2017 18:12:32 [id number] [address] [place] [address] 11/19/2017 11:35:55 11/19/2017 12:17:17 [id number] [address] [place] [address] 10/17/2019 10:01:35 10/17/2019 11:16:39 [id number] [address] [place] [address] 04/16/2020 17:05:19 04/16/2020 17:44:41 [id number] [address] [place] [address] 08/18/2021 18:58:28 08/18/2021 19:42:04 [id number] [place] [address] [facility] [address] [place] [address] 03/22/2022 17:00:34 03/22/2022 19:54:16 Acute right otitis media 202533177 H66.91 [id number] [facility] [address] [address] [place] [address] 05/15/2022 16:28:41 05/15/2022 16:58:53 Acute right otitis media 723399225 H66.91 Health Concerns Section Related Observation LastModified by Organization Detai ls LastModified Time None Recorded Concern Status LastModified by Organization Details LastModified Time None Recorded Advance Directives Directive None Recorded Payers Insurance Date Sequence Insurance Name Policy Number Policy Herrera Covered Member ID Herrera Member ID Guarantor Name 05/15/2022 1 [facility] Tita Owens [id number] Tita Owens 05/15/2022 2 [place] [facility] Tita Grider Roman [id number] Tita Owens Notes Date Note Type Note Provider Name and Address Organization Details Recorded Time 03/22/2022 text/html CongestionReport ed bypatient.Notes:nasal congestion with post nasal drip x 2 weeks. denies nay fever or fever with chills. no SOB or respiratory distress.Ear Pain Brief HPIReported bypatient.Location:pain radiates to neck; bilateral Onset/Timing:intermitte nt pain; gradual onset Duration:occurs daily; sensation/episode variable length Quality:aching pain;sharp pain Severity:getting worse; current pain 5/10 Context:recent ear infection Alleviating factors:ototopical antibiotics: ; nasal steroid spray Aggravating factors:sinus infections; allergies; irrigation of ear Associated Symptoms:Cough;nasal congestion;nasal discharge Parish Enriquez NP [address] [place], [address], [place] - [facility] 03/22/2022 19:51:44 05/15/2022 text/html Ear Pain Brief HPIReported bypatient.Location:left Onset/Timing:sudden onset Quality:no itching; no discharge from the ears; no burning;aching pain;sharp pain Severity:getting worse; no fever; able to perform daily activities; no interference with sleep Context:no recent trauma; no recent swimming; no immunocompromise; no dental problems; no recent airplane travel; no scuba diving; non-smoker;recent URI Aggravating factors:sinus infections Associated Symptoms:no jaw popping or clicking; No decreased appetite; no discharge from ear; no nasal discharge; no hearing loss; no sore throat; no dental pain; no jaw pain; no tinnitus;Cough;nasal congestion;sense of fullness/pressure; no decreased hearing; no muffled hearing Parish Enriquez NP [address] [place], [address], [place] - [facility] 05/15/2022 16:55:54 OBGyn Episode No OBEpisode recorded.
[2024-06-15 09:39] LABS: Magnesium 2.2 mg/dL (1.6-2.6)
[2024-06-15 09:47] LABS: Troponin-I High Sensitivity < 2.7 ng/L (<3.5-17.0)
[2024-06-15 10:00] LABS: Venous Blood Gas Refer to POC result
[2024-06-15 10:02] LABS: VBG Base Excess -7.3 mmol/L; VBG HCO3 16 mmol/L (22-26); VBG pCO2 28 mmHg; VBG pH 7.36 (7.32-7.43); VBG pO2 55 mmHg
[2024-06-15 10:28] LABS: Influenza A PCR NEGATIVE (Negative); Influenza B PCR NEGATIVE (Negative); Resp Syncy Virus RNA Qual PCR NEGATIVE (Negative); SARS COV2 PCR INHOUSE NEGATIVE (Negative)
[2024-06-15] MEDS: Dextrose 5 % and 0.9 % NaCl 1,000 ML 1000 ML IVCONT (10:35)
--- NOTE | 2024-06-15 11:13 | PC.NURSE ---
Report received. Taken over care at this time.
[2024-06-15] MEDS: LORazepam 1 MG TABLET PO ×3 (11:23→19:53)
[2024-06-15] MEDS: Lidocaine HCl Viscous 2 % 15 ML SOLUTION MUCOUS MEM (11:23)
--- NOTE | 2024-06-15 11:49 | P.HPHOSP_ITS ---
History of Present Illness Date of Service: 06/15/24 Chief Complaint: Abdominal pain and vomiting 39 year old female with a past medical history of AUD, Asthma, GERD, MDD, and acute alcoholic pancreatitis. She presents to the ER with complains of nausea,vomiting and abdominal pain that started this morning. She was admitted in April 2024 for acute alcoholic pancreatitis. She reports that she has been sober for 1 month and then relapsed. She started drinking last Tuesday and reports drinking 2 pints of Vodka per day. She reports trying Naltrexone in the past without good effect. She reports nausea, vomiting, abdominal pain, headache and diarrhea. She denies CP, SOB, or palpitations. In the ER labs were drawn, EKG and Chest x-ray were obtained. WBC 14.6, PLT 465, ALT 48, AST 46, Lipase 40. EKG shows ST in the 140's. In the ER she was given 1L of NS, pantoprazole, Zofran, Thiamine, Ativan and morphine. Review of Systems 2 Review of Systems: All systems reviewed and are negative. Pertinent positives discussed in HPI. [facility] Medical History MDD (major depressive disorder), recurrent episode, moderate Asthma Anxiety and depression Tachycardia Alcohol withdrawal Family History Mother Alcohol use disorder Maternal Grandfather Alcohol use disorder Pertinent family history: Morther alive, he doesn't speak to mother since 28 yo Father alive, she doesn't speak to father since 16 yo Social History (Updated 06/15/24 @ 12:50 by Kandi Taylor CNP) Household Members: Friend(s) Household Members Other:: roommate Housing: Apartment Do you presently have visiting nurse or other home services: No Alcohol intake: current Alcohol intake frequency: 3 or more drinks per day Alcohol type: hard liquor Comment: Reports drinking 2 pints per day Patient Tobacco Use Status: Never used Tobacco Tobacco use type: Cigarette e-Cigarette/Vaping Use: Never Used Second Hand Smoke Exposure: No Substance Use Type: Marijuana Advance Directives Date on File: 02/11/23 service: No Meds Allergies Allergy/AdvReac Type Severity Reaction Status Date / Time adhesive AdvReac Hives Verified 06/15/24 08:47 Active Medications: Current Medications Dextrose/Lactated Ringer's (D5lr) 1,000 mls @ 200 mls/hr IVCONT .Q5H DAMIEN Lorazepam (Lorazepam 1 Mg Tablet) 1 mg PO Q4H PRN PRN Reason: Breakthrough alcohol withdrawa Stop: 06/19/24 09:12 Lorazepam (Lorazepam 1 Mg Tablet) 1 mg PO Q4H DAMIEN; Taper Stop: 06/19/24 11:14 Last Admin: 06/15/24 11:23 Dose: 1 mg Home Medications ?Medication ?Instructions ?Recorded ?Confirmed ?Last Taken ?Type albuterol sulfate 90 mcg/actuation 1 puff inhalation QID PRN wheezing 07/04/23 06/15/24 06/14/24 History aerosol inhaler pantoprazole 40 mg tablet,delayed 40 mg PO DAILY@0630 03/22/24 06/15/24 06/14/24 History release Physical Exam 2 Vital Signs and Narrative: Vital Signs: Last Vital Signs Temp 98.8 F 06/15/24 10:00 Pulse 127 H 06/15/24 10:00 Resp 20 06/15/24 10:00 BP 133/85 06/15/24 10:00 Pulse Ox 97 06/15/24 10:00 O2 Del Method Room Air 06/15/24 10:00 BMI result Body Mass Index 29.4 Gen: comfortable NAD ?HEENT: PERRL, EOMI ?Neuro: CN II-XII normal, sensation intact: 5/5 strength in the upper extremities and lower extremities I: Not performed ?II: Pupils equal and reactive, ?III, IV, : EOM intact, no gaze preference or deviation, no nystagmus. ?V: normal sensation in V1, V2, and V3 segments bilaterally ?VII: no asymmetry, no nasolabial fold flattening ?VIII: normal hearing to speech ?IX, X: normal palatal elevation, no uvular deviation ?XI: 5/5 head turn and 5/5 shoulder shrug bilaterally ?XII: midline tongue protrusion ?CV: tachycardic and regular, no M/R/G ?Pulm: CTAB ?GI: +nl BS, soft, non distended and tender ?ext: no C/C/E Results Labs 06/15/24 09:08 06/15/24 09:08 Labs: Laboratory Results - last 24 hr 06/15/24 06/15/24 06/15/24 09:08 09:21 09:23 MCV 87.0 MCH 30.8 MCHC 35.4 H RDW 13.3 Plt Count 465 H D MPV 9.0 L Immature Gran % (Auto) 0.3 Neut % (Auto) 83.5 H Lymph % (Auto) 12.4 L [place] % (Auto) 3.1 Eos % (Auto) 0.0 Baso % (Auto) 0.7 Lymph # (Auto) 1.8 [place] # (Auto) 0.5 Eos # (Auto) 0.0 Baso # (Auto) 0.1 Abs Immat Gran (auto) 0.05 H Absolute Neuts (auto) 12.2 H Absolute Nucleated RBC 0.000 Nucleated RBC % (auto) 0.0 VBG pH VBG pCO2 VBG pO2 VBG HCO3 VBG O2 Saturation VBG Base Excess Anion Gap 33 H Estim Creat Clear Calc 79.2 Estimated GFR > 60 Random Glucose 127 H Calcium 10.2 D Magnesium 2.2 Total Bilirubin 0.5 Direct Bilirubin 0.1 AST 46 H ALT 48 H Alkaline Phosphatase 77 Total Protein 9.0 H Albumin 5.1 H Lipase 40 Ethyl Alcohol 194 Influenza Type A (PCR) NEGATIVE Influenza Type B (PCR) NEGATIVE RSV RNA Qual (PCR) NEGATIVE SARS-CoV-2 RNA (RT-PCR) NEGATIVE 06/15/24 09:56 MCV MCH MCHC RDW Plt Count MPV Immature Gran % (Auto) Neut % (Auto) Lymph % (Auto) [place] % (Auto) Eos % (Auto) Baso % (Auto) Lymph # (Auto) [place] # (Auto) Eos # (Auto) Baso # (Auto) Abs Immat Gran (auto) Absolute Neuts (auto) Absolute Nucleated RBC Nucleated RBC % (auto) VBG pH 7.36 VBG pCO2 28 VBG pO2 55 VBG HCO3 16 L VBG O2 Saturation 81.0 VBG Base Excess -7.3 Anion Gap Estim Creat Clear Calc Estimated GFR Random Glucose Calcium Magnesium Total Bilirubin Direct Bilirubin AST ALT Alkaline Phosphatase Total Protein Albumin Lipase Ethyl Alcohol Influenza Type A (PCR) Influenza Type B (PCR) RSV RNA Qual (PCR) SARS-CoV-2 RNA (RT-PCR) Imaging Radiologist's Impressions: Impressions Chest X-Ray 06/15/24 10:15 IMPRESSION: Clear lungs. Electronically signed by: Buddy Prince MD 06/15/2024 10:28 AM EDT RP Assessment and Plan (1) Alcohol use disorder, severe, dependence: Status: Acute (2) Sinus tachycardia: Status: Acute Plan 39 year old with a history of AUD, MDD, Asthma, acute alcohol pancreatitis, reports drinking 2 pints of Vodka per day for the past week, her last drink was 06/14/24. She has been sober for 1 month and relapsed on 06/10/24. She has been vomiting with concurrent abdominal pain. LFTs are mildly elevated, AST 46, ALT 48, Lipase 40 . Ethyl Tox 194. EKG shows sinus tachycardia. CIWA score of 29. Alcohol withdrawal - Phenoarbital - Thiamine and folic acid, IV fluids - Zofran PRN for nausea - Tylenol for WOODY - Monitor for seizures - Clear liquid diet advance as tolerated. Anion Gap Metabolic acidosis due to starvation ketoacidosis in the setting of alcohol use - IV fluids - Monitor [facility] Sinus tachycardia - Continue manager monitoring - IV fluids Mild intermittent Asthma without exacerbation - continue PRN home medications SIRS -Meets criteria for sepsis with leukocytosis and tachycardia. There is no evidence of active infection. Leukocytosis likely reactive due to vomiting and hemodilutional. Sinus tachycardia likely due to alcohol withdrawal. -Monitor CBC Gerd -Pepcid VTE: SC lovenox Code: Full Quality Stroke Does the patient have a stroke diagnosis?: No VTE Prior VTE?: No VTE Risk Level:: Medical - low VTE Device Contraindication: Treatment Not Indicated VTE Drug Contraindication: N/A - Med Ordered
[2024-06-15] MEDS: Lactated Ringers 500 ML 999 ML IV (12:20)
[2024-06-15 12:27] LABS: Appearance Urine Clear; Color Urine Yellow; Glucose Urine UA >=1000 mg/dL (Negative); Leukocyte Esterase Urine Negative (Negative); Nitrite Urine Negative (Negative); PH 5.5 (5.0-9.0); Specific Gravity - Urine >= 1.030 (1.005-1.025); UMIC TRIGGER UACC YES; Urine Blood Large (3+) (Negative); Urine Ketones >=160 mg/dL (Negative); Urine Protein 100 (2+) mg/dL (Neg-Trace)
[2024-06-15 12:29] LABS: Urine Pregnancy NEGATIVE (NEGATIVE)
[2024-06-15 12:30] LABS: UPreg QC Valid YES
[2024-06-15 12:39] LABS: Anion Gap 25 (12-20); Blood Urea Nitrogen 7 mg/dL (9-16); Calcium 8.4 mg/dL (8.4-10.2); Carbon Dioxide 15 mmol/L (22-29); Chloride 105 mmol/L (96-108); Creatinine Clr Calc Pharmacy 95.9; Estimated Glomerular Filt Rate > 60; Glucose Random 190 mg/dL (60-115); Potassium 4.4 mmol/L (3.3-5.1); Sodium 141 mmol/L (135-145)
[2024-06-15] MEDS: Dextrose 5 % and Lactated Ring 1,000 ML 200 ML IVCONT ×3 (12:41→22:40)
[2024-06-15 12:50] LABS: Bacteria Urine None Seen (None Seen); RBC Urine 0-2 /HPF (0-2); WBC Urine 0-5 /HPF (0-5)
[2024-06-15] MEDS: PHENobarbitaL sodium 130 MG/ML IM ONCE 175 MG IM (12:50)
--- NOTE | 2024-06-15 12:51 | PHA.MEDREC ---
Addendum entered by Danielle Mendieta [facility] 06/15/24 13:12: reviewed Original Note: Pharmacy Consult ? Medication Reconciliation Pharmacy has completed the medication reconciliation. Spoke to patient to confirm med list. patient states she only takes Albuterol Sulf HFA, and Pantoprazole 40 mg. Patient says she just started Ozempic 0.5 mg q2w, last dose was Tuesday06/03/24. She states she fills this medications from an online service called [employer], however she will not be filling with them again. left of med list because we couldn't confirm dosing. Also took off med list Wixela, Folic Acid 1 mg, Gabapentin 300 mg, Multivitamin, [place] , Pregabalin 100 mg, and Vitamin B-1 100 mg.
--- NOTE | 2024-06-15 14:00 | PC.NURSE ---
TRISH Robles and informed her that pt. sustaining hr of 130-150's, ivf currently running and pt. given ativan for w/d s/s. No new orders at this time.
[2024-06-15 15:53] LABS: Thyroid Stimulating Hormone 0.72 uIU/mL (0.32-4.0)
[2024-06-15] MEDS: PHENobarbitaL sodium 130 MG/ML VIAL IM Q3Hx2 131 MG IM ×2 (16:28→19:52)
[2024-06-15] MEDS: 0.9 % Sodium Chloride Flush 3 ML SYRINGE IVFLUSH ×2 (16:29→19:53)
[2024-06-15 17:57] LABS: Anion Gap 19 (12-20); Blood Urea Nitrogen 5 mg/dL (9-16); Calcium 8.6 mg/dL (8.4-10.2); Carbon Dioxide 21 mmol/L (22-29); Chloride 105 mmol/L (96-108); Creatinine Clr Calc Pharmacy 97.2; Estimated Glomerular Filt Rate > 60; Glucose Random 156 mg/dL (60-115); Potassium 3.7 mmol/L (3.3-5.1); Sodium 141 mmol/L (135-145)
[2024-06-15] MEDS: Morphine Sulfate 2 MG/ML CARTRIDGE IVPUSH (19:50)
[2024-06-16] VITALS: BP 99/55; PULSE 110; RESP 20; TEMP 36.7; O2SAT 95
[2024-06-16] MEDS: LORazepam 1 MG TABLET PO ×2 (00:52→04:29)
[2024-06-16] MEDS: hydrOXYzine HCL 25 MG TABLET PO (00:55)
[2024-06-16] MEDS: Dextrose 5 % and Lactated Ring 1,000 ML 200 ML IVCONT ×3 (03:43→13:58)
[2024-06-16 03:49] VITALS: BP 119/66; PULSE 101; RESP 20; TEMP 36.7; O2SAT 96
[2024-06-16 07:10] VITALS: BP 121/78; PULSE 98; RESP 18; TEMP 36.4; O2SAT 96
[2024-06-16 07:46] LABS: Hematocrit 33.9 % (37.0-47.0); Hemoglobin 11.6 g/dl (12.0-16.0); Mean Corpuscular HGB Conc 34.2 g/dl (31.0-35.0); Mean Corpuscular Hemoglobin 30.4 pg (27.0-33.0); Mean Platelet Volume 9.7 fL (9.4-12.3); Platelet Count 263 X10*3/uL (160-400); Red Blood Count 3.81 X10*6/uL (4.20-5.50); Red Cell Distribution Width 13.3 % (11.0-16.0); White Blood Count 6.4 X10*3/uL (4.8-10.8)
[2024-06-16 08:04] LABS: Alanine Aminotransferase 25 U/L (0-31); Albumin Level 3.3 g/dL (3.5-5.0); Alkaline Phosphatase 45 U/L (39-117); Aspartate Amino Transferase 29 U/L (5-31); Bilirubin Total 0.6 mg/dL (0.0-1.0); Blood Urea Nitrogen 3 mg/dL (9-16); Creatinine Clr Calc Pharmacy 113.2; Estimated Glomerular Filt Rate > 60; Glucose Random 100 mg/dL (60-115); Total Protein 5.5 g/dL (6.5-8.0)
[2024-06-16] MEDS: Famotidine 20 MG TABLET PO (08:07)
[2024-06-16] MEDS: PHENobarbitaL 15 MG TABLET 45 MG PO (08:07)
[2024-06-16] MEDS: Folic Acid 1 MG TABLET PO (08:07)
[2024-06-16] MEDS: Thiamine HCL 100 MG TABLET PO (08:07)
[2024-06-16] MEDS: 0.9 % Sodium Chloride Flush 3 ML SYRINGE IVFLUSH (08:07)
[2024-06-16 08:17] LABS: Anion Gap 13 (12-20); Carbon Dioxide 25 mmol/L (22-29); Chloride 104 mmol/L (96-108); Potassium 2.9 mmol/L (3.3-5.1); Sodium 139 mmol/L (135-145)
[2024-06-16] MEDS: Potassium Chloride ER 20 MEQ TAB.ER.PRT 40 MEQ PO (09:30)
--- NOTE | 2024-06-16 10:37 | PM.DS ---
DS: Providers Provider Date of Service: 06/16/24 Date of admission: 06/15/24 11:31 Date of discharge: 06/16/24 Primary care physician: Unknown Physician Consults: 06/15/24 15:29 Addiction Medicine Provider Routine Consulting Provider: Addiction Covering Reason for consultation: ETOH DS: Diagnosis Discharge Diagnosis (1) Alcohol use disorder, severe, dependence: Status: Acute (2) Sinus tachycardia: Status: Acute DS: Summary Hospital Course Hospital Course: HPI A 39-year-old female with a past medical history of alcohol use disorder (AUD), asthma, GERD, major depressive disorder (MDD), and acute alcoholic pancreatitis (April 2024) presents to the ER with nausea, vomiting, abdominal pain, headache, and diarrhea that began earlier today. She denies chest pain, shortness of breath, or palpitations. She reports that she had been sober for one month before relapsing last Tuesday, drinking approximately 2 pints of vodka daily. She has previously tried naltrexone, which she states was ineffective. Emergency Department Workup: Initial labs revealed WBC 14.6, platelets 465, ALT 48, AST 46, and lipase 40. Serum bicarbonate was 12 with an anion gap of 33. Glucose was 127. Urinalysis showed glucosuria and positive ketones. EKG showed sinus tachycardia in the 140s. Chest X-ray was unremarkable. She received 1L of normal saline, pantoprazole, ondansetron, thiamine, lorazepam, and morphine. Hospital Course: The patient was admitted for supportive. She was hydrated with intravenous fluids, which led to the resolution of her tachycardia. She was started on a phenobarbital protocol to prevent progression to severe alcohol withdrawal and remained calm and cooperative throughout her hospitalization. Her nausea and vomiting, likely secondary to alcoholic gastritis, resolved with treatment. A CT scan of the abdomen and pelvis was negative for any acute pathology, and lipase was within normal limits. She began tolerating a regular diet without recurrence of abdominal pain. She was noted to have hypokalemia with a potassium level of 2.9 and is receiving potassium supplementation. Her initial anion gap metabolic acidosis (bicarb 12, gap 33, with mild hyperglycemia and ketonuria) was felt to be consistent with starvation ketosis and resolved with fluid resuscitation. Her bicarbonate improved to 25, anion gap to 13, and glucose to 100, hemoglobin A1C is 5.1. The initial leukocytosis (WBC 14.6) normalized to 6.4 and was attributed to a reactive process. The Recovery Team evaluated her and provided counseling and resources to support sobriety. She was advised to abstain from alcohol and follow up with outpatient addiction services. Repeat potassium normal Final diagnoses Alcoholic ketoacidosis impending alcohol withdrawal Anion gap metabolic acidosis Nausea and vomiting Alcoholic gastritis HypOkalemia Time Attestation Discharge Coordination Time (in mins): 40 Quality: Safe Use of Opioids Does Pt have an Active Cancer Diagnosis on the Problem List?: No Quality: Stroke Does the patient have a stroke diagnosis?: No Physical Exam Vital Signs: Vital Signs: Last Vital Signs Temp 97.6 F 06/16/24 07:10 Pulse 98 06/16/24 07:10 Resp 18 06/16/24 07:10 BP 121/78 06/16/24 07:10 Pulse Ox 96 06/16/24 07:10 O2 Del Method Room Air 06/16/24 07:10 BMI result Body Mass Index 28.0 Const: Other: General: AO X 3, no acute distress Resp: CTA bilateral CVS: S1,S2,RRR GI: +BS, NT, no distention Skin: No rash Neuro: motor grossly intact Psych: appropriate affect DS: Data Data Completed and Pending Completed studies during hospitalization [Text1]: Procedures Detoxification Services for Substance Abuse Treatment (04/17/24) Labs on day of discharge: Laboratory Results - last 24 hr 06/15/24 06/15/24 06/15/24 09:08 12:16 17:16 WBC RBC Hgb Hct MCV MCH MCHC RDW Plt Count MPV Absolute Nucleated RBC Nucleated RBC % (auto) Sodium 141 141 Potassium 4.4 3.7 Chloride 105 105 Carbon Dioxide 15 L 21 L Anion Gap 25 H 19 BUN 7 L 5 L Creatinine 0.81 0.78 Estim Creat Clear Calc 95.9 97.2 Estimated GFR > 60 > 60 Random Glucose 190 H 156 H Calcium 8.4 D 8.6 Total Bilirubin AST ALT Alkaline Phosphatase Total Protein Albumin TSH 0.72 Urine Color Yellow Urine Appearance Clear Urine pH 5.5 Ur Specific [place] >= 1.030 H Urine Protein 100 (2+) H Urine Glucose (UA) >=1000 H Urine Ketones >=160 Urine Blood Large (3+) H Urine Nitrite Negative Ur Leukocyte Esterase Negative Urine RBC 0-2 Urine WBC 0-5 Ur Squamous Epith Cells 3-5 Urine Bacteria None Seen Hyaline Casts 3-5 Urine Test NEGATIVE 06/16/24 06:18 WBC 6.4 RBC 3.81 L D Hgb 11.6 L D Hct 33.9 L D MCV 89.0 MCH 30.4 MCHC 34.2 RDW 13.3 Plt Count 263 D MPV 9.7 Absolute Nucleated RBC 0.000 Nucleated RBC % (auto) 0.0 Sodium 139 Potassium 2.9 L* D Chloride 104 Carbon Dioxide 25 Anion Gap 13 BUN 3 L Creatinine 0.67 Estim Creat Clear Calc 113.2 Estimated GFR > 60 Random Glucose 100 Calcium 8.0 L D Total Bilirubin 0.6 AST 29 ALT 25 Alkaline Phosphatase 45 Total Protein 5.5 L Albumin 3.3 L TSH Urine Color Urine Appearance Urine pH Ur Specific [place] Urine Protein Urine Glucose (UA) Urine Ketones Urine Blood Urine Nitrite Ur Leukocyte Esterase Urine RBC Urine WBC Ur Squamous Epith Cells Urine Bacteria Hyaline Casts Urine Test Discharge Plan Discharge Anticipated Discharge Date/Time: 06/16/24 10:39 Patient Disposition: Home, Self-Care Discharge Diagnosis: Alcohol use disorder, metabolic acidosis, nausea and vomiting, hypokalemia Referrals: Physician,Unknown J [Primary Care Provider] - 1 Week Discharge Medications: Continued pantoprazole 40 mg tablet,delayed release (DR/EC) 40 mg PO DAILY@0630 albuterol sulfate 90 mcg/actuation HFA aerosol inhaler 1 puff INHALATION QID PRN (Reason: wheezing) Discharge Orders: Discharge Order (Routine); Ordered 06/16/24 Ordered By: Fransisco Carvajal Diet: Diabetic diet Activity on Discharge: As tolerated Stand Alone Forms: Patient Portal Discharge page Print Language: [place] Care Plan Goals: prevent alcohol withdrawal, and rehospitalization Health Concerns: alcohol dependency alcoholic gastritis metabolic acidosis tachycardia hypokalemia Plan of Treatment: Drink plenty of fluid avoid alcohol follow through the resources given to you Assessment: see above Discharge Date/Time: 06/16/24 17:35
--- NOTE | 2024-06-16 11:14 | MHC.CM.PN ---
Pt self-care, lives at home with a roommate. HCP on file and verified. Pt will need assistance with transport home at discharge. Pt states she is in between PCP's, and working on finding one at this time.
--- NOTE | 2024-06-16 11:20 | P.PNIM_ITS ---
Subjective Subjective Date of Service: 06/16/24 Interval History: Doing well, no new issues, low k, tachycardia resolved. no abd pain, n/v Review of Systems All systems reviewed and are negative. Pertinent positives discussed in HPI. Physical Exam 2 Vital Signs: Vital Signs: Last Vital Signs Temp 97.6 F 06/16/24 07:10 Pulse 98 06/16/24 07:10 Resp 18 06/16/24 07:10 BP 121/78 06/16/24 07:10 Pulse Ox 96 06/16/24 07:10 O2 Del Method Room Air 06/16/24 07:10 BMI result Body Mass Index 28.0 Const: Other: General: AO X 3, no acute distress Resp: CTA bilateral CVS: S1,S2,RRR GI: +BS, NT, no distention Skin: No rash Neuro: motor grossly intact Psych: appropriate affect Objective Data Active Medications Acetaminophen (Acetaminophen 325 Mg Tablet) 650 mg PO Q6H PRN PRN Reason: Pain, Mild 1-3,fever,headache Calcium Carbonate (Calcium Carbonate 750 Mg Tab.Chew) 750 mg PO Q4H PRN PRN Reason: Heartburn Enoxaparin Sodium (Enoxaparin Sodium 40 Mg/0.4 Ml Syringe) 40 mg SUBCUT Q24H [facility] Last Admin: 06/15/24 14:30 Dose: Not Given Documented By: BAL Non-Admin Reason: Patient Refused Famotidine (Famotidine 20 Mg Tablet) 20 mg PO DAILY [facility] Last Admin: 06/16/24 08:07 Dose: 20 mg Documented By: AIMEE Folic Acid (Folic Acid 1 Mg Tablet) 1 mg PO DAILY [facility] Last Admin: 06/16/24 08:07 Dose: 1 mg Documented By: AIMEE Hydroxyzine HCl (Hydroxyzine Hcl 25 Mg Tablet) 25 mg PO Q8H PRN PRN Reason: anxiety/restlessness Last Admin: 06/16/24 00:55 Dose: 25 mg Documented By: NORA Dextrose/Lactated Ringer's (D5lr) 1,000 mls @ 200 mls/hr IVCONT .Q5H [facility] Last Admin: 06/16/24 08:12 Dose: 200 mls/hr Documented By: AIMEE Melatonin (Melatonin 3 Mg Tablet) 6 mg PO BEDTIME PRN PRN Reason: Insomnia Morphine Sulfate (Morphine Sulfate 2 Mg/Ml Cartridge) 2 mg IVPUSH Q3H PRN; Protocol PRN Reason: Pain, Severe (Pain Scale 7-10) Last Admin: 06/15/24 19:50 Dose: 2 mg Documented By: NORA Ondansetron HCl (Ondansetron Hcl 4 Mg/2 Ml Vial) 4 mg IVPUSH Q8H PRN PRN Reason: Nausea and Vomiting Pharmacy Consult (Consult Rx Etoh Phenob Im/Po) 1 each MISCELLANE ONCE PRN; Protocol PRN Reason: Consult order Phenobarbital (Phenobarbital 15 Mg Tablet) 45 mg PO BID [facility]; Protocol Stop: 06/17/24 21:01 Last Admin: 06/16/24 08:07 Dose: 45 mg Documented By: AIMEE Phenobarbital (Phenobarbital 15 Mg Tablet) 15 mg PO BID [facility]; Protocol Stop: 06/19/24 21:01 Phenobarbital (Phenobarbital 15 Mg Tablet) 15 mg PO DAILY [facility]; Protocol Stop: 06/21/24 09:01 Potassium Chloride (Potassium Chloride Er 20 Meq Tab.Er.Prt) 40 meq PO Q12H [facility] Stop: 06/16/24 20:31 Last Admin: 06/16/24 09:30 Dose: 40 meq Documented By: AIMEE Sodium Chloride (0.9 % Sodium Chloride Flush 3 Ml Syringe) 3 ml IVFLUSH QSHIFT [facility] Last Admin: 06/16/24 08:07 Dose: 3 ml Documented By: AIMEE Thiamine HCl (Thiamine Hcl 100 Mg Tablet) 100 mg PO DAILY [facility] Last Admin: 06/16/24 08:07 Dose: 100 mg Documented By: AIMEE Labs 06/16/24 06:18 06/16/24 06:18 Labs: Laboratory Results - last 24 hr 06/15/24 06/15/24 06/15/24 09:08 12:16 17:16 MCV MCH MCHC RDW Plt Count MPV Absolute Nucleated RBC Nucleated RBC % (auto) Anion Gap 25 H 19 Estim Creat Clear Calc 95.9 97.2 Estimated GFR > 60 > 60 Random Glucose 190 H 156 H Calcium 8.4 D 8.6 Total Bilirubin AST ALT Alkaline Phosphatase Total Protein Albumin TSH 0.72 Urine Color Yellow Urine Appearance Clear Urine pH 5.5 Ur Specific [place] >= 1.030 H Urine Protein 100 (2+) H Urine Glucose (UA) >=1000 H Urine Ketones >=160 Urine Blood Large (3+) H Urine Nitrite Negative Ur Leukocyte Esterase Negative Urine RBC 0-2 Urine WBC 0-5 Ur Squamous Epith Cells 3-5 Urine Bacteria None Seen Hyaline Casts 3-5 Urine Test NEGATIVE 06/16/24 06:18 MCV 89.0 MCH 30.4 MCHC 34.2 RDW 13.3 Plt Count 263 D MPV 9.7 Absolute Nucleated RBC 0.000 Nucleated RBC % (auto) 0.0 Anion Gap 13 Estim Creat Clear Calc 113.2 Estimated GFR > 60 Random Glucose 100 Calcium 8.0 L D Total Bilirubin 0.6 AST 29 ALT 25 Alkaline Phosphatase 45 Total Protein 5.5 L Albumin 3.3 L TSH Urine Color Urine Appearance Urine pH Ur Specific [place] Urine Protein Urine Glucose (UA) Urine Ketones Urine Blood Urine Nitrite Ur Leukocyte Esterase Urine RBC Urine WBC Ur Squamous Epith Cells Urine Bacteria Hyaline Casts Urine Test Assessment and Plan (1) Alcohol use disorder, severe, dependence: Status: Acute (2) Alcohol use: Status: Acute (3) Sinus tachycardia: Status: Acute Plan 39 year old with a history of AUD, MDD, Asthma, acute alcohol pancreatitis, reports drinking 2 pints of Vodka per day for the past week, her last drink was 06/14/24. She has been sober for 1 month and relapsed on 06/10/24. She has been vomiting with concurrent abdominal pain. LFTs are mildly elevated, AST 46, ALT 48, Lipase 40 . Ethyl Tox 194. EKG shows sinus tachycardia. CIWA score of 29. Alcohol withdrawal, calm normal CIWA, tachycardia resolved. Phenobarbital per protocol addiction med consult Anion Gap Metabolic acidosis due to starvation ketoacidosis in the setting of alcohol use, resolved. Sinus tachycardia, dt dehydration, alcohol use, resolved with ivf Hypokalemia, oral k replacement, mag was normal Glucosuria, likely from stress hyperglycemia Mild intermittent Asthma without exacerbation continue PRN home medications SIRS -Meets criteria for sepsis with leukocytosis and tachycardia. There is no evidence of active infection. Leukocytosis likely reactive. Sinus tachycardia likely due to alcohol withdrawal--resolved Gerd -Pepcid, PPI at discharge VTE: SC lovenox Code: Full possible dc later today Quality Stroke Does the patient have a stroke diagnosis?: No VTE Prior VTE?: No VTE Risk Level:: Medical - low VTE Device Contraindication: Treatment Not Indicated VTE Drug Contraindication: N/A - Med Ordered
[2024-06-16 11:22] LABS: Estimated Average Glucose 100 mg/dL; Hemoglobin A1C 100.3206 umol/L; Hemoglobin A1c % 5.1 % (<6.0); Total Hemoglobin (HGBA1C) 3093.9342 umol/L
--- NOTE | 2024-06-16 11:25 | HO.ADDICT_ITS ---
History of Present Illness Date of Service: 06/16/2024 Chief Complaint: Alcohol withdrawal Reason for Consult: AUD Sources of Information: patient interviewed and chart reviewed HPI Narrative: Patient is a 39 year old female with history of AUD, medically admitted with acute alcohol withdrawal after presenting to ED reporting abdominal pain. Patient know to [facility] via previous admissions related to alcohol use. Previous notes reviewed. Chart review shows that patient was discharged from [facility] 04/23/24 and admitted to [facility] for ongoing treatment She reports she was there for 2 weeks, as insurance would not cover any additional time. Once home, she continued with [facility], however was unable to continue past 2 weeks due to work conflicts. She states that she started drinking again due to isolation and difficulty sleeping. Discussed FRED, she reports she has trialled both Campral and Naltrexone and is not interested in either right now as she did not find them beneficial She states that she has reached out to some of her recovery supports and hopes to connect more with them She is very knowledgeable about her illness and interventions and supports available to her. CIWA scores improving, 4 this morning Appeared comfortable, no tremor or diaphoresis noted during assessment Labs reviewed--K 2.9 this AM (repleted) AUDIT-C Brief Intervention This screen writer met with patient to discuss current alcohol use and concerns related to increased risk of alcohol related problems. Discussed how alcohol use has impacted health, including negative impact on mental health and overall physical wellbeing. Discussed risk reduction strategies including drinking below the recommended limit. Past Psychiatric History: OP: Harrison Sanz, VIKKI Yash Past med trial: prozac, clonazepam, abilify Review of Systems Constitutional: Reports as per HPI and Reports no additional constitutional complaints Diagnostics Vital Signs (24Hr): Vital Signs - 24 hr 06/15/24 12:10 06/15/24 13:00 06/15/24 14:00 Temperature 98.7 F Pulse Rate 145 H 130 H Pulse Rate [Bilateral Monitor] 144 H Respiratory Rate 18 18 Blood Pressure 136/73 126/74 Pulse Oximetry 93 97 Oxygen Delivery Method Room Air Room Air 06/15/24 16:36 06/15/24 19:17 06/16/24 00:00 Temperature 98.3 F 97.4 F 98.0 F Pulse Rate 122 H 125 H 110 H Pulse Rate [Bilateral Monitor] Respiratory Rate 19 18 20 Blood Pressure 125/74 104/56 L 99/55 L Pulse Oximetry 95 94 95 Oxygen Delivery Method Room Air Room Air Room Air 06/16/24 03:49 06/16/24 07:10 Temperature 98.0 F 97.6 F Pulse Rate 101 H 98 Pulse Rate [Bilateral Monitor] Respiratory Rate 20 18 Blood Pressure 119/66 121/78 Pulse Oximetry 96 96 Oxygen Delivery Method Room Air Room Air BMI result Body Mass Index 28.0 Labs 06/16/24 06:18 06/16/24 06:18 Labs: Laboratory Results - last 48 hr 06/15/24 06/15/24 06/15/24 09:08 09:21 09:23 WBC 14.6 H RBC 5.30 D Hgb 16.3 H D Hct 46.1 D MCV 87.0 MCH 30.8 MCHC 35.4 H RDW 13.3 Plt Count 465 H D MPV 9.0 L Immature Gran % (Auto) 0.3 Neut % (Auto) 83.5 H Lymph % (Auto) 12.4 L [place] % (Auto) 3.1 Eos % (Auto) 0.0 Baso % (Auto) 0.7 Lymph # (Auto) 1.8 [place] # (Auto) 0.5 Eos # (Auto) 0.0 Baso # (Auto) 0.1 Abs Immat Gran (auto) 0.05 H Absolute Neuts (auto) 12.2 H Absolute Nucleated RBC 0.000 Nucleated RBC % (auto) 0.0 VBG pH VBG pCO2 VBG pO2 VBG HCO3 VBG O2 Saturation VBG Base Excess Sodium 139 Potassium 4.8 D Chloride 99 Carbon Dioxide 12 L Anion Gap 33 H BUN 8 L Creatinine 0.98 Estim Creat Clear Calc 79.2 Estimated GFR > 60 Random Glucose 127 H Estimat Average Glucose Hemoglobin A1c % Calcium 10.2 D Magnesium 2.2 Total Bilirubin 0.5 Direct Bilirubin 0.1 AST 46 H ALT 48 H Alkaline Phosphatase 77 Troponin I High Sens < 2.7 Total Protein 9.0 H Albumin 5.1 H Lipase 40 TSH 0.72 Urine Color Urine Appearance Urine pH Ur Specific [place] Urine Protein Urine Glucose (UA) Urine Ketones Urine Blood Urine Nitrite Ur Leukocyte Esterase Urine RBC Urine WBC Ur Squamous Epith Cells Urine Bacteria Hyaline Casts Urine Test Ethyl Alcohol 194 Influenza Type A (PCR) NEGATIVE Influenza Type B (PCR) NEGATIVE RSV RNA Qual (PCR) NEGATIVE SARS-CoV-2 RNA (RT-PCR) NEGATIVE 06/15/24 06/15/24 06/15/24 09:56 12:16 17:16 WBC RBC Hgb Hct MCV MCH MCHC RDW Plt Count MPV Immature Gran % (Auto) Neut % (Auto) Lymph % (Auto) [place] % (Auto) Eos % (Auto) Baso % (Auto) Lymph # (Auto) [place] # (Auto) Eos # (Auto) Baso # (Auto) Abs Immat Gran (auto) Absolute Neuts (auto) Absolute Nucleated RBC Nucleated RBC % (auto) VBG pH 7.36 VBG pCO2 28 VBG pO2 55 VBG HCO3 16 L VBG O2 Saturation 81.0 VBG Base Excess -7.3 Sodium 141 141 Potassium 4.4 3.7 Chloride 105 105 Carbon Dioxide 15 L 21 L Anion Gap 25 H 19 BUN 7 L 5 L Creatinine 0.81 0.78 Estim Creat Clear Calc 95.9 97.2 Estimated GFR > 60 > 60 Random Glucose 190 H 156 H Estimat Average Glucose Hemoglobin A1c % Calcium 8.4 D 8.6 Magnesium Total Bilirubin Direct Bilirubin AST ALT Alkaline Phosphatase Troponin I High Sens Total Protein Albumin Lipase TSH Urine Color Yellow Urine Appearance Clear Urine pH 5.5 Ur Specific [place] >= 1.030 H Urine Protein 100 (2+) H Urine Glucose (UA) >=1000 H Urine Ketones >=160 Urine Blood Large (3+) H Urine Nitrite Negative Ur Leukocyte Esterase Negative Urine RBC 0-2 Urine WBC 0-5 Ur Squamous Epith Cells 3-5 Urine Bacteria None Seen Hyaline Casts 3-5 Urine Test NEGATIVE Ethyl Alcohol Influenza Type A (PCR) Influenza Type B (PCR) RSV RNA Qual (PCR) SARS-CoV-2 RNA (RT-PCR) 06/16/24 06:18 WBC 6.4 RBC 3.81 L D Hgb 11.6 L D Hct 33.9 L D MCV 89.0 MCH 30.4 MCHC 34.2 RDW 13.3 Plt Count 263 D MPV 9.7 Immature Gran % (Auto) Neut % (Auto) Lymph % (Auto) [place] % (Auto) Eos % (Auto) Baso % (Auto) Lymph # (Auto) [place] # (Auto) Eos # (Auto) Baso # (Auto) Abs Immat Gran (auto) Absolute Neuts (auto) Absolute Nucleated RBC 0.000 Nucleated RBC % (auto) 0.0 VBG pH VBG pCO2 VBG pO2 VBG HCO3 VBG O2 Saturation VBG Base Excess Sodium 139 Potassium 2.9 L* D Chloride 104 Carbon Dioxide 25 Anion Gap 13 BUN 3 L Creatinine 0.67 Estim Creat Clear Calc 113.2 Estimated GFR > 60 Random Glucose 100 Estimat Average Glucose 100 Hemoglobin A1c % 5.1 Calcium 8.0 L D Magnesium Total Bilirubin 0.6 Direct Bilirubin AST 29 ALT 25 Alkaline Phosphatase 45 Troponin I High Sens Total Protein 5.5 L Albumin 3.3 L Lipase TSH Urine Color Urine Appearance Urine pH Ur Specific [place] Urine Protein Urine Glucose (UA) Urine Ketones Urine Blood Urine Nitrite Ur Leukocyte Esterase Urine RBC Urine WBC Ur Squamous Epith Cells Urine Bacteria Hyaline Casts Urine Test Ethyl Alcohol Influenza Type A (PCR) Influenza Type B (PCR) RSV RNA Qual (PCR) SARS-CoV-2 RNA (RT-PCR) Imaging Radiology Impressions: ITS Impressions Chest X-Ray 06/15/24 10:15 IMPRESSION: Clear lungs. Electronically signed by: Buddy Prince MD 06/15/2024 10:28 AM EDT RP Abdomen/Pelvis CT 06/15/24 13:50 IMPRESSION: No acute pancreatitis by imaging. Fleischner guidelines were followed. Electronically signed by: Ten Malhotra MD 06/15/2024 02:02 PM EDT RP Mental Status Exam Mental Status Exam Patient Appearance: Appropriate Level of Consciousness: Awake, Appropriate and Alert Patient Behavior: Appropriate and Cooperative Affect Description: Calm Speech Pattern: Clear Hallucinations: None Thought Process: Intact Thought Content: positive for Intact Judgement: Fair Medications Medications Current Medications Acetaminophen (Acetaminophen 325 Mg Tablet) 650 mg PO Q6H PRN PRN Reason: Pain, Mild 1-3,fever,headache Calcium Carbonate (Calcium Carbonate 750 Mg Tab.Chew) 750 mg PO Q4H PRN PRN Reason: Heartburn Enoxaparin Sodium (Enoxaparin Sodium 40 Mg/0.4 Ml Syringe) 40 mg SUBCUT Q24H [facility] Last Admin: 06/15/24 14:30 Dose: Not Given Famotidine (Famotidine 20 Mg Tablet) 20 mg PO DAILY [facility] Last Admin: 06/16/24 08:07 Dose: 20 mg Folic Acid (Folic Acid 1 Mg Tablet) 1 mg PO DAILY [facility] Last Admin: 06/16/24 08:07 Dose: 1 mg Hydroxyzine HCl (Hydroxyzine Hcl 25 Mg Tablet) 25 mg PO Q8H PRN PRN Reason: anxiety/restlessness Last Admin: 06/16/24 00:55 Dose: 25 mg Dextrose/Lactated Ringer's (D5lr) 1,000 mls @ 200 mls/hr IVCONT .Q5H [facility] Last Admin: 06/16/24 08:12 Dose: 200 mls/hr Melatonin (Melatonin 3 Mg Tablet) 6 mg PO BEDTIME PRN PRN Reason: Insomnia Morphine Sulfate (Morphine Sulfate 2 Mg/Ml Cartridge) 2 mg IVPUSH Q3H PRN; Protocol PRN Reason: Pain, Severe (Pain Scale 7-10) Last Admin: 06/15/24 19:50 Dose: 2 mg Ondansetron HCl (Ondansetron Hcl 4 Mg/2 Ml Vial) 4 mg IVPUSH Q8H PRN PRN Reason: Nausea and Vomiting Pharmacy Consult (Consult Rx Etoh Phenob Im/Po) 1 each MISCELLANE ONCE PRN; Protocol PRN Reason: Consult order Phenobarbital (Phenobarbital 15 Mg Tablet) 45 mg PO BID [facility]; Protocol Stop: 06/17/24 21:01 Last Admin: 06/16/24 08:07 Dose: 45 mg Phenobarbital (Phenobarbital 15 Mg Tablet) 15 mg PO BID [facility]; Protocol Stop: 06/19/24 21:01 Phenobarbital (Phenobarbital 15 Mg Tablet) 15 mg PO DAILY [facility]; Protocol Stop: 06/21/24 09:01 Potassium Chloride (Potassium Chloride Er 20 Meq Tab.Er.Prt) 40 meq PO Q12H DAMIEN Stop: 06/16/24 20:31 Last Admin: 06/16/24 09:30 Dose: 40 meq Sodium Chloride (0.9 % Sodium Chloride Flush 3 Ml Syringe) 3 ml IVFLUSH QSHIFT [facility] Last Admin: 06/16/24 08:07 Dose: 3 ml Thiamine HCl (Thiamine Hcl 100 Mg Tablet) 100 mg PO DAILY [facility] Last Admin: 06/16/24 08:07 Dose: 100 mg Allergies Allergies Allergy/AdvReac Type Severity Reaction Status Date / Time adhesive AdvReac Hives Verified 06/15/24 08:47 Assessment & Plan Assessment & Plan (1) Alcohol use disorder, severe, dependence: Status: Acute Code(s): F10.20 - Alcohol dependence, uncomplicated Assessment and Plan: * withdrawal managed with pheno taper * encouraged patient to connect with recovery supports * patient declines further intervention, including FRED or appt for treatment of AUD Total time managing care of this patient today __30__ minutes. [facility] Past Medical History Medical History MDD (major depressive disorder), recurrent episode, moderate Asthma Anxiety and depression Tachycardia Alcohol withdrawal Family History Family History Mother Alcohol use disorder Maternal Grandfather Alcohol use disorder Social History Social History (Updated 06/15/24 @ 12:50 by Kandi Taylor CNP) Household Members: Significant Other Household Members Other:: roommate Housing: Apartment Do you presently have visiting nurse or other home services: Yes (therapist) Alcohol intake: current Alcohol intake frequency: 3 or more drinks per day Alcohol type: hard liquor Comment: Reports drinking 2 pints per day Patient Tobacco Use Status: Never used Tobacco Tobacco use type: Cigarette e-Cigarette/Vaping Use: Never Used Second Hand Smoke Exposure: No Substance Use Type: Marijuana Advance Directives Date on File: 02/11/23 service: No
[2024-06-16 12:00] VITALS: BP 106/70; PULSE 100; RESP 18; TEMP 36.4; O2SAT 95
[2024-06-16 16:00] VITALS: BP 105/62; PULSE 96; RESP 18; TEMP 36.8; O2SAT 95
[2024-06-16 17:03] LABS: Anion Gap 14 (12-20); Carbon Dioxide 23 mmol/L (22-29); Chloride 109 mmol/L (96-108); Potassium 3.6 mmol/L (3.3-5.1); Sodium 142 mmol/L (135-145)
== END 2024-06-16 17:35 | disposition home or self-care (01) | DRG 241 ==
LOC: HO.ED 09:25 → HO.EDOVER 11:32 → HO.IMC 15:14
PROVIDERS: Nurse Practitioner Acute Care; Admitting Provider Internal Medicine; Emergency Provider Emergency Medicine; Visit Provider Internal Medicine
DX: K29.20 Alcoholic gastritis without bleeding (principal); E87.0 Hyperosmolality and hypernatremia; E88.89 Other specified metabolic disorders; F10.239 Alcohol dependence with withdrawal, unspecified; Y90.6 Blood alcohol level of 120-199 mg/100 ml; J45.20 Mild intermittent asthma, uncomplicated; E87.6 Hypokalemia; E86.0 Dehydration; K21.9 Gastro-esophageal reflux disease without esophagitis; R00.0 Tachycardia, unspecified; Z20.822 Contact with and (suspected) exposure to COVID-19; Z79.899 Other long term (current) drug therapy
CPT/HCPCS: 0241U; 36415; 71045; 74176; 80048; 80051; 80053; 80076; 80307; 81001; 81025; 82803; 83036; 83690; 83735; 84443; 84484; 85025; 85027; 93005; 99285; J2270; J2405; J2470; J2560; J3411; J7120; S9485

== ENCOUNTER → 2024-06-15 08:48 | Outpatient (BNV) | payer OTHER, SELFPAY | PROVIDERS: Admitting Provider Internal Medicine; Emergency Provider Emergency Medicine; Visit Provider Internal Medicine | DX: R00.0 Tachycardia, unspecified (principal) | CPT/HCPCS: 93010 ==

== ENCOUNTER → 2024-06-15 09:16 | Outpatient (BNV) | payer OTHER, SELFPAY | PROVIDERS: Emergency Provider Emergency Medicine; Visit Provider Radiology Diagnostic Radiology | DX: R10.9 Unspecified abdominal pain (principal); R11.2 Nausea with vomiting, unspecified; R51.9 Headache, unspecified; F10.129 Alcohol abuse with intoxication, unspecified; R05.9 Cough, unspecified | CPT/HCPCS: 71045; 74176 ==

== ENCOUNTER → 2024-06-15 11:31 | Outpatient (BNV) | payer OTHER, SELFPAY | PROVIDERS: Admitting Provider Internal Medicine; Emergency Provider Emergency Medicine; Visit Provider Nurse Practitioner Acute Care | DX: F10.20 Alcohol dependence, uncomplicated (principal); F10.90 Alcohol use, unspecified, uncomplicated; R00.0 Tachycardia, unspecified | CPT/HCPCS: 99499 ==

== ENCOUNTER → 2024-06-15 11:31 | Outpatient (BNV) | payer OTHER, SELFPAY | PROVIDERS: Admitting Provider Internal Medicine; Emergency Provider Emergency Medicine; Visit Provider Nurse Practitioner Psychiatric/Mental Health | DX: F10.20 Alcohol dependence, uncomplicated (principal) | CPT/HCPCS: 99222 ==

== ENCOUNTER 2024-07-02 21:01 | Inpatient (IN) | payer OTHER, SELFPAY ==
--- NOTE | ~2024-07-02 | CT_ITS ---
CLINICAL HISTORY: elevated LA, vomiting, ? acute pancreatitis CT abdomen and pelvis with contrast Comparison: CT - CT ABDOMEN PELVIS W IV CON - 07/03/24 03:[address]/SR - CT ABDOMEN PELVIS W IV CON - 04/17/24 03:51 EDT Findings: The lung bases are clear. There is hepatic steatosis with hepatomegaly. No focal liver lesions are identified. The gallbladder is normal. There is no biliary ductal dilatation or pancreatic ductal dilatation. The rest of the solid organs are unremarkable. There is no definite evidence of pancreatitis. Inflammatory changes previously noted have largely resolved There is a small hiatal hernia. A small duodenum diverticulum is noted. There is a large left ovarian septated cyst measuring 4.8 x 4.3 x 5.4 cm. This is relatively normal in the prior study. An IUD is present. The right ovary is unremarkable. The urinary bladder is normal. No acute fracture. The rest of the GI tract is unremarkable. IMPRESSION: 1. Large complex left ovarian cyst. Please correlate with pelvic sonography. 2. Hepatomegaly and hepatic steatosis. 3. No definite evidence of pancreatitis. Previously seen peripancreatic inflammatory changes have largely resolved. 4. Periampullary duodenum diverticulum. This document has been electronically signed by: Wong Salazar MD on 07/03/2024 05:40:22
--- NOTE | ~2024-07-02 | US_ITS ---
CLINICAL HISTORY: Left adnexal cyst US pelvis transabdominal and transvaginal with Doppler Comparison: CT/SR - CT ABDOMEN PELVIS W IV CON - 07/03/24 03:49 EDT Findings: Transabdominal scanning performed for overall anatomy. Transvaginal scanning performed for additional detail. Anteverted uterus is 7.9 cm length. Normal myometrium. Endometrium: There is an IUD in expected position within the uterus. This obscures the endometrium. Right ovary not visualized. Left ovary 7.0 x 4.9 x 6.1 cm. Within the left ovary there is a 2.6 by 2.6 x 2.4 cm predominantly anechoic cystic lesion with increased through transmission and internal septations. No internal vascularity. There is a similar appearing lesion closely adjacent measuring 4.8 x 3.4 x 4.3 cm, with internal septations and increased through transmission. Normal color Doppler with arterial/venous spectral tracing of right ovary. No free fluid. IMPRESSION: 1. Within the left ovary there are 2 adjacent complex cystic lesions, largest measuring 4.8 cm. Both lesions contain internal septations, but no internal vascularity. Suspect that these are hemorrhagic cysts. Consider sonographic follow-up in 8-12 weeks to ensure resolution. This document has been electronically signed by: Jose Malcolm MD on 07/03/2024 20:31:40
--- NOTE | 2024-07-02 21:03 | ECG_ITS ---
Test Reason : TACHY Blood Pressure : */* mmHG Vent. Rate : 118 BPM Atrial Rate : 118 BPM P-R Int : 136 ms QRS Dur : 76 ms QT Int : 310 ms P-R-T Axes : 24 59 42 degrees QTcB Int : 434 ms Sinus tachycardia Cannot rule out Anterior infarct (cited on or before 17-Apr-2024) Abnormal ECG When compared with ECG of 15-Jun-2024 08:50, No significant change was found Referred By: Generic ED Physician Electronically Signed By: Kris Huddleston
[2024-07-02 21:14] VITALS: BP 131/84; PULSE 120; RESP 16; TEMP 36.2; O2SAT 94; BMI 34.3
[2024-07-02 21:44] LABS: Hemoglobin 16.7 g/dl (12.0-16.0); Mean Corpuscular HGB Conc 35.2 g/dl (31.0-35.0); Mean Corpuscular Hemoglobin 30.8 pg (27.0-33.0); PLT CLUMP 1; Red Blood Count 5.43 X10*6/uL (4.20-5.50); Red Cell Distribution Width 15.2 % (11.0-16.0); SCAN SMEAR FLAG 1
[2024-07-02 21:46] LABS: Basophils Absolute Auto 0.1 X10*3/uL (0.0-0.2); Basophils Percent Auto 1.3 % (0-2); Eosinophils Absolute Auto 0.1 X10*3/uL (0.0-0.4); Eosinophils Percent Auto 1.8 % (0-4); Hematocrit 47.5 % (37.0-47.0); Imm Gran Abs Auto 0.01 X10*3/uL (0.00-0.03); Imm Gran Pct Auto 0.2 % (0.0-0.4); Lymphocytes Absolute Auto 1.6 X10*3/uL (1.2-4.9); MANUAL DIFF FLAG SCAN; Mean Corpuscular Volume 87.5 fL (80.0-98.0); Monocytes Absolute Auto 0.6 X10*3/uL (0.1-1.2); Monocytes Percent Auto 12.5 % (2-11); Neutrophils Absolute Auto 2.2 x10*3/uL (2.0-8.3); Neutrophils Percent Auto 49.2 % (45-73)
[2024-07-02 21:57] LABS: Ethanol 227 mg/dL
[2024-07-02 22:02] VITALS: BP 136/96; PULSE 106; RESP 13; TEMP 36.6; O2SAT 95
[2024-07-02 22:03] LABS: Alanine Aminotransferase 93 U/L (0-31); Albumin Level 4.6 g/dL (3.5-5.0); Alkaline Phosphatase 70 U/L (39-117); Anion Gap 20 (12-20); Aspartate Amino Transferase 91 U/L (5-31); Bilirubin Total 0.3 mg/dL (0.0-1.0); Blood Urea Nitrogen 6 mg/dL (9-16); Calcium 9.2 mg/dL (8.4-10.2); Carbon Dioxide 20 mmol/L (22-29); Chloride 104 mmol/L (96-108); Creatinine Clr Calc Pharmacy 115.1; Estimated Glomerular Filt Rate > 60; Glucose Random 97 mg/dL (60-115); Sodium 140 mmol/L (135-145); Total Protein 7.9 g/dL (6.5-8.0)
[2024-07-02 22:06] LABS: Platelet Count 275 X10*3/uL (160-400); White Blood Count 4.5 X10*3/uL (4.8-10.8)
[2024-07-02 22:07] LABS: SLIDE REVIEW VERIFIED
[2024-07-02 22:15] LABS: Troponin-I High Sensitivity < 2.7 ng/L (<3.5-17.0)
--- NOTE | 2024-07-02 23:03 | ED_ITS ---
HPI - Alcohol General Chief Complaint: ETOH/Substance Use Stated Complaint: In tachycaria Time Seen by Provider: 07/02/24 22:42 Source: patient Mode of arrival: ambulatory Limitations: no limitations History of Present Illness ED Provider: Dr. Alisa Lawton HPI narrative: Patient comes to the emergency room complaining of alcohol withdrawal symptoms. According to the patient, she usually drinks 2 pt of vodka daily. For last couple of days she has only had half pints. Patient states that she is feeling very shaky, has palpitations, has been vomiting quite a bit, no diarrhea. Patient states that she is feels like she is starting to withdrawal from alcohol and states that she has history of alcohol withdrawal seizures. Patient denies any SI or HI. Patient states that after she went to rehab program for EtOH, she was sober for over 3 months and she would like to try again. Related Data Home Medications ?Medication ?Instructions ?Recorded ?Confirmed albuterol sulfate 90 mcg/actuation 1 puff inhalation QID PRN wheezing 07/04/23 06/15/24 aerosol inhaler pantoprazole 40 mg tablet,delayed 40 mg PO DAILY@0630 03/22/24 06/15/24 release Allergies Allergy/AdvReac Type Severity Reaction Status Date / Time adhesive AdvReac Hives Verified 07/02/24 21:16 Review of Systems 2 Review of Systems: Constitutional : No Weight loss, No Fever, No Chills, No Night Sweats, No Fatigue, No Malaise ENT/Mouth : No Hearing loss, No Ear Pain, No Nasal Congestion, No Sinus Pain, No Hoarseness, No sore throat, No Rhinorrhea, No Swallowing Difficulty Eyes: No Eye Pain, No Swelling, No Redness, No Foreign Body, No Discharge, No Vision Changes Cardiovascular : No Chest Pain, No SOB, No Dyspnea on Exertion, No Orthopnea, No Edema, No Palpitations Respiratory : No Cough, No Sputum, No Wheezing, No Smoke Exposure, No Dyspnea Gastrointestinal : No Nausea, No Vomiting, No Diarrhea, No Constipation, No abdominal Pain, No Hematochezia, No Melena Genitourinary : no irregular bleeding, No Dysuria, No Urinary Frequency, No Hematuria, No Urinary Incontinence, No Urgency, No Flank Pain, No Urinary Flow Changes, No Hesitancy Musculoskeletal : No joint pain, No Myalgias, No Joint Swelling Skin : No Skin Lesions, No rash Neuro : No Weakness, No Numbness, No Paresthesias, No Loss of Consciousness, No Dizziness, No Headache Psych : No Anxiety/Panic, No Depression, No SI/HI/AH/VH, admits to alcohol abuse and dependence, requesting detox, complaining of withdrawal symptoms Heme/Lymph: No Bruising, No Bleeding,No Lymphadenopathy Endocrine : No Polyuria, No Polydipsia, No Temperature Intolerance [facility] Past Medical History Medical History MDD (major depressive disorder), recurrent episode, moderate Asthma Anxiety and depression Tachycardia Alcohol withdrawal Family History Family History Mother Alcohol use disorder Maternal Grandfather Alcohol use disorder Social History Social History (Updated 06/15/24 @ 12:50 by Kandi Taylor CNP) Household Members: Significant Other Household Members Other:: roommate Housing: Apartment Do you presently have visiting nurse or other home services: Yes (therapist) Alcohol intake: current Alcohol intake frequency: 3 or more drinks per day Alcohol type: hard liquor Comment: Reports drinking 2 pints per day Patient Tobacco Use Status: Current everyday Tobacco user Tobacco use type: Cigarette Smoked in Last 30 Days: Yes e-Cigarette/Vaping Use: Never Used Second Hand Smoke Exposure: No Use of substances other than those prescribed or required for medical reasons: No Substance Use Type: Marijuana Advance Directives: Yes Advance Directives on File: Yes Advance Directives Date on File: 02/11/23 Do you have a plan to hurt others: No Plan Nutrition Risks: No Nutritional Risk Patient : No service: No Physical Exam ED Vital Signs: Vital Signs - 24 hr 07/02/24 21:14 07/02/24 22:02 Temperature 97.1 F 97.8 F Pulse Rate 120 H 106 H Respiratory Rate 16 13 Blood Pressure 131/84 136/96 H Pulse Oximetry 94 95 Oxygen Delivery Method Room Air Room Air BMI result Body Mass Index 34.3 Const Other: Appearance: Alert. Oriented X3. No acute distress. Eyes: Pupils equal, round and reactive to light. ENT: Pharynx normal. Neck: Normal inspection. Neck supple. No lymph nodes noted. No crepitus CVS: Normal heart rate and rhythm. Pulses normal. Normal S1 and S2 Respiratory: No respiratory distress. Breath sounds normal. No Wheezing. No rales Abdomen: Soft and nontender. No rigidity. No distention. Skin: Skin warm and dry. Normal skin color. Normal skin turgor. Extremities: No lower extremity edema. No Lacerations. No Rash Neuro: Oriented X 3. No motor deficit. No sensory deficit. Moving all extremities. No slurred speech. CN 2 through 12 grossly intact, patient's seems a bit jittery Psych: calm, cooperative, normal affect Medical Decision Making Medical Decision Making [facility] Narrative: My interpretation of labs: Patient's hematology and chemistry at baseline, LFTs slightly bumped, magnesium 2.3 Patient complaining of feeling tachycardic, uneasy, shaky, paying very nauseous and vomiting. Patient is tachycardic 106-120, blood pressure 136/96 Patient was started on phenobarb protocol, given IV fluids, Zofran and IV Valium I discussed the above-mentioned with the hospital team, Dr. Garcia accepted the patient to the medicine service Differential Diagnosis Differential Diagnoses: The differential diagnosis associated with the presentation includes (Alcohol intoxication, alcohol withdrawal) Admission/Observation Consideration of admission/observation: Escalation of care including admission/observation considered Consult Healthcare Provider Management of the patient was discussed with: Hospitalist Lab Data [facility] Lab Attestation statement: I reviewed the patient's lab results. 07/02/24 21:39 07/02/24 21:39 Labs: Lab Results 07/02/24 Range/Units 21:39 WBC 4.5 L (4.8-10.8) X10*3/uL RBC 5.43 D (4.20-5.50) X10*6/uL Hgb 16.7 H D (12.0-16.0) g/dl Hct 47.5 H D (37.0-47.0) % MCV 87.5 (80.0-98.0) fL MCH 30.8 (27.0-33.0) pg MCHC 35.2 H (31.0-35.0) g/dl RDW 15.2 (11.0-16.0) % Plt Count 275 (160-400) X10*3/uL MPV 9.0 L (9.4-12.3) fL Immature Gran % (Auto) 0.2 (0.0-0.4) % Neut % (Auto) 49.2 (45-73) % Lymph % (Auto) 35.0 (20-40) % [place] % (Auto) 12.5 H (2-11) % Eos % (Auto) 1.8 (0-4) % Baso % (Auto) 1.3 (0-2) % Lymph # (Auto) 1.6 (1.2-4.9) X10*3/uL [place] # (Auto) 0.6 (0.1-1.2) X10*3/uL Eos # (Auto) 0.1 (0.0-0.4) X10*3/uL Baso # (Auto) 0.1 (0.0-0.2) X10*3/uL Abs Immat Gran (auto) 0.01 (0.00-0.03) X10*3/uL Absolute Neuts (auto) 2.2 (2.0-8.3) x10*3/uL Absolute Nucleated RBC 0.000 (0.0-0.012) X10*3/uL Nucleated RBC % (auto) 0.0 (0.0-0.2) /100WBC Smear Tech's Comments VERIFIED Sodium 140 (135-145) mmol/L Potassium 4.0 (3.3-5.1) mmol/L Chloride 104 (96-108) mmol/L Carbon Dioxide 20 L (22-29) mmol/L Anion Gap 20 (12-20) BUN 6 L (9-16) mg/dL Creatinine 0.73 (0.5-1.4) mg/dL Estim Creat Clear Calc 115.1 Estimated GFR > 60 Random Glucose 97 (60-115) mg/dL Calcium 9.2 D (8.4-10.2) mg/dL Magnesium 2.3 (1.6-2.6) mg/dL Total Bilirubin 0.3 (0.0-1.0) mg/dL AST 91 H (5-31) U/L ALT 93 H (0-31) U/L Alkaline Phosphatase 70 (39-117) U/L Troponin I High Sens < 2.7 (<3.5-17.0) ng/L Total Protein 7.9 (6.5-8.0) g/dL Albumin 4.6 (3.5-5.0) g/dL Beta HCG, Quant < 2 mIU/mL Ethyl Alcohol 227 mg/dL Medications Administered Discontinued Medications Generic Name Dose Route Start Last Admin Trade Name Clarissa PRN Reason Stop Dose Admin Diazepam 2.5 mg 07/02/24 22:49 07/02/24 23:14 Diazepam 10 Mg/2 Ml Cartridge IVPUSH 07/02/24 22:50 2.5 mg STAT STA Administration Sodium Chloride 1,000 mls @ 999 mls/hr 07/02/24 22:49 07/02/24 23:08 Ns IVCONT 07/02/24 23:49 999 mls/hr .Q1H1M ONE Administration Thiamine HCl 200 mg/ Sodium 102 mls @ 204 mls/hr 07/02/24 22:49 07/02/24 23:14 Chloride IV 07/02/24 23:18 204 mls/hr ONCE ONE Administration Phenobarbital Sodium 264 mg 07/02/24 23:50 07/03/24 00:19 Phenobarbital Sodium 130 Mg/Ml Vial IM 07/02/24 23:51 264 mg ONCE ONE Administration Critical Care Time Critical Care Time Critical Care Time: Yes Total Critical Care Time: 60 Attestation: I have personally provided critical care time. Time includes review of lab data, radiology results, discussion with consultants, and monitoring for potential decompensation. Intervention performed as documented. Discharge Plan Discharge Clinical Impression: Alcohol withdrawal Patient Disposition: Admitted As Inpatient
[2024-07-02] MEDS: 0.9 % Sodium Chloride 1,000 ML 999 ML IVCONT (23:08)
[2024-07-02 23:09] LABS: Magnesium 2.3 mg/dL (1.6-2.6)
[2024-07-02] MEDS: Thiamine HCL 200 MG in 0.9 % Sodium Chloride 100 ML 204 MG IV (23:14)
[2024-07-02] MEDS: diazePAM 10 MG/2 ML CARTRIDGE 2.5 MG IVPUSH (23:14)
[2024-07-03] VITALS (13 sets, daily range): BP systolic 111–141; BP diastolic 69–102; PULSE 97–122; RESP 12–21; TEMP 36.5–37; O2SAT 94–98; BMI 31.0
[2024-07-03 00:14] LABS: HCG Quantitative < 2 mIU/mL
[2024-07-03] MEDS: PHENobarbitaL sodium 130 MG/ML VIAL 264 MG IM (00:19)
--- NOTE | 2024-07-03 00:34 | PM.IMHP ---
History of Present Illness Date of Service: 07/03/24 Attending physician on admission: Marlo Washington Chief Complaint: alcohol overusen with withdrawal symptoms Patient is a 39-year-old female with past medical history alcohol abuse since age 23 - has tried naltrexone in the past, seizures related to alcohol withdrawal, major depressive disorder, anxiety, childhood trauma with PTSD, GERD, asthma, tobacco dependence, IUD Mirena been inserted for 11 years, chronic pancreatitis not on Creon, presents to the emergency room after concerns of possible withdrawal symptoms and concern that patient may occur a seizure. Patient denies any current seizure activity. Patient states she is working overnight at the [employer] and has been dealing with increased stress related to inappropriate behavior from a co-worker. 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 Patient returned home after work and drank half pt of vodka. Patient has been drinking half a pt to a pt daily of alcohol and sometimes 2- 3 pt per day when experiencing increased anxiety and stress. Patient states she drinks vodka because it is inexpensive and she is on a budget. Patient states she recently started talking with the therapist 2 weeks prior and thinks this is helping. Patient also indicates that she had been on naltrexone in the past but this did not help her cravings, so she stopped the therapy. Patient was also on an SSRI and stopped this medication on her own as she was having suicidal ideations in the past. Once stopping the SSRI, her suicidal ideations stopped. Patient has not received care from a psychiatrist in the past. Patient does experience insomnia, nightmares but no night terrors. Patient is currently living with her ex-boyfriend in a safe environment. Patient was started on phenobarbital protocol in the emergency department. Patient has received 1 L of IV fluids. Patient states she has chronic pancreatitis and follows with a airfield defence guard at [facility]. Patient currently having mild abdominal tenderness and is not asking for narcotic pain management. Patient is agreeable to a dose of Toradol to manage the pain. Patient does not use enzymes with meals. Lipase pending. Incidentally upon review of history and physical, patient states she has a Mirena that is been in place for 11 years. Patient can no longer find the string. Patient denies any pelvic abdominal pain related to the Mirena. UA is negative for any UTI or hematuria. Patient advised that she must seek a [employer] [employer] outpatient appointment and have the Mirena removed and further discuss other options for control. HCG negative this admission. Patient denies recent issues with STDs including abnormal vaginal discharge, burning or pain with urination. On physical exam patient also has a severe case of athlete's foot on bilateral feet. Will initiate treatment and patient should resume this upon discharge. Review of Systems Review of Systems: Patient currently reporting mild abdominal tenderness but no nausea or vomiting. Patient denies any diarrhea. Patient not having issues with constipation. Patient denies any seizure activity. Patient is having a mild headache. Patient denies any chest pain, shortness of breath at rest, visual changes. Yes all other systems are reviewed and are negative [facility] Medical History (Updated 07/03/24 @ 02:28 by GAGE Ghotra) Presence of Mirena IUD MDD (major depressive disorder), recurrent episode, moderate Asthma Anxiety and depression Tachycardia Alcohol withdrawal Functional capacity: independent ambulation Family History Mother Alcohol use disorder Maternal Grandfather Alcohol use disorder Pertinent family history: Patient does not know her biological father, no history available Social History Household Members: Significant Other Household Members Other:: roommate Housing: Apartment Do you presently have visiting nurse or other home services: Yes (therapist) Alcohol intake: current Alcohol intake frequency: 3 or more drinks per day Alcohol type: hard liquor Comment: Reports drinking 2 pints per day Patient Tobacco Use Status: Current everyday Tobacco user Tobacco use type: Cigarette Smoked in Last 30 Days: Yes e-Cigarette/Vaping Use: Never Used Second Hand Smoke Exposure: No Use of substances other than those prescribed or required for medical reasons: No Substance Use Type: Marijuana Advance Directives: Yes Advance Directives on File: Yes Advance Directives Date on File: 02/11/23 Do you have a plan to hurt others: No Plan Nutrition Risks: No Nutritional Risk Patient : No service: No Ebola Risk: Travel/Contact With Anyone From Affected Area/s: No Has Patient Experienced Ebola Symptoms: No Meds Allergies Allergy/AdvReac Type Severity Reaction Status Date / Time adhesive AdvReac Hives Verified 07/02/24 21:16 Active Medications: Current Medications Folic Acid (Folic Acid 1 Mg Tablet) 1 mg PO DAILY [facility] Ketorolac Tromethamine (Ketorolac Tromethamine 15 Mg/Ml Vial) 15 mg IVPUSH Q6H PRN PRN Reason: Pain, Moderate(Pain Scale 4-6) Pharmacy Consult (Consult Rx Etoh Phenob Im/Po) 1 each MISCELLANE ONCE PRN; Protocol PRN Reason: Consult order Phenobarbital (Phenobarbital 30 Mg Tablet) 60 mg PO BID@1000,2200 [facility] Stop: 07/04/24 22:01 Phenobarbital (Phenobarbital 30 Mg Tablet) 30 mg PO BID@1000,2200 [facility] Stop: 07/06/24 22:01 Phenobarbital (Phenobarbital 30 Mg Tablet) 30 mg PO DAILY@1000 [facility] Stop: 07/08/24 10:01 Phenobarbital Sodium (Phenobarbital Sodium 130 Mg/Ml Vial) 198 mg IM Q3H [facility] Stop: 07/03/24 06:01 Home Medications ?Medication ?Instructions ?Recorded ?Confirmed ?Last Taken ?Type albuterol sulfate 90 mcg/actuation 1 puff inhalation QID PRN wheezing 07/04/23 06/15/24 06/14/24 History aerosol inhaler pantoprazole 40 mg tablet,delayed 40 mg PO DAILY@0630 03/22/24 06/15/24 06/14/24 History release Physical Exam Vital Signs and Narrative: Vital Signs: Last Vital Signs Temp 98.0 F 07/03/24 00:17 Pulse 109 H 07/03/24 00:17 Resp 13 07/03/24 00:17 BP 130/87 07/03/24 00:17 Pulse Ox 96 07/03/24 00:17 O2 Del Method Room Air 07/03/24 00:17 BMI result Body Mass Index 34.3 Alert and orientated X3, able to give good history. Neuro: CN II-X11 intact, no deficits, visual acuity intact EYES: PERRLA, EOM intact, conjunctiva pink, sclera nonicteric ENT: hearing intact, no issues with swallowing, uvula midline, lips moist, nares patent no epistaxis Cardiac: S1 S2 RRR, no murmur, no JVD, no edema in Lower ext Pulmonary: lungs clear to auscultation B Abdominal: BS active in all 4 quadrants, no guarding, mild tenderness, no rebounding MSK: strength 5/5 upper and lower extremities : no CVA tenderness no bladder distension Extremities: no edema in lower extremities, PT and DP pulses palpable +2 Psych: mood anxious, judgement and insight good Skin: Chapo left arm from blood draw, fungal rash on both feet Results Labs 07/02/24 21:39 07/02/24 21:39 Labs: Laboratory Results - last 24 hr 07/02/24 21:39 MCV 87.5 MCH 30.8 MCHC 35.2 H RDW 15.2 Plt Count 275 MPV 9.0 L Immature Gran % (Auto) 0.2 Neut % (Auto) 49.2 Lymph % (Auto) 35.0 Harris % (Auto) 12.5 H Eos % (Auto) 1.8 Baso % (Auto) 1.3 Lymph # (Auto) 1.6 Harris # (Auto) 0.6 Eos # (Auto) 0.1 Baso # (Auto) 0.1 Abs Immat Gran (auto) 0.01 Absolute Neuts (auto) 2.2 Absolute Nucleated RBC 0.000 Nucleated RBC % (auto) 0.0 Smear Tech's Comments VERIFIED Anion Gap 20 Estim Creat Clear Calc 115.1 Estimated GFR > 60 Random Glucose 97 Calcium 9.2 D Magnesium 2.3 Total Bilirubin 0.3 AST 91 H ALT 93 H Alkaline Phosphatase 70 Total Protein 7.9 Albumin 4.6 Beta HCG, Quant < 2 Ethyl Alcohol 227 ECG Attestation: I personally reviewed and interpreted this ECG as follows: (Sinus tachycardia QTC 434) Prior ECG tracings: available for review Assessment and Plan (1) Alcohol withdrawal: Qualifiers: Complication of substance-induced condition: uncomplicated Qualified Code(s): F10.930 - Alcohol use, unspecified with withdrawal, uncomplicated Status: Acute Plan Patient is a 39-year-old female with past medical history alcohol abuse since age 23 - has tried naltrexone in the past, seizures related to alcohol withdrawal, major depressive disorder, anxiety, childhood trauma with PTSD, GERD, asthma, tobacco dependence, IUD Mirena been inserted for 11 years, chronic pancreatitis not on Creon, is being admitted for alcohol withdrawal and potential for seizure related to alcohol. Alcohol abuse/alcohol withdrawal -CIWA protocol started -phenobarbital initiated -seizure precautions -IV fluids -lipase normal, LA elevated with vomiting, ordered CT ABD with IV Contrast, no acute evidence of pancreatitis -Hepatic steatosis and hepatomegaly identified today with CT -NPO -addictions consulted -thiamine and folic acid -magnesium 2.3 -telemetry -patient does not have history of fatty liver or cirrhosis -patient counseled on the benefits of alcohol cessation. Patient has been on naltrexone in the past but failed treatment as it did not help with her cravings for alcohol. HX of chronic pancreatitis -Lipase normal -LA elevated noting episode of vomiting with increased abdominal pain later in admission, CT scan ABD w IV contrast ordered, rule out acute pancreatitis -NPO -Consider GI consultation if needed Depression/anxiety -psychiatric consult ordered -patient has history of suicidal ideations, currently does not require Section 12 are one-to-one as patient is not experiencing SI or HI -patient does not have consistent mental health care in the community at this time Athlete's foot/tinea pedis -Lotrimin cream b.i.d. started -follow-up with PCP, Podiatry if needed Moderate hiatal hernia -incidental finding on previous CT of the abdomen of 06/15/2024 -omeprazole started 3.6 cystic lesion left adnexal/left ovary -qualified as large complex left ovarian cyst CT today -can consider pelvic US inpt -incidental finding on CT of the abdomen 06/15/2024 -patient needs [employer] [employer] follow-up as an outpatient -patient educated that she will need a referral from her PCP Mirena in place 11 years -Mirena in place and is overdue for removal -patient is aware that it needs to be removed is not currently having complications -CT of the abdomen from 06/15/2024 notes proper placement of the Mirena, string is not found -UA negative for UTI -patient will need follow-up with [employer] [employer] as an outpatient for removal and to discuss plans for further control DVT prophylaxis: Lovenox PPI prophylaxis: Omeprazole Med rec pending Patient is full code Quality Stroke Does the patient have a stroke diagnosis?: No Reason for No Anti-thrombotic by Day Two: N/A - Med Ordered VTE Prior VTE?: No VTE Risk Level:: Medical - moderate - high VTE Device Contraindication: N/A - Device Ordered VTE Drug Contraindication: N/A - Med Ordered
[2024-07-03 00:55] LABS: Lipase 44 U/L (8-78)
[2024-07-03] MEDS: Ketorolac Tromethamine 15 MG/ML VIAL IVPUSH ×2 (01:29→14:57)
[2024-07-03] MEDS: Pantoprazole Sodium 40 MG/10 ML VIAL IVPUSH ×3 (02:35→17:23)
[2024-07-03] MEDS: ondansetron HCL 4 MG/2 ML VIAL IVPUSH (02:43)
[2024-07-03] MEDS: diazePAM 10 MG/2 ML CARTRIDGE 5 MG IVPUSH (02:43)
[2024-07-03] MEDS: PHENobarbitaL sodium 130 MG/ML VIAL 198 MG IM ×2 (03:06→06:20)
[2024-07-03 03:37] LABS: Lactic Acid 2.7 mmol/L (0.5-2.0)
[2024-07-03] MEDS: iohexoL 350 MG/ML 100 ML INFUS..BTL 85 ML IV (04:02)
[2024-07-03] MEDS: 0.9 % Sodium Chloride 1,000 ML 125 ML IVCONT ×3 (04:08→19:59)
[2024-07-03 04:46] LABS: Appearance Urine Clear; Color Urine Yellow; Glucose Urine UA Negative (Negative); Leukocyte Esterase Urine Negative (Negative); Nitrite Urine Negative (Negative); PH 7.5 (5.0-9.0); Specific Gravity - Urine >= 1.030 (1.005-1.025); UMIC TRIGGER UA YES; Urine Blood Negative (Negative); Urine Ketones 15 mg/dL (Negative); Urine Protein 30 (1+) mg/dL (Neg-Trace)
[2024-07-03 04:49] LABS: Bacteria Urine Trace (None Seen); Hyaline Casts Urine 0-2 /LPF (0-2); RBC Urine 0-2 /HPF (0-2); WBC Urine 0-5 /HPF (0-5)
[2024-07-03 04:58] LABS: Amphetamine Screen Urine Not Detected (Not Detect); Barbiturates, Urine POSITIVE (Not Detect); Benzodiazepines Screen Urine Not Detected (Not Detect); Buprenorphine Scr Not Detected (Not Detect); Cannabinoid Screen Urine POSITIVE (Not Detect); Cocaine Screen Urine Not Detected (Not Detect); Fentanyl, urine Not Detected (Not Detect); Methadone Screen, Urine Not Detected (Not Detect); Opiate Screen Urine Not Detected (Not Detect); Oxycodone Screen Urine Not Detected (Not Detect); Phencyclidine Screen Urine Not Detected (Not Detect)
[2024-07-03 05:18] LABS: Reflex Lactate? Lactic Acid Added
[2024-07-03] MEDS: diazePAM 10 MG/2 ML CARTRIDGE IVPUSH (05:19)
[2024-07-03] MEDS: Metoclopramide HCl 10 MG/2 ML VIAL IVPUSH (06:20)
[2024-07-03] MEDS: Omeprazole 20 MG CAPSULE.DR PO (06:32)
[2024-07-03 06:48] LABS: ~Lactic Acid-LAB USE ONLY 2.2 mmol/L (0.5-2.0)
[2024-07-03 08:11] LABS: MANUAL DIFF FLAG NO
[2024-07-03 08:15] LABS: Reflex Lactate? 2 Y
[2024-07-03 08:16] LABS: Basophils Percent Auto 0.6 % (0-2); Eosinophils Absolute Auto 0.1 X10*3/uL (0.0-0.4); Hematocrit 38.8 % (37.0-47.0); Hemoglobin 13.8 g/dl (12.0-16.0); Imm Gran Abs Auto 0.03 X10*3/uL (0.00-0.03); Imm Gran Pct Auto 0.4 % (0.0-0.4); Lymphocytes Absolute Auto 1.9 X10*3/uL (1.2-4.9); Lymphocytes Percent Auto 26.4 % (20-40); Mean Corpuscular HGB Conc 35.6 g/dl (31.0-35.0); Mean Corpuscular Hemoglobin 31.4 pg (27.0-33.0); Mean Corpuscular Volume 88.4 fL (80.0-98.0); Mean Platelet Volume 8.9 fL (9.4-12.3); Monocytes Absolute Auto 0.9 X10*3/uL (0.1-1.2); Monocytes Percent Auto 12.3 % (2-11); Neutrophils Absolute Auto 4.2 x10*3/uL (2.0-8.3); Neutrophils Percent Auto 59.3 % (45-73); Platelet Count 257 X10*3/uL (160-400); Red Blood Count 4.39 X10*6/uL (4.20-5.50); Red Cell Distribution Width 15.3 % (11.0-16.0); White Blood Count 7.1 X10*3/uL (4.8-10.8)
[2024-07-03 08:42] LABS: Lactic Acid 1.8 mmol/L (0.5-2.0)
[2024-07-03 08:43] LABS: Alanine Aminotransferase 73 U/L (0-31); Alkaline Phosphatase 60 U/L (39-117); Anion Gap 15 (12-20); Aspartate Amino Transferase 74 U/L (5-31); Bilirubin Total 0.7 mg/dL (0.0-1.0); Blood Urea Nitrogen 5 mg/dL (9-16); Calcium 8.3 mg/dL (8.4-10.2); Carbon Dioxide 24 mmol/L (22-29); Chloride 107 mmol/L (96-108); Creatinine Clr Calc Pharmacy 121.7; Estimated Glomerular Filt Rate > 60; Glucose Random 96 mg/dL (60-115); Potassium 3.6 mmol/L (3.3-5.1); Sodium 142 mmol/L (135-145); Total Protein 6.8 g/dL (6.5-8.0)
--- NOTE | 2024-07-03 09:06 | PHA.MEDREC ---
Addendum entered by Millicent Quinonez RPh 07/03/24 09:13: Reviewed by [facility] Original Note: Pharmacy Consult ? Medication Reconciliation Pharmacy has completed the medication reconciliation. Spoke to patient to confirm med list. Patient states she is only taking Zyrtec 10 mg daily and Pantoprazole 40 mg daily. Patient last had her medications yesterday.
--- NOTE | 2024-07-03 09:09 | P.PNIM_ITS ---
Subjective Subjective Date of Service: 07/04/24 Interval History: alcohol withdrawals Review of Systems Review of Systems: Yes all other systems are reviewed and are negative Physical Exam 2 Vital Signs: Vital Signs: Last Vital Signs Temp 98.6 F 07/03/24 08:01 Pulse 122 H 07/03/24 08:01 Resp 17 07/03/24 08:01 BP 138/90 H 07/03/24 08:01 Pulse Ox 94 07/03/24 08:01 O2 Del Method Room Air 07/03/24 08:01 BMI result Body Mass Index 34.3 Objective Data Active Medications Clotrimazole (Clotrimazole 1 % Cream 15 Gm Tube) 1 appl TOPICAL BID [facility]; Protocol Diazepam (Diazepam 10 Mg/2 Ml Cartridge) 10 mg IVPUSH Q6H PRN PRN Reason: Anxiety Last Admin: 07/03/24 05:19 Dose: 10 mg Documented By: JONATHAN Folic Acid (Folic Acid 1 Mg Tablet) 1 mg PO DAILY [facility] Hydromorphone HCl (Hydromorphone Hcl 0.5 Mg/0.5 Ml Syringe) 0.5 mg IVPUSH Q3H PRN; Protocol PRN Reason: Pain, Severe (Pain Scale 7-10) Sodium Chloride (Ns) 1,000 mls @ 125 mls/hr IVCONT .Q8H [facility] Last Admin: 07/03/24 04:08 Dose: 125 mls/hr Documented By: JONATHAN Ketorolac Tromethamine (Ketorolac Tromethamine 15 Mg/Ml Vial) 15 mg IVPUSH Q6H PRN PRN Reason: Pain, Moderate(Pain Scale 4-6) Last Admin: 07/03/24 01:29 Dose: 15 mg Documented By: JONATHAN Metoclopramide HCl (Metoclopramide Hcl 10 Mg/2 Ml Vial) 10 mg IVPUSH Q6H PRN PRN Reason: Nausea and Vomiting Last Admin: 07/03/24 06:20 Dose: 10 mg Documented By: JONATHAN Omeprazole (Omeprazole 20 Mg Capsule.) 20 mg PO DAILY@0630 [facility] Last Admin: 07/03/24 06:32 Dose: 20 mg Documented By: JONATHAN Ondansetron HCl (Ondansetron Hcl 4 Mg/2 Ml Vial) 4 mg IVPUSH Q6H PRN PRN Reason: Nausea and Vomiting Last Admin: 07/03/24 02:43 Dose: 4 mg Documented By: JONATHAN Pantoprazole Sodium (Pantoprazole Sodium 40 Mg/10 Ml Vial) 40 mg IVPUSH BID@0630,1630 [facility] Last Admin: 07/03/24 06:20 Dose: 40 mg Documented By: JONATHAN Pharmacy Consult (Consult Rx Etoh Phenob Im/Po) 1 each MISCELLANE ONCE PRN; Protocol PRN Reason: Consult order Phenobarbital (Phenobarbital 30 Mg Tablet) 60 mg PO BID@1000,2200 [facility] Stop: 07/04/24 22:01 Phenobarbital (Phenobarbital 30 Mg Tablet) 30 mg PO BID@1000,2200 [facility] Stop: 07/06/24 22:01 Phenobarbital (Phenobarbital 30 Mg Tablet) 30 mg PO DAILY@1000 [facility] Stop: 07/08/24 10:01 Labs 07/03/24 08:07 07/03/24 08:07 Labs: Laboratory Results - last 24 hr 07/02/24 07/03/24 07/03/24 21:39 03:15 04:41 MCV 87.5 MCH 30.8 MCHC 35.2 H RDW 15.2 Plt Count 275 MPV 9.0 L Immature Gran % (Auto) 0.2 Neut % (Auto) 49.2 Lymph % (Auto) 35.0 Jefferson % (Auto) 12.5 H Eos % (Auto) 1.8 Baso % (Auto) 1.3 Lymph # (Auto) 1.6 Jefferson # (Auto) 0.6 Eos # (Auto) 0.1 Baso # (Auto) 0.1 Abs Immat Gran (auto) 0.01 Absolute Neuts (auto) 2.2 Absolute Nucleated RBC 0.000 Nucleated RBC % (auto) 0.0 Smear Tech's Comments VERIFIED Anion Gap 20 Estim Creat Clear Calc 115.1 Estimated GFR > 60 Random Glucose 97 Lactic Acid 2.7 H* Lactic Acid F/U @ 2Hr Calcium 9.2 D Magnesium 2.3 Total Bilirubin 0.3 AST 91 H ALT 93 H Alkaline Phosphatase 70 Total Protein 7.9 Albumin 4.6 Lipase 44 Beta HCG, Quant < 2 Urine Color Yellow Urine Appearance Clear Urine pH 7.5 Ur Specific Spring >= 1.030 H Urine Protein 30 (1+) H Urine Glucose (UA) Negative Urine Ketones 15 Urine Blood Negative Urine Nitrite Negative Ur Leukocyte Esterase Negative Urine RBC 0-2 Urine WBC 0-5 Ur Squamous Epith Cells 3-5 Urine Bacteria Trace Hyaline Casts 0-2 Urine Opiates Screen Not Detected Ur Buprenorphine Scrn Not Detected Ur Oxycodone Screen Not Detected Urine Methadone Screen Not Detected Urine Fentanyl Screen Not Detected Ur Barbiturates Screen POSITIVE H Ur Phencyclidine Scrn Not Detected Ur Amphetamines Screen Not Detected U Benzodiazepines Scrn Not Detected Urine Cocaine Screen Not Detected U Marijuana (THC) Screen POSITIVE H Ethyl Alcohol 227 07/03/24 07/03/24 06:05 08:07 MCV 88.4 MCH 31.4 MCHC 35.6 H RDW 15.3 Plt Count 257 MPV 8.9 L Immature Gran % (Auto) 0.4 Neut % (Auto) 59.3 Lymph % (Auto) 26.4 Jefferson % (Auto) 12.3 H Eos % (Auto) 1.0 Baso % (Auto) 0.6 Lymph # (Auto) 1.9 Jefferson # (Auto) 0.9 Eos # (Auto) 0.1 Baso # (Auto) 0.0 Abs Immat Gran (auto) 0.03 Absolute Neuts (auto) 4.2 Absolute Nucleated RBC 0.000 Nucleated RBC % (auto) 0.0 Smear Tech's Comments Anion Gap 15 Estim Creat Clear Calc 121.7 Estimated GFR > 60 Random Glucose 96 Lactic Acid 1.8 Lactic Acid F/U @ 2Hr 2.2 H* Calcium 8.3 L D Magnesium Total Bilirubin 0.7 AST 74 H ALT 73 H Alkaline Phosphatase 60 Total Protein 6.8 Albumin 4.0 Lipase Beta HCG, Quant Urine Color Urine Appearance Urine pH Ur Specific Spring Urine Protein Urine Glucose (UA) Urine Ketones Urine Blood Urine Nitrite Ur Leukocyte Esterase Urine RBC Urine WBC Ur Squamous Epith Cells Urine Bacteria Hyaline Casts Urine Opiates Screen Ur Buprenorphine Scrn Ur Oxycodone Screen Urine Methadone Screen Urine Fentanyl Screen Ur Barbiturates Screen Ur Phencyclidine Scrn Ur Amphetamines Screen U Benzodiazepines Scrn Urine Cocaine Screen U Marijuana (THC) Screen Ethyl Alcohol Assessment and Plan (1) Alcohol withdrawal: Status: Acute Plan 39-year-old female with a past medical history significant for alcohol use disorder, alcohol withdrawal, acute alcoholic pancreatitis, and obesity, who presented to the ED due toalcohol withdrawals Alcohol withdrawal Alcohol use disorder CIWA continue Phenobarbital protocol Folic and thiamine Addiction med consult she is looking into detox unit after dc hydrate and monitor Obesity, BMI 35.9 weight loss encouraged ongoin need : alcohol withdrawals-ciwa monitering,phenobarbital protocol. Quality Stroke Does the patient have a stroke diagnosis?: No Reason for No Anti-thrombotic by Day Two: N/A - Med Ordered VTE Prior VTE?: No VTE Risk Level:: Medical - moderate - high VTE Device Contraindication: N/A - Device Ordered VTE Drug Contraindication: N/A - Med Ordered
[2024-07-03] MEDS: Loratadine 10 MG TABLET PO (09:32)
[2024-07-03] MEDS: Folic Acid 1 MG TABLET PO (09:32)
[2024-07-03] MEDS: Clotrimazole 1 % Cream 15 GM TUBE 1 APPL TOPICAL (09:32)
[2024-07-03] MEDS: HYDROmorphone HCl 0.5 MG/0.5 ML SYRINGE IVPUSH ×3 (10:06→21:56)
--- NOTE | 2024-07-03 10:08 | PC.NURSE ---
Patient c/o ABD pain rated 7/10, administered PRN Dilaudid, effectiveness pending. CIWA = 6
[2024-07-03 10:28] LABS: Thyroid Stimulating Hormone 2.55 uIU/mL (0.32-4.0)
[2024-07-03 10:30] LABS: ~Lactic Acid-LAB USE ONLY 2.6 mmol/L (0.5-2.0)
--- NOTE | 2024-07-03 11:54 | MHC.CM.PN ---
Pt lives with her friend, he is also her HCP (toribio). PCP confirmed: Brooklynn Hardy. Pt. does not have home care services or use DME. She will need a ride home at [place], DCP: home, self care. CM to follow for DC needs.
[2024-07-03] MEDS: PHENobarbitaL 30 MG TABLET 60 MG PO ×2 (14:58→21:57)
--- NOTE | 2024-07-03 15:01 | PC.NURSE ---
Patient c/o abdomen pain rated 6/10, admininstered PRN tordol, effectiveness pending.
--- NOTE | 2024-07-03 18:50 | PC.NURSE ---
Patient c/o left abd pain rated 7/10, administered PRN Dilaudid, results pending
[2024-07-04 03:30] VITALS: BP 124/82; PULSE 105; RESP 18; TEMP 36.3; O2SAT 96
[2024-07-04] MEDS: HYDROmorphone HCl 0.5 MG/0.5 ML SYRINGE IVPUSH ×4 (03:40→17:17)
[2024-07-04] MEDS: 0.9 % Sodium Chloride 1,000 ML 125 ML IVCONT ×3 (03:42→17:20)
[2024-07-04] MEDS: Pantoprazole Sodium 40 MG/10 ML VIAL IVPUSH ×2 (06:23→17:15)
[2024-07-04] MEDS: Ketorolac Tromethamine 15 MG/ML VIAL IVPUSH (06:24)
[2024-07-04 08:00] VITALS: BP 127/86; PULSE 84; RESP 18; TEMP 36.3; O2SAT 96
[2024-07-04] MEDS: PHENobarbitaL 30 MG TABLET 60 MG PO ×2 (09:29→21:04)
[2024-07-04] MEDS: ondansetron HCL 4 MG/2 ML VIAL IVPUSH (09:29)
[2024-07-04] MEDS: Folic Acid 1 MG TABLET PO (09:29)
[2024-07-04] MEDS: Loratadine 10 MG TABLET PO (09:29)
[2024-07-04] MEDS: Clotrimazole 1 % Cream 15 GM TUBE 1 APPL TOPICAL (09:30)
--- NOTE | 2024-07-04 10:54 | P.PNADD_ITS ---
Subjective Subjective Date of Service: 07/04/24 Reason For Visit: Alcohol Withdrawal Interim History: Patient seen in follow up for AUD and withdrawal. 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 RN evaluation reviewed and discussed with patient. Today, patient is awake, alert, pleasant and engaged in interview. She reports withdrawal sx are improving, still experiencing some photophobia and anxiety. Discussed FRED, Naltrexone. She is familiar with this medication as she has taken it in the past. Reviewed dosing, including being able to take up to 100mg if needed. Reviewed goals of medication and additional strategies to support patients goal of abstinence. Labs and medication list reviewed. Review of Systems Constitutional: Reports as per HPI, Reports difficulty sleeping and Reports malaise Comments: left sided abdominal pain Gastrointestinal: Denies loose stools and Denies nausea Psychiatric: Reports anxiety Mental Status Exam Mental Status Exam Level of Consciousness: Awake, Appropriate and Alert Patient Behavior: Appropriate and Talkative Mood Description: Anxious Affect Description: Appropriate and Anxious Speech Pattern: Clear Hallucinations: None Thought Process: Intact Thought Content: positive for Intact Judgement: Good Diagnostics Vital Signs (24Hr): Vital Signs - 24 hr 07/03/24 12:19 07/03/24 14:55 07/03/24 16:36 Temperature 98.4 F 97.7 F 98.0 F Pulse Rate 115 H 115 H 97 Respiratory Rate 16 17 17 Blood Pressure 123/83 111/69 113/71 Pulse Oximetry 96 96 96 Oxygen Delivery Method Room Air Room Air Room Air 07/03/24 18:44 07/03/24 20:00 07/03/24 23:48 Temperature 97.9 F 98.3 F 97.7 F Pulse Rate 100 100 99 Respiratory Rate 16 18 18 Blood Pressure 141/102 H 133/79 132/79 Pulse Oximetry 98 98 94 Oxygen Delivery Method Room Air Room Air Room Air 07/04/24 03:30 07/04/24 08:00 Temperature 97.4 F 97.3 F Pulse Rate 105 H 84 Respiratory Rate 18 18 Blood Pressure 124/82 127/86 Pulse Oximetry 96 96 Oxygen Delivery Method Room Air Room Air BMI result Body Mass Index 31.0 Labs 07/03/24 08:07 07/03/24 08:07 Labs: Laboratory Results - last 48 hr 05/26/25 05/27/25 05/27/25 21:39 03:15 04:41 WBC 4.5 L RBC 5.43 D Hgb 16.7 H D Hct 47.5 H D MCV 87.5 MCH 30.8 MCHC 35.2 H RDW 15.2 Plt Count 275 MPV 9.0 L Immature Gran % (Auto) 0.2 Neut % (Auto) 49.2 Lymph % (Auto) 35.0 [place] % (Auto) 12.5 H Eos % (Auto) 1.8 Baso % (Auto) 1.3 Lymph # (Auto) 1.6 [place] # (Auto) 0.6 Eos # (Auto) 0.1 Baso # (Auto) 0.1 Abs Immat Gran (auto) 0.01 Absolute Neuts (auto) 2.2 Absolute Nucleated RBC 0.000 Nucleated RBC % (auto) 0.0 Smear Tech's Comments VERIFIED Sodium 140 Potassium 4.0 Chloride 104 Carbon Dioxide 20 L Anion Gap 20 BUN 6 L Creatinine 0.73 Estim Creat Clear Calc 115.1 Estimated GFR > 60 Random Glucose 97 Lactic Acid 2.7 H* Lactic Acid F/U @ 2Hr Lactic Acid F/U @ 4Hr Calcium 9.2 D Magnesium 2.3 Total Bilirubin 0.3 AST 91 H ALT 93 H Alkaline Phosphatase 70 Troponin I High Sens < 2.7 Total Protein 7.9 Albumin 4.6 Lipase 44 TSH Beta HCG, Quant < 2 Urine Color Yellow Urine Appearance Clear Urine pH 7.5 Ur Specific [place] >= 1.030 H Urine Protein 30 (1+) H Urine Glucose (UA) Negative Urine Ketones 15 Urine Blood Negative Urine Nitrite Negative Ur Leukocyte Esterase Negative Urine RBC 0-2 Urine WBC 0-5 Ur Squamous Epith Cells 3-5 Urine Bacteria Trace Hyaline Casts 0-2 Urine Opiates Screen Not Detected Ur Buprenorphine Scrn Not Detected Ur Oxycodone Screen Not Detected Urine Methadone Screen Not Detected Urine Fentanyl Screen Not Detected Ur Barbiturates Screen POSITIVE H Ur Phencyclidine Scrn Not Detected Ur Amphetamines Screen Not Detected U Benzodiazepines Scrn Not Detected Urine Cocaine Screen Not Detected U Marijuana (THC) Screen POSITIVE H Ethyl Alcohol 227 07/03/24 07/03/24 07/03/24 06:05 08:07 09:49 WBC 7.1 RBC 4.39 Hgb 13.8 Hct 38.8 MCV 88.4 MCH 31.4 MCHC 35.6 H RDW 15.3 Plt Count 257 MPV 8.9 L Immature Gran % (Auto) 0.4 Neut % (Auto) 59.3 Lymph % (Auto) 26.4 [place] % (Auto) 12.3 H Eos % (Auto) 1.0 Baso % (Auto) 0.6 Lymph # (Auto) 1.9 [place] # (Auto) 0.9 Eos # (Auto) 0.1 Baso # (Auto) 0.0 Abs Immat Gran (auto) 0.03 Absolute Neuts (auto) 4.2 Absolute Nucleated RBC 0.000 Nucleated RBC % (auto) 0.0 Smear Tech's Comments Sodium 142 Potassium 3.6 Chloride 107 Carbon Dioxide 24 Anion Gap 15 BUN 5 L Creatinine 0.69 Estim Creat Clear Calc 121.7 Estimated GFR > 60 Random Glucose 96 Lactic Acid 1.8 Lactic Acid F/U @ 2Hr 2.2 H* Lactic Acid F/U @ 4Hr 2.6 H* Calcium 8.3 L D Magnesium Total Bilirubin 0.7 AST 74 H ALT 73 H Alkaline Phosphatase 60 Troponin I High Sens Total Protein 6.8 Albumin 4.0 Lipase TSH 2.55 Beta HCG, Quant Urine Color Urine Appearance Urine pH Ur Specific [place] Urine Protein Urine Glucose (UA) Urine Ketones Urine Blood Urine Nitrite Ur Leukocyte Esterase Urine RBC Urine WBC Ur Squamous Epith Cells Urine Bacteria Hyaline Casts Urine Opiates Screen Ur Buprenorphine Scrn Ur Oxycodone Screen Urine Methadone Screen Urine Fentanyl Screen Ur Barbiturates Screen Ur Phencyclidine Scrn Ur Amphetamines Screen U Benzodiazepines Scrn Urine Cocaine Screen U Marijuana (THC) Screen Ethyl Alcohol Medications Medications Current Medications Clotrimazole (Clotrimazole 1 % Cream 15 Gm Tube) 1 appl TOPICAL BID [facility]; Protocol Last Admin: 07/04/24 09:30 Dose: 1 appl Diazepam (Diazepam 10 Mg/2 Ml Cartridge) 10 mg IVPUSH Q6H PRN PRN Reason: Anxiety Last Admin: 07/03/24 05:19 Dose: 10 mg Folic Acid (Folic Acid 1 Mg Tablet) 1 mg PO DAILY [facility] Last Admin: 07/04/24 09:29 Dose: 1 mg Hydromorphone HCl (Hydromorphone Hcl 0.5 Mg/0.5 Ml Syringe) 0.5 mg IVPUSH Q3H PRN; Protocol PRN Reason: Pain, Severe (Pain Scale 7-10) Last Admin: 07/04/24 09:29 Dose: 0.5 mg Sodium Chloride (Ns) 1,000 mls @ 125 mls/hr IVCONT .Q8H [facility] Last Admin: 07/04/24 10:09 Dose: Not Given Ketorolac Tromethamine (Ketorolac Tromethamine 15 Mg/Ml Vial) 15 mg IVPUSH Q6H PRN PRN Reason: Pain, Moderate(Pain Scale 4-6) Last Admin: 07/04/24 06:24 Dose: 15 mg Loratadine (Loratadine 10 Mg Tablet) 10 mg PO DAILY [facility] Last Admin: 07/04/24 09:29 Dose: 10 mg Metoclopramide HCl (Metoclopramide Hcl 10 Mg/2 Ml Vial) 10 mg IVPUSH Q6H PRN PRN Reason: Nausea and Vomiting Last Admin: 07/03/24 06:20 Dose: 10 mg Omeprazole (Omeprazole 20 Mg Capsule.Dr) 20 mg PO DAILY@0630 [facility] Last Admin: 07/04/24 06:24 Dose: Not Given Ondansetron HCl (Ondansetron Hcl 4 Mg/2 Ml Vial) 4 mg IVPUSH Q6H PRN PRN Reason: Nausea and Vomiting Last Admin: 07/04/24 09:29 Dose: 4 mg Pantoprazole Sodium (Pantoprazole Sodium 40 Mg/10 Ml Vial) 40 mg IVPUSH BID@0630,1630 [facility] Last Admin: 07/04/24 06:23 Dose: 40 mg Pharmacy Consult (Consult Rx Etoh Phenob Im/Po) 1 each MISCELLANE ONCE PRN; Protocol PRN Reason: Consult order Phenobarbital (Phenobarbital 30 Mg Tablet) 60 mg PO BID@1000,2200 [facility] Stop: 07/04/24 22:01 Last Admin: 07/04/24 09:29 Dose: 60 mg Phenobarbital (Phenobarbital 30 Mg Tablet) 30 mg PO BID@1000,2200 [facility] Stop: 07/06/24 22:01 Phenobarbital (Phenobarbital 30 Mg Tablet) 30 mg PO DAILY@1000 [facility] Stop: 07/08/24 10:01 Allergies Allergies Allergy/AdvReac Type Severity Reaction Status Date / Time adhesive AdvReac Hives Verified 07/02/24 21:16 Assessment & Plan Assessment & Plan (1) Alcohol use disorder, severe, dependence: Status: Acute Code(s): F10.20 - Alcohol dependence, uncomplicated Assessment and Plan: * completing pheno taper--withdrawal sx well managed * thiamine and folic acid ---patient aware of risk reduction strategies including taking these at home once d/c * naltrexone rx sent to patient's pharmacy--currently receiving PRN Dilaudid * appt schedule at [facility] 07/13 @1:45pm for continuation of treatment Total time managing care of this patient today __35__ minutes.
[2024-07-04 11:11] VITALS: BP 120/68; PULSE 84; RESP 18; TEMP 36.6; O2SAT 95
--- NOTE | 2024-07-04 12:49 | PM.GYNCN ---
DIRECTOR MEDICAL SURGICAL - CN: HPI Data of Consult Consult date: 07/04/24 Requesting Physician: Sayra Harding MD Primary Care Provider: Brooklynn Hardy NP Consult Narrative Narrative: I was consulted on Tita Owens who is a 39 year old female, the patient is complaining of mild left lower quadrant pain no other associated symptoms. The patient has stayed has Mirena IUD inserted for contraception AUB 11 years ago Pelvic ultrasound showed the following: Anteverted uterus is 7.9 cm length. Normal myometrium. Endometrium: There is an IUD in expected position within the uterus. This obscures the endometrium. Right ovary not visualized. Left ovary 7.0 x 4.9 x 6.1 cm. Within the left ovary there is a 2.6 by 2.6 x 2.4 cm predominantly anechoic cystic lesion with increased through transmission and internal septations. No internal vascularity. There is a similar appearing lesion closely adjacent measuring 4.8 x 3.4 x 4.3 cm, with internal septations and increased through transmission. Normal color Doppler with arterial/venous spectral tracing of right ovary. No free fluid. H&H 13.8/38.8 with a white count of 7.1 hCG less than 2 on 07/02 cc:: CC: Sayra Harding MD [facility] Past Medical History Medical History (Updated 07/04/24 @ 13:20 by Cristhian Sanders MD) Presence of Mirena IUD MDD (major depressive disorder), recurrent episode, moderate Asthma Anxiety and depression Tachycardia Alcohol withdrawal Functional capacity: independent ambulation Family History Family History Mother Alcohol use disorder Maternal Grandfather Alcohol use disorder Social History Social History Household Members: None Household Members Other:: roommate Housing: House Do you presently have visiting nurse or other home services: No Alcohol intake: current Alcohol intake frequency: 3 or more drinks per day Alcohol type: hard liquor Comment: Reports drinking 2 pints per day Patient Tobacco Use Status: Current everyday Tobacco user Tobacco use type: Cigarette e-Cigarette/Vaping Use: Never Used Second Hand Smoke Exposure: No Substance Use Type: Marijuana Advance Directives Date on File: 02/11/23 service: No Meds Allergies Allergy/AdvReac Type Severity Reaction Status Date / Time adhesive AdvReac Hives Verified 07/02/24 21:16 Active Medications: Current Medications Clotrimazole (Clotrimazole 1 % Cream 15 Gm Tube) 1 appl TOPICAL BID [facility]; Protocol Last Admin: 07/04/24 09:30 Dose: 1 appl Diazepam (Diazepam 10 Mg/2 Ml Cartridge) 10 mg IVPUSH Q6H PRN PRN Reason: Anxiety Last Admin: 07/03/24 05:19 Dose: 10 mg Folic Acid (Folic Acid 1 Mg Tablet) 1 mg PO DAILY [facility] Last Admin: 07/04/24 09:29 Dose: 1 mg Hydromorphone HCl (Hydromorphone Hcl 0.5 Mg/0.5 Ml Syringe) 0.5 mg IVPUSH Q3H PRN; Protocol PRN Reason: Pain, Severe (Pain Scale 7-10) Last Admin: 07/04/24 09:29 Dose: 0.5 mg Sodium Chloride (Ns) 1,000 mls @ 125 mls/hr IVCONT .Q8H [facility] Last Admin: 07/04/24 10:09 Dose: Not Given Ketorolac Tromethamine (Ketorolac Tromethamine 15 Mg/Ml Vial) 15 mg IVPUSH Q6H PRN PRN Reason: Pain, Moderate(Pain Scale 4-6) Last Admin: 07/04/24 06:24 Dose: 15 mg Loratadine (Loratadine 10 Mg Tablet) 10 mg PO DAILY [facility] Last Admin: 07/04/24 09:29 Dose: 10 mg Metoclopramide HCl (Metoclopramide Hcl 10 Mg/2 Ml Vial) 10 mg IVPUSH Q6H PRN PRN Reason: Nausea and Vomiting Last Admin: 07/03/24 06:20 Dose: 10 mg Omeprazole (Omeprazole 20 Mg Capsule.Dr) 20 mg PO DAILY@0630 [facility] Last Admin: 07/04/24 06:24 Dose: Not Given Ondansetron HCl (Ondansetron Hcl 4 Mg/2 Ml Vial) 4 mg IVPUSH Q6H PRN PRN Reason: Nausea and Vomiting Last Admin: 07/04/24 09:29 Dose: 4 mg Pantoprazole Sodium (Pantoprazole Sodium 40 Mg/10 Ml Vial) 40 mg IVPUSH BID@0630,1630 [facility] Last Admin: 07/04/24 06:23 Dose: 40 mg Pharmacy Consult (Consult Rx Etoh Phenob Im/Po) 1 each MISCELLANE ONCE PRN; Protocol PRN Reason: Consult order Phenobarbital (Phenobarbital 30 Mg Tablet) 60 mg PO BID@1000,2200 [facility] Stop: 07/04/24 22:01 Last Admin: 07/04/24 09:29 Dose: 60 mg Phenobarbital (Phenobarbital 30 Mg Tablet) 30 mg PO BID@1000,2200 [facility] Stop: 07/06/24 22:01 Phenobarbital (Phenobarbital 30 Mg Tablet) 30 mg PO DAILY@1000 [facility] Stop: 07/08/24 10:01 Home Medications ?Medication ?Instructions ?Recorded ?Confirmed ?Last Taken ?Type pantoprazole 40 mg tablet,delayed 40 mg PO DAILY@0630 03/22/24 07/03/24 07/02/24 History release cetirizine 10 mg tablet (Zyrtec) 10 mg PO DAILY 07/03/24 07/03/24 07/02/24 History DIRECTOR MEDICAL SURGICAL Physical Exam Vitals Vital signs: Temp Pulse Resp BP Pulse Ox O2 Del Method 97.8 F 84 18 120/68 95 Room Air 07/04/24 11:11 07/04/24 11:11 07/04/24 11:11 07/04/24 11:11 07/04/24 11:11 07/04/24 11:11 BMI result Body Mass Index 31.0 Abdomen Auscultation/Inspection/Palpation: Normal bowel sounds, Soft, Non-distended and Tenderness (Mild left lower quadrant tenderness) Female Genitalia (Pelvic) Bladder/Urethra: Normal meatus Vulva: No lesions Vagina: Nontender Cervix: Grossly normal Uterus: Normal size Adnexa/Parametria: Adnexal Tenderness: None, Adnexal Mass: None, Parametrial Tenderness: None and Parametrial Mass: None Additional Comments: IUD string seen DIRECTOR MEDICAL SURGICAL - Results Labs 07/03/24 08:07 07/03/24 08:07 Labs: Urine 07/03/24 Range/Units 04:41 Urine Color Yellow Urine Appearance Clear Urine pH 7.5 (5.0-9.0) Ur Specific [place] >= 1.030 H (1.005-1.025) Urine Protein 30 (1+) H (Neg-Trace) mg/dL Urine Glucose (UA) Negative (Negative) mg/dL Assessment and Plan (1) Complex ovarian cyst: Status: Acute Discussed with the patient the complex ovarian cyst by ultrasound. Discussed with the patient the Ultrasound findings, the main limitation of transvaginal ultrasonography alone as a diagnostic tool to distinguish benign from malignant masses relates to its lack of specificity and low positive predictive value for cancer. The differential diagnosis discussed with the patient includes the following but not limited to: benign and malignant gynecological and non-gynecological causes. Discussed with the patient options of treatment including laparoscopy ovarian cystectomy/oophorectomy vs. expectant management with repeat US in repeating pelvic US in 6 weeks from previous US, outpatient order placed. If the ovarian complex cyst is persistent larger and / or more complex looking, will refer to gynecologic Oncology. All pros, cons, risks and benefits of each approach were discussed with the patient including but not limited to a delay in the diagnosis and treatment of ovarian cancer affecting the prognosis; The patient decided to go ahead with expectant management. Signs and symptoms of ovarian rupture and/or torsion were discussed with the patient. Instructions given the patient to schedule a 6 weeks outpatient follow-up ultrasound appointment and to call or go to emergency room in case of worsening of pelvic pain, nausea and vomiting. All questions were answered & the patient verbalized understanding and agreed with the plan. (2) IUD check up: Status: Acute Discussed with the patient Mirena IUD is FDA approved for 5 years for AUB and 8 year for contraception, the patient is overdue for replacement, instructions given the patient to use a backup method for control after discharge and to schedule an appointment in the office as soon as possible regarding Mirena IUD removal/ insertion. All questions answered, the patient verbalized understanding
[2024-07-04 15:06] VITALS: BP 120/69; PULSE 91; RESP 18; TEMP 36.3; O2SAT 95
--- NOTE | 2024-07-04 18:10 | P.PNIM_ITS ---
Subjective Subjective Date of Service: 07/04/24 Interval History: Alcohol abuse/alcohol withdrawal Review of Systems seems anxious and mild tremulous Abdominal pain seems to be improving Review of Systems: Yes all other systems are reviewed and are negative Physical Exam 2 Vital Signs: Vital Signs: Last Vital Signs Temp 97.3 F 07/04/24 15:06 Pulse 91 07/04/24 15:06 Resp 18 07/04/24 15:06 BP 120/69 07/04/24 15:06 Pulse Ox 95 07/04/24 15:06 O2 Del Method Room Air 07/04/24 15:06 BMI result Body Mass Index 31.0 Appearance: Alert.? Oriented X3.? cvs: rrr, [id number] . res: clear to auscultation ,no rhonchii or wheezing abd: no rebound or guarding ,nt, bs present. ext pulses present , no cyanosis . neuro: axo3 , nonfocal. Objective Data Active Medications Clotrimazole (Clotrimazole 1 % Cream 15 Gm Tube) 1 appl TOPICAL BID [facility]; Protocol Last Admin: 07/04/24 09:30 Dose: 1 appl Documented By: NBA Diazepam (Diazepam 10 Mg/2 Ml Cartridge) 10 mg IVPUSH Q6H PRN PRN Reason: Anxiety Last Admin: 07/03/24 05:19 Dose: 10 mg Documented By: JONATHAN Folic Acid (Folic Acid 1 Mg Tablet) 1 mg PO DAILY [facility] Last Admin: 07/04/24 09:29 Dose: 1 mg Documented By: NBA Hydromorphone HCl (Hydromorphone Hcl 0.5 Mg/0.5 Ml Syringe) 0.5 mg IVPUSH Q3H PRN; Protocol PRN Reason: Pain, Severe (Pain Scale 7-10) Last Admin: 07/04/24 17:17 Dose: 0.5 mg Documented By: NBA Sodium Chloride (Ns) 1,000 mls @ 125 mls/hr IVCONT .Q8H [facility] Last Admin: 07/04/24 17:20 Dose: 125 mls/hr Documented By: NBA Ketorolac Tromethamine (Ketorolac Tromethamine 15 Mg/Ml Vial) 15 mg IVPUSH Q6H PRN PRN Reason: Pain, Moderate(Pain Scale 4-6) Last Admin: 07/04/24 06:24 Dose: 15 mg Documented By: AMILCAR Loratadine (Loratadine 10 Mg Tablet) 10 mg PO DAILY [facility] Last Admin: 07/04/24 09:29 Dose: 10 mg Documented By: NBA Metoclopramide HCl (Metoclopramide Hcl 10 Mg/2 Ml Vial) 10 mg IVPUSH Q6H PRN PRN Reason: Nausea and Vomiting Last Admin: 07/03/24 06:20 Dose: 10 mg Documented By: JONATHAN Omeprazole (Omeprazole 20 Mg Capsule.Dr) 20 mg PO DAILY@0630 [facility] Last Admin: 07/04/24 06:24 Dose: Not Given Documented By: AMILCAR Non-Admin Reason: pt. received iv protonix. Ondansetron HCl (Ondansetron Hcl 4 Mg/2 Ml Vial) 4 mg IVPUSH Q6H PRN PRN Reason: Nausea and Vomiting Last Admin: 07/04/24 09:29 Dose: 4 mg Documented By: NBA Pantoprazole Sodium (Pantoprazole Sodium 40 Mg/10 Ml Vial) 40 mg IVPUSH BID@0630,1630 [facility] Last Admin: 07/04/24 17:15 Dose: 40 mg Documented By: NBA Pharmacy Consult (Consult Rx Etoh Phenob Im/Po) 1 each MISCELLANE ONCE PRN; Protocol PRN Reason: Consult order Phenobarbital (Phenobarbital 30 Mg Tablet) 60 mg PO BID@1000,2200 [facility] Stop: 07/04/24 22:01 Last Admin: 07/04/24 09:29 Dose: 60 mg Documented By: NBA Phenobarbital (Phenobarbital 30 Mg Tablet) 30 mg PO BID@1000,2200 [facility] Stop: 07/06/24 22:01 Phenobarbital (Phenobarbital 30 Mg Tablet) 30 mg PO DAILY@1000 [facility] Stop: 07/08/24 10:01 Labs 07/03/24 08:07 07/03/24 08:07 Assessment and Plan (1) Complex ovarian cyst: Status: Acute (2) Alcohol withdrawal: Status: Acute Plan 39-year-old female with a past medical history significant for alcohol use disorder, alcohol withdrawal, acute alcoholic pancreatitis, and obesity, who presented to the ED due toalcohol withdrawals Alcohol withdrawal Alcohol use disorder CIWA continue Phenobarbital protocol Folic and thiamine Addiction med consult she is looking into detox unit after dc. ch pnacreatitis : has mild pain Which is improving Will switch medications to p.o. 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 hydrate and monitor Obesity, BMI 35.9 weight loss encouraged ongoin need : alcohol withdrawals-ciwa monitering,phenobarbital protocol. Quality Stroke Does the patient have a stroke diagnosis?: No Reason for No Anti-thrombotic by Day Two: N/A - Med Ordered VTE Prior VTE?: No VTE Risk Level:: Medical - moderate - high VTE Device Contraindication: N/A - Device Ordered VTE Drug Contraindication: N/A - Med Ordered
[2024-07-04] MEDS: Acetaminophen 325 MG TABLET 975 MG PO (18:29)
[2024-07-04 19:12] VITALS: BP 105/67; PULSE 83; RESP 18; TEMP 35.9; O2SAT 95
[2024-07-04] MEDS: traMADoL HCL 50 MG TABLET 25 MG PO (21:06)
[2024-07-04] MEDS: oxyCODONE HCl Immed Release 5 MG TABLET PO (22:39)
[2024-07-04 22:55] VITALS: BP 119/84; PULSE 94; RESP 18; TEMP 36; O2SAT 96
[2024-07-05] MEDS: Acetaminophen 325 MG TABLET 975 MG PO ×2 (02:05→07:50)
[2024-07-05 03:09] VITALS: BP 126/82; PULSE 84; RESP 18; TEMP 36; O2SAT 98
[2024-07-05] MEDS: traMADoL HCL 50 MG TABLET 25 MG PO ×2 (03:15→09:16)
[2024-07-05] MEDS: oxyCODONE HCl Immed Release 5 MG TABLET PO ×2 (04:57→12:07)
[2024-07-05] MEDS: Pantoprazole Sodium 40 MG/10 ML VIAL IVPUSH (04:57)
[2024-07-05 07:29] VITALS: BP 127/79; PULSE 83; RESP 18; TEMP 36.4; O2SAT 97
[2024-07-05] MEDS: Loratadine 10 MG TABLET PO (07:50)
[2024-07-05] MEDS: Folic Acid 1 MG TABLET PO (07:50)
[2024-07-05] MEDS: PHENobarbitaL 30 MG TABLET PO (09:16)
[2024-07-05 11:07] VITALS: BP 115/71; PULSE 84; RESP 18; TEMP 36.5; O2SAT 94
--- NOTE | 2024-07-05 13:29 | MHC.CM.PN ---
Patient has been medically cleared for dc to home today, self care.
--- NOTE | 2024-07-05 13:55 | MHC.CM.PN ---
CM has arranged a L[facility]FT for transport to home at 3 PM. RN is aware.
--- NOTE | 2024-07-05 14:18 | PM.DS ---
DS: Providers Provider Date of Service: 07/05/24 Date of admission: 07/02/24 23:39 Date of discharge: 07/05/24 Primary care physician: Brooklynn Hardy NP Consults: 07/03/24 00:31 Addiction Medicine Provider Routine Consulting Provider: Addiction Covering Reason for consultation: ETOH abuse Has provider been notified: No 07/04/24 09:53 Consult to Obstetrics / Gynecology Routine Consulting Provider: Cristhian Sanders Reason for consultation: Ovarian cysts/left abd pain Has provider been notified: No Attending physician on discharge: Sayra Harding Discharging clinician: Sayra Harding DS: Diagnosis Discharge Diagnosis (1) Complex ovarian cyst: Status: Acute (2) Alcohol withdrawal: Status: Acute DS: Summary Hospital Course Hospital Course: HPI:39-year-old female with past medical history alcohol abuse since age 23 - has tried naltrexone in the past, seizures related to alcohol withdrawal, major depressive disorder, anxiety, childhood trauma with PTSD, GERD, asthma, tobacco dependence, IUD Mirena been inserted for 11 years, chronic pancreatitis not on Creon, presents to the emergency room after concerns of possible withdrawal symptoms and concern that patient may occur a seizure. Patient denies any current seizure activity. 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 She has reported this to her supervisor shaving and splitting but does not feel she is receiving any support. Patient returned home after work and drank half pt of vodka. Patient has been drinking half a pt to a pt daily of alcohol and sometimes 2- 3 pt per day when experiencing increased anxiety and stress. Patient states she drinks vodka because it is inexpensive and she is on a budget. Patient states she recently started talking with the therapist 2 weeks prior and thinks this is helping. Patient also indicates that she had been on naltrexone in the past but this did not help her cravings, so she stopped the therapy. Patient was also on an SSRI and stopped this medication on her own as she was having suicidal ideations in the past. Once stopping the SSRI, her suicidal ideations stopped. Patient has not received care from a psychiatrist in the past. Patient does experience insomnia, nightmares but no night terrors. Patient is currently living with her ex-boyfriend in a safe environment. Patient was started on phenobarbital protocol in the emergency department. Patient has received 1 L of IV fluids. Patient states she has chronic pancreatitis and follows with a embedded linux developer at [facility]. Patient currently having mild abdominal tenderness and is not asking for narcotic pain management. Patient is agreeable to a dose of Toradol to manage the pain. Patient does not use enzymes with meals. Lipase pending. Incidentally upon review of history and physical, patient states she has a Mirena that is been in place for 11 years. Patient can no longer find the string. Patient denies any pelvic abdominal pain related to the Mirena. UA is negative for any UTI or hematuria. Patient advised that she must seek a site head outpatient appointment and have the Mirena removed and further discuss other options for control. HCG negative this admission. Patient denies recent issues with STDs including abnormal vaginal discharge, burning or pain with urination. On physical exam patient also has a severe case of athlete's foot on bilateral feet. Will initiate treatment and patient should resume this upon discharge. Hospital course: Patient was admitted to the hospital because of alcohol use disorder, alcohol withdrawal, also has possible chronic pancreatitis: Patient was treated with monitoring CIWA scale, phenobarb protocol, IV hydration and pain management-with the above supportive care patient seems to be improved significantly, Denies any abdominal pain or nausea vomiting, tolerating diet. Ovarain cysts- patient is to follow-up out patiently with [employer] Dr. Ni's office for further management.. Chronic pancreatitis: Patient was strongly advised to abstain from alcohol, also given pain medication p.r.n. for now. Mental health: Patient is arranging her own appointment outpatient. plan: Strongly advised to abstain from alcohol. Ovarain cysts- patient is to follow-up out patiently with [employer] Dr. Ni's office for further management.. Chronic pancreatitis: Patient was strongly advised to abstain from alcohol, also given pain medication p.r.n. for now. Mental health: Patient is arranging her own appointment outpatient. Above management discussed with the patient detail length she understand in agreement with the above plan, time spent 40 minute. All question answered. Staff was present during conversation. Time Attestation Total time managing care of this patient today: 40 mintues. Discharge Coordination Time (in mins): 40 min Quality: Safe Use of Opioids Does Pt have an Active Cancer Diagnosis on the Problem List?: No Quality: Stroke Does the patient have a stroke diagnosis?: No Physical Exam Vital Signs: Vital Signs: Last Vital Signs Temp 97.7 F 07/05/24 11:07 Pulse 84 07/05/24 11:07 Resp 18 07/05/24 11:07 BP 115/71 07/05/24 11:07 Pulse Ox 94 07/05/24 11:07 O2 Del Method Room Air 07/05/24 11:07 BMI result Body Mass Index 31.0 Appearance: Alert.? Oriented X3.? cvs: rrr, [id number] , no murmur res: clear to auscultation ,no rhonchii or wheezing abd: no rebound or guarding ,nt, bs present. ext pulses present , no cyanosis . neuro: axo3 , nonfocal. DS: Data Data Completed and Pending Completed studies during hospitalization [Text1]: Procedures Detoxification Services for Substance Abuse Treatment (06/15/24) Imaging Chest x-ray: Radiologist's impression: ct abd: 1. Large complex left ovarian cyst. Please correlate with pelvic sonography. 2. Hepatomegaly and hepatic steatosis. 3. No definite evidence of pancreatitis. Previously seen peripancreatic inflammatory changes have largely resolved. 4. Periampullary duodenum diverticulum. pelvic us:1. Within the left ovary there are 2 adjacent complex cystic lesions, largest measuring 4.8 cm. Both lesions contain internal septations, but no internal vascularity. Suspect that these are hemorrhagic cysts. Consider sonographic follow-up in 8-12 weeks to ensure resolution. Discharge Plan Discharge Anticipated Discharge Date/Time: 07/05/24 13:00 Patient Disposition: Home, Self-Care Discharge Diagnosis: Alcohol withdrawal, ovarian cyst. Referrals: [facility] [Provider Group] - 07/18/24 1:15 pm (This appt is for follow up of Alcohol use and treatment. Please call the office if you need to reschedule. Your naltrexone is at your pharmacy as requested. ) Brooklynn Hardy DIRECTOR OF GLOBAL MARKETING [Primary Care Provider] - 1 Week Cristhian Sanders MD [Physician] - 1 Week Discharge Medications: New naltrexone 50 mg tablet 50 mg PO DAILY Qty: 30 0RF Rx Instructions: Take 1/2 tab daily for three days, then increase to one tab daily. omeprazole 20 mg Capsule,Delayed Release(Dr/Ec) 20 mg PO DAILY@0630 Qty: 30 0RF clotrimazole 1 % Cream 1 appl topical BID Qty: 1 0RF Protocol: Apply to: Apply to: B feet oxycodone 5 mg Tablet 5 mg PO Q6H PRN (Reason: Pain, Severe (Pain Scale 7-10)) Qty: 10 0RF Rx Instructions: Partial Fill upon patient request. Continued pantoprazole 40 mg tablet,delayed release (DR/EC) 40 mg PO DAILY@0630 cetirizine [Zyrtec] 10 mg Tablet 10 mg PO DAILY Discharge Orders: Discharge Order (Routine); Ordered 07/05/24 Ordered By: Sayra Harding Diet: Advance to usual diet Activity on Discharge: As tolerated Stand Alone Forms: Patient Portal Discharge page, Work/School Release Print Language: Italian Care Plan Goals: alcohol withdrawals -started on phenobarnital -seems improved. Ovarain cyst- patient is to follow-up out patiently with [employer] Dr. Ni's office. Chronic pancreatitis: Patient was strongly advised to abstain from alcohol, also given pain medication p.r.n. for now. Mental health: Patient is arranging her own appointment outpatient. Health Concerns: As above. Plan of Treatment: As above. Assessment: As above
== END 2024-07-05 15:09 | disposition home or self-care (01) | DRG 775 ==
LOC: HO.ED 23:55 → HO.EDOVER 07-03 00:11 → HO.IMC 07-03 19:03
PROVIDERS: Nurse Practitioner Family; Admitting Provider Internal Medicine; Emergency Provider Emergency Medicine; PCP Nurse Practitioner Family; Visit Provider Internal Medicine
DX: F10.239 Alcohol dependence with withdrawal, unspecified (principal); B35.3 Tinea pedis; F17.210 Nicotine dependence, cigarettes, uncomplicated; F32.A Depression, unspecified; E66.9 Obesity, unspecified; Z71.6 Tobacco abuse counseling; K86.1 Other chronic pancreatitis; N83.202 Unspecified ovarian cyst, left side; Y90.7 Blood alcohol level of 200-239 mg/100 ml; F41.9 Anxiety disorder, unspecified; K44.9 Diaphragmatic hernia without obstruction or gangrene; Z68.35 Body mass index [BMI] 35.0-35.9, adult; Z79.899 Other long term (current) drug therapy
CPT/HCPCS: 36415; 74177; 76830; 76856; 80053; 80307; 81001; 83605; 83690; 83735; 84443; 84484; 84702; 85025; 93005; 99285; J1171; J1885; J2405; J2470; J2560; J2765; J3360; J3411; Q9967; S9485

== ENCOUNTER → 2024-07-02 21:03 | Outpatient (BNV) | payer OTHER, SELFPAY | PROVIDERS: Admitting Provider Internal Medicine; Emergency Provider Emergency Medicine; PCP Nurse Practitioner Family; Visit Provider Internal Medicine Cardiovascular Disease | DX: R00.0 Tachycardia, unspecified (principal) | CPT/HCPCS: 93010 ==

== ENCOUNTER 2024-07-02 23:39 | Outpatient (BNV) | payer OTHER, SELFPAY | END 2024-07-03 03:45 | PROVIDERS: Admitting Provider Internal Medicine; Emergency Provider Emergency Medicine; PCP Nurse Practitioner Family; Visit Provider Radiology Diagnostic Radiology | DX: N83.292 Other ovarian cyst, left side (principal) | CPT/HCPCS: 74177; 76830; 76856 ==

== ENCOUNTER → 2024-07-02 23:39 | Outpatient (BNV) | payer OTHER, SELFPAY | PROVIDERS: Admitting Provider Internal Medicine; Emergency Provider Emergency Medicine; PCP Nurse Practitioner Family; Visit Provider Nurse Practitioner Psychiatric/Mental Health | DX: F10.20 Alcohol dependence, uncomplicated (principal) | CPT/HCPCS: 99232 ==

== ENCOUNTER → 2024-07-02 23:39 | Outpatient (BNV) | payer OTHER, SELFPAY | PROVIDERS: Admitting Provider Internal Medicine; Emergency Provider Emergency Medicine; PCP Nurse Practitioner Family; Visit Provider Obstetrics & Gynecology | DX: N83.299 Other ovarian cyst, unspecified side (principal); Z30.431 Encounter for routine checking of intrauterine contraceptive device | CPT/HCPCS: 99222 ==

== ENCOUNTER → 2024-07-02 23:39 | Outpatient (BNV) | payer OTHER, SELFPAY | PROVIDERS: Admitting Provider Internal Medicine; Emergency Provider Emergency Medicine; PCP Nurse Practitioner Family; Visit Provider Nurse Practitioner Family | DX: F10.930 Alcohol use, unspecified with withdrawal, uncomplicated (principal) | CPT/HCPCS: 99223 ==

== ENCOUNTER 2024-07-16 14:27 | Outpatient (REF) | payer OTHER, SELFPAY ==
--- NOTE | ~2024-07-16 | US_ITS ---
EXAMINATION: US PELVIS CLINICAL INFORMATION: Ovarian cyst, unspecified COMPARISON: 07/03/2024. TECHNIQUE: Ultrasound of the pelvis is performed using both transabdominal and transvaginal transducers along with Doppler. Transvaginal imaging is performed due to inadequate visualization transabdominally. FINDINGS: Uterus: The uterus is anteverted, anteflexed, and measures 7.2 x 2.7 x 3.7 cm. The cervix is sonographically normal in appearance. The double wall endometrial thickness is 2 mm. IUD is seen in place in correct position. The uterus is smooth in contour and has normal myometrial echogenicity. No visible fibroid. Adnexa: Both ovaries are visualized. There is normal color flow to the adnexa. There is no ovarian torsion. There is no pelvic ascites or fluid collection. Right ovary measures 1.9 x 2.3 x 1.4 cm. Volume = 3.2 mL. Normal sonographic appearance. Left ovary measures 5.4 x 5.4 x 4.5 cm cm. Volume = 6.8 mL. There is a 4.1 x 4.4 x 3.5 cm minimally complex ovarian cyst, with a solitary thin septation, previously slightly more complex and likely a resolving hemorrhagic cyst. There was a second cyst previously present, which appears to have completely resolved. US/US pelvic and transvaginal IMPRESSION: 1. IUD in place in correct position. 2. Endometrial thickness measures 0.2 mm. 3. There is a 4.1 x 4.4 x 3.5 cm minimally complicated cyst in the left ovary, likely resolving hemorrhagic cyst. Previously there were 2, with one appearing to have completely resolved. Electronically signed by: Manpreet Richardson MD 07/16/2024 03:48 PM EDT
--- OUTSIDE RECORDS SUMMARY | 2024-07-16 16:21 | XMS_ITS | Data Portability ---
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 Plan of Treatment Reminders Order Date Submit Date Provider Last Modified By Organization Details Last Modified Time Details Appointments None recorded. Lab None recorded. Referral None recorded. Procedures None recorded. Surgeries None recorded. Imaging None recorded. Medication Orders amoxicillin 875 mg-potassiu m clavulanate 125 mg tablet 2022 023 [id number], [address] [place], [address], 3 16:55:49 Allergy Relief (fluticason e) 50 mcg/actuati on nasal spray,suspe nsion 2022 023 [id number], [address] [place], [address], 3 16:55:50 prednisone 20 mg tablet 2022 023 [id number], [address] [place], [address], 3 16:55:50 amoxicillin 875 mg-potassiu m clavulanate 125 mg tablet [email or web address] [facility]acy #[id number], [address] [place], [address], 3 16:35:03 prednisone 20 mg tablet [email or web address] [id number], [address] [place], [address], 16:35:32 fexofenadin e-pseudoeph edrine ER 180 mg-240 mg tablet,ext. release 24 hr [email or web address] [id number], [address] [place], [address], 16:35:10 Patient TargetsNo targets recorded. Patient Instructions Encounter Date Encounter Id Patient Instructions Last Modified By Organization Details Last Modified Time 03/22/2022 [id number] hearing loss: ca re instructions Not available [...] care for yourself at home? Take an wbxy-nuh-zshcyrp pain medicine. Avoid Ibuprofen, Aleve and Aspirin if . If the doctor prescribed antibiotics, take them as directed. Do not stop taking them just because you feel better. You need to take the full course of antibiotics. Be careful when taking nfds-pck-slbcmtd cold or influenza (flu) medicines and Tylenol [...] nose drops at a grocery store or [employer]. Or you can make your own at [...] taking a prescription pain medicine, take an klos-wjr-baqhxlb medicine, such as acetaminophen (Tylenol), ibuprofen (Advil, [...] wear a mask. For travel guidance, see [facility]? s Travel webpage. Do not travel. Stay [...] masking (see below). For travel guidance, see [facility]? s Travel webpage. Not available 03/22/2022 19:51:19 05/15/2022 [id number] earache: care instructions Not available 05/15/2022 16:55:47 [...] taking a prescription pain medicine, take an mdcx-srr-grexhky medicine, such as acetaminophen (Tylenol), ibuprofen (Advil, [...] and Address Organization Details Recorded Time Asthma 922158638 Active 2022 [facility] 19:03:38 Tachycardia 1068088 Completed 202203/22/2022 [facility] 19:03:47 [...] height Body mass index (BMI) Body weight Oxygen saturation Oxygen saturation in Arterial blood by Pulse oximetry Heart rate Respiratory rate Body temperature Systolic blood pressure Diastolic blood pressure Provider Name and Address Organization Details Last Updated DateTime 3 162.56 cm 30.9 kg/m2 36575.6 3 g 97 % 97 % 103 /min 18 /min 98.4 [degF] 135 mm[Hg] 85 mm[Hg] Luz Maria Rowell [facility] 19:20:56 Date Recorded Body height Body mass index (BMI) Body weight Respiratory rate Body temperature Oxygen saturation Oxygen saturation in Arterial blood by Pulse oximetry Heart rate Systolic blood pressure Diastolic blood pressure Provider Name and Address Organization Details Last Updated DateTime 3 162.56 cm 30.9 kg/m2 03919.6 3 g 18 /min 97.7 [degF] 97 % 97 % 102 /min 114 mm[Hg] 72 mm[Hg] BERTRAND MONDRAGON [facility] 3 16:37:51 Social History Question Answer Notes LastModified by [facility] Details LastModified Time Tobacco Smoking Status Never Smoker Luz Maria hutchinson [facility] 03/22/2022 19:04:40 Which Illicit Or Recreational Drugs Have You Used? Marijuana Information not available 03/22/2022 Have You Recently Traveled Abroad? No Information not available 03/22/2022 Sex: Unknown Functional Status Question Answer Note LastModified by [facility] Details LastModified Time Do you use any illicit or recreational drugs? Yes Information not available 03/22/2022 Do you or have you ever used any other forms of tobacco or nicotine? Yes Information not available 03/22/2022 What is your level of alcohol consumption? None Information not available 03/22/2022 Mental Status None recorded. Family History Relationship [...] SNOMED-CT Code Diagnosis ICD10 Code Diagnosis Note [id number] [address] [place] [address] 12/30/2017 17:26:21 12/30/2017 18:06:12 [id number] [address] [place] [address] 10/25/2021 17:02:44 10/25/2021 18:15:40 [id number] [address] [place] [address] 11/13/2017 17:27:46 11/13/2017 18:12:32 [id number] [address] [place] [address] 11/19/2017 11:35:55 11/19/2017 12:17:17 [id number] [address] [place] [address] 10/17/2019 10:01:35 10/17/2019 11:16:39 [id number] [address] [place] [address] 04/16/2020 17:05:19 04/16/2020 17:44:41 [id number] [address] [place] [address] 08/18/2021 18:58:28 08/18/2021 19:42:04 [id number] [place] [address] [place] [address] 03/22/2022 17:00:34 03/22/2022 19:54:16 Acute right otitis media 558312795 H66.91 [id number] Parish Enriquez [place] [address] [place] [address] 05/15/2022 16:28:41 05/15/2022 16:58:53 Acute right otitis media 339482432 H66.91 Health Concerns Section Related Observation LastModified by Organization Detai ls LastModified Time None Recorded Concern Status LastModified by Organization Details LastModified Time None Recorded Advance Directives Directive None Recorded Payers Insurance Date Sequence Insurance Name Policy Number Policy Herrera Covered Member ID Herrera Member ID Guarantor Name 05/15/2022 1 [facility] Tita Owens [id number] Tita Owens 05/15/2022 2 [place] [facility] Tita Owens [id number] Tita Owens Notes Date Note Type Note [...] Symptoms:Cough;nasal congestion;nasal discharge Parish Enriquez NP [address] [place], [address], [place] - [facility] 03/22/2022 19:51:44 05/15/2022 [...] Enriquez NP [address] [place], [address], [place] - [facility] 05/15/2022 16:55:54 OBGyn Episode No OBEpisode recorded.
== END 2024-07-16 14:28 | disposition home or self-care (01) ==
LOC: HO.US 14:27
PROVIDERS: PCP Nurse Practitioner Family; Visit Provider Obstetrics & Gynecology
DX: N83.299 Other ovarian cyst, unspecified side (principal)
CPT/HCPCS: 76830; 76856

== ENCOUNTER → 2024-07-16 14:29 | Outpatient (BNV) | payer OTHER, SELFPAY | PROVIDERS: PCP Nurse Practitioner Family; Visit Provider Radiology Diagnostic Radiology | DX: N83.202 Unspecified ovarian cyst, left side (principal); N85.00 Endometrial hyperplasia, unspecified; Z97.5 Presence of (intrauterine) contraceptive device | CPT/HCPCS: 76830; 76856 ==

== ENCOUNTER 2024-09-09 12:42 | Inpatient (IN) | payer OTHER, SELFPAY ==
--- NOTE | 2024-09-09 | ECG_ITS ---
Test Reason : cp Blood Pressure : */* mmHG Vent. Rate : 88 BPM Atrial Rate : 88 BPM P-R Int : 148 ms QRS Dur : 72 ms QT Int : 362 ms P-R-T Axes : 20 72 9 degrees QTcB Int : 438 ms Normal sinus rhythm Low voltage QRS Borderline ECG When compared with ECG of 09-Sep-2024 14:42, No significant changes seen Referred By: Vidya Zamudio Electronically Signed By: BERRY ZAYAS
--- NOTE | ~2024-09-09 | XR_ITS ---
CLINICAL HISTORY: sob 1 view chest x-ray Comparison: CR/SR - XR CHEST 1 VIEW - 06/15/24 10:16 EDT Findings: No consolidation or effusion. Normal size heart. No acute fracture. IMPRESSION: 1. No acute findings. This document has been electronically signed by: Lynne Sneed MD on 09/09/2024 15:10:18
--- NOTE | ~2024-09-09 | CT_ITS ---
CLINICAL HISTORY: sob CT angiography chest with contrast. 3D Postprocessing. Comparison: None provided Findings: The heart size is normal. There is leftward deviation of the intraventricular septum. The thoracic aorta is normal caliber. Contrast filling defects seen in the distal bilateral main pulmonary artery, bilateral lobar and segmental pulmonary arteries. The visualized thyroid and mediastinum are unremarkable. Pleural-based opacity of the bilateral upper lobes. The visualized upper abdomen is unremarkable. No acute fractures. IMPRESSION: Evidence of bilateral acute pulmonary embolism with right heart strain. Pleural-based opacity of the bilateral upper lobes concerning for pulmonary infarction. This document has been electronically signed by: Lynen Sneed MD on 09/09/2024 17:08:33
--- NOTE | ~2024-09-09 | US_ITS ---
CLINICAL HISTORY: calf pain, swelling Venous duplex ultrasound left lower extremity Comparison: None provided Findings: The posterior tibial vein and peroneal vein are noncompressible. The additional deep venous structures are unremarkable. No popliteal cyst. There are prominent inguinal lymph nodes. IMPRESSION: Noncompressible posterior tibial vein and peroneal vein concerning for deep vein thrombosis. This document has been electronically signed by: Lynne Sneed MD on 09/09/2024 14:57:50
[2024-09-09 12:47] VITALS: BP 148/88; PULSE 116; RESP 18; TEMP 36.9; O2SAT 97; BMI 32.0
--- NOTE | 2024-09-09 12:47 | ED_ITS ---
HPI - Extremity Problem General Chief complaint: Extremity Injury, Lower Stated complaint: Potential blood clot L leg per DR Time Seen by Provider: 09/09/24 14:22 Related Data Home Medications ?Medication ?Instructions ?Recorded ?Confirmed pantoprazole 40 mg tablet,delayed 40 mg PO DAILY@0630 03/22/24 07/03/24 release cetirizine 10 mg tablet (Zyrtec) 10 mg PO DAILY 07/03/24 metoclopramide HCl 5 mg tablet 5 mg PO QID 09/09/24 oxycodone 10 mg tablet 10 mg PO Q6H PRN severe pain 09/09/24 pregabalin 100 mg capsule 100 mg PO BID 09/09/24 quetiapine 50 mg tablet 50 mg PO TID PRN anxiety 05/01 topiramate 25 mg sprinkle capsule mg PO 09/09/24 Previous Rx's ?Medication ?Instructions ?Recorded naltrexone 50 mg tablet 50 mg PO DAILY #30 tabs 06/08 10/01 clotrimazole 1 % topical cream 1 appl topical BID #1 g 07/05/24 omeprazole 20 mg capsule,delayed 20 mg PO DAILY@629 # 30 caps 07/05/24 release oxycodone 5 mg tablet 5 mg PO Q6H PRN Pain, Severe (Pain 07/05/24 Scale 7-10) #10 tabs oxycodone 5 mg tablet 5 mg PO Q6H PRN pain, severe #10 07/05/24 tabs Allergies Allergy/AdvReac Type Severity Reaction Status Date / Time adhesive AdvReac Hives Verified 09/09/24 12:49 [facility] Past Medical History Medical History IUD check up Alcohol use disorder, severe, dependence Presence of Mirena IUD MDD (major depressive disorder), recurrent episode, moderate Asthma Anxiety and depression Tachycardia Alcohol withdrawal Family History Family History Mother Alcohol use disorder Maternal Grandfather Alcohol use disorder Social History Social History Household Members: None Household Members Other:: roommate Housing: House Do you presently have visiting nurse or other home services: No Alcohol intake: current Alcohol intake frequency: 3 or more drinks per day Alcohol type: hard liquor Comment: Reports drinking 2 pints per day Patient Tobacco Use Status: Current everyday Tobacco user Tobacco use type: Cigarette e-Cigarette/Vaping Use: Never Used Second Hand Smoke Exposure: No Substance Use Type: Marijuana Advance Directives: Yes Advance Directives on File: Yes Advance Directives Date on File: 02/11/23 Do you have a plan to hurt others: No Plan service: No Physical Exam 2 Vital Signs: Vital Signs: Last Vital Signs Temp 98.0 F 09/09/24 16:00 Pulse 99 09/09/24 16:00 Resp 18 09/09/24 16:00 BP 116/78 09/09/24 16:00 Pulse Ox 99 09/09/24 16:00 O2 Del Method Room Air 09/09/24 16:00 BMI result Body Mass Index 32.0 Course Course Course Narrative: This is an RME performed by Edita Lucero CNP: Additional HPI, ROS, PE not included below will be deferred to primary provider. Patient is a 39-year-old female presents emergency department for her arm from urgent care to rule out a blood clot. Advises that she has been having cramping pain to the left calf extends up bedind the knee, swelling over the past 5 days with associated dyspnea on exertion. No history of VTE/malignancy, OCP use, she is a tobacco smoker. Recent hospitalization 09/03 - 09/07 for pancreatitis. Reports she had the pain during that admission, and compressive devices were placed to her leg. Plan: venous duplex ultrasound Reevaluation(s) Reevaluation #1: See additional note dated 09/09/[address] Mann Medications Administered Discontinued Medications Generic Name Dose Route Start Last Admin Trade Name Freq PRN Reason Stop Dose Admin Diazepam 5 mg 09/09/24 15:35 09/09/24 16:07 Diazepam 10 Mg/2 Ml Cartridge IVPUSH 09/09/24 15:36 5 mg STAT STA Administration Enoxaparin Sodium 90 mg 09/09/24 15:37 09/09/24 16:07 Enoxaparin Sodium 100 Mg/Ml Syringe SUBCUT 09/09/24 15:38 90 mg ONCE ONE Administration Iohexol 100 ml 09/09/24 16:26 09/09/24 16:26 Iohexol 350 Mg/Ml 100 Ml Infus..Btl IV 09/09/24 16:27 65 ml ONCE ONE Administration Medical Decision Making Lab Data 09/09/24 16:06 09/09/24 15:00 Labs: Lab Results 09/09/24 09/09/24 09/09/24 Range/Units 15:00 16:06 17:00 WBC 7.5 7.0 (4.8-10.8) X10*3/uL RBC 3.68 L 3.87 L (4.20-5.50) X10*6/uL Hgb 11.0 L D 11.6 L (12.0-16.0) g/dl Hct 31.5 L 33.6 L (37.0-47.0) % MCV 85.6 86.8 (80.0-98.0) fL MCH 29.9 30.0 (27.0-33.0) pg MCHC 34.9 34.5 (31.0-35.0) g/dl RDW 14.2 13.9 (11.0-16.0) % Plt Count 275 187 D (160-400) X10*3/uL MPV 9.7 10.1 (9.4-12.3) fL Immature Gran % (Auto) 0.5 H (0.0-0.4) % Neut % (Auto) 52.1 (45-73) % Lymph % (Auto) 26.7 (20-40) % Clarke % (Auto) 17.3 H (2-11) % Eos % (Auto) 2.9 (0-4) % Baso % (Auto) 0.5 (0-2) % Lymph # (Auto) 2.0 (1.2-4.9) X10*3/uL Clarke # (Auto) 1.3 H (0.1-1.2) X10*3/uL Eos # (Auto) 0.2 (0.0-0.4) X10*3/uL Baso # (Auto) 0.0 (0.0-0.2) X10*3/uL Abs Immat Gran (auto) 0.04 H (0.00-0.03) X10*3/uL Absolute Neuts (auto) 3.9 (2.0-8.3) x10*3/uL Absolute Nucleated RBC 0.000 0.000 (0.0-0.012) X10*3/uL Nucleated RBC % (auto) 0.0 0.0 (0.0-0.2) /100WBC PT 11.6 (10.9-12.4) SEC INR 1.0 (0.9-1.1) APTT 32.1 (26.7-34.1) SEC Sodium 139 (135-145) mmol/L Potassium 4.1 (3.3-5.1) mmol/L Chloride 108 (96-108) mmol/L Carbon Dioxide 21 L (22-29) mmol/L Anion Gap 14 (12-20) BUN 11 (9-16) mg/dL Creatinine 0.84 (0.5-1.4) mg/dL Estim Creat Clear Calc 96.4 Estimated GFR > 60 Random Glucose 90 (60-115) mg/dL Calcium 8.7 (8.4-10.2) mg/dL Magnesium 2.3 (1.6-2.6) mg/dL Total Creatine Kinase 160 H (26-140) U/L Troponin I High Sens 202.4 H* D (<3.5-17.0) ng/L B-Natriuretic Peptide 904 H (<100) pg/mL Beta HCG, Quant < 2 mIU/mL Ethyl Alcohol < 10 mg/dL Critical Care Time Critical Care Time Critical Care Time: Yes Total Critical Care Time: 40 Attestation: I have personally provided 40 minutes of critical care time exclusive of time spent on separately billable procedures. ?Time includes review of lab data, radiology results, discussion with consultants, and monitoring for potential decompensation. ?Interventions were performed as documented above Discharge Plan Discharge Clinical Impression: Pulmonary emboli Patient Disposition: Admitted As Inpatient
--- OUTSIDE RECORDS SUMMARY | 2024-09-09 14:29 | XMS_ITS | Clinical Summary ---
Author Organization [facility] Address [address] [place] [phone] Phone Care Team Providers Care Interventional Sale Consultant Name Role Phone Brooklynn Hunter NP Primary Care Provider Allergies Active Allergy Reactions Criticality Noted Date Comments Adhesive 09/16/2023 Medications albuterol 90 mcg/actuation inhaler Inhale 2 puffs into the lungs every 6 (six) hours as needed for wheezing or shortness of breath/dyspnea . Active dilTIAZem (DILACOR XR) 180 mg 24 hr capsule Take 1 capsule (180 mg total) by mouth daily. 30 capsule Active Encounters Date Type Department Care Team Description 07/11/2024 Telephone [facility] [address] [place] [address] Unknown, Unknown, MD Appointment from Last 3 Months Social History Tobacco Use Types Packs/Day Years Used Date Smoking Tobacco: Never Smokeless Tobacco: Never Alcohol Use Standard Drinks/Week Comments Yes 0 (1 standard drink = 0.6 oz pur e alcohol) 1 pt vodka daily Education Answer Date Recorded Are you interested in more education? Not on valentín e 09/16/2023 Are you concerned about learning? Not on file 09/16/2023 No 09/16/2023 No 09/16/2023 Digital Access Answer Date Recorded No 09/16/2023 No 09/16/2023 Reliable internet access at home? Not on file 09/16/2023 Device with a working camera? Not on file Intimate Partner Violence Answer Date R ecorded Are you denied basic needs s uch as food, clothing, or medical care? No 09/16/2023 In the past 12 months have y ou been in a relationship with a person who hurts, threatens, or tries to control you? No 09/16/2023 Are you denied basic needs s uch as food, clothing, or medical care? No 09/16/2023 In the past 12 months have y ou been in a relationship with a person who hurts, threatens, or tries to control you? No 09/16/2023 Comments Unknown Sex and Gender Information Value Date Recorded Sex Assigned at Female 07/14/2018 6:26 AM EDT Legal Sex Female 6:18 AM EDT Gender Identity Female 07/14/2018 6:26 AM EDT Sexual Orientation Straight 07/14/2018 6: 26 AM EDT Last Filed Vital Signs Vital Sign Reading Time Taken Comments Blood Pressure 103/77 09/17/2023 5:15 AM EDT Pulse 102 09/17/2023 5:15 AM EDT Temperature 36.7 C (98.1 F) 09/17/2023 5:15 AM EDT Respiratory Rate 23 09/17/2023 5:15 AM EDT Oxygen Saturation 96% 09/17/2023 5:15 AM EDT Inhaled Oxygen Concentration - - Weight 78.5 kg (173 lb) 09/16/2023 9:09 PM EDT Height 162.6 cm (5' 4 ) 09/16/2023 9:09 PM EDT Body Mass Index 29.7 09/16/2023 9:09 PM EDT Plan of Treatment Health Maintenance Due Date Last Done Comments Adult Td,Tdap Booster 1987 DEPRESSION SCREENING 1999 HEPATITIS C SCREENING 04/27/2005 HIV ONE-TIME SCREENING (18-6 5 YEARS) 04/27/2005 PAP SMEAR 04/27/2008 COVID-19 VACCINE (2023-2 5 season) 2023 06/11/2020 SCREENING FOR DIABETES 09/15/2026 09/16/2023 SMOKING STATUS SCREENING (On ce After 26 Yrs) Completed 09/16/2023 HEPATITIS A VACCINES Aged Out No long er eligible based on patient's age to complete this topic HIB VACCINES Aged Out No longer eligi ble based on patient's age to complete this topic MENINGOCOCCAL VACCINES (ACWY) Aged Out No longer eligible based on patient's age to complete this topic MENINGOCOCCAL VACCINES (B) Aged Out N o longer eligible based on patient's age to complete this topic PNEUMOCOCCAL VACCINES (0-49 years) Aged Out No longer eligible based on patient's age to complete this topic Medical Devices Not on file Insurance HMO HMO HMO O [address] [place], [place] [id number] Care Teams Interventional Sale Consultant Relationship Specialty Start Date End Date Brooklynn Hunter NP [address] [place] [address] [email or web address] PCP - General Nurse Practitioner 09/16/23 Additional Source Comments The information contained in this document represents components of the legal health record. It is not the complete legal health record.[facility]
--- NOTE | 2024-09-09 14:38 | ECG_ITS ---
Test Reason : CP Blood Pressure : */* mmHG Vent. Rate : 102 BPM Atrial Rate : 102 BPM P-R Int : 134 ms QRS Dur : 58 ms QT Int : 322 ms P-R-T Axes : * 88 -2 degrees QTcB Int : 419 ms Sinus tachycardia Low voltage QRS Septal infarct (cited on or before 17-Apr-2024) Abnormal ECG When compared with ECG of 02-Jul-2024 21:08, ST now depressed in Anterior leads Inverted T waves have replaced nonspecific T wave abnormality in Inferior leads Nonspecific T wave abnormality now evident in Anterior leads Referred By: Gloria Mann Electronically Signed By: BERRY ZAYAS
--- NOTE | 2024-09-09 14:41 | ED_ITS ---
HPI - General Adult General Chief complaint: Extremity Injury, Lower Stated complaint: Potential blood clot L leg per DR Time Seen by Provider: 09/09/24 14:22 History of Present Illness HPI narrative: Patient is a 39-year-old female with a history of left-sided calf pain. Patient complaining that the pain has been going to the knee area. Patient denies any fever chills. Has a history of alcohol use. Was admitted to [facility] for pancreatitis. Has a history of smoking. No chest pain. No travel. No history of PCP. No history of cancer. Patient from home not on blood thinners. Patient's denies any chest pain. Denies any diaphoresis. Pain is not made worse with movement. Patient is from home. Denies any coughing congestion upper respiratory symptoms. Related Data Home Medications ?Medication ?Instructions ?Recorded ?Confirmed pantoprazole 40 mg tablet,delayed 40 mg PO DAILY@0630 03/22/24 07/03/24 release cetirizine 10 mg tablet (Zyrtec) 10 mg PO DAILY 07/03/24 Previous Rx's ?Medication ?Instructions ?Recorded naltrexone 50 mg tablet 50 mg PO DAILY #30 tabs 06/08 10/01 clotrimazole 1 % topical cream 1 appl topical BID #1 g 07/05/24 omeprazole 20 mg capsule,delayed 20 mg PO DAILY@0630 # 30 caps 07/05/24 release oxycodone 5 mg tablet 5 mg PO Q6H PRN Pain, Severe (Pain 07/05/24 Scale 7-10) #10 tabs oxycodone 5 mg tablet 5 mg PO Q6H PRN pain, severe #10 07/05/24 tabs Allergies Allergy/AdvReac Type Severity Reaction Status Date / Time adhesive AdvReac Hives Verified 09/09/24 12:49 Review of Systems Review of Systems: Positive for leg cramping on the left side Yes all other systems are reviewed and are negative PMFSH Past Medical History Attestation statement: The following information was validated with the patient. Medical History IUD check up Alcohol use disorder, severe, dependence Presence of Mirena IUD MDD (major depressive disorder), recurrent episode, moderate Asthma Anxiety and depression Tachycardia Alcohol withdrawal Family History Family History Mother Alcohol use disorder Maternal Grandfather Alcohol use disorder Social History Social History Household Members: None Household Members Other:: roommate Housing: House Do you presently have visiting nurse or other home services: No Alcohol intake: current Alcohol intake frequency: 3 or more drinks per day Alcohol type: hard liquor Comment: Reports drinking 2 pints per day Patient Tobacco Use Status: Current everyday Tobacco user Tobacco use type: Cigarette e-Cigarette/Vaping Use: Never Used Second Hand Smoke Exposure: No Substance Use Type: Marijuana Advance Directives: Yes Advance Directives on File: Yes Advance Directives Date on File: 02/11/23 Do you have a plan to hurt others: No Plan service: No Physical Exam ED Exam Exam: Appearance: Alert. Oriented X3. No acute distress. Eyes: Pupils equal, round and reactive to light. ENT: Pharynx normal. Neck: Normal inspection. Neck supple. No lymph nodes noted. No crepitus CVS: Normal heart rate and rhythm. Pulses normal. Normal S1 and S2 Respiratory: No respiratory distress. Breath sounds normal. No Wheezing. No rales Abdomen: Soft and nontender. No rigidity. No distention. good BS x4 Skin: Skin warm and dry. Normal skin color. Normal skin turgor. Extremities: No lower extremity edema. Neurovascular intact to all extremities. No Lacerations. No Rash Neuro: Oriented X 3. No motor deficit. No sensory deficit. Moving all extermities. No slurred speech Vital Signs: Vital Signs - 24 hr 09/09/24 12:47 Temperature 98.4 F Pulse Rate 116 H Respiratory Rate 18 Blood Pressure 148/88 H Pulse Oximetry 97 Oxygen Delivery Method Room Air BMI result Body Mass Index 32.0 Medical Decision Making Medical Decision Making MDM Narrative: Doppler of the lower extremity was ordered. Chest x-ray ordered. Will check patient's electrolytes and blood count. Patient denies noticing any bloody stool. Had not drank alcohol since being discharged from [facility]. Discharge Plan Discharge Prescriptions: No Action pantoprazole 40 mg tablet,delayed release (DR/EC) 40 mg PO DAILY@0630 cetirizine [Zyrtec] 10 mg Tablet 10 mg PO DAILY naltrexone 50 mg tablet 50 mg PO DAILY Qty: 30 0RF Rx Instructions: Take 1/2 tab daily for three days, then increase to one tab daily. omeprazole 20 mg Capsule,Delayed Release(Dr/Ec) 20 mg PO DAILY@0630 Qty: 30 0RF clotrimazole 1 % Cream 1 appl topical BID Qty: 1 0RF Protocol: Apply to: Apply to: B feet oxycodone 5 mg Tablet 5 mg PO Q6H PRN (Reason: Pain, Severe (Pain Scale 7-10)) Qty: 10 0RF Rx Instructions: Partial Fill upon patient request. oxycodone 5 mg tablet 5 mg PO Q6H PRN (Reason: pain, severe) Qty: 10 0RF Rx Instructions: Partial Fill upon patient request. Print Language: Guamanian
[2024-09-09 15:05] LABS: MANUAL DIFF FLAG NO
[2024-09-09 15:06] LABS: Hematocrit 31.5 % (37.0-47.0); Hemoglobin 11.0 g/dl (12.0-16.0); Imm Gran Abs Auto 0.04 X10*3/uL (0.00-0.03); Imm Gran Pct Auto 0.5 % (0.0-0.4); Lymphocytes Absolute Auto 2.0 X10*3/uL (1.2-4.9); Mean Corpuscular HGB Conc 34.9 g/dl (31.0-35.0); Mean Corpuscular Hemoglobin 29.9 pg (27.0-33.0); Mean Corpuscular Volume 85.6 fL (80.0-98.0); NRBC Abs Auto 0.000 X10*3/uL (0.0-0.012); NRBC Pct Auto 0.0 /100WBC (0.0-0.2); Platelet Count 275 X10*3/uL (160-400); Red Blood Count 3.68 X10*6/uL (4.20-5.50); White Blood Count 7.5 X10*3/uL (4.8-10.8)
[2024-09-09 15:23] LABS: Anion Gap 14 (12-20); Blood Urea Nitrogen 11 mg/dL (9-16); Calcium 8.7 mg/dL (8.4-10.2); Carbon Dioxide 21 mmol/L (22-29); Chloride 108 mmol/L (96-108); Creatinine Clr Calc Pharmacy 96.4; Estimated Glomerular Filt Rate > 60; Potassium 4.1 mmol/L (3.3-5.1); Sodium 139 mmol/L (135-145)
[2024-09-09 15:25] LABS: B Type Natriuretic Peptide 904 pg/mL (<100)
[2024-09-09 15:34] LABS: Troponin-I High Sensitivity 202.4 ng/L (<3.5-17.0)
[2024-09-09 15:54] LABS: Magnesium 2.3 mg/dL (1.6-2.6)
[2024-09-09 16:00] VITALS: BP 116/78; PULSE 99; RESP 18; TEMP 36.7; O2SAT 99
[2024-09-09] MEDS: diazePAM 10 MG/2 ML CARTRIDGE 5 MG IVPUSH ×2 (16:07→20:13)
[2024-09-09 16:10] LABS: Hematocrit 33.6 % (37.0-47.0); Hemoglobin 11.6 g/dl (12.0-16.0); Mean Corpuscular HGB Conc 34.5 g/dl (31.0-35.0); Mean Corpuscular Hemoglobin 30.0 pg (27.0-33.0); Mean Corpuscular Volume 86.8 fL (80.0-98.0); NRBC Abs Auto 0.000 X10*3/uL (0.0-0.012); NRBC Pct Auto 0.0 /100WBC (0.0-0.2); Platelet Count 187 X10*3/uL (160-400); Red Blood Count 3.87 X10*6/uL (4.20-5.50); White Blood Count 7.0 X10*3/uL (4.8-10.8)
[2024-09-09] MEDS: iohexoL 350 MG/ML 100 ML INFUS..BTL IV (16:26)
[2024-09-09 17:12] LABS: INTERNATIONAL NORM RATIO 1.0 (0.9-1.1); Prothrombin Time 11.6 SEC (10.9-12.4)
[2024-09-09 17:14] LABS: Partial Thromboplastin Time 32.1 SEC (26.7-34.1)
--- NOTE | 2024-09-09 18:33 | PHA.MEDREC ---
Pharmacy Consult ? Medication Reconciliation Pharmacy has completed the medication reconciliation, spoke to patient to confirm medications.
--- NOTE | 2024-09-09 19:05 | PM.IMHP ---
History of Present Illness Date of Service: 09/09/24 Attending physician on admission: Pasquale Hills Chief Complaint: left calf pain Patient is a 39-year-old female with past medical history alcohol abuse, chronic pancreatitis, allergic rhinitis, erosive gastritis, marijuana use, ovarian cyst, recent attempt suicide using Campral, mood disorder with depression and anxiety presents to ED after being seen in urgent care for Lower left leg pain. Pt states she was recently discharged from [facility] 09/02 with similar pain but no SOB at rest or with exertion and pt now reports chest pressure relieved with dilaudid. Work up in ED reveals Noncompressible posterior tibial vein and peroneal vein concerning for deep vein thrombosis via Doppler and via CTA Evidence of bilateral acute pulmonary embolism with right heart strain, Pleural-based opacity of the bilateral upper lobes concerning for pulmonary infarction.Pt is not currently experiencing hypoxia. Pt denies using control or tobacco use via smoking. Admission occurred at change of shift and day provider hospitalist group has already ordered the Lovenox with heparin infusion to started at 4AM. This provider also contacted Dr. Ni in vascular and patient will be made NPO after midnight for possible intervention in the a.m.. Patient's troponins 202, BNP elevated 904. LA 2.6 on admission. H/H stable. Vitals stable and pt states after receiving dilaudid for pain, can now take a deep breath. Pt denies suicidal ideations at this time and last know alcohol drink was 09/02. Pt denies any withdrawal symptoms or recent seizure activity,. Review of Systems Review of Systems: Patient currently denies any chest pressure, chest pain or shortness of breath at rest or with exertion. Patient denies any abdominal pain, nausea or vomiting. Patient is not having any diarrhea. Patient states the left leg pain is improving. Patient is able to bear weight on both legs Yes all other systems are reviewed and are negative [facility] Medical History IUD check up Alcohol use disorder, severe, dependence Presence of Mirena IUD MDD (major depressive disorder), recurrent episode, moderate Asthma Anxiety and depression Tachycardia Alcohol withdrawal Cognitive capacity: Alert and orientated x3 Functional capacity: independent ambulation Patient : No Family History Mother Alcohol use disorder Maternal Grandfather Alcohol use disorder Social History Household Members: None Household Members Other:: roommate Housing: House Do you presently have visiting nurse or other home services: No Alcohol intake: current Alcohol intake frequency: 3 or more drinks per day Alcohol type: hard liquor Comment: Reports drinking 2 pints per day Patient Tobacco Use Status: Current everyday Tobacco user Tobacco use type: Cigarette Smoked in Last 30 Days: Yes e-Cigarette/Vaping Use: Never Used Second Hand Smoke Exposure: No Substance Use Type: Marijuana Advance Directives: Yes Advance Directives on File: Yes Advance Directives Date on File: 02/11/23 Do you have a plan to hurt others: No Plan service: No Ebola Risk: Travel/Contact With Anyone From Affected Area/s: No Has Patient Experienced Ebola Symptoms: No Meds Allergies Allergy/AdvReac Type Severity Reaction Status Date / Time adhesive AdvReac Hives Verified 09/09/24 12:49 Active Medications: Current Medications Acetaminophen (Acetaminophen 325 Mg Tablet) 650 mg PO Q6H PRN PRN Reason: Pain, Mild 1-3,fever,headache Albuterol/Ipratropium (Albuterol/Iprat 2.5/0.5mg 3 Ml Ampul.Neb) 3 ml INHALE Q4H PRN PRN Reason: Shortness of Breath/Wheezing Calcium Carbonate (Calcium Carbonate 750 Mg Tab.Chew) 750 mg PO Q4H PRN PRN Reason: Heartburn Heparin Sodium (Porcine) (Heparin Sodium,Porcine 5,000 Unit/Ml Vial) 3,400 unit 40 unit/kg (3400 unit) IVPUSH PROTOCOL BOLUS PRN; Protocol PRN Reason: 40 unit/kg - Heparin Protocol Heparin Sodium (Porcine) (Heparin Sodium,Porcine 5,000 Unit/Ml Vial) 6,800 unit 80 unit/kg (6800 unit) IVPUSH PROTOCOL BOLUS PRN; Protocol PRN Reason: 80 unit/kg - Heparin Protocol Heparin Sodium/Sodium Chloride (Heparin Sodium,Porcine/1/2ns) 25,000 unit in 250 mls @ 0 mls/hr IVCONT .Q0M DAMIEN; Protocol Magnesium Hydroxide (Milk Of Magnesia 30 Ml Oral.Susp) 30 ml PO DAILY PRN PRN Reason: Constipation Melatonin (Melatonin 3 Mg Tablet) 6 mg PO BEDTIME PRN PRN Reason: Insomnia Ondansetron HCl (Ondansetron Hcl 4 Mg/2 Ml Vial) 4 mg IVPUSH Q8H PRN PRN Reason: Nausea and Vomiting Sodium Chloride (0.9 % Sodium Chloride Flush 3 Ml Syringe) 3 ml IVFLUSH QSHIFT [facility] Medications ?Medication ?Instructions ?Recorded ?Confirmed ?Last Taken ?Type pantoprazole 40 mg tablet,delayed 40 mg PO DAILY@0630 03/22/24 09/09/24 09/09/24 History release cetirizine 10 mg tablet (Zyrtec) 10 mg PO DAILY PRN allergies 07/03/24 09/09/24 07/02/24 History albuterol sulfate 90 mcg/actuation 1 puff inhalation QID PRN wheezing 09/09/24 09/09/24 Unknown History aerosol inhaler oxycodone 10 mg tablet 10 mg PO Q6H PRN severe pain 09/09/24 09/09/24 Unknown History Physical Exam Vital Signs and Narrative: Vital Signs: Last Vital Signs Temp 98.0 F 09/09/24 16:00 Pulse 99 09/09/24 16:00 Resp 18 09/09/24 16:00 BP 116/78 09/09/24 16:00 Pulse Ox 99 09/09/24 16:00 O2 Del Method Room Air 09/09/24 16:00 BMI result Body Mass Index 32.0 Alert and orientated X3, able to give good history. Neuro: CN II-X11 intact, no deficits, visual acuity intact EYES: PERRLA, EOM intact, sclera nonicteric, conjunctiva pink ENT: hearing intact, no issues with swallowing, uvula midline, lips moist, nares patent no epistaxis, no evidence of thrush Cardiac: S1 S2 RRR, tachy 104, no murmur, no JVD, no edema in Lower ext Pulmonary: lungs diminshed B Abdominal: BS active in all 4 quadrants, no guarding, tenderness, rebounding MSK: strength 5/5 upper and lower extremities : no CVA tenderness no bladder distension Extremities: no edema in lower extremities, PT and DP pulses palpable +2 Psych: mood anxious, judgement and insight fair Skin: intact Results Labs 09/09/24 16:06 09/09/24 15:00 Labs: Laboratory Results - last 24 hr 09/09/24 09/09/24 09/09/24 15:00 16:06 17:00 MCV 85.6 86.8 MCH 29.9 30.0 MCHC 34.9 34.5 RDW 14.2 13.9 Plt Count 275 187 D MPV 9.7 10.1 Immature Gran % (Auto) 0.5 H Neut % (Auto) 52.1 Lymph % (Auto) 26.7 Guthrie % (Auto) 17.3 H Eos % (Auto) 2.9 Baso % (Auto) 0.5 Lymph # (Auto) 2.0 Guthrie # (Auto) 1.3 H Eos # (Auto) 0.2 Baso # (Auto) 0.0 Abs Immat Gran (auto) 0.04 H Absolute Neuts (auto) 3.9 Absolute Nucleated RBC 0.000 0.000 Nucleated RBC % (auto) 0.0 0.0 PT 11.6 INR 1.0 APTT 32.1 Anion Gap 14 Estim Creat Clear Calc 96.4 Estimated GFR > 60 Random Glucose 90 Calcium 8.7 Magnesium 2.3 Total Creatine Kinase 160 H B-Natriuretic Peptide 904 H Beta HCG, Quant < 2 Ethyl Alcohol < 10 ECG Attestation: I personally reviewed and interpreted this ECG as follows: (Sinus tachycardia, ST-depression in the anterior leads) Prior ECG tracings: available for review Imaging Radiologist's Impressions: CTA IMPRESSION: Evidence of bilateral acute pulmonary embolism with right heart strain. Pleural-based opacity of the bilateral upper lobes concerning for pulmonary infarction. Doppler Lower ext IMPRESSION: Noncompressible posterior tibial vein and peroneal vein concerning for deep vein thrombosis. Findings: No consolidation or effusion. Normal size heart. No acute fracture. IMPRESSION: 1. No acute findings. Assessment and Plan (1) Pulmonary emboli: Qualifiers: Acute cor pulmonale presence: unspecified Chronicity: acute Pulmonary embolism type: other Qualified Code(s): I26.99 - Other pulmonary embolism without acute cor pulmonale Status: Acute Plan Patient is a 39-year-old female with past medical history alcohol abuse, chronic pancreatitis, allergic rhinitis, marijuana use, erosive gastritis, ovarian cyst, recent attempt suicide using Campral, mood disorder with depression and anxiety presents to EDwith complaints of Lower left leg pain. Pt is being admitted with B PE, right heart strain (ECG confirms), elevated troponin, elevated BNP, last alcoholic drink 09/02. test negative. B PE with possible pulmonary infarct / DVT Lovenoix wt based times one in ED (coags and H/H stable prior to initiation) Per TRISH Knox as admission given at change of shift, patient will start heparin infusion at 04:00 and spoke with vascular surgeon Dr. Ni, patient will undergo possible procedure in the a.m., NPO at midnight Vascular consult placed Hematology consult placed No evidence of hypoxia O2 p.r.n. Troponin 202, then 179.9 continue to trend Telemetry and continuous pulse ox BNP 904, echo ordered LA 2.6, now 1.1 No SCDs Chronic panceatitis/ alcohol abuse Last alcoholic drink 09/02 CIWA ordered, no indication for phenobarbitol Thiamine and folic acid ordered Valium X1 now Lipase pending Recent hx of erosive gastritis Protonix IV daily H/H stable Depression/ Anxiety Psychiatry consulted, recent Suicide attempt with Campral, was at [facility] Valium prn Enlarging ovarian cyst Will need outpatient follow up DVT prophylaxis: lovenox wt based X1, to heparin infusion MED REC PENDING FULL CODE Quality Stroke Does the patient have a stroke diagnosis?: No Reason for No Anti-thrombotic by Day Two: N/A - Med Ordered VTE Prior VTE?: No VTE Risk Level:: Medical - moderate - high VTE Device Contraindication: Procedure Contraindicated (known DVT) VTE Drug Contraindication: N/A - Med Ordered
[2024-09-09 19:12] VITALS: BMI 32.0
--- NOTE | 2024-09-09 19:35 | PC.NURSE ---
assumed care, admitting provider at bedside. Attempted to start second line. Unable to obtain at this time. pt assisted to bathroom with no assistance. accurate weight obtained pharmacy aware. Per provider and pharmacy start Heparin drip at 8/ 0400.
[2024-09-09 20:12] VITALS: BP 119/85; PULSE 103; RESP 16; O2SAT 99
[2024-09-09 20:16] LABS: Troponin-I High Sensitivity 179.9 ng/L (<3.5-17.0)
--- NOTE | 2024-09-09 20:16 | PC.NURSE ---
pt medicated per APR, states Dilaudid helped with pin and is at a 5/10, thinks the medication is still working on alleviating her pain and declined any need for the Tylenol she has ordered PRN.
[2024-09-09] MEDS: Thiamine HCL 100 MG in 0.9 % Sodium Chloride 100 ML 202 MG IV (20:26)
--- NOTE | 2024-09-09 20:59 | PC.NURSE ---
pt medicated per MAR
[2024-09-09 21:00] LABS: Lipase 13 U/L (8-78)
--- NOTE | 2024-09-09 22:06 | PC.NURSE ---
per [place] SURGICAL AIDE, repeat PTT at 330am prior to heparin drip starting.
--- NOTE | 2024-09-09 22:46 | PC.NURSE ---
pt complaining of chest pain, Aleena admitting provider aware, EKG ordered, pt will be given PRN Dilaudid as this worked well before.
[2024-09-09 22:49] VITALS: BP 105/57; PULSE 90; RESP 16; TEMP 36.4; O2SAT 99
--- NOTE | 2024-09-09 22:54 | PC.NURSE ---
this rn completed ekg at bedside, sent to hospitalist via tiger text at this time
--- NOTE | 2024-09-09 23:10 | PM.EVENT ---
Event Note Date of Service: 09/15/24 Event Note: Entered in error Time Spent With Patient Time: Total time managing care of this patient today ____ minutes.
[2024-09-10] VITALS (10 sets, daily range): BP systolic 100–120; BP diastolic 63–82; PULSE 86–100; RESP 16–20; TEMP 36.2–36.8; O2SAT 94–100; BMI 31.2
[2024-09-10] MEDS: 0.9 % Sodium Chloride Flush 3 ML SYRINGE IVFLUSH ×4 (00:36→22:20)
--- NOTE | 2024-09-10 00:46 | PC.NURSE ---
pt requesting medication for anxiety. Admitting HOME CARE AND HOME HEALTH AIDES TEACHER ordered PO Ativan. Pt medicated per APR
[2024-09-10 03:38] LABS: Hematocrit 30.8 % (37.0-47.0); Hemoglobin 10.6 g/dl (12.0-16.0); Imm Gran Abs Auto 0.01 X10*3/uL (0.00-0.03); Imm Gran Pct Auto 0.2 % (0.0-0.4); Lymphocytes Absolute Auto 2.2 X10*3/uL (1.2-4.9); MANUAL DIFF FLAG NO; Mean Corpuscular HGB Conc 34.4 g/dl (31.0-35.0); Mean Corpuscular Hemoglobin 29.9 pg (27.0-33.0); Mean Corpuscular Volume 86.8 fL (80.0-98.0); NRBC Abs Auto 0.000 X10*3/uL (0.0-0.012); NRBC Pct Auto 0.0 /100WBC (0.0-0.2); Platelet Count 254 X10*3/uL (160-400); Red Blood Count 3.55 X10*6/uL (4.20-5.50); White Blood Count 5.6 X10*3/uL (4.8-10.8)
[2024-09-10 03:42] LABS: Venous Blood Gas Refer to POC result
[2024-09-10 03:42] LABS: VBG HCO3 22 mmol/L (22-26); VBG O2 % Saturation 88.0 %
[2024-09-10 03:48] LABS: PTT Heparin Drip 25.2 SEC (53-77.9)
[2024-09-10 03:53] LABS: Alanine Aminotransferase 78 U/L (0-31); Albumin Level 3.6 g/dL (3.5-5.0); Alkaline Phosphatase 65 U/L (39-117); Anion Gap 13 (12-20); Aspartate Amino Transferase 50 U/L (5-31); Blood Urea Nitrogen 6 mg/dL (9-16); Calcium 8.5 mg/dL (8.4-10.2); Carbon Dioxide 22 mmol/L (22-29); Chloride 108 mmol/L (96-108); Creatinine Clr Calc Pharmacy 99.2; Estimated Glomerular Filt Rate > 60; Potassium 3.9 mmol/L (3.3-5.1); Sodium 139 mmol/L (135-145); Total Protein 6.2 g/dL (6.5-8.0)
[2024-09-10] MEDS: Heparin Sodium,Porcine/1/2NS 25,000 UNIT/250 ML IV.SOLN 11.83 UNIT IVCONT (04:15)
--- NOTE | 2024-09-10 04:19 | PC.NURSE ---
heparin drip started per mar at this time, per cindi FACE AND FILL PACKER no bolus required prior to starting drip. pt vss, ambulatory to bathroom with steady gait
--- NOTE | 2024-09-10 05:10 | PC.NURSE ---
pt medicated per APR. Pt requesting albuterol inhaler. Admitting provider Aleena schwarz. awaiting new orders.
[2024-09-10] MEDS: Albuterol Sulfate 90 MCG 8 GM INHALER 2 PUFF INHALE ×2 (05:26→17:02)
--- NOTE | 2024-09-10 05:27 | PC.NURSE ---
pt medicated per 94 room air
--- NOTE | 2024-09-10 06:16 | PC.NURSE ---
pt medicated per MAR.
--- NOTE | 2024-09-10 07:00 | CA_ITS ---
Transthoracic Echocardiogram Patient (Last, First, Middle): Tita Owens, Gender: Female Date of : 1985 Age: 39 Procedure Date: 09/10/2024 Procedure Type: Transthoracic Echocardiogram [place] [facility] [place]: 162.56 cm Weight: 84.37 kg BSA: 1.90 m2 Heart Rate: 83 bpm BP: 112 / 75 mmHg Paper Sheeter: DEVAN Referring MD: Vidya Lizz SENIOR INTEGRATION DEVELOPER- Symptoms: elevated BNP, B PE, right heart strain Study Quality: Fair ECG Rhythm: Sinus Conclusions: - The left ventricular systolic function is mildly decreased. The calculated ejection fraction is 51% by biplane method. - No obvious valvular pathology seen on this study. Findings Left Ventricle Normal left ventricular cavity size. There is mildly increased left ventricular wall thickness. The left ventricular systolic function is mildly decreased. The calculated ejection fraction is 51% by biplane method. There is mild global hypokinesis. Diastolic function is normal for age. Right Ventricle Normal right ventricular cavity size. There is mildly decreased right ventricular systolic function. Atria Both atria are normal in size. Aortic Valve There is a normal trileaflet aortic valve. There is no aortic valve stenosis. There is no aortic valve regurgitation. Mitral Valve The mitral valve appears normal. There is no mitral valve regurgitation. There is no mitral valve stenosis. Pulmonic Valve The pulmonic valve is likely normal. There is trace pulmonic valve regurgitation. Tricuspid Valve There is mild tricuspid valve regurgitation. There is no evidence of pulmonary hypertension. Great Vessels The asc aorta and aortic arch are normal in size. Venous The inferior vena cava is normal in size and collapses greater than 50% with inspiration. Pericardium/Pleural There is no evidence of pericardial effusion. Prior Study Comparison No prior study available for comparison. Recommendations, Care & Conclusions No obvious valvular pathology seen on this study. Measurements 2D Linear Measurements IVSd: 1.32 0.6-0.9/0.6-1.0 cm LVIDd: 3.76 3.9-5.3/4.2-5.9 cm LVIDd Index: 1.98 2.4-3.2/2.2-3.1 cm/m2 LVIDs: 2.74 2.0-3.6 cm LVPWd: 1.13 0.7-1.1 cm LA Diam: 3.10 2.7-3.8/3.0-4.0 cm LAIDs Index: 1.63 1.5-2.3 cm/m2 LV Mass: 193.78 67-162/88-224 g LV Mass Index: 101.99 43-95/49-115 g/m2 LVOT Diam: 2.10 3.0+(-)1.3 cm 2D Systolic Function EF 4C: 49.20 >55% EF 2C: 52.80 >55% EF BiP: 50.60 >55% Mitral Valve MV Pk E: 0.90 MV PK A: 0.61 MV Decel Time: 161.00 E/A: 1.50 E'Lateral: 9.25 E'Medial: 7.51 E/E' Med: 12.00 E/E' Lat: 9.70 PHT: 47.00 MVA PHT: 4.68 Decel [place]: 5.60 Aortic Valve AoV Pk Omer: 1.12 AoV Mn Omer: 0.87 AoV VTI: 0.21 AoV Pk Grad: 5.00 Aov Mn Grad: 3.00 BRUNA Cont.VTI: 2.68 LVOT LVOT Pk Omer: 0.91 LVOT Mn Omer: 0.70 LVOT VTI: 0.17 LVOT Pk Grad: 3.00 LVOT Mn Grad: 2.00 LVOT Diam: 2.10 LVOT Area: 3.46 Diastolic Function MV Pk E: 0.90 MV Pk A: 0.61 E/A: 1.50 E'Medial: 7.51 E/E' Med: 12.00 E' Laterial: 9.25 E/E' Lat: 9.70 Right Ventricle TAPSE (mm): 13.00 TVS' Omer: 6.31 Tricuspid Valve TR Pk Omer: 2.48 TR Pk Grad: 25.00 RA Press: 3.00 RVSP: 28.00 Great Vessels Aorta Sinus of Valsalva: 2.70 2.0-3.5 cm Ao Asc: 2.80 2.1-3.4 cm Ao Arch: 2.50 Pulmonary Veins Pulm Vein S/D 1.80 Pulmonary Valve PV Pk Omer: 0.85 Peak PV Grad: 3.00 Updated in Other Vendor System with Status of Final Mert Whittington MD electronically signed on 09/10/2024 10:23:52 AM with status of Final
--- NOTE | 2024-09-10 08:08 | P.CONGS_ITS ---
History of Present Illness Consult details Consult date: 09/10/24 Narrative: 36-year-old female with a history previously of alcohol abuse and chronic pancreatitis presents with DVT and PE after presenting to urgent care for left lower extremity pain. She was recently discharged from [facility] on 09/02. The current time reports no significant difficulty actually breathing well. She has been transferred from the ER to the floor now presents for vascular evaluation Review of Systems 2 Review of Systems: Yes all other systems are reviewed and are negative Constitutional: Constitutional: Reports no additional constitutional complaints ENT: Reports Normal hearing present Cardiovascular: Cardiovascular: Denies chest pain, Denies chest pain at rest, Denies chest pain with activity and Denies pedal edema Respiratory: Respiratory: Denies cough Gastrointestinal: Gastrointestinal: Denies abdominal pain Musculoskeletal: Musculoskeletal: Denies abnormal gait, Denies muscle cramps and Denies radiating pain into limb Integumentary/Breasts: Skin/Breast: Denies skin ulcer and Denies wounds Neurologic: Reports Normal hearing present and Denies abnormal gait Psychiatric: Psychiatric: Reports no additional psychiatric complaints PMFSH Past Medical History Medical History IUD check up Alcohol use disorder, severe, dependence Presence of Mirena IUD MDD (major depressive disorder), recurrent episode, moderate Asthma Anxiety and depression Tachycardia Alcohol withdrawal Family History Family History Mother Alcohol use disorder Maternal Grandfather Alcohol use disorder Social History Social History Household Members: None Household Members Other:: roommate Housing: House Do you presently have visiting nurse or other home services: No Alcohol intake: current Alcohol intake frequency: 3 or more drinks per day Alcohol type: hard liquor Comment: Reports drinking 2 pints per day Patient Tobacco Use Status: Never used Tobacco Tobacco use type: Cigarette Smoked in Last 30 Days: Yes e-Cigarette/Vaping Use: Never Used Second Hand Smoke Exposure: No Substance Use Type: Marijuana Advance Directives: Yes Advance Directives on File: Yes Advance Directives Date on File: 02/11/23 Do you have a plan to hurt others: No Plan Nutrition Risks: No Nutritional Risk Patient : No service: No Travel History Ebola Risk: Travel/Contact With Anyone From Affected Area/s: No Has Patient Experienced Ebola Symptoms: No Meds Allergies Allergy/AdvReac Type Severity Reaction Status Date / Time adhesive AdvReac Hives Verified 09/09/24 12:49 Active Medications: Current Medications Acetaminophen (Acetaminophen 325 Mg Tablet) 650 mg PO Q6H PRN PRN Reason: Pain, Mild 1-3,fever,headache Albuterol Sulfate (Albuterol Sulfate 90 Mcg 8 Gm Inhaler) 2 puff INHALE RQ4H PRN PRN Reason: Shortness of Breath/Wheezing Last Admin: 09/10/24 05:26 Dose: 2 puff Calcium Carbonate (Calcium Carbonate 750 Mg Tab.Chew) 750 mg PO Q4H PRN PRN Reason: Heartburn Heparin Sodium (Porcine) (Heparin Sodium,Porcine 5,000 Unit/Ml Vial) 3,400 unit 40 unit/kg (3400 unit) IVPUSH PROTOCOL BOLUS PRN; Protocol PRN Reason: 40 unit/kg - Heparin Protocol Heparin Sodium (Porcine) (Heparin Sodium,Porcine 5,000 Unit/Ml Vial) 6,800 unit 80 unit/kg (6800 unit) IVPUSH PROTOCOL BOLUS PRN; Protocol PRN Reason: 80 unit/kg - Heparin Protocol Hydromorphone HCl (Hydromorphone Hcl 0.5 Mg/0.5 Ml Syringe) 0.5 mg IVPUSH Q3H PRN; Protocol PRN Reason: Pain, Severe (Pain Scale 7-10) Last Admin: 09/10/24 05:05 Dose: 0.5 mg Heparin Sodium/Sodium Chloride (Heparin Sodium,Porcine/1/2ns) 25,000 unit in 250 mls @ 0 mls/hr IVCONT .Q0M [facility]; Protocol Last Admin: 09/10/24 04:15 Dose: 14 units/kg/hr, 11.83 mls/hr Thiamine HCl 100 mg/ Sodium (Chloride) 101 mls @ 202 mls/hr IV DAILY [facility] Last Infusion: 09/09/24 20:57 Dose: Infused Folic Acid 1 mg/ Sodium (Chloride) 50.2 mls @ 100.4 mls/hr IV DAILY [facility] Last Infusion: 09/09/24 21:37 Dose: Infused Lorazepam (Lorazepam 1 Mg Tablet) 1 mg PO Q6H PRN PRN Reason: Anxiety Last Admin: 09/10/24 00:45 Dose: 1 mg Magnesium Hydroxide (Milk Of Magnesia 30 Ml Oral.Susp) 30 ml PO DAILY PRN PRN Reason: Constipation Melatonin (Melatonin 3 Mg Tablet) 6 mg PO BEDTIME PRN PRN Reason: Insomnia Ondansetron HCl (Ondansetron Hcl 4 Mg/2 Ml Vial) 4 mg IVPUSH Q8H PRN PRN Reason: Nausea and Vomiting Pantoprazole Sodium (Pantoprazole Sodium 40 Mg/10 Ml Vial) 40 mg IVPUSH DAILY@629 [facility] Last Admin: 09/10/24 06:12 Dose: 40 mg Sodium Chloride (0.9 % Sodium Chloride Flush 3 Ml Syringe) 3 ml IVFLUSH [facility] Last Admin: 09/10/24 00:36 Dose: 3 ml Home Medications ?Medication ?Instructions ?Recorded ?Confirmed ?Last Taken ?Type pantoprazole 40 mg tablet,delayed 40 mg PO DAILY@0630 03/22/24 09/09/24 09/09/24 History release cetirizine 10 mg tablet (Zyrtec) 10 mg PO DAILY PRN al lergies 07/03/24 09/09/24 07/02/24 History albuterol sulfate 90 mcg/actuation 1 puff inhalation Q ID PRN wheezing 09/09/24 09/09/24 Unknown History aerosol inhaler oxycodone 10 mg tablet 10 mg PO Q6H PRN severe pain 09/09/24 09/09/24 Unknown History Physical Exam 2 Vital Signs: Vital Signs: Last Vital Signs Temp 97.6 F 09/10/24 05:26 Pulse 86 09/10/24 05:26 Resp 16 09/10/24 06:27 BP 112/75 09/10/24 05:26 Pulse Ox 94 09/10/24 05:26 O2 Del Method Room Air 09/10/24 05:26 BMI result Body Mass Index 32.0 Const: General: cooperative, healthy appearing and comfortable O rientation/consciousness: oriented to person, oriented to place and oriented to time HEENT: Head: Yes normal to inspection Neck: Neck: Yes normal visual inspection Carotids: no bruits Chest: Chest palpation & inspection: normal inspection of the chest Resp: Effort & Inspection: normal respiratory effort and able to speak in complete sentences Auscultation: clear to auscultation bilaterally, no crackles, no rales, no rhonchi and no wheezes Cardio: Rate: regular rate Rhythm: regular rhythm Heart sounds: S1 normal heart sound present and S2 normal heart sound present Bruits: no carotid bruits Peripheral pulses: Peripheral pulses 2+ throughout GI: Inspection: Yes normal to inspection Skin: Wounds: no wounds Hair: normal Neuro: General: oriented to person, oriented to place and oriented to time Cranial nerves: Yes CN's II-XII intact bilaterally and Yes Normal hearing present Cognition (Neuro): normal cognition Motor exam (neuro): 5/5 motor strength present throughout Extrem: Other: venous exam: No significant superficial varicosities or spider telangiectasias, minimal edema General: No clubbing, No cyanosis and No edema Psych: Appearance: grossly normal Mental Status: mental status grossly normal Speech and movement: Normal speech and movement present Results Labs 09/10/24 03:34 09/10/24 03:34 Labs: Abnormal lab results 09/09/24 09/09/24 09/09/24 Range/Units 15:00 16:06 19:44 RBC 3.68 L 3.87 L (4.20-5.50) X10*6/uL Hgb 11.0 L D 11.6 L (12.0-16.0) g/dl Hct 31.5 L 33.6 L (37.0-47.0) % Immature Gran % (Auto) 0.5 H (0.0-0.4) % Neut % (Auto) (45-73) % [place] % (Auto) 17.3 H (2-11) % Eos % (Auto) (0-4) % [place] # (Auto) 1.3 H (0.1-1.2) X10*3/uL Abs Immat Gran (auto) 0.04 H (0.00-0.03) X10*3/uL aPTT Heparin Protocol (53-77.9) SEC VBG pH (7.32-7.43) Carbon Dioxide 21 L (22-29) mmol/L BUN (9-16) mg/dL AST (5-31) U/L ALT (0-31) U/L Total Creatine Kinase 160 H (26-140) U/L Troponin I High Sens 202.4 H* D 179.9 H* (<3.5-17.0) ng/L B-Natriuretic Peptide 904 H (<100) pg/mL Total Protein (6.5-8.0) g/dL 09/10/24 09/10/24 Range/Units 03:34 03:38 RBC 3.55 L (4.20-5.50) X10*6/uL Hgb 10.6 L (12.0-16.0) g/dl Hct 30.8 L (37.0-47.0) % Immature Gran % (Auto) (0.0-0.4) % Neut % (Auto) 38.8 L (45-73) % [place] % (Auto) 16.9 H (2-11) % Eos % (Auto) 4.6 H (0-4) % [place] # (Auto) (0.1-1.2) X10*3/uL Abs Immat Gran (auto) (0.00-0.03) X10*3/uL aPTT Heparin Protocol 25.2 L (53-77.9) SEC VBG pH 7.44 H (7.32-7.43) Carbon Dioxide (22-29) mmol/L BUN 6 L (9-16) mg/dL AST 50 H (5-31) U/L ALT 78 H (0-31) U/L Total Creatine Kinase (26-140) U/L Troponin I High Sens (<3.5-17.0) ng/L B-Natriuretic Peptide (<100) pg/mL Total Protein 6.2 L (6.5-8.0) g/dL Short CBC 09/09/24 09/09/24 09/10/24 Range/Units 15:00 16:06 03:34 WBC 7.5 7.0 5.6 (4.8-10.8) X10*3/uL Hgb 11.0 L D 11.6 L 10.6 L (12.0-16.0) g/dl Hct 31.5 L 33.6 L 30.8 L (37.0-47.0) % Plt Count 275 187 D 254 D (160-400) X10*3/uL BMP 09/09/24 09/10/24 15:00 03:34 Sodium 139 139 Potassium 4.1 3.9 Chloride 108 108 Carbon Dioxide 21 L 22 BUN 11 6 L Creatinine 0.84 0.81 Calcium 8.7 8.5 Cardiac Enzymes 09/09/24 Range/Units 15:00 Total Creatine Kinase 160 H (26-140) U/L Liver Function 09/10/24 Range/Units 03:34 Total Bilirubin 0.4 (0.0-1.0) mg/dL AST 50 H (5-31) U/L ALT 78 H (0-31) U/L Alkaline Phosphatase 65 (39-117) U/L Albumin 3.6 (3.5-5.0) g/dL All other labs normal. Assessment and Plan (1) Pulmonary emboli: Qualifiers: Acute cor pulmonale presence: unspecified Chronicity: acute Pulmonary embolism type: other Qualified Code(s): I26.99 - Other pulmonary embolism without acute cor pulmonale Status: Acute Plan In short patient has pulmonary embolism. It does not appear that she is significantly symptomatic from her this at the current time. She does have evidence of some mild heart strain. Contrast filling defects seen in the distal main PA lobar and segmental. I did review CT scan and At the current time would recommend anticoagulation only. She may require long-term anticoagulation. We will follow up on an as-needed basis. Thank you for allowing us to assist in her care. Procedures Date of Service Date of Service: 09/10/24
--- NOTE | 2024-09-10 10:16 | P.CNHO_ITS ---
Subjective - Subjective Chief complaint: Deflect pain, shortness of breath Patient: new to practice Consult date: 09/10/24 Primary Care Provider: Brooklynn Hardy NP Heavy Forging Machine Operator Utilized?: No - Bahraini Speaking HPI - Consult Narrative Reason for consult: Thromboembolism Narrative: Tita Owens is a 39 year old female with past medical history significant for pancreatitis, chronic alcoholism who has been diagnosed with left lower extremity DVT and bilateral pulmonary embolism. She was admitted to [facility] from September 02 to September 07 for acute pancreatitis triggered by alcohol relapse. During the time she did not receive Lovenox. She states that she developed left leg cramping pain as well as shortness of breath as she was getting discharged from [facility]. After getting home her cramping pain got worse and she also developed chest pain which prompted her to come to the ER. Work up in ED revealed Noncompressible posterior tibial vein and peroneal vein concerning for deep vein thrombosis via Doppler and CTA Evidence of bilateral acute pulmonary embolism with right heart strain, Pleural-based opacity of the bilateral upper lobes concerning for pulmonary infarction. Patient was started on heparin. Patient is a chronic smoker, 2-3 cigarettes a day. No prior history or family history of thromboembolism. She uses Mirena IUD. She is with 1 miscarriage. She has PCOS. She recently underwent endoscopy at [facility] which revealed erosive gastritis. She has never been diagnosed with any cancer and does not recall any family history of cancer. She did undergo a mammogram a few years ago for right breast pain, it was normal. 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 Patient denies any constitutional symptoms, recent infections or changes to her medications. Review of Systems - Constitutional Reports as per HPI, Denies fatigue, Denies lack of energy, Denies malaise, Denies poor appetite, Denies weight loss - Cardiovascular Reports chest pain, Denies fast heart rate, Reports foot swelling - Respiratory Reports no additional respiratory complaints, Denies cough, Reports dyspnea - Gastrointestinal Denies bright, red blood in stools, Denies change in bowel habits - Neurologic Reports hearing normal, Denies abnormal gait [facility] Medical History: Medical History (Last Reviewed 09/09/24 @ 20:18 by GAGE Ghotra) Alcohol use disorder, severe, dependence Alcohol withdrawal Anxiety and depression Asthma IUD check up MDD (major depressive disorder), recurrent episode, moderate Presence of Mirena IUD Tachycardia Functional capacity: independent ambulation Family History: Family History (Last Reviewed 09/09/24 @ 20:18 by GAGE Ghotra) Mother Alcohol use disorder Maternal Grandfather Alcohol use disorder Social History: Social History (Last Reviewed 09/09/24 @ 20:18 by GAGE Ghotra) Living Situation History: Household Members: None Household Members Other:: roommate Housing: House Do you presently have visiting nurse or other home services: No Alcohol History Details: 1. How often do you have a drink containing alcohol?: b. Monthly or less 3. How often do you have six or more drinks on one occasion?: a. Never AUDIT-C Alcohol total score: 1 Tobacco History: Patient Tobacco Use Status: Never used Tobacco Tobacco use type: Cigarette Smoked in Last 30 Days: Yes Smoking End Date: 03/21/24 e-Cigarette/Vaping Use: Never Used Second Hand Smoke Exposure: No Substance Use History: Substance Use Type: Marijuana Advance Directives: Advance Directives: Yes Advance Directives on File: Yes Advance Directives Date on File: 02/11/23 Homicidal Assessment: Do you have a plan to hurt others: No Plan Nutrition Assessment: Nutrition Risks: No Nutritional Risk Patient : No Occupation Assessmet: service: No - Travel History Ebola Risk: Travel/Contact With Anyone From Affected Area/s: No Has Patient Experienced Ebola Symptoms: No Home Medications and Allergies Current Medications: Current Medications Acetaminophen (Acetaminophen 325 Mg Tablet) 650 mg PO Q6H PRN PRN Reason: Pain, Mild 1-3,fever,headache Albuterol Sulfate (Albuterol Sulfate 90 Mcg 8 Gm Inhaler) 2 puff INHALE RQ4H PRN PRN Reason: Shortness of Breath/Wheezing Last Admin: 09/10/24 05:26 Dose: 2 puff Calcium Carbonate (Calcium Carbonate 750 Mg Tab.Chew) 750 mg PO Q4H PRN PRN Reason: Heartburn Heparin Sodium (Porcine) (Heparin Sodium,Porcine 5,000 Unit/Ml Vial) 3,400 unit 40 unit/kg (3400 unit) IVPUSH PROTOCOL BOLUS PRN; Protocol PRN Reason: 40 unit/kg - Heparin Protocol Heparin Sodium (Porcine) (Heparin Sodium,Porcine 5,000 Unit/Ml Vial) 6,800 unit 80 unit/kg (6800 unit) IVPUSH PROTOCOL BOLUS PRN; Protocol PRN Reason: 80 unit/kg - Heparin Protocol Hydromorphone HCl (Hydromorphone Hcl 0.5 Mg/0.5 Ml Syringe) 0.5 mg IVPUSH Q3H PRN; Protocol PRN Reason: Pain, Severe (Pain Scale 7-10) Last Admin: 09/10/24 09:30 Dose: 0.5 mg Heparin Sodium/Sodium Chloride (Heparin Sodium,Porcine/1/2ns) 25,000 unit in 250 mls @ 0 mls/hr IVCONT .Q0M [facility]; Protocol Last Admin: 09/10/24 04:15 Dose: 14 units/kg/hr, 11.83 mls/hr Thiamine HCl 100 mg/ Sodium (Chloride) 101 mls @ 202 mls/hr IV DAILY [facility] Last Admin: 09/10/24 09:48 Dose: Not Given Folic Acid 1 mg/ Sodium (Chloride) 50.2 mls @ 100.4 mls/hr IV DAILY [facility] Last Admin: 09/10/24 09:48 Dose: Not Given Lorazepam (Lorazepam 1 Mg Tablet) 1 mg PO Q6H PRN PRN Reason: Anxiety Last Admin: 09/10/24 00:45 Dose: 1 mg Magnesium Hydroxide (Milk Of Magnesia 30 Ml Oral.Susp) 30 ml PO DAILY PRN PRN Reason: Constipation Melatonin (Melatonin 3 Mg Tablet) 6 mg PO BEDTIME PRN PRN Reason: Insomnia Ondansetron HCl (Ondansetron Hcl 4 Mg/2 Ml Vial) 4 mg IVPUSH Q8H PRN PRN Reason: Nausea and Vomiting Pantoprazole Sodium (Pantoprazole Sodium 40 Mg/10 Ml Vial) 40 mg IVPUSH DAILY@629 [facility] Last Admin: 09/10/24 06:12 Dose: 40 mg Sodium Chloride (0.9 % Sodium Chloride Flush 3 Ml Syringe) 3 ml IVFLUSH [facility] Last Admin: 09/10/24 09:34 Dose: 3 ml Home Medications ?Medication ?Instructions ?Recorded ?Confirmed ?Type pantoprazole 40 mg tablet,delayed 40 mg PO DAILY@0630 03/22/24 09/09/24 Hi story release cetirizine 10 mg tablet (Zyrtec) 10 mg PO DAILY PRN allergies 07/03/24 History albuterol sulfate 90 mcg/actuation 1 puff inhalation QID PRN wheezing 09/0909/09/24 History aerosol inhaler oxycodone 10 mg tablet 10 mg PO Q6H PRN severe pain 09/09/24 History Allergies Allergy/AdvReac Type Severity Reaction Status Date / Time adhesive AdvReac Hives Verified 09/09/24 12:49 Physical Exam Vital signs: Vital Signs Temp 97.6 F 09/10/24 08:34 Pulse 86 09/10/24 08:34 Resp 20 09/10/24 08:34 BP 111/73 09/10/24 08:34 Pulse Ox 100 09/10/24 08:34 O2 Del Method Room Air 09/10/24 08:34 Intake & Output 09/09/24 09/10/24 09/10/24 18:59 06:59 18:59 Intake Total 151.2 / 151.2 Balance 151.2 / 151.2 Intake: Intake, IV Amount 151.2 / 151.2 Folic Acid 1 mg In 0.9 % Sodium 50.2 / 50.2 Chloride 50 ml @ 100.4 mls/hr IV DAILY [facility] Rx#:[id number] Thiamine HCL 100 mg In 0.9 % 101 / 101 Sodium Chloride 100 ml @ 202 mls/hr IV DAILY [facility] Rx#: [id number] Other: Number of Unmeasured Voids 2 Urine Bathroom Last Bowel Movement 09/07/24 Weight 84.5 kg 84.5 kg 82.5 kg Weight 82.5 kg - Constitutional Present: no acute distress, obese - Routine HEENT Exam Head: Present: normal inspection Eye: Present: EOMI - Routine Neck Exam Present: supple. Absent: lymphadenopathy - Routine Respiratory Exam Present: CTAB. Absent: accessory muscle use, stridor, wheezes - Routine Cardiovascular Exam Cardiovascular: Present: RRR, S1, S2 - Routine Abdominal Exam Present: soft - Routine Extremities Exam Present: pulses intact. Absent: pedal edema - Routine Skin Exam Present: intact - Routine Neurological Exam Present: alert, oriented X3 - Routine Psychiatric Exam Present: good judgment Hem/Onc Consult Result - Labs CBC & Chem 7: 09/10/24 03:34 09/10/24 03:34 Labs: Short CBC 09/09/24 09/09/24 09/10/24 Range/Units 15:00 16:06 03:34 WBC 7.5 7.0 5.6 (4.8-10.8) X10*3/uL Hgb 11.0 L D 11.6 L 10.6 L (12.0-16.0) g/dl Hct 31.5 L 33.6 L 30.8 L (37.0-47.0) % Plt Count 275 187 D 254 D (160-400) X10*3/uL BMP 09/09/24 09/10/24 15:00 03:34 Sodium 139 139 Potassium 4.1 3.9 Chloride 108 108 Carbon Dioxide 21 L 22 BUN 11 6 L Creatinine 0.84 0.81 Calcium 8.7 8.5 Cardiac Enzymes 09/09/24 Range/Units 15:00 Total Creatine Kinase 160 H (26-140) U/L Liver Function 09/10/24 Range/Units 03:34 Total Bilirubin 0.4 (0.0-1.0) mg/dL AST 50 H (5-31) U/L ALT 78 H (0-31) U/L Alkaline Phosphatase 65 (39-117) U/L Albumin 3.6 (3.5-5.0) g/dL Assessment and Plan Patient Active problem list reviewed?: Yes (1) Pulmonary emboli Status: Acute Assessment and plan: 1. This is a 39-year-old woman with past medical history significant for chronic alcoholism, recurrent pancreatitis who has been admitted for left lower extremity DVT and bilateral pulmonary embolism. Venous Doppler performed 09/09/2024 revealed noncompressible posterior tibial vein and peroneal vein DVT of the left lower extremity. CT angiogram revealed bilateral acute pulmonary emboli, bilateral lobar and segmental pulmonary artery involvement with pleural-based opacity of bilateral upper lobes concerning for pulmonary infarction. Evidence of right heart strain. She has been started on IV heparin. Recommend performing echocardiogram. She is hemodynamically stable and her oxygenation is 100% on room air. She can be switched to Eliquis if her echo is normal. Thromboembolism appeared to have been provoked from recent hospitalization for pancreatitis during which she did not receive thrombo prophylaxis. She is also a smoker. Patient was advised about smoking cessation. I have recommended 6 months of anticoagulation. No role of thrombophilia testing. She was advised to monitor herself for any signs or symptoms of bleeding. I thank you for the consultation. - Time Spent With Patient Time Spent with Patient (in minutes): 25 Additional Coding: - Additional E/M codes Complex E/M visit Add On: CPT G2211
[2024-09-10 11:03] LABS: PTT Heparin Drip 60.2 SEC (53-77.9)
--- NOTE | 2024-09-10 12:07 | MHC.CM.PN ---
Patient lives with her Friend/HCP/Omer and is functionally independent. Patient may benefit from a Recovery Team Consult r/t ETOH and ? of a Care Team consult (recent suicide attempt). CM has initiated and will follow for dc planning. PCP/CREAM TESTER is Brooklynn Hardy.Transportation will be contingent on final disposition.
--- NOTE | 2024-09-10 14:41 | HO.PM.IMPN ---
Subjective Subjective Date of Service: 09/10/24 Interval History: f/u DVT/PE CP and SOB with ambulation, asx at rest recently hospitalized for pancreatitis and did not have anticoagulation Chronic abdominal pain from chronic pancreatitis, at baseline Review of Systems Review of Systems: Yes all other systems are reviewed and are negative Physical Exam Exam: Exam: General: AOx3, no acute distress Resp: CTA bilaterally, no wheezing CVS: S1, S2, RRR GI: +BS, NT, no distention Skin: Warm, dry Neuro: Cranial nerves II-XII grossly intact bilaterally. Motor grossly intact bilaterally Extremities: No LE edema.pain with palpation left calf. Psych: Appropriate affect Vital Signs: Vital Signs: Last Vital Signs Temp 97.4 F 09/10/24 11:10 Pulse 89 09/10/24 11:10 Resp 18 09/10/24 11:10 BP 103/63 09/10/24 11:10 Pulse Ox 96 09/10/24 11:10 O2 Del Method Room Air 09/10/24 11:10 BMI result Body Mass Index 31.2 Objective Data Active Medications Acetaminophen (Acetaminophen 325 Mg Tablet) 650 mg PO Q6H PRN PRN Reason: Pain, Mild 1-3,fever,headache Albuterol Sulfate (Albuterol Sulfate 90 Mcg 8 Gm Inhaler) 2 puff INHALE RQ4H PRN PRN Reason: Shortness of Breath/Wheezing Last Admin: 09/10/24 05:26 Dose: 2 puff Documented By: KO Calcium Carbonate (Calcium Carbonate 750 Mg Tab.Chew) 750 mg PO Q4H PRN PRN Reason: Heartburn Heparin Sodium (Porcine) (Heparin Sodium,Porcine 5,000 Unit/Ml Vial) 3,400 unit 40 unit/kg (3400 unit) IVPUSH PROTOCOL BOLUS PRN; Protocol PRN Reason: 40 unit/kg - Heparin Protocol Heparin Sodium (Porcine) (Heparin Sodium,Porcine 5,000 Unit/Ml Vial) 6,800 unit 80 unit/kg (6800 unit) IVPUSH PROTOCOL BOLUS PRN; Protocol PRN Reason: 80 unit/kg - Heparin Protocol Hydromorphone HCl (Hydromorphone Hcl 0.5 Mg/0.5 Ml Syringe) 0.5 mg IVPUSH Q3H PRN; Protocol PRN Reason: Pain, Severe (Pain Scale 7-10) Last Admin: 09/10/24 09:30 Dose: 0.5 mg Documented By: KACI Heparin Sodium/Sodium Chloride (Heparin Sodium,Porcine/1/2ns) 25,000 unit in 250 mls @ 0 mls/hr IVCONT .Q0M [facility]; Protocol Last Titration: 09/10/24 11:26 Dose: 14 units/kg/hr, 11.83 mls/hr Documented By: KACI Co-signed By: JAGDISH Thiamine HCl 100 mg/ Sodium (Chloride) 101 mls @ 202 mls/hr IV DAILY [facility] Last Admin: 09/10/24 09:48 Dose: Not Given Documented By: KACI Non-Admin Reason: Patient Refused Folic Acid 1 mg/ Sodium (Chloride) 50.2 mls @ 100.4 mls/hr IV DAILY [facility] Last Admin: 09/10/24 09:48 Dose: Not Given Documented By: KACI Non-Admin Reason: Patient Refused Lorazepam (Lorazepam 1 Mg Tablet) 1 mg PO Q6H PRN PRN Reason: Anxiety Last Admin: 09/10/24 00:45 Dose: 1 mg Documented By: KO Magnesium Hydroxide (Milk Of Magnesia 30 Ml Oral.Susp) 30 ml PO DAILY PRN PRN Reason: Constipation Melatonin (Melatonin 3 Mg Tablet) 6 mg PO BEDTIME PRN PRN Reason: Insomnia Ondansetron HCl (Ondansetron Hcl 4 Mg/2 Ml Vial) 4 mg IVPUSH Q8H PRN PRN Reason: Nausea and Vomiting Pantoprazole Sodium (Pantoprazole Sodium 40 Mg/10 Ml Vial) 40 mg IVPUSH DAILY@0630 [facility] Last Admin: 09/10/24 06:12 Dose: 40 mg Documented By: KO Sodium Chloride (0.9 % Sodium Chloride Flush 3 Ml Syringe) 3 ml IVFLUSH QSHIFT [facility] Last Admin: 09/10/24 09:34 Dose: 3 ml Documented By: KACI Labs 09/10/24 03:34 09/10/24 03:34 Labs: Laboratory Results - last 24 hr 09/09/24 09/09/24 09/09/24 15:00 16:06 17:00 MCV 85.6 86.8 MCH 29.9 30.0 MCHC 34.9 34.5 RDW 14.2 13.9 Plt Count 275 187 D MPV 9.7 10.1 Immature Gran % (Auto) 0.5 H Neut % (Auto) 52.1 Lymph % (Auto) 26.7 [place] % (Auto) 17.3 H Eos % (Auto) 2.9 Baso % (Auto) 0.5 Lymph # (Auto) 2.0 [place] # (Auto) 1.3 H Eos # (Auto) 0.2 Baso # (Auto) 0.0 Abs Immat Gran (auto) 0.04 H Absolute Neuts (auto) 3.9 Absolute Nucleated RBC 0.000 0.000 Nucleated RBC % (auto) 0.0 0.0 Hold Purple Top PT 11.6 INR 1.0 APTT 32.1 aPTT Heparin Protocol VBG pH VBG pCO2 VBG pO2 VBG HCO3 VBG O2 Saturation VBG Base Excess Anion Gap 14 Estim Creat Clear Calc 96.4 Estimated GFR > 60 Random Glucose 90 Lactic Acid Calcium 8.7 Magnesium 2.3 Total Bilirubin AST ALT Alkaline Phosphatase Total Creatine Kinase 160 H B-Natriuretic Peptide 904 H Total Protein Albumin Lipase 13 Beta HCG, Quant < 2 Hold Yellow Top Ethyl Alcohol < 10 Blood Type Antibody Screen 09/09/24 09/09/24 09/10/24 19:44 21:43 03:34 MCV 86.8 MCH 29.9 MCHC 34.4 RDW 13.8 Plt Count 254 D MPV 9.5 Immature Gran % (Auto) 0.2 Neut % (Auto) 38.8 L Lymph % (Auto) 39.0 [place] % (Auto) 16.9 H Eos % (Auto) 4.6 H Baso % (Auto) 0.5 Lymph # (Auto) 2.2 [place] # (Auto) 1.0 Eos # (Auto) 0.3 Baso # (Auto) 0.0 Abs Immat Gran (auto) 0.01 Absolute Neuts (auto) 2.2 Absolute Nucleated RBC 0.000 Nucleated RBC % (auto) 0.0 Hold Purple Top SEE NOTE PT INR APTT aPTT Heparin Protocol 25.2 L VBG pH VBG pCO2 VBG pO2 VBG HCO3 VBG O2 Saturation VBG Base Excess Anion Gap 13 Estim Creat Clear Calc 99.2 Estimated GFR > 60 Random Glucose 88 Lactic Acid 1.1 Calcium 8.5 Magnesium Total Bilirubin 0.4 AST 50 H ALT 78 H Alkaline Phosphatase 65 Total Creatine Kinase B-Natriuretic Peptide Total Protein 6.2 L Albumin 3.6 Lipase Beta HCG, Quant Hold Yellow Top See Note Ethyl Alcohol Blood Type A Negative Antibody Screen NEGATIVE 09/10/24 09/10/24 03:38 10:33 MCV MCH MCHC RDW Plt Count MPV Immature Gran % (Auto) Neut % (Auto) Lymph % (Auto) [place] % (Auto) Eos % (Auto) Baso % (Auto) Lymph # (Auto) [place] # (Auto) Eos # (Auto) Baso # (Auto) Abs Immat Gran (auto) Absolute Neuts (auto) Absolute Nucleated RBC Nucleated RBC % (auto) Hold Purple Top PT INR APTT aPTT Heparin Protocol 60.2 D VBG pH 7.44 H VBG pCO2 32 VBG pO2 61 VBG HCO3 22 VBG O2 Saturation 88.0 VBG Base Excess -1.2 Anion Gap Estim Creat Clear Calc Estimated GFR Random Glucose Lactic Acid Calcium Magnesium Total Bilirubin AST ALT Alkaline Phosphatase Total Creatine Kinase B-Natriuretic Peptide Total Protein Albumin Lipase Beta HCG, Quant Hold Yellow Top Ethyl Alcohol Blood Type Antibody Screen Assessment and Plan (1) Pulmonary emboli: Status: Acute (2) DVT (deep venous thrombosis): Status: Acute (3) Alcohol use: Status: Acute (4) Alcohol withdrawal: Status: Acute (5) Obesity (BMI 30-39.9): Status: Acute Plan Patient is a 39-year-old female with past medical history alcohol abuse, chronic pancreatitis, allergic rhinitis, marijuana use, erosive gastritis, ovarian cyst, recent attempt suicide using Campral, mood disorder with depression and anxiety admitted with B PE, right heart strain (ECG confirms), elevated troponin, elevated BNP, last alcoholic drink 09/02. B PE with possible pulmonary infarct / DVT Heparin drip seen by vascular, no intervention recommended at this time, pt is stable, not hypoxic hematology: can transition to eliquis x6 months if echo normal. likely provoked from recent hospitalization without DVT prophy No evidence of hypoxia O2 p.r.n. Troponin 202, then 179.9 Telemetry and continuous pulse ox BNP 904 echo - left ventricular systolic function is mildly decreased. EF 51%. No obvious valvular pathology seen. reached out to heme re: eliquis no SCDs Chronic panceatitis/ alcohol abuse Last alcoholic drink 09/02 CIWA ordered, no indication for phenobarbitol Thiamine and folic acid ordered- pt refused lipase now due to chronic pancreatitis Recent hx of erosive gastritis PPI H/H stable Depression/ Anxiety Psychiatry consulted, recent Suicide attempt with Tomral, was at [facility] currently denies SI/HI Valium prn Enlarging ovarian cyst Will need outpatient follow up DVT prophylaxis: lovenox wt based X1, to heparin infusion full code Continued need for hospitalization: pain and anticoagulation, likely discharge tomorrow Quality Stroke Does the patient have a stroke diagnosis?: No Reason for No Anti-thrombotic by Day Two: N/A - Med Ordered VTE Prior VTE?: No VTE Risk Level:: Medical - moderate - high VTE Device Contraindication: Procedure Contraindicated (known DVT) VTE Drug Contraindication: N/A - Med Ordered
[2024-09-10 16:15] LABS: INTERNATIONAL NORM RATIO 1.0 (0.9-1.1); Prothrombin Time 11.8 SEC (10.9-12.4)
[2024-09-10 16:41] LABS: PTT Heparin Drip 44.3 SEC (53-77.9)
--- NOTE | 2024-09-11 | ECG_ITS ---
Test Reason : cp Blood Pressure : */* mmHG Vent. Rate : 93 BPM Atrial Rate : 93 BPM P-R Int : 158 ms QRS Dur : 68 ms QT Int : 344 ms P-R-T Axes : 40 74 39 degrees QTcB Int : 427 ms Normal sinus rhythm Low voltage QRS Septal infarct , age undetermined Abnormal ECG When compared with ECG of 09-Sep-2024 22:46, Nonspecific T wave abnormality has replaced inverted T waves in Inferior leads Referred By: Kellen Guthrie Electronically Signed By: BERRY ZAYAS
[2024-09-11 03:11] VITALS: BP 113/52; PULSE 90; RESP 18; TEMP 36.2; O2SAT 95
[2024-09-11] MEDS: Albuterol Sulfate 90 MCG 8 GM INHALER 2 PUFF INHALE ×3 (03:14→21:58)
[2024-09-11 07:12] VITALS: BP 101/63; PULSE 84; RESP 20; TEMP 36.2; O2SAT 95
[2024-09-11] MEDS: Thiamine HCL 100 MG in 0.9 % Sodium Chloride 100 ML 202 MG IV (09:01)
[2024-09-11] MEDS: 0.9 % Sodium Chloride Flush 3 ML SYRINGE IVFLUSH ×2 (09:07→20:36)
[2024-09-11 09:24] LABS: MANUAL DIFF FLAG NO
[2024-09-11 09:26] LABS: Hematocrit 34.2 % (37.0-47.0); Hemoglobin 11.6 g/dl (12.0-16.0); Imm Gran Abs Auto 0.03 X10*3/uL (0.00-0.03); Imm Gran Pct Auto 0.6 % (0.0-0.4); Lymphocytes Absolute Auto 1.5 X10*3/uL (1.2-4.9); Mean Corpuscular HGB Conc 33.9 g/dl (31.0-35.0); Mean Corpuscular Hemoglobin 30.0 pg (27.0-33.0); Mean Corpuscular Volume 88.4 fL (80.0-98.0); NRBC Abs Auto 0.000 X10*3/uL (0.0-0.012); NRBC Pct Auto 0.0 /100WBC (0.0-0.2); Platelet Count 359 X10*3/uL (160-400); Red Blood Count 3.87 X10*6/uL (4.20-5.50); White Blood Count 5.2 X10*3/uL (4.8-10.8)
[2024-09-11 09:43] LABS: Anion Gap 10 (12-20); Blood Urea Nitrogen 7 mg/dL (9-16); Calcium 8.8 mg/dL (8.4-10.2); Carbon Dioxide 21 mmol/L (22-29); Chloride 111 mmol/L (96-108); Creatinine Clr Calc Pharmacy 100.0; Estimated Glomerular Filt Rate > 60; Potassium 4.1 mmol/L (3.3-5.1); Sodium 138 mmol/L (135-145)
[2024-09-11 11:03] VITALS: BP 134/75; PULSE 98; RESP 20; TEMP 36.3; O2SAT 95
--- NOTE | 2024-09-11 12:14 | P.DS_ITS ---
DS: Providers Provider Date of Service: 09/11/24 Date of admission: 09/09/24 17:29 Date of discharge: 09/11/24 Primary care physician: Brooklynn Hardy NP Consults: 09/09/24 18:50 Consult to Vascular Surgery Routine Consulting Provider: [facility] Vascular Services Reason for consultation: Bilateral PE, DVT 09/09/24 20:14 Addiction Medicine Provider Routine Consulting Provider: Addiction Covering Reason for consultation: ongoping alcohol abuse with recent SI attempt using CAMPRAL 09/09/24 20:15 Consult to Psychiatry Routine Consulting Provider: [facility] Psych Covering Reason for consultation: significant depression/ anxiety recent Suicide att using campral 09/09/24 20:46 Consult to Hematology / Oncology Routine Consulting Provider: [facility] Oncology/Hematology Reason for consultation: DVT, B PE no hx of blood clots Has provider been notified: No DS: Diagnosis Discharge Diagnosis (1) Pulmonary emboli: Status: Acute (2) DVT (deep venous thrombosis): Status: Acute (3) Alcohol use: Status: Acute (4) Alcohol withdrawal: Status: Acute (5) Obesity (BMI 30-39.9): Status: Acute DS: Summary Hospital Course Hospital Course: H&P on admission: Patient is a 39-year-old female with past medical history alcohol abuse, chronic pancreatitis, allergic rhinitis, erosive gastritis, marijuana use, ovarian cyst, recent attempt suicide using Campral, mood disorder with depression and anxiety presents to ED after being seen in urgent care for Lower left leg pain. Pt states she was recently discharged from [facility] 09/02 with similar pain but no SOB at rest or with exertion and pt now reports chest pressure relieved with dilaudid. Work up in ED reveals Noncompressible posterior tibial vein and peroneal vein concerning for deep vein thrombosis via Doppler and via CTA Evidence of bilateral acute pulmonary embolism with right heart strain, Pleural-based opacity of the bilateral upper lobes concerning for pulmonary infarction.Pt is not currently experiencing hypoxia. Pt denies using control or tobacco use via smoking. Admission occurred at change of shift and day provider hospitalist group has already ordered the Lovenox with heparin infusion to started at 4AM. This provider also contacted Dr. Ni in vascular and patient will be made NPO after midnight for possible intervention in the a.m.. Patient's troponins 202, BNP elevated 904. LA 2.6 on admission. H/H stable. Vitals stable and pt states after receiving dilaudid for pain, can now take a deep breath. Pt denies suicidal ideations at this time and last know alcohol drink was 09/02. Pt denies any withdrawal symptoms or recent seizure activity,. Hospital course: Patient was admitted to the hospitalist service due to bilateral PEs with possible pulmonary infarct/DVT. CTA staff evidence of bilateral acute pulmonary embolism with right heart strain. Pleural-based opacity of the bilateral upper lobes concerning for pulmonary infarction. She was given a weight based dose of Lovenox in the ED and switched to heparin per Dr. Ni. Vascular surgeon, Dr. Ni, consulted on the patient the prior morning and suggested considering that she is not hypoxic, or significantly symptomatic, surgery was not indicated. Who reviewed the CT scan and recommended anticoagulation only. Hematology was also consulted who suggested DVT/PE secondary to lack of DVT prophylaxis during recent hospital stay at another facility. No need for thrombophilia testing. BNP was elevated at 904, echocardiogram with EF of 51%. The patient does not demonstrate any signs of acute congestive heart failure. She was transitioned from heparin to Eliquis 10 mg b.i.d. x7 days followed by 5 mg b.i.d. x6 months. Just prior to discharge, the pt experienced short bursts of asymptomatic tachycardia in the 120s-140s, without hypoxia. EKG was ordered with sinus tachycardia. Patient had another episode of heart rate of 170 with ambulation. Patient agreed to stay another night. Status at Discharge Functional status at discharge: independent ambulation Overall status at discharge: patient is progressing back to baseline Time Attestation Discharge Coordination Time (in mins): >30 mins Quality: Safe Use of Opioids Does Pt have an Active Cancer Diagnosis on the Problem List?: No Quality: Stroke Does the patient have a stroke diagnosis?: No Physical Exam Exam: Exam: General: AOx3, no acute distress Resp: CTA bilaterally, no wheezing CVS: S1, S2, RRR GI: +BS, NT, no distention Skin: Warm, dry Neuro: Cranial nerves II-XII grossly intact bilaterally. Motor grossly intact bilaterally Extremities: No LE edema Psych: Appropriate affect Vital Signs: Vital Signs: Last Vital Signs Temp 97.3 F 09/11/24 11:03 Pulse 98 09/11/24 11:03 Resp 20 09/11/24 11:03 BP 134/75 09/11/24 11:03 Pulse Ox 95 09/11/24 11:03 O2 Del Method Room Air 09/11/24 11:03 BMI result Body Mass Index 31.2 DS: Data Data Completed and Pending Completed studies during hospitalization [Text1]: Procedures Detoxification Services for Substance Abuse Treatment (07/02/24) Labs on day of discharge: Laboratory Results - last 24 hr 09/10/24 09/11/24 15:48 09:07 WBC 5.2 RBC 3.87 L Hgb 11.6 L Hct 34.2 L MCV 88.4 MCH 30.0 MCHC 33.9 RDW 13.9 Plt Count 359 D MPV 9.3 L Immature Gran % (Auto) 0.6 H Neut % (Auto) 54.7 Lymph % (Auto) 28.5 [place] % (Auto) 12.5 H Eos % (Auto) 3.1 Baso % (Auto) 0.6 Lymph # (Auto) 1.5 [place] # (Auto) 0.7 Eos # (Auto) 0.2 Baso # (Auto) 0.0 Abs Immat Gran (auto) 0.03 Absolute Neuts (auto) 2.8 Absolute Nucleated RBC 0.000 Nucleated RBC % (auto) 0.0 PT 11.8 INR 1.0 aPTT Heparin Protocol 44.3 L D Sodium 138 Potassium 4.1 Chloride 111 H Carbon Dioxide 21 L Anion Gap 10 L BUN 7 L Creatinine 0.80 Estim Creat Clear Calc 100.0 Estimated GFR > 60 Random Glucose 95 Calcium 8.8 Discharge Plan Discharge Anticipated Discharge Date/Time: 09/11/24 12:04 Patient Disposition: Home, Self-Care Discharge Diagnosis: DTV/PE Referrals: Uko-Abasi,Brooklynn, [employer] WORKER HELPER [Primary Care Provider, Nursing] - 1 Week Discharge Medications: No Action pantoprazole 40 mg tablet,delayed release (DR/EC) 40 mg PO DAILY@0630 cetirizine [Zyrtec] 10 mg Tablet 10 mg PO DAILY PRN (Reason: allergies) clotrimazole 1 % Cream 1 appl topical BID Qty: 1 0RF Protocol: Apply to: Apply to: B feet Rx Instructions: or feet oxycodone 10 mg tablet 10 mg PO Q6H PRN (Reason: severe pain) albuterol sulfate 90 mcg/actuation HFA aerosol inhaler 1 puff INHALATION QID PRN (Reason: wheezing) Diet: Advance to usual diet Activity on Discharge: As tolerated Stand Alone Forms: Patient Portal Discharge page, Work/School Release Print Language: Montserratian Care Plan Goals: recover from DVT/PE Health Concerns: DVT/PE Plan of Treatment: continue eliquis 10mg twice daily for 6 more days, followed by twice daily for 6 months follow up with PCP within the next week Assessment: see above
--- NOTE | 2024-09-11 12:24 | P.EN_ITS ---
Event Note Date of Service: 09/11/24 Event Note: Addiction consult placed for patient with history of AUD Seen by contract mail carrier, no additional follow up needed at this time, please see contract mail carrier evaluation for additional details Time Spent With Patient Time: Total time managing care of this patient today ____ minutes.
--- NOTE | 2024-09-11 12:24 | PM.EVENT ---
Event Note Date of Service: 09/11/24 Event Note: Addiction consult placed for patient with history of AUD Seen by drapery seamstress, no additional follow up needed at this time, please see drapery seamstress evaluation for additional details Time Spent With Patient Time: Total time managing care of this patient today ____ minutes.
[2024-09-11 15:22] VITALS: BP 131/76; PULSE 103; RESP 16; TEMP 36.3; O2SAT 96
--- NOTE | 2024-09-11 16:00 | P.PNIM_ITS ---
Subjective Subjective Date of Service: 09/11/24 Interval History: f/u DVT/PE pt feeling well. ready to go home not feeling tachy. some SOB/chest pain with ambulation, quickly relieved Review of Systems Review of Systems: Yes all other systems are reviewed and are negative Physical Exam 2 Exam: Exam: General: AOx3, no acute distress Resp: CTA bilaterally, no wheezing or crackles CVS: S1, S2, RRR GI: +BS, NT, no distention Skin: Warm, dry Neuro: Cranial nerves II-XII grossly intact bilaterally. Motor grossly intact bilaterally Extremities: No LE edema Psych: Appropriate affect Vital Signs: Vital Signs: Last Vital Signs Temp 97.3 F 09/11/24 15:22 Pulse 103 H 09/11/24 15:22 Resp 16 09/11/24 15:22 BP 131/76 09/11/24 15:22 Pulse Ox 96 09/11/24 15:22 O2 Del Method Room Air 09/11/24 15:22 BMI result Body Mass Index 31.2 Objective Data Active Medications Acetaminophen (Acetaminophen 325 Mg Tablet) 650 mg PO Q6H PRN PRN Reason: Pain, Mild 1-3,fever,headache Albuterol Sulfate (Albuterol Sulfate 90 Mcg 8 Gm Inhaler) 2 puff INHALE RQ4H PRN PRN Reason: Shortness of Breath/Wheezing Last Admin: 09/11/24 08:53 Dose: 2 puff Documented By: AIMEE Apixaban (Apixaban 5 Mg Tablet) 10 mg PO BID REPLACED BY [facility] Stop: 09/17/24 09:01 Last Admin: 09/11/24 08:53 Dose: 10 mg Documented By: AIMEE Calcium Carbonate (Calcium Carbonate 750 Mg Tab.Chew) 750 mg PO Q4H PRN PRN Reason: Heartburn Thiamine HCl 100 mg/ Sodium (Chloride) 101 mls @ 202 mls/hr IV DAILY REPLACED BY [facility] Last Infusion: 09/11/24 12:04 Dose: Infused Documented By: AIMEE Folic Acid 1 mg/ Sodium (Chloride) 50.2 mls @ 100.4 mls/hr IV DAILY REPLACED BY [facility] Last Infusion: 09/11/24 12:04 Dose: Infused Documented By: AIMEE Loratadine (Loratadine 10 Mg Tablet) 10 mg PO DAILY PRN PRN Reason: allergies Lorazepam (Lorazepam 1 Mg Tablet) 1 mg PO Q6H PRN PRN Reason: Anxiety Last Admin: 09/10/24 22:19 Dose: 1 mg Documented By: TREY Magnesium Hydroxide (Milk Of Magnesia 30 Ml Oral.Susp) 30 ml PO DAILY PRN PRN Reason: Constipation Melatonin (Melatonin 3 Mg Tablet) 6 mg PO BEDTIME PRN PRN Reason: Insomnia Omeprazole (Omeprazole 40 Mg Capsule.Dr) 40 mg PO BID@0630,1630 REPLACED BY [facility] Last Admin: 09/11/24 05:17 Dose: 40 mg Documented By: TREY Ondansetron HCl (Ondansetron Hcl 4 Mg/2 Ml Vial) 4 mg IVPUSH Q8H PRN PRN Reason: Nausea and Vomiting Oxycodone HCl (Oxycodone Hcl Immed Release 5 Mg Tablet) 10 mg PO Q6H PRN PRN Reason: Pain, Severe (Pain Scale 7-10) Sodium Chloride (0.9 % Sodium Chloride Flush 3 Ml Syringe) 3 ml IVFLUSH [facility] Last Admin: 09/11/24 09:07 Dose: 3 ml Documented By: AIMEE Tramadol HCl (Tramadol Hcl 50 Mg Tablet) 100 mg PO Q6H PRN PRN Reason: Pain, Moderate(Pain Scale 4-6) Last Admin: 09/11/24 09:49 Dose: 100 mg Documented By: AIMEE Labs 09/11/24 09:07 09/11/24 09:07 Labs: Laboratory Results - last 24 hr 09/10/24 09/11/24 15:48 09:07 MCV 88.4 MCH 30.0 MCHC 33.9 RDW 13.9 Plt Count 359 D MPV 9.3 L Immature Gran % (Auto) 0.6 H Neut % (Auto) 54.7 Lymph % (Auto) 28.5 [place] % (Auto) 12.5 H Eos % (Auto) 3.1 Baso % (Auto) 0.6 Lymph # (Auto) 1.5 [place] # (Auto) 0.7 Eos # (Auto) 0.2 Baso # (Auto) 0.0 Abs Immat Gran (auto) 0.03 Absolute Neuts (auto) 2.8 Absolute Nucleated RBC 0.000 Nucleated RBC % (auto) 0.0 PT 11.8 INR 1.0 aPTT Heparin Protocol 44.3 L D Anion Gap 10 L Estim Creat Clear Calc 100.0 Estimated GFR > 60 Random Glucose 95 Calcium 8.8 Assessment and Plan (1) Pulmonary emboli: Status: Acute (2) DVT (deep venous thrombosis): Status: Acute (3) Obesity (BMI 30-39.9): Status: Acute Plan Patient is a 39-year-old female with past medical history alcohol abuse, chronic pancreatitis, allergic rhinitis, marijuana use, erosive gastritis, ovarian cyst, recent attempt suicide using Campral, mood disorder with depression and anxiety admitted with B PE, right heart strain (ECG confirms), elevated troponin, elevated BNP, last alcoholic drink 09/02. plan was to discharge today but just prior to discharge she was having episodes of tachycardia in the 120s-140s, 1 episode up to 170 with ambulation. B PE with possible pulmonary infarct / DVT now on eliquis from heparin drip seen by vascular, no intervention recommended at this time, pt is stable, not hypoxic hematology: can transition to eliquis x6 months if echo normal. likely provoked from recent hospitalization without DVT prophy No evidence of hypoxia O2 p.r.n. Troponin 202, then 179.9 Telemetry and continuous pulse ox BNP 904 echo - left ventricular systolic function is mildly decreased. EF 51%. No obvious valvular pathology seen. reached out to heme re: eliquis no SCDs Chronic panceatitis/ alcohol abuse Last alcoholic drink 09/02 CIWA ordered, no indication for phenobarbitol Thiamine and folic acid ordered- pt refused Recent hx of erosive gastritis PPI H/H stable Depression/ Anxiety currently denies SI/HI Valium prn Enlarging ovarian cyst Will need outpatient follow up DVT prophylaxis: eliqius full code Continued need for hospitalization: monitoring of HR, likely discharge tomorrow Quality Stroke Does the patient have a stroke diagnosis?: No Reason for No Anti-thrombotic by Day Two: N/A - Med Ordered VTE Prior VTE?: No VTE Risk Level:: Medical - moderate - high VTE Device Contraindication: Procedure Contraindicated (known DVT) VTE Drug Contraindication: N/A - Med Ordered
[2024-09-11 20:00] VITALS: BP 138/89; PULSE 112; RESP 18; TEMP 36.2; O2SAT 97
[2024-09-11 23:50] VITALS: BP 120/67; PULSE 98; RESP 18; TEMP 36.3; O2SAT 95
[2024-09-12 03:01] VITALS: BP 123/69; PULSE 98; RESP 18; TEMP 36.3; O2SAT 94
[2024-09-12] MEDS: Albuterol Sulfate 90 MCG 8 GM INHALER 2 PUFF INHALE ×2 (06:28→12:37)
[2024-09-12 07:14] VITALS: BP 127/81; PULSE 90; RESP 16; TEMP 36.7; O2SAT 95
[2024-09-12] MEDS: Thiamine HCL 100 MG in 0.9 % Sodium Chloride 100 ML 202 MG IV (08:36)
[2024-09-12] MEDS: 0.9 % Sodium Chloride Flush 3 ML SYRINGE IVFLUSH (08:38)
[2024-09-12 11:12] VITALS: BP 116/85; PULSE 87; RESP 18; TEMP 36.8; O2SAT 98
--- NOTE | 2024-09-12 12:23 | MHC.CM.PN ---
Patient is not yet medically cleared for dc (IV Folic Acid & IV Thiamine, monitoring HR); home is the goal and CM will continue to follow.
--- NOTE | 2024-09-12 14:16 | P.DS_ITS ---
DS: Providers Provider Date of Service: 09/12/24 Date of admission: 09/09/24 17:29 Date of discharge: 09/12/24 Primary care physician: Brooklynn Hardy NP Consults: 09/09/24 18:50 Consult to Vascular Surgery Routine Consulting Provider: [facility] Reason for consultation: Bilateral PE, DVT 09/09/24 20:14 Addiction Medicine Provider Routine Consulting Provider: Addiction Covering Reason for consultation: ongoping alcohol abuse with recent SI attempt using CAMPRAL 09/09/24 20:46 Consult to Hematology / Oncology Routine Consulting Provider: [facility] Oncology/Hematology Reason for consultation: DVT, B PE no hx of blood clots Has provider been notified: No DS: Diagnosis Discharge Diagnosis (1) Pulmonary emboli: Status: Acute (2) DVT (deep venous thrombosis): Status: Acute (3) Alcohol use: Status: Acute (4) Alcohol withdrawal: Status: Acute (5) Obesity (BMI 30-39.9): Status: Acute DS: Summary Hospital Course Hospital Course: H&P on admission: Patient is a 39-year-old female with past medical history alcohol abuse, chronic pancreatitis, allergic rhinitis, erosive gastritis, marijuana use, ovarian cyst, recent attempt suicide using Campral, mood disorder with depression and anxiety presents to ED after being seen in urgent care for Lower left leg pain. Pt states she was recently discharged from [facility] 09/02 with similar pain but no SOB at rest or with exertion and pt now reports chest pressure relieved with dilaudid. Work up in ED reveals Noncompressible posterior tibial vein and peroneal vein concerning for deep vein thrombosis via Doppler and via CTA Evidence of bilateral acute pulmonary embolism with right heart strain, Pleural-based opacity of the bilateral upper lobes concerning for pulmonary infarction.Pt is not currently experiencing hypoxia. Pt denies using control or tobacco use via smoking. Admission occurred at change of shift and day provider hospitalist group has already ordered the Lovenox with heparin infusion to started at 4AM. This provider also contacted Dr. Ni in vascular and patient will be made NPO after midnight for possible intervention in the a.m.. Patient's troponins 202, BNP elevated 904. LA 2.6 on admission. H/H stable. Vitals stable and pt states after receiving dilaudid for pain, can now take a deep breath. Pt denies suicidal ideations at this time and last know alcohol drink was 09/02. Pt denies any withdrawal symptoms or recent seizure activity,. Hospital course: Patient was admitted to the hospitalist service due to bilateral PEs with possible pulmonary infarct/DVT. CTA staff evidence of bilateral acute pulmonary embolism with right heart strain. Pleural-based opacity of the bilateral upper lobes concerning for pulmonary infarction. She was given a weight based dose of Lovenox in the ED and switched to heparin per Dr. Ni. Vascular surgeon, Dr. Ni, consulted on the patient the prior morning and suggested considering that she is not hypoxic, or significantly symptomatic, surgery was not indicated. Who reviewed the CT scan and recommended anticoagulation only. Hematology was also consulted who suggested DVT/PE secondary to lack of DVT prophylaxis during recent hospital stay at another facility. No need for thrombophilia testing. BNP was elevated at 904, echocardiogram with EF of 51%. The patient does not demonstrate any signs of acute congestive heart failure. She was transitioned from heparin to Eliquis 10 mg b.i.d. x7 days followed by 5 mg b.i.d. x6 months. Just prior to discharge, the pt experienced short bursts of asymptomatic tachy cardia in the 120s-140s, without hypoxia. EKG was ordered with sinus tachycardia. Patient had another episode of heart rate of 170 with ambulation. Patient agreed to stay another night. Patient observed overnight with ambulation where heart rate remained stable. At this point she is medically stable for discharge Time Attestation Discharge Coordination Time (in mins): 35 Quality: Safe Use of Opioids Does Pt have an Active Cancer Diagnosis on the Problem List?: No Quality: Stroke Does the patient have a stroke diagnosis?: No Physical Exam Vital Signs: Vital Signs: Last Vital Signs Temp 98.2 F 09/12/24 11:12 Pulse 87 09/12/24 11:12 Resp 18 09/12/24 11:12 BP 116/85 09/12/24 11:12 Pulse Ox 98 09/12/24 11:12 O2 Del Method Room Air 09/12/24 11:12 BMI result Body Mass Index 31.2 Const: Other: Awake alert no acute distress Resp: Other: Clear to auscultation bilaterally no rales rhonchi or wheezes Cardio: Other: No S4; positive S1-S2; no S3 murmurs rubs or gallops GI: Other: Soft nontender nondistended normoactive bowel sounds Extrem: Other: No edema bilaterally DS: Data Data Completed and Pending Completed studies during hospitalization [Text1]: Procedures Detoxification Services for Substance Abuse Treatment (07/02/24) Discharge Plan Discharge Anticipated Discharge Date/Time: 09/11/24 12:04 Patient Disposition: Home, Self-Care Discharge Diagnosis: DTV/PE Referrals: Uko-Abasi,Brooklynn, INDIVIDUAL PENSION CONSULTANT [Primary Care Provider, Nursing] - 1 Week Discharge Medications: New hydromorphone 2 mg Tablet 1 mg PO Q6H PRN (Reason: Pain, Severe (Pain Scale 7-10)) Qty: 20 0RF Rx Instructions: Partial Fill upon patient request. Eliquis 5 mg tablet 10 mg PO BID Qty: 20 0RF Continued pantoprazole 40 mg tablet,delayed release (DR/EC) 40 mg PO DAILY@0630 cetirizine [Zyrtec] 10 mg Tablet 10 mg PO DAILY PRN (Reason: allergies) clotrimazole 1 % Cream 1 appl topical BID Qty: 1 0RF Protocol: Apply to: Apply to: B feet Rx Instructions: or feet oxycodone 10 mg tablet 10 mg PO Q6H PRN (Reason: severe pain) albuterol sulfate 90 mcg/actuation HFA aerosol inhaler 1 puff INHALATION QID PRN (Reason: wheezing) Discharge Orders: Discharge Order (Routine); Ordered 09/12/24 Ordered By: Nathen Pendleton Diet: Advance to usual diet Activity on Discharge: As tolerated Stand Alone Forms: Patient Portal Discharge page, Work/School Release Print Language: Hong Konger Care Plan Goals: recover from DVT/PE Health Concerns: DVT/PE Plan of Treatment: continue eliquis 10mg twice daily for 6 more days, followed by twice daily for 6 months follow up with PCP within the next week Assessment: see above
--- NOTE | 2024-09-12 14:18 | MHC.CM.PN ---
Addendum entered by Elisa Barnhart 09/12/24 14:32: CM has set up a LYFT to transport Patient to home at 3PM today; RN is aware. Original Note: Patient has been medically cleared for dc to home today, self care.
== END 2024-09-12 14:00 | disposition home or self-care (01) | DRG 134 ==
LOC: HO.ED 17:21 → HO.EDOVER 17:31 → HO.IMC 09-10 07:12
PROVIDERS: Hospitalist; Nurse Practitioner Family; Physician Assistant; Admitting Provider Student in an Organized Health Care Education/Training Program; Emergency Provider Emergency Medicine Emergency Medical Services; PCP Nurse Practitioner Family; Visit Provider Hospitalist
DX: I26.09 Other pulmonary embolism with acute cor pulmonale (principal); I82.442 Acute embolism and thrombosis of left tibial vein; F17.210 Nicotine dependence, cigarettes, uncomplicated; N83.209 Unspecified ovarian cyst, unspecified side; I82.452 Acute embolism and thrombosis of left peroneal vein; R00.0 Tachycardia, unspecified; F32.A Depression, unspecified; K86.1 Other chronic pancreatitis; F41.9 Anxiety disorder, unspecified; Z91.51 Personal history of suicidal behavior; Z71.6 Tobacco abuse counseling; Z79.899 Other long term (current) drug therapy
CPT/HCPCS: 36415; 71045; 71275; 80048; 80053; 80307; 82550; 82803; 83605; 83690; 83735; 83880; 84484; 84702; 85025; 85027; 85610; 85730; 86850; 86900; 86901; 93005; 93306; 93971; 99285; J1171; J1644; J1650; J1808; J2470; J3360; J3411; Q9957; Q9967; S9485

== ENCOUNTER → 2024-09-09 12:50 | Outpatient (BNV) | payer BC, SELFPAY | PROVIDERS: Emergency Provider Emergency Medicine Emergency Medical Services; PCP Nurse Practitioner Family; Visit Provider Nuclear Medicine | DX: I26.09 Other pulmonary embolism with acute cor pulmonale (principal); R22.42 Localized swelling, mass and lump, left lower limb; R06.02 Shortness of breath | CPT/HCPCS: 71045; 71275; 93971 ==

== ENCOUNTER → 2024-09-09 14:38 | Outpatient (BNV) | payer OTHER, SELFPAY | PROVIDERS: Admitting Provider Student in an Organized Health Care Education/Training Program; Emergency Provider Emergency Medicine Emergency Medical Services; PCP Nurse Practitioner Family; Visit Provider Internal Medicine | DX: R07.9 Chest pain, unspecified (principal); I25.2 Old myocardial infarction; R00.0 Tachycardia, unspecified | CPT/HCPCS: 93010 ==

== ENCOUNTER 2024-09-09 17:29 | Outpatient (BNV) | payer OTHER, SELFPAY | END 2024-09-11 12:37 | PROVIDERS: Admitting Provider Student in an Organized Health Care Education/Training Program; Emergency Provider Emergency Medicine Emergency Medical Services; PCP Nurse Practitioner Family; Visit Provider Internal Medicine | DX: R94.31 Abnormal electrocardiogram [ECG] [EKG] (principal); R07.9 Chest pain, unspecified | CPT/HCPCS: 93010 ==

== ENCOUNTER 2024-09-09 17:29 | Outpatient (BNV) | payer OTHER, SELFPAY | END 2024-09-10 07:00 | PROVIDERS: Admitting Provider Student in an Organized Health Care Education/Training Program; Emergency Provider Emergency Medicine Emergency Medical Services; PCP Nurse Practitioner Family; Visit Provider Internal Medicine | DX: I26.99 Other pulmonary embolism without acute cor pulmonale (principal); I36.1 Nonrheumatic tricuspid (valve) insufficiency | CPT/HCPCS: 93306 ==

== ENCOUNTER → 2024-09-09 17:29 | Outpatient (BNV) | payer BC, SELFPAY | PROVIDERS: Admitting Provider Student in an Organized Health Care Education/Training Program; Emergency Provider Emergency Medicine Emergency Medical Services; PCP Nurse Practitioner Family; Visit Provider Surgery Vascular Surgery | DX: I26.99 Other pulmonary embolism without acute cor pulmonale (principal) | CPT/HCPCS: 99254 ==

== ENCOUNTER → 2024-09-09 17:29 | Outpatient (BNV) | payer OTHER, SELFPAY | PROVIDERS: Admitting Provider Student in an Organized Health Care Education/Training Program; Emergency Provider Emergency Medicine Emergency Medical Services; PCP Nurse Practitioner Family; Visit Provider Physician Assistant | DX: I26.99 Other pulmonary embolism without acute cor pulmonale (principal); I82.409 Acute embolism and thrombosis of unspecified deep veins of unspecified lower extremity; F10.90 Alcohol use, unspecified, uncomplicated; F10.930 Alcohol use, unspecified with withdrawal, uncomplicated; E66.9 Obesity, unspecified | CPT/HCPCS: 99232; 99239; 99499 ==

== ENCOUNTER → 2024-09-09 17:29 | Outpatient (BNV) | payer OTHER, SELFPAY | PROVIDERS: Admitting Provider Student in an Organized Health Care Education/Training Program; Emergency Provider Emergency Medicine Emergency Medical Services; PCP Nurse Practitioner Family; Visit Provider Internal Medicine | DX: I82.442 Acute embolism and thrombosis of left tibial vein (principal); I82.452 Acute embolism and thrombosis of left peroneal vein; I26.99 Other pulmonary embolism without acute cor pulmonale | CPT/HCPCS: 99222 ==

== ENCOUNTER 2024-09-20 23:14 | Emergency (ER) | payer OTHER, SELFPAY ==
--- NOTE | 2024-09-20 | ECG_ITS ---
Test Reason : CP Blood Pressure : */* mmHG Vent. Rate : 112 BPM Atrial Rate : 112 BPM P-R Int : 126 ms QRS Dur : 78 ms QT Int : 340 ms P-R-T Axes : 19 18 15 degrees QTcB Int : 464 ms Sinus tachycardia Otherwise normal ECG When compared with ECG of 11-Sep-2024 12:37, Criteria for Septal infarct are no longer Present Inverted T waves have replaced nonspecific T wave abnormality in Inferior leads T wave amplitude has increased in Lateral leads Referred By: Generic ED Physician Electronically Signed By: Kris Huddleston
--- NOTE | ~2024-09-20 | CT_ITS ---
CLINICAL HISTORY: recent PE, worsening tachycardia, CP, SOB CT angiography chest with contrast. 3D Postprocessing. Comparison: None provided Findings: The heart is normal size. RV/LV ratio is normal. Unremarkable thoracic aorta and great vessels. No aneurysm. Positive for acute pulmonary embolus in lower lobe branches. The visualized thyroid and mediastinum are unremarkable. The lungs are clear. The visualized upper abdomen is unremarkable. The bones are intact. IMPRESSION: 1. Positive bilateral lower lobe branch pulmonary emboli. This document has been electronically signed by: Gregory Scott MD on 09/21/2024 05:32:18
[2024-09-20 23:36] VITALS: BP 146/84; PULSE 122; RESP 20; TEMP 36.6; O2SAT 97; BMI 31.8
[2024-09-21 00:01] LABS: MANUAL DIFF FLAG NO
[2024-09-21 00:16] LABS: Alanine Aminotransferase 36 U/L (0-31); Albumin Level 4.8 g/dL (3.5-5.0); Alkaline Phosphatase 60 U/L (39-117); Anion Gap 18 (12-20); Aspartate Amino Transferase 31 U/L (5-31); Blood Urea Nitrogen 12 mg/dL (9-16); Calcium 10.1 mg/dL (8.4-10.2); Carbon Dioxide 20 mmol/L (22-29); Chloride 104 mmol/L (96-108); Creatinine Clr Calc Pharmacy 106.2; Estimated Glomerular Filt Rate > 60; Potassium 3.7 mmol/L (3.3-5.1); Sodium 138 mmol/L (135-145); Total Protein 8.0 g/dL (6.5-8.0)
[2024-09-21 00:17] LABS: Hematocrit 41.5 % (37.0-47.0); Hemoglobin 13.7 g/dl (12.0-16.0); Imm Gran Abs Auto 0.02 X10*3/uL (0.00-0.03); Imm Gran Pct Auto 0.3 % (0.0-0.4); Lymphocytes Absolute Auto 1.2 X10*3/uL (1.2-4.9); Mean Corpuscular HGB Conc 33.0 g/dl (31.0-35.0); Mean Corpuscular Hemoglobin 28.7 pg (27.0-33.0); Mean Corpuscular Volume 87.0 fL (80.0-98.0); NRBC Abs Auto 0.000 X10*3/uL (0.0-0.012); NRBC Pct Auto 0.0 /100WBC (0.0-0.2); Platelet Count 351 X10*3/uL (160-400); Red Blood Count 4.77 X10*6/uL (4.20-5.50); White Blood Count 7.8 X10*3/uL (4.8-10.8)
[2024-09-21 00:22] LABS: Troponin-I High Sensitivity 5.5 ng/L (<3.5-17.0)
[2024-09-21 01:08] LABS: Resp Syncy Virus RNA Qual PCR NEGATIVE (Negative); SARS COV2 PCR INHOUSE NEGATIVE (Negative)
[2024-09-21 02:44] VITALS: BP 126/90; PULSE 110; RESP 16; TEMP 36.8; O2SAT 98
[2024-09-21 02:52] LABS: Lipase 51 U/L (8-78)
--- NOTE | 2024-09-21 03:44 | ED.GENADULT ---
HPI - General Adult General Chief complaint: General Medical Stated complaint: SoB, dizziness Time Seen by Provider: 09/21/24 03:28 Source: patient Mode of arrival: ambulatory Limitations: no limitations History of Present Illness ED Provider: Dr. Alisa Lawton HPI narrative: Patient comes to the emergency room complaining of chest pain, shortness of breath. Patient states that she was in a rehab program, patient was complaining of chest pain or shortness of breath, recently diagnosed with a pulmonary embolism couple of weeks ago, now on Eliquis, states she is compliant with medications. Patient was told by staff that she needed to be medically cleared before returning. Patient went to [facility], patient states that they tried putting an IV without ultrasound multiple times, patient then left because she want to get poked anymore and now she is here. Related Data Home Medications ?Medication ?Instructions ?Recorded ?Confirmed pantoprazole 40 mg tablet,delayed 40 mg PO DAILY@0630 03/22/24 09/09/24 release cetirizine 10 mg tablet (Zyrtec) 10 mg PO DAILY PRN allergies 07/03/24 09/09/24 albuterol sulfate 90 mcg/actuation 1 puff inhalation QID PRN wheezing 09/09/24 09/09/24 aerosol inhaler oxycodone 10 mg tablet 10 mg PO Q6H PRN severe pain 09/09/24 09/09/24 Previous Rx's ?Medication ?Instructions ?Recorded clotrimazole 1 % topical cream 1 appl topical BID #1 g 07/05/24 apixaban 5 mg tablet (Eliquis) 10 mg (2 x 5 mg) PO BID #20 tabs 09/12/24 hydromorphone 2 mg tablet 1 mg (1/2 x 2 mg) PO Q6H PRN Pain, 09/12/24 Severe (Pain Scale 7-10) #20 tabs Allergies Allergy/AdvReac Type Severity Reaction Status Date / Time adhesive AdvReac Hives Verified 09/20/24 23:39 Review of Systems Review of Systems: Constitutional : No Weight loss, No Fever, No Chills, No Night Sweats, No Fatigue, No Malaise ENT/Mouth : No Hearing loss, No Ear Pain, No Nasal Congestion, No Sinus Pain, No Hoarseness, No sore throat, No Rhinorrhea, No Swallowing Difficulty Eyes: No Eye Pain, No Swelling, No Redness, No Foreign Body, No Discharge, No Vision Changes Cardiovascular : Patient complaining of chest pain, palpitations, shortness of breath Respiratory : No Cough, No Sputum, No Wheezing, No Smoke Exposure, No Dyspnea Gastrointestinal : No Nausea, No Vomiting, No Diarrhea, No Constipation, No abdominal Pain, No Hematochezia, No Melena Genitourinary : no irregular bleeding, No Dysuria, No Urinary Frequency, No Hematuria, No Urinary Incontinence, No Urgency, No Flank Pain, No Urinary Flow Changes, No Hesitancy Musculoskeletal : No joint pain, No Myalgias, No Joint Swelling Skin : No Skin Lesions, No rash Neuro : No Weakness, No Numbness, No Paresthesias, No Loss of Consciousness, No Dizziness, No Headache Psych : No Anxiety/Panic, No Depression, No SI/HI/AH/VH, No Social Issues, Heme/Lymph: No Bruising, No Bleeding,No Lymphadenopathy Endocrine : No Polyuria, No Polydipsia, No Temperature Intolerance [facility] Past Medical History Medical History IUD check up Alcohol use disorder, severe, dependence Presence of Mirena IUD MDD (major depressive disorder), recurrent episode, moderate Asthma Anxiety and depression Tachycardia Alcohol withdrawal Family History Family History Mother Alcohol use disorder Maternal Grandfather Alcohol use disorder Social History Social History Household Members: None Household Members Other:: roommate Housing: Apartment Do you presently have visiting nurse or other home services: No Alcohol intake: current Alcohol intake frequency: 3 or more drinks per day Alcohol type: hard liquor Comment: Reports drinking 2 pints per day Patient Tobacco Use Status: Current everyday Tobacco user Tobacco use type: Cigarette Smoked in Last 30 Days: Yes e-Cigarette/Vaping Use: Never Used Second Hand Smoke Exposure: No Use of substances other than those prescribed or required for medical reasons: No Substance Use Type: Marijuana Advance Directives: Yes Advance Directives on File: Yes Advance Directives Date on File: 02/11/23 Patient : No service: No Physical Exam ED Exam Exam: Appearance: Alert. Oriented X3. No acute distress. Eyes: Pupils equal, round and reactive to light. ENT: Pharynx normal. Neck: Normal inspection. Neck supple. No lymph nodes noted. No crepitus CVS: Normal heart rate and rhythm. Tachycardic, heart rate in the 120s, Pulses normal. Normal S1 and S2 Respiratory: No respiratory distress. Breath sounds normal. No Wheezing. No rales Abdomen: Soft and nontender. No rigidity. No distention. Skin: Skin warm and dry. Normal skin color. Normal skin turgor. Extremities: No lower extremity edema. No Lacerations. No Rash Neuro: Oriented X 3. No motor deficit. No sensory deficit. Moving all extremities. No slurred speech. CN 2 through 12 grossly intact Psych: calm, cooperative, normal affect Vital Signs: Vital Signs - 24 hr 09/20/24 23:36 09/21/24 02:44 09/21/24 05:53 Temperature 97.8 F 98.3 F 97.7 F Pulse Rate 122 H 110 H 96 Respiratory Rate 20 16 16 Blood Pressure 146/84 H 126/90 H 117/87 Pulse Oximetry 97 98 98 Oxygen Delivery Method Room Air Room Air Room Air BMI result Body Mass Index 31.8 Course Course Course Narrative: Patient was recently diagnosed with pulmonary embolism. Patient reporting worsening chest pain and shortness of breath. Patient states that the pain has gradually been getting worse over the last [address] scan will be repeated to rule out worsening clot burden Patient will be receiving IV fluids, diazepam Per patient's request, we will try and IV ultrasound. Patient's nurse aware Medications Administered Discontinued Medications Generic Name Dose Route Start Last Admin Trade Name Clarissa PRN Reason Stop Dose Admin Diazepam 2.5 mg 09/21/24 03:50 09/21/24 04:02 Diazepam 10 Mg/2 Ml Cartridge IVPUSH 09/21/24 03:51 2.5 mg STAT STA Administration Sodium Chloride 1,000 mls @ 999 mls/hr 09/21/24 03:50 09/21/24 04:02 Ns IVCONT 09/21/24 04:50 999 mls/hr .Q1H1M ONE Administration Iohexol 75 ml 09/21/24 04:53 09/21/24 04:53 Iohexol 350 Mg/Ml 100 Ml Infus..Btl IV 09/21/24 04:54 75 ml ONCE ONE Administration Medical Decision Making Medical Decision Making [facility] Narrative: Patient's vitals improved after fluids and diazepam anxiety. Patient's blood pressure stable, heart rate 96. CT scan for pulmonary embolism shows decreased pulmonary emboli burden. Patient states that she is very compliant with her medications. No signs of worsening PEs. Patient's symptoms most likely secondary to anxiety Patient's oxygen saturation steady 98% with no oxygen desaturations, no tachycardic, no longer having chest pain chest pressure or anxiety. Differential Diagnosis Differential Diagnoses: The differential diagnosis associated with the presentation includes (Worsening PE, anxiety, arrhythmias) Admission/Observation Consideration of admission/observation: Escalation of care including admission/observation considered (Given patient's previous past medical history and recent history of PEs, admission was considered) Lab Data [facility] Lab Attestation statement: I reviewed the patient's lab results. 09/20/24 23:57 09/20/24 23:57 Labs: Lab Results 09/20/24 Range/Units 23:57 WBC 7.8 (4.8-10.8) X10*3/uL RBC 4.77 D (4.20-5.50) X10*6/uL Hgb 13.7 (12.0-16.0) g/dl Hct 41.5 D (37.0-47.0) % MCV 87.0 (80.0-98.0) fL MCH 28.7 (27.0-33.0) pg MCHC 33.0 (31.0-35.0) g/dl RDW 13.9 (11.0-16.0) % Plt Count 351 (160-400) X10*3/uL MPV 8.8 L (9.4-12.3) fL Immature Gran % (Auto) 0.3 (0.0-0.4) % Neut % (Auto) 77.3 H (45-73) % Lymph % (Auto) 14.7 L (20-40) % Crenshaw % (Auto) 4.3 (2-11) % Eos % (Auto) 2.4 (0-4) % Baso % (Auto) 1.0 (0-2) % Lymph # (Auto) 1.2 (1.2-4.9) X10*3/uL Crenshaw # (Auto) 0.3 (0.1-1.2) X10*3/uL Eos # (Auto) 0.2 (0.0-0.4) X10*3/uL Baso # (Auto) 0.1 (0.0-0.2) X10*3/uL Abs Immat Gran (auto) 0.02 (0.00-0.03) X10*3/uL Absolute Neuts (auto) 6.1 (2.0-8.3) x10*3/uL Absolute Nucleated RBC 0.000 (0.0-0.012) X10*3/uL Nucleated RBC % (auto) 0.0 (0.0-0.2) /100WBC Sodium 138 (135-145) mmol/L Potassium 3.7 (3.3-5.1) mmol/L Chloride 104 (96-108) mmol/L Carbon Dioxide 20 L (22-29) mmol/L Anion Gap 18 (12-20) BUN 12 (9-16) mg/dL Creatinine 0.76 (0.5-1.4) mg/dL Estim Creat Clear Calc 106.2 Estimated GFR > 60 Random Glucose 148 H (60-115) mg/dL Calcium 10.1 D (8.4-10.2) mg/dL Total Bilirubin 0.7 (0.0-1.0) mg/dL AST 31 (5-31) U/L ALT 36 H (0-31) U/L Alkaline Phosphatase 60 (39-117) U/L Troponin I High Sens 5.5 D (<3.5-17.0) ng/L Total Protein 8.0 (6.5-8.0) g/dL Albumin 4.8 (3.5-5.0) g/dL Lipase 51 (8-78) U/L Beta HCG, Quant < 2 mIU/mL Influenza Type A (PCR) NEGATIVE (Negative) Influenza Type B (PCR) NEGATIVE (Negative) RSV RNA Qual (PCR) NEGATIVE (Negative) SARS-CoV-2 RNA (RT-PCR) NEGATIVE (Negative) Independent Interpretation I performed an independent interpretation of an: EKG and CT Scan Radiology Impression Discussion of test interpretation with radiology: I have reviewed the radiologist's reading. Radiologist Impression: The previously noted thrombi are decreased from the previous study. Critical Care Time Critical Care Time Critical Care Time: Yes Total Critical Care Time: 40 Attestation: I have personally provided critical care time. Time includes review of lab data, radiology results, discussion with consultants, and monitoring for potential decompensation. Intervention performed as documented. Discharge Plan Discharge Clinical Impression: Atypical chest pain, Anxiety Patient Disposition: Home, Self-Care Instructions: Anxiety (ED), Chest Pain (ED) Additional Instructions: Your CT scan shows improvement, less blood clots than your previous CT scan steady. Please continue taking your Eliquis as prescribed. Please follow-up with your primary care physician tomorrow. If you have any worsening or new symptoms, please return to the emergency room or call 911 Prescriptions: No Action pantoprazole 40 mg tablet,delayed release (DR/EC) 40 mg PO DAILY@0630 cetirizine [Zyrtec] 10 mg Tablet 10 mg PO DAILY PRN (Reason: allergies) clotrimazole 1 % Cream 1 appl topical BID Qty: 1 0RF Protocol: Apply to: Apply to: B feet Rx Instructions: or feet oxycodone 10 mg tablet 10 mg PO Q6H PRN (Reason: severe pain) albuterol sulfate 90 mcg/actuation HFA aerosol inhaler 1 puff INHALATION QID PRN (Reason: wheezing) hydromorphone 2 mg Tablet 1 mg PO Q6H PRN (Reason: Pain, Severe (Pain Scale 7-10)) Qty: 20 0RF Rx Instructions: Partial Fill upon patient request. Eliquis 5 mg tablet 10 mg PO BID Qty: 20 0RF Print Language: Kyrgyz
[2024-09-21] MEDS: diazePAM 10 MG/2 ML CARTRIDGE 2.5 MG IVPUSH (04:02)
[2024-09-21] MEDS: iohexoL 350 MG/ML 100 ML INFUS..BTL 75 ML IV (04:53)
--- NOTE | 2024-09-21 05:49 | PC.NURSE ---
Called received from radiology with CTA results for + bilateral lower lobe branch pulmonary embolism. Radiology does not have previous study to compare. Previous study to be provided from CT dept. Dr. Lawton made aware.
[2024-09-21 05:53] VITALS: BP 117/87; PULSE 96; RESP 16; TEMP 36.5; O2SAT 98
--- NOTE | 2024-09-21 06:56 | PC.NURSE ---
Nurse to nurse report givent to Ivon peterson at [facility]. Pt is to be discharged to the waiting as they will coordinate an uber for pt to return back to their program.
[2024-09-21 07:00] VITALS: BP 117/87; PULSE 96; RESP 16; TEMP 36.5; O2SAT 98
== END 2024-09-21 07:01 | disposition home or self-care (01) ==
PROVIDERS: Emergency Provider Emergency Medicine
DX: R07.89 Other chest pain (principal); F41.9 Anxiety disorder, unspecified; R06.02 Shortness of breath; R42 Dizziness and giddiness; F17.210 Nicotine dependence, cigarettes, uncomplicated; R10.2 Pelvic and perineal pain; Z03.818 Encounter for observation for suspected exposure to other biological agents ruled out; Z79.899 Other long term (current) drug therapy
CPT/HCPCS: 71275; 80053; 83690; 84484; 84702; 85025; 87637; 93005; 96361; 96374; 99285; J3360; Q9967

== ENCOUNTER → 2024-09-20 23:44 | Outpatient (BNV) | payer OTHER, SELFPAY | PROVIDERS: Emergency Provider Emergency Medicine; Visit Provider Internal Medicine Cardiovascular Disease | DX: R00.0 Tachycardia, unspecified (principal) | CPT/HCPCS: 93010 ==

== ENCOUNTER → 2024-09-21 03:44 | Outpatient (BNV) | payer OTHER, SELFPAY | PROVIDERS: Emergency Provider Emergency Medicine; Visit Provider Specialist | DX: I26.99 Other pulmonary embolism without acute cor pulmonale (principal) | CPT/HCPCS: 71275 ==

== ENCOUNTER 2024-11-02 11:07 | Emergency (ER) | payer OTHER, SELFPAY ==
--- NOTE | ~2024-11-02 | XR_ITS ---
EXAMINATION: XR CHEST CLINICAL INFORMATION: chest pain COMPARISON: 09/09/2024. TECHNIQUE: 2 views of the chest were obtained. FINDINGS: The cardiac, hilar, and mediastinal contours are normal. The lungs are clear bilaterally. There is no pneumothorax or pleural effusion. There is no focal osseous or soft tissue abnormality. There is an S-shaped thoracic scoliosis. XR/XR chest 2V IMPRESSION: No active pulmonary disease. Electronically signed by: Manpreet Richardson MD 11/02/2024 12:40 PM EDT
[2024-11-02 11:11] VITALS: BP 102/54; BP 104/66; PULSE 89; PULSE 96; RESP 18; TEMP 36.5; O2SAT 99; BMI 30.2
[2024-11-02 11:19] VITALS: BP 107/68; BP 108/60; BP 90/45; PULSE 83; PULSE 92; PULSE 96
--- NOTE | 2024-11-02 11:22 | ECG_ITS ---
Test Reason : CP Blood Pressure : */* mmHG Vent. Rate : 82 BPM Atrial Rate : 82 BPM P-R Int : 162 ms QRS Dur : 70 ms QT Int : 352 ms P-R-T Axes : 33 55 47 degrees QTcB Int : 411 ms Normal sinus rhythm Low voltage QRS Borderline ECG When compared with ECG of 20-Sep-2024 23:44, Nonspecific T wave abnormality has replaced inverted T waves in Inferior leads Referred By: Generic ED Physician Electronically Signed By: Kris Huddleston
--- NOTE | 2024-11-02 11:34 | PC.NURSE ---
patient a&ox3, ekg performed, cardiac catheterization technologist applied, this nurse performed orthostats due to patients dizziness, upon laying the patient flat her dizziness increased and her laying BP was low, sitting patient continue to be dizzy but her BP did increase, upon standing she also had dizziness- pt stated her dizziness was worse laying flat. pt states she has been sober 40 days at this point- she has c/o lt abd pain as well as mid chest pain 07/17. she states that the abd pain is similar to the pancreatitis she has had in the past. patient stated her last BM was today. pt awaiting provider evaluation, call aguayo within reach, plan of care ongoing
--- NOTE | 2024-11-02 12:09 | ED_ITS ---
HPI - Chest Pain General Chief Complaint: Chest Pain Stated Complaint: CP PER EMS Time Seen by Provider: 11/02/24 12:09 Source: patient and EMS Mode of arrival: EMS Limitations: no limitations History of Present Illness ED Provider: HPI narrative: 39-year-old female, vapes and smokes tobacco, presenting with chest discomfort that is started after she leaned forward, she felt stuffiness in her ear, foggy vision, some headache, tingling in her arms lasted for about 20 minutes, presented via ambulance, given 324 of aspirin, currently symptom-free, she does have history of PE on Eliquis as she states she has been taking on a regular basis, and DVT. Does have history of anxiety. This was nonradiating pain, no nausea or vomiting or diaphoresis. Related Data Home Medications ?Medication ?Instructions ?Recorded ?Confirmed pantoprazole 40 mg tablet,delayed 40 mg PO DAILY@0630 03/22/24 09/09/24 release cetirizine 10 mg tablet (Zyrtec) 10 mg PO DAILY PRN al lergies 07/03/24 09/09/24 albuterol sulfate 90 mcg/actuation 1 puff inhalation Q ID PRN wheezing 09/09/24 09/09/24 aerosol inhaler oxycodone 10 mg tablet 10 mg PO Q6H PRN severe pain 09/09/24 09/09/24 Previous Rx's ?Medication ?Instructions ?Recorded clotrimazole 1 % topical cream 1 appl topical BID #1 g 07/05/24 apixaban 5 mg tablet (Eliquis) 10 mg (2 x 5 mg) PO BID #20 tabs 09/12/24 hydromorphone 2 mg tablet 1 mg (1/2 x 2 mg) PO Q6H PRN Pain, 09/12/24 Severe (Pain Scale 7-10) #20 tabs fluticasone propionate 50 1 spray intranasal DAILY #16 grams 11/02/24 mcg/actuation nasal spray,suspension (Flonase Allergy Relief) Allergies Allergy/AdvReac Type Severity Reaction Status Date / Time adhesive AdvReac Hives Verified 11/02/24 11:18 Review of Systems Constitutional: Constitutional: Reports as per HPI [facility] Past Medical History Medical History IUD check up Alcohol use disorder, severe, dependence Presence of Mirena IUD MDD (major depressive disorder), recurrent episode, moderate Asthma Anxiety and depression Tachycardia Alcohol withdrawal Family History Family History Mother Alcohol use disorder Maternal Grandfather Alcohol use disorder Social History Social History Household Members: None Household Members Other:: roommate Housing: Apartment Do you presently have visiting nurse or other home services: No Alcohol intake: current Alcohol intake frequency: 3 or more drinks per day Alcohol type: hard liquor Comment: Reports drinking 2 pints per day Patient Tobacco Use Status: Current everyday Tobacco user Tobacco use type: Cigarette e-Cigarette/Vaping Use: Never Used Second Hand Smoke Exposure: No Substance Use Type: Marijuana Advance Directives: Yes Advance Directives on File: Yes Advance Directives Date on File: 02/11/23 Do you have a plan to hurt others: No Plan service: No Physical Exam Vital Signs: Vital Signs: Last Vital Signs Temp 97.7 F 11/02/24 11:11 Pulse 96 11/02/24 11:19 Resp 18 11/02/24 11:11 BP 107/68 11/02/24 11:19 Pulse Ox 99 11/02/24 11:11 O2 Del Method Room Air 11/02/24 11:11 BMI result Body Mass Index 30.2 Const: Other: * Gen: ?Overall well-appearing patient * HEENT: TMs are clear, boggy nasal mucosa, postnasal drip noted, uvula midline, no tonsillar exudates * Neck: Supple, no LAD * CV: RRR, no obvious murmurs appreciated, radial pulses +2 bilaterally * Resp: ?No wheezing rales rhonchi no stridor moving air well * Abd: ?Bowel sounds are present, no tenderness no rebound no rigidity * MSK: FROM, strength 5/5 all extremities, no lower extremity edema * Skin: Warm, dry, intact, * Neuro: ?Alert and oriented x3, moving upper and lower extremities symmetrically, no obvious facial asymmetry noted Medical Decision Making Medical Decision Making MDM Narrative: 12:32 PM 11/02/2024 (Dr. Matteo Vatrenko): Patient is presenting with multiple symptoms, she does have an anxious affect, she is currently alcohol free for 40 days, and has been diagnosed with PEs in September and has been consistently taking Eliquis, she is not hypoxic, she is not tachycardic, has no pleurisy to suspect worsening PE burden due to Eliquis failure, she was tachycardic during her prior presentations during P diagnosis, her physical examination noted postnasal drip with boggy nasal mucosa, I educated her regarding vaping and smoking which is contributing to this issue, we will make sure does not have ACS, pneumonia, pneumothorax, has not had any forceful vomiting to suspect Boerhaave syndrome, anxiety is a component of her presentation however she will have a cardiac workup performed as I discussed with the patient. Differential Diagnosis Differential Diagnoses: The differential diagnosis associated with the presentation includes (ACS, pneumothorax, aortic dissection, PE, Boerhaave syndrome, anxiety) Admission/Observation Consideration of admission/observation: Escalation of care including admission/observation considered Lab Data MDM Lab Attestation statement: I reviewed the patient's lab results. Independent Interpretation I performed an independent interpretation of an: EKG (82 beats per minute, otherwise normal ECG without dysrhythmia, AV jeremy blocks or ST-T changes to suspect underlying ACS, my independent interpretation) and Plain X-Ray (My independent chest xray interpretation: Lungs: Lungs are clear bilaterally without evidence of focal consolidation, pleural effusion, or pneumothorax. Cardiac silhouette is unremarkable, no obvious mediastinal widening, no obvious bony abnormalities such as fractures. Impression: Normal chest X-r) Radiology Impression Discussion of test interpretation with radiology: I have reviewed the radiolog ist's reading. Independent Historian Clinical information obtained from an independent historian. History obtained from or confirmed by: EMS Prescription Management I considered prescription management with: Antibiotic Chronic Conditions Patient?s care impacted by: Other (Alcohol use disorder) Social Determinants Patient?s care significantly limited by Social Determinants of Health including: Problems related to primary support group Discharge Plan Discharge Clinical Impression: Chest pain, precordial, Post-nasal drip Instructions: Chest Pain (ED) Additional Instructions: You had workup for her chest pain including chest x-ray, cardiac enzymes, EKG all of which has been reassuring there was no evidence for infection or stress on your heart, as discussed there are some symptoms that you reported that make me consider anxiety as part of your presentation, I would like you to follow up with the PCP, discussed with the ER presentation, your workup and determine whether you need to be scheduled for outpatient stress test or be started on medications for anxiety, in the meantime the biggest thing you can do for yourself to protect your heart is to quit vaping and quit smoking that we will decrease your chance of having a cardiac event very quickly within the 1st 24-48 hours the risks of you having a heart attack actually goes down quite significantly. Also found evidence of postnasal drip and that is likely contributing to your other nasal and headache symptoms so start with Flonase, continue with your current sobriety I am very glad this is working out well for you. And should you have any issues concerns come back to the ER Continue using your Eliquis of course and we have discussed that there is really no utility of me repeating a CAT scan as you already being managed by blood thinners for blood clots that you have had and your vital signs has been reassuring. I did not feel exposing you to additional radiation is medically necessary at this time. Prescriptions: New fluticasone propionate [Flonase Allergy Relief] 50 mcg/actuation spray,puga spension 1 spray intranasal DAILY Qty: 16 0RF Rx Instructions: administer into each nostril No Action pantoprazole 40 mg tablet,delayed release (DR/EC) 40 mg PO DAILY@0630 cetirizine [Zyrtec] 10 mg Tablet 10 mg PO DAILY PRN (Reason: allergies) clotrimazole 1 % Cream 1 appl topical BID Qty: 1 0RF Protocol: Apply to: Apply to: B feet Rx Instructions: or feet oxycodone 10 mg tablet 10 mg PO Q6H PRN (Reason: severe pain) albuterol sulfate 90 mcg/actuation HFA aerosol inhaler 1 puff INHALATION QID PRN (Reason: wheezing) hydromorphone 2 mg Tablet 1 mg PO Q6H PRN (Reason: Pain, Severe (Pain Scale 7-10)) Qty: 20 0RF Rx Instructions: Partial Fill upon patient request. Eliquis 5 mg tablet 10 mg PO BID Qty: 20 0RF Referrals: Uko-Howard,Brooklynn, [employer] DIRECTOR [Primary Care Provider, Nursing] - 2 weeks Clinical Impression: Post-nasal drip; Chest pain, precordial Print Language: Irish
[2024-11-02 12:10] LABS: MANUAL DIFF FLAG NO
[2024-11-02 12:12] LABS: Hematocrit 37.2 % (37.0-47.0); Hemoglobin 12.8 g/dl (12.0-16.0); Imm Gran Abs Auto 0.01 X10*3/uL (0.00-0.03); Imm Gran Pct Auto 0.1 % (0.0-0.4); Lymphocytes Absolute Auto 1.4 X10*3/uL (1.2-4.9); Mean Corpuscular HGB Conc 34.4 g/dl (31.0-35.0); Mean Corpuscular Hemoglobin 29.0 pg (27.0-33.0); Mean Corpuscular Volume 84.2 fL (80.0-98.0); NRBC Abs Auto 0.000 X10*3/uL (0.0-0.012); NRBC Pct Auto 0.0 /100WBC (0.0-0.2); Platelet Count 301 X10*3/uL (160-400); Red Blood Count 4.42 X10*6/uL (4.20-5.50); White Blood Count 8.5 X10*3/uL (4.8-10.8)
[2024-11-02 12:23] LABS: INTERNATIONAL NORM RATIO 1.4 (0.9-1.1); Prothrombin Time 15.7 SEC (10.9-12.4)
[2024-11-02 12:27] LABS: Alanine Aminotransferase 22 U/L (0-31); Albumin Level 4.0 g/dL (3.5-5.0); Alkaline Phosphatase 45 U/L (39-117); Aspartate Amino Transferase 21 U/L (5-31); Lipase 23 U/L (8-78); Total Protein 6.4 g/dL (6.5-8.0)
[2024-11-02 12:30] LABS: Anion Gap 9 (12-20); Blood Urea Nitrogen 12 mg/dL (9-16); Calcium 8.9 mg/dL (8.4-10.2); Carbon Dioxide 22 mmol/L (22-29); Chloride 112 mmol/L (96-108); Creatinine Clr Calc Pharmacy 110.8; Estimated Glomerular Filt Rate > 60; Potassium 4.3 mmol/L (3.3-5.1); Sodium 139 mmol/L (135-145)
[2024-11-02 12:34] LABS: Troponin-I High Sensitivity < 2.7 ng/L (<3.5-17.0)
[2024-11-02 12:40] VITALS: BP 111/55; PULSE 93; RESP 18; O2SAT 100
--- OUTSIDE RECORDS SUMMARY | 2024-11-02 13:41 | XMS_ITS | Clinical Summary ---
Author Organization [facility] Address [address] [place] [phone] Phone Care Team Providers Care Wealth Management Manager Name Role Phone Joceasher Brooklynn FLOREZ Primary Care Provider [phone] Allergies Active Allergy Reactions Criticality Noted Date Comments Adhesive 09/16/2023 Medications albuterol 90 mcg/actuation inhaler Inhale 2 puffs into the lungs every 6 (six) hours as needed for wheezing or shortness of breath/dyspnea . Active dilTIAZem (DILACOR XR) 180 mg 24 hr capsule Take 1 capsule (180 mg total) by mouth daily. 30 capsule Active Encounters Date Type Department Care Team Description 09/20/2024 7:24 PM EDT - 09/20/2024 10:40 PM EDT Emergency [facility] [address] [place] [address] Harrison Norton MD Discharge Disposition: Eloped After Being Seen By Provider from Last 3 Months Social History Tobacco [...] as food, clothing, or medical care? No 09/20/2024 In the past 12 months have y ou been in a relationship with a person who hurts, threatens, or tries to control you? No 09/20/2024 Are you denied basic needs s uch as food, clothing, or medical care? No 09/20/2024 In the past 12 months have y ou been in a relationship with a person who hurts, threatens, or tries to control you? No 09/20/2024 Comments Unknown Sex and Gender Information Value Date Recorded Sex Assigned at Female 07/14/2018 6:26 AM EDT Legal Sex Female 6:18 AM EDT Gender Identity Female 07/14/2018 6:26 AM EDT Sexual Orientation Straight 07/14/2018 6: 26 AM EDT Last Filed Vital Signs Vital Sign Reading Time Taken Comments Blood Pressure 120/92 09/20/2024 9:15 PM EDT Pulse 103 09/20/2024 9:15 PM EDT Temperature 36.7 C (98.1 F) 09/20/2024 9:15 PM EDT Respiratory Rate 16 09/20/2024 9:15 PM EDT Oxygen Saturation 100% 09/20/2024 9:15 PM EDT Inhaled Oxygen Concentration - - Weight 76.2 kg (168 lb) 09/20/2024 4:25 PM EDT Height 162.6 cm (5' 4 ) 09/20/2024 4:25 PM EDT Body Mass Index 28.84 09/20/2024 4:25 PM EDT Plan of Treatment Health Maintenance Due Date Last Done Comments Adult Td,Tdap Booster 1987 DEPRESSION SCREENING 1999 HEPATITIS C SCREENING 04/27/2005 HIV ONE-TIME SCREENING (18-6 5 YEARS) 04/27/2005 PAP SMEAR 04/27/2008 INFLUENZA VACCINE (#1) 2024 COVID-19 VACCINE (2 - 2024-2 6 season) 2024 06/11/2020 SCREENING FOR DIABETES 09/21/2027 09/20/2024 SMOKING STATUS SCREENING (On ce After 26 [...] this topic Medical Devices Not on file Procedures Procedure Name Priority Date/Time Associated Diagnosis Comments NT-PROBNP STAT 09/20/2024 7:41 PM EDT TROPONIN STAT 09/20/2024 7:41 PM EDT LIPASE STAT 09/20/2024 7:41 PM EDT MAGNESIUM STAT 09/20/2024 7:41 PM EDT LFTS (HEPATIC PANEL) STAT 09/20/2024 7:41 PM EDT BASIC METABOLIC PANEL STAT 09/20/2024 7:41 PM EDT CBC AND DIFFERENTIAL STAT 09/20/2024 7:41 PM EDT ECG 12-LEAD STAT 09/20/2024 4:22 PM EDT from Last 3 Months Results * (ABNORMAL) LFTs (hepatic panel) (09/20/2024 7:41 PM EDT) ALKALINE PHOSPHATASE 68 39 - 117 U/L [facility] TOTAL BILIRUBIN 0.7 0.0 - 1.2 mg/dL [facility] DIRECT BILIRUBIN 0.2 0.0 - 0.2 mg/dL [facility] Bilirubin (Indirect) 0.5 0 - 1.5 mg/dL [facility] AST 28 0 - 37 U/L [facility] ALT 29 0 - 40 U/L [facility] TOTAL PROTEIN 8.4(H) 6.5 - 8.0 g/dL [facility] ALBUMIN 4.8 3.9 - 4.8 g/dL [facility] GLOBULIN 3.6 1 - 4.8 g/dL [facility] A/G Ratio 1.33 1.00 - 4.80 RATIO [facility] Blood 09/20/2024 7:41 PM EDT 09/20/2024 7:55 PM EDT us Harrison Norton MD LAB BLOOD ORDERABLES Final Resul t [facility] [address] [place] [address] * (ABNORMAL) CBC and differential (09/20/2024 7:41 PM EDT) WBC 7.67 4.00 - 11.00 K/uL [facility] RBC 5.04 4.00 - 5.20 M/uL [facility] HGB 14.4 12.0 - 16.0 g/dL [facility] HCT 44.1 36.0 - 46.0 % [facility] PLT 401 150 - 450 K/uL [facility] MCV 87.5 80.0 - 100.0 fL [facility] MCH 28.6 27.0 - 31.0 pg [facility] MCHC 32.7 32.0 - 36.0 g/dL [facility] RDW 14.0 11.5 - 14.5 % [facility] MPV 8.9 8.4 - 12.0 fL [facility] NRBC 0.00 0.00 /100 WBCs [facility] ABSOLUTE NRBC 0.00 0.00 K/uL [facility] DIFF METHOD Auto [facility] NEUTS 75.3 48.0 - 76.0 % [facility] LYMPHS 15.4(L) 18.0 - 41.0 % [facility] MONOS 5.3 4.0 - 11.0 % [facility] EOS 2.5 0.0 - 5.0 % [facility] BASOS 1.2 0.0 - 1.5 % [facility] Granulocytes, immature (%) 0.3 0.0 - 0.9 % [facility] ABSOLUTE NEUTS 5.78 1.92 - 7.60 K/uL [facility] ABSOLUTE LYMPHS 1.18 0.72 - 4.10 K/uL [facility] ABSOLUTE MONOS 0.41 0.16 - 1.10 K/uL [facility] ABSOLUTE EOS 0.19 0.00 - 0.50 K/uL [facility] ABSOLUTE BASOS 0.09 0.00 - 0.15 K/uL [facility] Granulocytes, immature 0.02 0.00 - 0.09 K/uL [facility] Blood 09/20/2024 7:41 PM EDT 09/20/2024 7:55 PM EDT us Harrison Norton MD LAB BLOOD ORDERABLES Final Resul t Performing Organization Address [facility] Co de Phone Number [address] [address] * Troponin (09/20/2024 7:41 PM EDT) Troponin-T, HS Gen5 7 0 - 9 ng/L [facility] Blood 09/20/2024 7:41 PM EDT 09/20/2024 7:55 PM EDT us Harrison Norton MD LAB BLOOD ORDERABLES Final Resul t Performing Organization Address [facility] Co de Phone Number [address] [address] * (ABNORMAL) NT-proBNP (09/20/2024 7:41 PM EDT) NT-PROBNP 161(H) 0 - 125 pg/mL [facility] Blood 09/20/2024 7:41 PM EDT 09/20/2024 7:55 PM EDT us Harrison Norton MD LAB BLOOD ORDERABLES Final Resul t Performing Organization Address [facility] Co de Phone Number [address] [address] * Magnesium (09/20/2024 7:41 PM EDT) MAGNESIUM 2.1 1.6 - 2.6 mg/dL [facility] Blood 09/20/2024 7:41 PM EDT 09/20/2024 7:55 PM EDT us Harrison Norton MD LAB BLOOD ORDERABLES Final Resul t Performing Organization Address [facility] Co de Phone Number [address] [address] * Lipase (09/20/2024 7:41 PM EDT) LIPASE 47 16 - 63 U/L [facility] Blood 09/20/2024 7:41 PM EDT 09/20/2024 7:55 PM EDT us Harrison Norton MD LAB BLOOD ORDERABLES Final Resul t Performing Organization Address [facility] de Phone Number [address] [address] * (ABNORMAL) Basic metabolic panel (09/20/2024 7:41 PM EDT) Pathologist [facility] SODIUM 138 133 - 146 mmol/L [facility] CHLORIDE 98 96 - 108 mmol/L [facility] POTASSIUM 3.9 3.3 - 5.1 mmol/L [facility] CO2 19(L) 21 - 35 mmol/L [facility] BUN 12 6 - 19 mg/dL [facility] CREATININE 0.70 0.5 - 1.5 mg/dL [facility] GLUCOSE 94 70 - 99 mg/dL [facility] CALCIUM 10.6(H) 8.4 - 10.3 mg/dL [facility] EGFR 114 >59 mL/min/1.7 3m2 [facility] Comment:Estimated glomerular filtration rate calculated using the CKD-EPI refit equation. ANION GAP 25(H) 10 - 20 mmol/L [facility] Blood 09/20/2024 7:41 PM EDT 09/20/2024 7:55 PM EDT us Harrison Norton MD LAB BLOOD ORDERABLES Final Resul t [address] [address] * ECG 12-LEAD (09/20/2024 4:22 PM EDT) Ventricular Rate EKG/MIN 106 BPM [facility] Atrial Rate 106 BPM [facility] WA Interval 134 ms [facility] QRS Duration 84 ms [facility] QT Interval 354 ms [facility] QTC Interval 470 ms [facility] P [place] 22 degrees [facility] R Wave [place] 11 degrees [facility] T Wave [place] 3 degrees [facility] 09/20/2024 4:22 PM EDT 09/21/2024 2:09 PM EDT Narrative [facility] - 09/21/2024 2:09 PM EDT Sinus tachycardia Otherwise normal ECG When compared with ECG of 17-Sep-2023 01:56, QT has lengthened Confirmed by Daniel HORNER ([id number]) on 09/21/2024 2:09:44 PM us Doni Castellanos MD ECG ORDERABLES Final Res ult [facility] from Last 3 Months Care Teams Wealth Management Manager Relationship Specialty Start Date End Date Brooklynn Hunter NP [address] [place] [address] [email or web address] PCP - General Nurse Practitioner 09/16/23 Additional Source Comments The information contained in this document represents components of the legal health record. It is not the complete legal health record.[facility]
[2024-11-02 13:57] VITALS: BP 100/54; PULSE 91; RESP 12; O2SAT 98
[2024-11-02 15:29] LABS: Troponin-I High Sensitivity < 2.7 ng/L (<3.5-17.0)
[2024-11-02 15:53] VITALS: BP 100/54; PULSE 91; RESP 12; TEMP 36.2; O2SAT 98
== END 2024-11-02 15:57 | disposition home or self-care (01) ==
PROVIDERS: Emergency Provider Emergency Medicine; PCP Nurse Practitioner Family
DX: R07.2 Precordial pain (principal); R09.82 Postnasal drip; F41.9 Anxiety disorder, unspecified; Z86.711 Personal history of pulmonary embolism; Z79.01 Long term (current) use of anticoagulants
CPT/HCPCS: 36415; 71046; 80048; 80076; 83690; 84484; 85025; 85610; 93005; 99284

== ENCOUNTER → 2024-11-02 11:22 | Outpatient (BNV) | payer OTHER, SELFPAY | PROVIDERS: Emergency Provider Emergency Medicine; PCP Nurse Practitioner Family; Visit Provider Internal Medicine Cardiovascular Disease | DX: R07.89 Other chest pain (principal) | CPT/HCPCS: 93010 ==

== ENCOUNTER → 2024-11-02 12:28 | Outpatient (BNV) | payer OTHER, SELFPAY | PROVIDERS: Emergency Provider Emergency Medicine; PCP Nurse Practitioner Family; Visit Provider Radiology Diagnostic Radiology | DX: R07.89 Other chest pain (principal) | CPT/HCPCS: 71046 ==

== ENCOUNTER 2024-11-06 15:50 | Outpatient (AMB) | payer OTHER, SELFPAY ==
--- NOTE | 2024-11-06 15:51 | MHC.OFFVIS ---
Intake Visit Reasons: ultrasound results Allergies adhesive Adverse Reaction (Verified 11/02/24 11:18) Hives HPI Comments Details: The patient is schedule telehealth visit regarding ultrasound done in 07/31 which showed the following;' Uterus: The uterus is anteverted, anteflexed, and measures 7.2 x 2.7 x 3.7 cm. The cervix is sonographically normal in appearance. The double wall endometrial thickness is 2 mm. IUD is seen in place in correct position. The uterus is smooth in contour and has normal myometrial echogenicity. No visible fibroid. Adnexa: Both ovaries are visualized. There is normal color flow to the adnexa. There is no ovarian torsion. There is no pelvic ascites or fluid collection. Right ovary measures 1.9 x 2.3 x 1.4 cm. Volume = 3.2 mL. Normal sonographic appearance. Left ovary measures 5.4 x 5.4 x 4.5 cm cm. Volume = 6.8 mL. There is a 4.1 x 4.4 x 3.5 cm minimally complex ovarian cyst, with a solitary thin septation, previously slightly more complex and likely a resolving hemorrhagic cyst. There was a second cyst previously present, which appears to have completely resolved. In addition the patient is overdue for IUD removal and insertion was inserted more than 8 years ago [facility] Medical History IUD check up Alcohol use disorder, severe, dependence Presence of Mirena IUD MDD (major depressive disorder), recurrent episode, moderate Asthma Anxiety and depression Tachycardia Alcohol withdrawal Family History Mother Alcohol use disorder Maternal Grandfather Alcohol use disorder Social History Household Members: None Household Members Other:: roommate Housing: Apartment Do you presently have visiting nurse or other home services: No Alcohol intake: current Alcohol intake frequency: 3 or more drinks per day Alcohol type: hard liquor Comment: Reports drinking 2 pints per day Patient Tobacco Use Status: Current everyday Tobacco user Tobacco use type: Cigarette e-Cigarette/Vaping Use: Never Used Second Hand Smoke Exposure: No Substance Use Type: Marijuana Advance Directives Date on File: 02/11/23 service: No Review of Systems Const All systems reviewed & are unremarkable except as noted in HPI and below Reports as per HPI and Reports no additional complaints GI Reports no additional complaints Reports no additional complaints Telehealth Telehealth Telehealth Platform: [facility] Location of provider rendering services: practice address Location of patient: address on file Patient Identification confirmed using: Name, : Yes Telehealth method: video Patient verbally consented to treatment: Yes Patient verbally consented to billing insurance company: Yes Patient informed of any privacy concerns related to visit: Yes Minutes spent on Phone/Video with Pt.: 3 Assessment & Plan Assessment & Plan (1) Complex ovarian cyst: Code(s): N83.299 - Other ovarian cyst, unspecified side Category: Medical Plan: Discussed with the patient the finding on ultrasound done in 08/01, complex ovarian cyst, differential diagnosis discussed with the patient include but not limited to benign, premalignant or malignant. Since last ultrasound was done three-month ago, ultrasound of the pelvis ordered, instructions given the patient to schedule an ultrasound and a follow-up appointment within 2 weeks. (2) Presence of Mirena IUD: Code(s): Z97.5 - Presence of (intrauterine) contraceptive device Category: Medical Plan: Instructions given the patient to schedule an appointment for Mirena IUD removal and reinsertion. In addition to an annual exam. All questions answered, the patient verbalized understanding I spent a total of 20 minutes reviewing the chart, talking to the patient via video and documenting in the medical record. Orders: Orders US pelvic and transvaginal 3 Months N83.299 - Other ovarian cyst, unspecified side Coding Level of Care Code Tele Est Pt Level 3 (25888) Diagnoses Complex ovarian cyst N83.299 Presence of Mirena IUD Z97.5
--- OUTSIDE RECORDS SUMMARY | 2024-11-06 17:00 | XMS_ITS | Clinical Summary ---
Author Organization [facility] Address [address] [place] [id number] Phone Care Team Providers Care Mesh Worker Name Role Phone Joceasher Brooklynn FLOREZ Primary Care Provider [phone] Allergies Active Allergy Reactions Criticality Noted Date [...] 10:40 PM EDT Emergency [facility] [address] [place] [address] Harrison Norton MD Discharge Disposition: Eloped After [...] ALKALINE PHOSPHATASE 68 39 - 117 U/L [facility] TOTAL BILIRUBIN 0.7 0.0 - 1.2 mg/dL [facility] DIRECT BILIRUBIN 0.2 0.0 - 0.2 mg/dL [facility] Bilirubin (Indirect) 0.5 0 - 1.5 mg/dL [facility] AST 28 0 - 37 U/L [facility] ALT 29 0 - 40 U/L [facility] TOTAL PROTEIN 8.4(H) 6.5 - 8.0 g/dL [facility] ALBUMIN 4.8 3.9 - 4.8 g/dL [facility] GLOBULIN 3.6 1 - 4.8 g/dL [facility] A/G Ratio 1.33 1.00 - 4.80 RATIO [facility] Blood 09/20/2024 7:41 PM EDT 09/20/2024 7:55 PM EDT us Harrison Norton MD LAB BLOOD ORDERABLES Final Resul t [facility] [address] [place] [address] * (ABNORMAL) CBC and differential (09/20/2024 7:41 PM EDT) WBC 7.67 4.00 - 11.00 K/uL [facility] RBC 5.04 4.00 - 5.20 M/uL [facility] HGB 14.4 12.0 - 16.0 g/dL [facility] HCT 44.1 36.0 - 46.0 % [facility] PLT 401 150 - 450 K/uL [facility] MCV 87.5 80.0 - 100.0 fL [facility] MCH 28.6 27.0 - 31.0 pg [facility] MCHC 32.7 32.0 - 36.0 g/dL [facility] RDW 14.0 11.5 - 14.5 % [facility] MPV 8.9 8.4 - 12.0 fL [facility] NRBC 0.00 0.00 /100 WBCs [facility] ABSOLUTE NRBC 0.00 0.00 K/uL [facility] DIFF METHOD Auto [facility] NEUTS 75.3 48.0 - 76.0 % [facility] LYMPHS 15.4(L) 18.0 - 41.0 % [facility] MONOS 5.3 4.0 - 11.0 % [facility] EOS 2.5 0.0 - 5.0 % [facility] BASOS 1.2 0.0 - 1.5 % [facility] Granulocytes, immature (%) 0.3 0.0 - 0.9 % [facility] ABSOLUTE NEUTS 5.78 1.92 - 7.60 K/uL [facility] ABSOLUTE LYMPHS 1.18 0.72 - 4.10 K/uL [facility] ABSOLUTE MONOS 0.41 0.16 - 1.10 K/uL [facility] ABSOLUTE EOS 0.19 0.00 - 0.50 K/uL [facility] ABSOLUTE BASOS 0.09 0.00 - 0.15 K/uL [facility] Granulocytes, immature 0.02 0.00 - 0.09 K/uL [facility] Blood 09/20/2024 7:41 PM EDT 09/20/2024 7:55 PM EDT us Harrison Norton MD LAB BLOOD ORDERABLES Final Resul t Performing Organization Address [facility] Co de Phone Number [address] [address] * Troponin (09/20/2024 7:41 PM EDT) Troponin-T, HS Gen5 7 0 - 9 ng/L [facility] Blood 09/20/2024 7:41 PM EDT 09/20/2024 7:55 PM EDT us Harrison Norton MD LAB BLOOD ORDERABLES Final Resul t Performing Organization Address [facility] Co de Phone Number [address] [address] * (ABNORMAL) NT-proBNP (09/20/2024 7:41 PM EDT) NT-PROBNP 161(H) 0 - 125 pg/mL [facility] Blood 09/20/2024 7:41 PM EDT 09/20/2024 7:55 PM EDT us Harrison Norton MD LAB BLOOD ORDERABLES Final Resul t Performing Organization Address [facility] Co de Phone Number [address] [address] * Magnesium (09/20/2024 7:41 PM EDT) MAGNESIUM 2.1 1.6 - 2.6 mg/dL [facility] Blood 09/20/2024 7:41 PM EDT 09/20/2024 7:55 PM EDT us Harrison Norton MD LAB BLOOD ORDERABLES Final Resul t Performing Organization Address [facility] Co de Phone Number [address] [address] * Lipase (09/20/2024 7:41 PM EDT) LIPASE 47 16 - 63 U/L [facility] Blood 09/20/2024 7:41 PM EDT 09/20/2024 7:55 PM EDT us Harrison Norton MD LAB BLOOD ORDERABLES Final Resul t Performing Organization Address [facility] de Phone Number [address] [address] * (ABNORMAL) Basic metabolic panel (09/20/2024 7:41 PM EDT) Pathologist [facility] SODIUM 138 133 - 146 mmol/L [facility] CHLORIDE 98 96 - 108 mmol/L [facility] POTASSIUM 3.9 3.3 - 5.1 mmol/L [facility] CO2 19(L) 21 - 35 mmol/L [facility] BUN 12 6 - 19 mg/dL [facility] CREATININE 0.70 0.5 - 1.5 mg/dL [facility] GLUCOSE 94 70 - 99 mg/dL [facility] CALCIUM 10.6(H) 8.4 - 10.3 mg/dL [facility] EGFR 114 >59 mL/min/1.7 3m2 [facility] Comment:Estimated glomerular filtration rate calculated using the CKD-EPI refit equation. ANION GAP 25(H) 10 - 20 mmol/L [facility] Blood 09/20/2024 7:41 PM EDT 09/20/2024 7:55 PM EDT us Harrison Norton MD LAB BLOOD ORDERABLES Final Resul t [address] [address] * ECG 12-LEAD (09/20/2024 4:22 PM EDT) Ventricular Rate EKG/MIN 106 BPM [facility] Atrial Rate 106 BPM [facility] GA Interval 134 ms [facility] QRS Duration 84 ms [facility] QT Interval 354 ms [facility] QTC Interval 470 ms [facility] P [place] 22 degrees [facility] R Wave [place] 11 degrees [facility] T Wave [place] 3 degrees [facility] 09/20/2024 4:22 PM EDT 09/21/2024 2:09 PM EDT Narrative [facility] - 09/21/2024 2:09 PM EDT Sinus tachycardia Otherwise normal ECG When compared with ECG of 17-Sep-2023 01:56, QT has lengthened Confirmed by Daniel HORNER ([id number]) on 09/21/2024 2:09:44 PM us Doni Castellanos MD ECG ORDERABLES Final Res ult [facility] from Last 3 Months Care Teams Mesh Worker Relationship Specialty Start Date End Date Brooklynn Hunter NP [address] [place] [address] [email or web address] PCP - General Nurse Practitioner 09/16/23 Additional Source Comments The information contained in this document represents components of the legal health record. It is not the complete legal health record.[facility]
== END 2024-11-08 13:43 | disposition home or self-care (01) ==
LOC: HO.HWS 15:50
PROVIDERS: PCP Nurse Practitioner Family; Visit Provider Obstetrics & Gynecology
DX: N83.299 Other ovarian cyst, unspecified side (principal); Z97.5 Presence of (intrauterine) contraceptive device
CPT/HCPCS: 99213